=== PATIENT | male | born 1940 | race Caucasian/White ===

== ENCOUNTER 2016-07-29 10:15 | Emergency (ER) | payer MEDICARE, OTHER ==
[~2016-07-29] VITALS: Ht 162.6 cm; Wt 62.0 kg
[~2016-07-29 10:15] MED LIST: FURO20 PO; ISOS60 PO; LISI5 PO; MECL-62 PO; PROT40TA PO; RIVA20 PO; ULTR50TA PO
[2016-07-29 10:23] VITALS: BP 125/68; PULSE 54; RESP 18; TEMP 97.8; O2SAT 97
[2016-07-29] MEDS ORDERED: ONDANSETRON HCL 4 MG/2 ML VIAL IV PUSH ONE (10:30)
[2016-07-29] MEDS ORDERED: LISI2.5T3 PO (10:34)
[2016-07-29] MEDS ORDERED: XARE20TA PO (10:34)
[2016-07-29] MEDS ORDERED: TRAM50TA PO (10:34)
[2016-07-29] MEDS ORDERED: OMEP40CA2 PO (10:34)
[2016-07-29] MEDS ORDERED: CLON1TAB PO (10:34)
[2016-07-29] MEDS ORDERED: FURO20TA PO (10:34)
[2016-07-29 10:58] LABS: BASOPHIL # 0.1 TH/MM3 (0-0.2); BASOPHIL % 1.4 % (0.0-2.0); EOSINOPHIL # 0.2 TH/MM3 (0-0.4); EOSINOPHIL % 2.9 % (0.0-4.0); HEMATOCRIT 34.6 % (39.0-51.0); HEMO FLAGS DIFF FINAL; LYMPH % 13.9 % (9.0-44.0); LYMPHOCYTE # 0.8 TH/MM3 (1.0-4.8); MEAN CELL VOLUME 82.7 FL (80.0-100.0); MEAN CORPUSCULAR HEMOGLOBIN 26.9 PG (27.0-34.0); MEAN CORPUSCULAR HGB CONC 32.5 % (32.0-36.0); MONO % 9.7 % (0.0-8.0); NEUT % 72.1 % (16.0-70.0); PLATELET COUNT 277 TH/MM3 (150-450); RED BLOOD COUNT 4.18 MIL/MM3 (4.50-5.90); WHITE BLOOD COUNT 5.6 TH/MM3 (4.0-11.0)
[2016-07-29 11:09] LABS: APTT (PATIENT) 35.9 SEC (24.3-30.1); INTERNATIONAL NORMALIZED RATIO 1.6 RATIO; PROTHROMBIN TIME - PATIENT 17.8 SEC (9.8-11.6)
--- NOTE | 2016-07-29 11:18 | RADRPT ---
EXAM DATE/TIME: 07/29/2016 11:10 [facility] COMPARISON: CT BRAIN W/O CONTRAST, November 04, 2015, 19:11. INDICATIONS : Cephalgia. RADIATION DOSE: 45.10 CTDIvol (mGy) MEDICAL HISTORY : Cardiovascular disease. Hypertension. Lymphoma.CVA. SURGICAL HISTORY : Pacemaker. ENCOUNTER: Initial ACUITY: 1 day PAIN SCALE: 3/10 LOCATION: cranial TECHNIQUE: Multiple contiguous axial images were obtained of the head. Using automated exposure control and adjustment of the mA and/or kV according to patient size, radiation dose was kept as low as reasonably achievable to obtain optimal diagnostic quality images. FINDINGS: CEREBRUM: The ventricles are normal for age. No evidence of midline shift, mass lesion, hemorrha ge or acute infarction. No extra-axial fluid collections are seen. POSTERIOR FOSSA: The cerebellum and brainstem are intact. The 4th ventricle is midline. The cer ebellopontine angle is unremarkable. EXTRACRANIAL: The visualized portion of the orbits is intact. SKULL: The calvaria is intact. No evidence of skull fracture. CONCLUSION: Negative for an acute process Pranav Aceves MD FACR on July 29, 2016 at 11:16 Board Certified Radiologist. This report was verified electronically.
[2016-07-29 11:25] VITALS: BP 146/63; PULSE 53; RESP 18; O2SAT 95
[2016-07-29 11:25] LABS: ALT (GPT) 14 U/L (12-78); ANION GAP 5 MEQ/L (5-15); AST (GOT) 13 U/L (15-37); BICARBONATE 27.3 MEQ/L (21.0-32.0); BLOOD UREA NITROGEN 12 MG/DL (7-18); CHLORIDE 110 MEQ/L (98-107); GLOMERULAR FILTRATION RATE 68 ML/MIN (>89); MAGNESIUM 2.2 MG/DL (1.5-2.5); POTASSIUM 3.8 MEQ/L (3.5-5.1); SODIUM (NA) 142 MEQ/L (136-145)
[2016-07-29 11:29] LABS: ALKALINE PHOSPHATASE 95 U/L (45-117); TOTAL BILIRUBIN ADULT 0.9 MG/DL (0.2-1.0)
--- NOTE | 2016-07-29 11:42 | RADRPT ---
EXAM DATE/TIME: 07/29/2016 10:59 [facility] COMPARISON: No previous studies available for comparison. INDICATIONS : Short of breath. MEDICAL HISTORY : Cardiovascular disease. SURGICAL HISTORY : Pacemaker. Coronary artery stent. ENCOUNTER: Initial ACUITY: 3 days PAIN SCORE: 0/10 LOCATION: Bilateral chest FINDINGS: Pacemaker is implanted in the left chest without pneumothorax. There is compensated cardiomegaly wit hout overt congestive failure. There is no pneumothorax, or parenchymal infiltrates. Moderate degenerative changes of the thoracic spine CONCLUSION: 1. Mild hyperinflation with pacemaker. 2. There is no congestive failure. 3. Compensated cardiomegaly. Pranav Aceves MD FACR on July 29, 2016 at 11:17 Board Certified Radiologist. This report was verified electronically.
--- NOTE | 2016-07-29 12:53 | PD ---
HPI Chief Complaint: General Weakness Time Seen by Provider: 10:27 Travel History International Travel<30 days: No Contact w/Intl Traveler<30days: No Traveled to known affect area: No History of Present Illness HPI Patient is a 75 year old male BIBEMS due to weakness and a headache. Per patient he had a severe headache earlier today and he took a baby aspirin which has resolved his headache. He says he feels tired, but has not had chest pain. He denies any shortness of breath. He denies any complaints at this time. PFSH Past Medical History Arthritis: Yes (FINGERS) Asthma: No Autoimmune Disease: No Blood Disorders: No Anxiety: No Depression: No Heart Rhythm Problems: Yes Cancer: Yes (LYMPHOMA 2009) Cardiac Catheterization: Yes Cardiomyopathy: Yes (20% EJECTION FRACTURE) Cardiovascular Problems: Yes High Cholesterol: No Chemotherapy: Yes Chest Pain: Yes Congestive Heart Failure: Yes COPD: No Cerebrovascular Accident: Yes Coronary Artery Disease: Yes Diabetes: No Diminished Hearing: Yes Endocrine: No Gastrointestinal Disorders: Yes (GI BLEED WITH POLYPS) GERD: Yes Glaucoma: No Genitourinary: No Headaches: No Hepatitis: No Hiatal Hernia: No Heparin Induced Thrombocytopen: No Hypertension: Yes Immune Disorder: No Inguinal Hernia: Yes Implanted Vascular Access Dvce: Yes Kidney Stones: No Musculoskeletal: Yes (RIGHT KNEE BONE SPUR) Neurologic: Yes Psychiatric: No Reproductive: No Respiratory: Yes Immunizations Current: Yes Migraines: No Myocardial Infarction: Yes (X2) Radiation Therapy: No Renal Failure: No Seizures: No Sickle Cell Disease: No Sleep Apnea: No Thyroid Disease: No Ulcer: No PNEUMOCCOCAL Vaccine (Year): 1 Past Surgical History Abdominal Surgery: Yes AICD: Yes (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(GUIDANT) AICD MODEL 1860 DONE 2009, REPLACED 2011) Appendectomy: No Arteriovenous Shunt: No Body Medical Devices: PACEMAKER, AICD, STENTS x5 Cardiac Surgery: Yes (DEFIBRILLATOR 2002, REPLACEMENT OF DEFIB 2011 ) Cholecystectomy: Yes (1981) Coronary Artery Bypass Graft: No Coronary Stent: Yes (5 STENTS) Ear Surgery: No Endocrine Surgery: Yes (GALLSTONE REMOVAL ) Eye Surgery: No Genitourinary Surgery: No Gynecologic Surgery: No Insulin Pump: No Joint Replacement: No Neurologic Surgery: No Oral Surgery: Yes (TEETH PULLED) Pacemaker: No Thoracic Surgery: No Other Surgery: Yes (AICD) Social History Alcohol Use: No Tobacco Use: No (06/27 PPD) Substance Use: No Allergies-Medications (Allergen,Severity, Reaction): Coded Allergies: Codeine (Verified Allergy, Severe, SWELLING, 03/28/15) Penicillin (Verified Allergy, Severe, HIVES, 03/28/15) MRI PRECAUTION (Verified Adverse Reaction, Severe, pacemaker, 03/28/15) Reported Meds & Prescriptions Reported Meds & Active Scripts Active Reported Lisinopril 2.5 Mg Tab 2.5 Mg PO DAILY Omeprazole 40 Mg Cap 40 Mg PO DAILY Clonazepam 1 Mg Tab 1 Mg PO HS Tramadol (Tramadol HCl) 50 Mg Tab 50 Mg PO Q4H PRN Xarelto (Rivaroxaban) 20 Mg Tab 20 Mg PO DAILY Furosemide 20 Mg Tab 20 Mg PO BID Review of Systems Except as stated in HPI: all other systems reviewed are Neg General / Constitutional: No: Fever, Chills Eyes: No: Blurred Vision HENT: Positive: Headaches Cardiovascular: No: Chest Pain or Discomfort Respiratory: No: Shortness of Breath Gastrointestinal: No: Nausea, Vomiting Musculoskeletal: No: Myalgias, Edema Skin: No Change in Pigmentation Neurologic: No: Dizziness, Syncope Physical Exam Narrative GENERAL: Awake and alert in no acute distress. SKIN: Warm and dry. HEAD: Atraumatic. Normocephalic. EYES: Pupils equal and round. No scleral icterus. ENT: Mucous membranes pink and moist. NECK: Trachea midline. No JVD. CARDIOVASCULAR: Bradycardia No murmur appreciated. RESPIRATORY: No accessory muscle use. Clear to auscultation. Breath sounds equal bilaterally. GASTROINTESTINAL: Abdomen soft, non-tender, nondistended. MUSCULOSKELETAL: No obvious deformities. No clubbing. No cyanosis. No edema. NEUROLOGICAL: Awake and alert. No obvious cranial nerve deficits. Motor grossly within normal limits. Normal speech. PSYCHIATRIC: Appropriate mood and affect; insight and judgment normal. Data Data Last Documented VS Vital Signs Date Time Temp Pulse Resp B/P Pulse Ox O2 Delivery O2 Flow Rate FiO2 07/29/16 11:25 53 18 146/63 95 Nasal Cannula 2 07/29/16 10:23 97.8 Orders Electrocardiogram (07/29/16 ) Complete Blood Count With Diff (07/29/16 10:27) Comprehensive Metabolic Panel (07/29/16 10:27) Troponin I (07/29/16 10:27) Prothrombin Time / Inr (Pt) (07/29/16 10:27) Act Partial Throm Time (Ptt) (07/29/16 10:27) Magnesium (Mg) (07/29/16 10:27) Ct Brain W/O Iv Contrast(Rout) (07/29/16 ) Chest, Pa & Lat (07/29/16 ) Ondansetron Inj (Zofran Inj) (07/29/16 10:30) Labs Laboratory Tests Test 07/29/16 10:39 White Blood Count 5.6 TH/MM3 Red Blood Count 4.18 MIL/MM3 Hemoglobin 11.2 GM/DL Hematocrit 34.6 % Mean Corpuscular Volume 82.7 FL Mean Corpuscular Hemoglobin 26.9 PG Mean Corpuscular Hemoglobin 32.5 % Concent Red Cell Distribution Width 16.0 % Platelet Count 277 TH/MM3 Mean Platelet Volume 8.6 FL Neutrophils (%) (Auto) 72.1 % Lymphocytes (%) (Auto) 13.9 % Monocytes (%) (Auto) 9.7 % Eosinophils (%) (Auto) 2.9 % Basophils (%) (Auto) 1.4 % Neutrophils # (Auto) 4.0 TH/MM3 Lymphocytes # (Auto) 0.8 TH/MM3 Monocytes # (Auto) 0.5 TH/MM3 Eosinophils # (Auto) 0.2 TH/MM3 Basophils # (Auto) 0.1 TH/MM3 CBC Comment DIFF FINAL Differential Comment Prothrombin Time 17.8 SEC Prothromb Time International 1.6 RATIO Ratio Activated Partial 35.9 SEC Thromboplast Time Sodium Level 142 MEQ/L Potassium Level 3.8 MEQ/L Chloride Level 110 MEQ/L Carbon Dioxide Level 27.3 MEQ/L Anion Gap 5 MEQ/L Blood Urea Nitrogen 12 MG/DL Creatinine 1.05 MG/DL Estimat Glomerular Filtration 68 ML/MIN Rate Random Glucose 105 MG/DL Calcium Level 8.4 MG/DL Magnesium Level 2.2 MG/DL Total Bilirubin 0.9 MG/DL Aspartate Amino Transf 13 U/L (AST/SGOT) Alanine Aminotransferase 14 U/L (ALT/SGPT) Alkaline Phosphatase 95 U/L Troponin I LESS THAN 0.02 NG/ML Total Protein 6.8 GM/DL Albumin 3.3 GM/DL [facility] Medical Decision Making Medical Screen Exam Complete: Yes Emergency Medical Condition: Yes Medical Record Reviewed: Yes Interpretation(s) ECG shows sinus bradycardia, no ST elevation or depression. Differential Diagnosis ICH vs electrolyte abnormalities vs dehydration vs anemia vs bradycardia Narrative Course Patient is a 75 year old male BIBEMS for headache and generalized weakness. Currently patient has no complaints. Exam shows bradycardia, no neurologic abnormalities. IV established, labs sent. Patient connected to the tank builder helper. Labs show no acute abnormalities. CT head shows no acute abnormalities. CXR shows no active disease. Patient's wants him admitted as she is concerned he may have a mini stroke. Patient has no neurologic deficit since being here and does not report any at home. He is awake and oriented times 3. He says he feels fine and he wants to go home. He insists on going home and says he will not stay. I tried to discuss his 's concerns with him, but he states he absolutely will not stay. He is fully alert and oriented and able to make his own decisions, therefore, I cannot keep him against his will. Patient will be discharged home. Advised to follow up with his doctors. Advised to return at any time for any worsening symptoms. Diagnosis Primary Impression: Headache Qualified Code: R51 - Acute nonintractable headache, unspecified headache type Additional Impression: Weakness Patient Instructions: Acute Headache (ED), General Instructions, Weakness (ED) Additional Instructions: Make sure you follow up with your doctors. Return to the ED as needed for any worsening symptoms. Disposition: 01 DISCHARGE HOME Condition: Stable Lyn Gomez MD Jul 29, 2016 12:53
--- NOTE | 2016-07-29 14:51 | EKG ---
Date Performed: 07/29/2016 Time Performed: 10:24:10 PTAGE: 75 years EKG: ATRIAL FIBRILLATION WITH SLOW VENTRICULAR RESPONSE INDETERMINATE AXIS SEPTAL MYOCARDIAL INF ARCTION LATERAL MYOCARDIAL INFARCTION Compared to previous tracing the patient has developed atrial f ibrillation with slow v. response. There is no longer evidence of pacemaker activity and PVCs have re solved ABNORMAL ECG PREVIOUS TRACING : 11/04/15 DOCTOR: Jo Muir Interpretating Date/Time 07/29/2016 14:49:31
[2016-10-11] MEDS ORDERED: COUM2TAB PO ×2 (09:58→10:03)
[2016-10-11] MEDS ORDERED: FURO20TA PO (09:58)
[2016-10-11] MEDS ORDERED: PANT40TA3 PO (09:58)
[2016-10-11] MEDS ORDERED: ACET325T PO (09:58)
[2016-10-11] MEDS ORDERED: MUCI600T PO (09:58)
[2016-10-11] MEDS ORDERED: POTA-88 PO (09:58)
[2016-10-11] MEDS ORDERED: CLON.5 PO (11:04)
== END 2016-07-29 13:30 | disposition home or self-care (01) ==
LOC: NEPC 10:15
DX: R51 Headache (principal); R53.1 Weakness; I50.9 Heart failure, unspecified; I48.91 Unspecified atrial fibrillation; I25.10 Atherosclerotic heart disease of native coronary artery without angina pectoris; I10 Essential (primary) hypertension; I25.2 Old myocardial infarction; F17.210 Nicotine dependence, cigarettes, uncomplicated
CPT/HCPCS: 70450; 71020; 80053; 83735; 84484; 85025; 85610; 85730; 93005; 96374; 99285; J2405

== ENCOUNTER 2016-09-22 12:08 | Inpatient (IN) | payer MEDICARE, OTHER ==
[2016-09-22] VITALS (13 sets, daily range): BP systolic 100–175; BP diastolic 50–106; PULSE 59–79; RESP 14–20; TEMP 97.9–98.8; O2SAT 98–100
[~2016-09-22 12:08] MED LIST changes: +CLON1TAB PO; -FURO20 PO; +FURO20TA PO; -ISOS60 PO; +LISI2.5T3 PO; -LISI5 PO; -MECL-62 PO; +OMEP40CA2 PO; -PROT40TA PO; -RIVA20 PO; +TRAM50TA PO; -ULTR50TA PO; +XARE20TA PO
[2016-09-22] MEDS ORDERED: SODIUM CHLOR 0.9% 1000 ML INJ 1,000 ML IV ONE (12:12)
--- NOTE | 2016-09-22 12:12 | PD ---
HPI Chief Complaint: Stroke Alert Time Seen by Provider: 12:12 Travel History International Travel<30 days: No Contact w/Intl Traveler<30days: No Traveled to known affect area: No History of Present Illness HPI 76-year-old male came to the emergency room brought by EMS for being unresponsive and posturing. He was called in as a stroke alert by EMS. Patient was with his at the restaurant when apparently he told his that he was not feeling well and went to the restroom. When he did not come out she went after him and found him unresponsive on the floor and called 911. This was around 11:45 AM. EMS found him with a GCS of 3 and gazing to the left and posturing. Brought him being assisted ventilated by BVM. Patient is on Xarelto possibly for atrial fibrillation since he was in A. fib on the manager monitoring. Patient is unable to give any meaningful history given his condition. I decided to intubate him as soon as he arrived. There was no family member at the time when patient arrived to give any other history. [facility] Past Medical History Narrative Medical List of his past medical, surgical, social and family history was reviewed from the nursing note. Arthritis: Yes (FINGERS) Asthma: No Autoimmune Disease: No Blood Disorders: No Anxiety: No Depression: No Heart Rhythm Problems: Yes Cancer: Yes (LYMPHOMA 2009) Cardiac Catheterization: Yes Cardiomyopathy: Yes (20% EJECTION FRACTURE) Cardiovascular Problems: Yes High Cholesterol: No Chemotherapy: Yes Chest Pain: Yes Congestive Heart Failure: Yes COPD: No Cerebrovascular Accident: Yes Coronary Artery Disease: Yes Diabetes: No Diminished Hearing: Yes Endocrine: No Gastrointestinal Disorders: Yes (GI BLEED WITH POLYPS) GERD: Yes Glaucoma: No Genitourinary: No Headaches: No Hepatitis: No Hiatal Hernia: No Heparin Induced Thrombocytopen: No Hypertension: Yes Immune Disorder: No Inguinal Hernia: Yes Implanted Vascular Access Dvce: Yes Kidney Stones: No Musculoskeletal: Yes (RIGHT KNEE BONE SPUR) Neurologic: Yes Psychiatric: No Reproductive: No Respiratory: Yes Immunizations Current: Yes Migraines: No Myocardial Infarction: Yes (X2) Radiation Therapy: No Renal Failure: No Seizures: No Sickle Cell Disease: No Sleep Apnea: No Thyroid Disease: No Ulcer: No PNEUMOCCOCAL Vaccine (Year): 1 Past Surgical History Abdominal Surgery: Yes AICD: Yes (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) AICD MODEL 1860 DONE 2009, REPLACED 2011) Appendectomy: No Arteriovenous Shunt: No Body Medical Devices: PACEMAKER, AICD, STENTS x5 Cardiac Surgery: Yes (DEFIBRILLATOR 2002, REPLACEMENT OF DEFIB 2011 ) Cholecystectomy: Yes (1981) Coronary Artery Bypass Graft: No Coronary Stent: Yes (5 STENTS) Ear Surgery: No Endocrine Surgery: Yes (GALLSTONE REMOVAL ) Eye Surgery: No Genitourinary Surgery: No Gynecologic Surgery: No Insulin Pump: No Joint Replacement: No Neurologic Surgery: No Oral Surgery: Yes (TEETH PULLED) Pacemaker: No Thoracic Surgery: No Other Surgery: Yes (AICD) Social History Alcohol Use: No Tobacco Use: No (06/27 PPD) Substance Use: No Allergies-Medications (Allergen,Severity, Reaction): Coded Allergies: Codeine (Verified Allergy, Severe, SWELLING, 03/28/15) Penicillin (Verified Allergy, Severe, HIVES, 03/28/15) MRI PRECAUTION (Verified Adverse Reaction, Severe, pacemaker, 03/28/15) Comments List of his allergies reviewed from the nursing note. Reported Meds & Prescriptions Reported Meds & Active Scripts Active Reported Lisinopril 2.5 Mg Tab 2.5 Mg PO DAILY Omeprazole 40 Mg Cap 40 Mg PO DAILY Clonazepam 1 Mg Tab 1 Mg PO HS Tramadol (Tramadol HCl) 50 Mg Tab 50 Mg PO Q4H PRN Xarelto (Rivaroxaban) 20 Mg Tab 20 Mg PO DAILY Furosemide 20 Mg Tab 20 Mg PO BID Narrative Medication List of his home medications reviewed from the nursing note. Review of Systems Except as stated in HPI: all other systems reviewed are Neg Physical Exam Narrative GENERAL: Unresponsive, significant distress SKIN: Warm and dry. HEAD: Atraumatic. Normocephalic. EYES: Pupils equal and round. Patient has a fixed gaze to the left side ENT: No nasal bleeding or discharge. Mucous membranes pink and moist. NECK: Trachea midline. No JVD. CARDIOVASCULAR: Irregularly irregular rate and rhythm RESPIRATORY: Irregular spontaneous respirations with intermittent inguinal breaths. Patient was assisted by BVM GASTROINTESTINAL: Abdomen soft, non-tender, nondistended. Hepatic and splenic margins not palpable. MUSCULOSKELETAL: Extremities without clubbing, cyanosis, or edema. No obvious deformities. NEUROLOGICAL: GCS of 3, decerebrate posturing PSYCHIATRIC: Unable to assess Data Data Last Documented VS Vital Signs Date Time Temp Pulse Resp B/P Pulse Ox O2 Delivery O2 Flow Rate FiO2 09/22/16 12:57 100 100 09/22/16 12:55 79 158/106 Ventilator 09/22/16 12:40 97.9 Orders Diet Npo (09/22/16 Lunch) Activity Bed Rest (09/22/16 ) Electrocardiogram (09/22/16 ) I-Stat Creatinine (09/22/16 12:12) I-Stat Profile (09/22/16 12:12) Prothrombin Time / Inr (Pt) (09/22/16 12:12) Act Partial Throm Time (Ptt) (09/22/16 12:12) Complete Blood Count With Diff (09/22/16 12:12) Fibrinogen (09/22/16 12:12) Creatine Kinase (Cpk) (09/22/16 12:12) Troponin I (09/22/16 12:12) Ua Includes Microscopic (09/22/16 12:12) Drug Screen, Random Urine (09/22/16 12:12) Type And Screen (09/22/16 12:12) Ct Brain W/O Iv Contrast(Rout) (09/22/16 ) Consult Neurology (09/22/16 ) Blood Glucose (09/22/16 12:12) Ecg Monitoring (09/22/16 12:12) Neuro Checks Q2HX12,Q4H (09/22/16 12:12) Nursing Bedside Swallow Assess .ONCE (09/22/16 12:12) Iv Access Insert/Monitor (09/22/16 12:12) NPO (09/22/16 12:12) Oximetry (09/22/16 12:12) Oxygen Administration (09/22/16 12:12) Sodium Chlor 0.9% 1000 Ml Inj (Ns 1000 M (09/22/16 12:12) Resp Oxygen Manoj C Titrat 1-4 L (09/22/16 12:12) Cath For Specimen (09/22/16 12:12) Cta Neck W Iv Contrast W 3d (09/22/16 ) Cta Brain W Iv Contrast W 3d (09/22/16 ) Midazolam Inj (Versed Inj) (09/22/16 12:30) Propofol 1000 Mg/100 Ml Inj (Diprivan 10 (09/22/16 12:30) ^ Infusion (09/22/16 12:27) RASS (09/22/16 12:27) Neurological Rass Scale ROSEMARY.Q2H (09/22/16 12:27) Propofol 1000 Mg/100 Ml Inj (Diprivan 10 (09/22/16 12:30) Iohexol 350 Inj (Omnipaque 350 Inj) (09/22/16 12:50) Labs Laboratory Tests Test 09/22/16 09/22/16 12:15 12:55 White Blood Count 7.7 TH/MM3 Red Blood Count 4.46 MIL/MM3 Hemoglobin 12.2 GM/DL Bedside Hemoglobin 12.9 G/DL Hematocrit 37.2 % Bedside Hematocrit 38.0 % Mean Corpuscular Volume 83.4 FL Mean Corpuscular Hemoglobin 27.4 PG Mean Corpuscular Hemoglobin 32.9 % Concent Red Cell Distribution Width 19.3 % Platelet Count 299 TH/MM3 Mean Platelet Volume 8.0 FL Neutrophils (%) (Auto) 66.6 % Lymphocytes (%) (Auto) 23.4 % Monocytes (%) (Auto) 6.8 % Eosinophils (%) (Auto) 2.3 % Basophils (%) (Auto) 0.9 % Neutrophils # (Auto) 5.1 TH/MM3 Lymphocytes # (Auto) 1.8 TH/MM3 Monocytes # (Auto) 0.5 TH/MM3 Eosinophils # (Auto) 0.2 TH/MM3 Basophils # (Auto) 0.1 TH/MM3 CBC Comment DIFF FINAL Differential Comment Prothrombin Time 11.6 SEC Prothromb Time International 1.0 RATIO Ratio Activated Partial 23.8 SEC Thromboplast Time Fibrinogen 302 mg/dL Bedside Sodium 142 MMOL/L Bedside Potassium 3.9 MMOL/L Bedside Chloride 107 MMOL/L Bedside Blood Urea Nitrogen 19 MG/DL Bedside Creatinine 1.1 MG/DL Bedside Glucose 119 MG/DL Total Creatine Kinase 76 U/L Troponin I LESS THAN 0.02 NG/ML Blood Type O POSITIVE Antibody Screen NEGATIVE Urine Color YELLOW Urine Turbidity CLEAR Urine pH 5.5 Urine Specific [place] 1.011 Urine Protein 30 mg/dL Urine Glucose (UA) NEG mg/dL Urine Ketones NEG mg/dL Urine Occult Blood SMALL Urine Nitrite NEG Urine Bilirubin NEG Urine Urobilinogen LESS THAN 2.0 MG/DL Urine Leukocyte Esterase NEG Urine RBC 6 /hpf Urine WBC 2 /hpf Urine Squamous Epithelial <1 /hpf Cells Urine Hyaline Casts 2 /lpf Urine Opiates Screen NEG Urine Barbiturates Screen NEG Urine Amphetamines Screen NEG Urine Benzodiazepines Screen NEG Urine Cocaine Screen NEG Urine Cannabinoids Screen NEG MDM Medical Decision Making Medical Screen Exam Complete: Yes Emergency Medical Condition: Yes Medical Record Reviewed: Yes Interpretation(s) Twelve-lead EKG was reviewed by me. Atrial fibrillation, PVC, normal axis, poor R-wave progression. Heart rate of 82 bpm. Differential Diagnosis Acute CVA, intracranial bleed Narrative Course 1 PM patient was emergently taken to CT after the intubation. Radiologist called back from the CT to let me know that there was no intracranial bleed. I discussed the case with Dr. Patricia who was on-call for neurology and given the fact that patient is on Xarelto he is not a TPA candidate. However he wanted a CT angiogram of the brain and carotids. 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 Patient was again emergently taken for interventional radiology this time for clot retrieval. I spoke with the diesel inspector and admitted the patient to ICU. He was started on propofol for sedation. Patient remained hemodynamically stable throughout this. I have not seen a family member yet. Plan is to take the patient directly to the ICU after interventional radiology is done. Critical Care Narrative Aggregate critical care time was 60 minutes. Time to perform other separately billable procedures was not included in the critical care time. My time did not include minutes spent treating any other patients simultaneously or on activities that did not directly contribute to the patient's treatment. The services I provided to this patient were to treat and/or prevent clinically significant deterioration that could result in: Stroke alert, unresponsive, respiratory failure I provided critical care services requiring my management, as noted below: Chart data review, documentation time, medication orders and management, vital sign assessments/reviewing monitor data, ordering and reviewing lab tests, ordering and interpreting/reviewing x-rays and diagnostic studies, care of the patient and discussion of the patient with the admitting physicians. Procedures Procedure Narrative After the risks and benefits were discussed the following procedure was performed: INTUBATION: The patient was put in optimal position for the procedure. Rapid sequence intubation was initiated by me using 20 milligrams of etomidate IV and 100 milligrams of succinylcholine IV. The patient was intubated with a 8 cuffed endotracheal tube. Tube placement was confirmed by visualization of the tube and balloon passing through the cords, capnometry and subsequent chest x-ray. Breath sounds were equal and well aerated bilaterally postintubation. No breath sounds over stomach. Patient tolerated procedure well. EKG Prior to Arrival: Yes Physician Communication Physician Communication Dr. Patricia, Dr. Hussein Diagnosis Primary Impression: Acute CVA (cerebrovascular accident) Additional Impressions: Unresponsive Respiratory failure Qualified Code: J96.00 - Acute respiratory failure, unspecified whether with hypoxia or hypercapnia Admitting Information Admitting Physician Requests: Admit Yang Blue MD Sep 22, 2016 12:12
[2016-09-22 12:30] LABS: I-STAT POTASSIUM 3.9 MMOL/L (3.5-4.9); I-STAT SODIUM 142 MMOL/L (138-146)
[2016-09-22] MEDS ORDERED: PROPOFOL 1000 MG/100 ML INJ 100 ML ONE (12:30)
[2016-09-22] MEDS ORDERED: PROPOFOL 1000 MG/100 ML INJ 100 ML IV SCH (12:30)
[2016-09-22] MEDS ORDERED: MIDAZOLAM HCL 2 MG/2 ML VIAL IV PUSH ONE (12:30)
--- NOTE | 2016-09-22 12:30 | RADRPT ---
EXAM DATE/TIME: 09/22/2016 12:12 [facility] COMPARISON: CT BRAIN W/O CONTRAST, July 29, 2016, 11:10. INDICATIONS : Stroke alert, unresponsive. RADIATION DOSE: 56.35 CTDIvol (mGy) This report was called by Dr Wild to Dr Helm at 1226 MEDICAL HISTORY : Non-responsive. SURGICAL HISTORY : Non-responsive. ENCOUNTER: Initial ACUITY: 1 day PAIN SCALE: Non-responsive LOCATION: cranial TECHNIQUE: Multiple contiguous axial images were obtained of the head. Using automated exposure control and adj ustment of the mA and/or kV according to patient size, radiation dose was kept as low as reasonably a chievable to obtain optimal diagnostic quality images. FINDINGS: CEREBRUM: Atrophy. The ventricles are normal for age. No evidence of midline shift, mass lesion, hemorrhage or acute infarction. No extra-axial fluid collections are seen. POSTERIOR FOSSA: The cerebellum and brainstem are intact. The 4th ventricle is midline. The cerebellopontine angle i s unremarkable. EXTRACRANIAL: The visualized portion of the orbits is intact. Mucosal thickening without air-fluid level involve th e right maxillary sinus. SKULL: The calvaria is intact. No evidence of skull fracture. CONCLUSION: 1. No acute intracranial abnormality. 2. Atrophy. Nic Wild Jr., MD on September 22, 2016 at 12:25 Board Certified Radiologist. This report was verified electronically.
[2016-09-22 12:33] LABS: AUTOMATED NEUTROPHIL # 5.1 TH/MM3 (1.8-7.7); BASOPHIL # 0.1 TH/MM3 (0-0.2); BASOPHIL % 0.9 % (0.0-2.0); EOSINOPHIL # 0.2 TH/MM3 (0-0.4); EOSINOPHIL % 2.3 % (0.0-4.0); HEMATOCRIT 37.2 % (39.0-51.0); HEMO FLAGS DIFF FINAL; LYMPH % 23.4 % (9.0-44.0); LYMPHOCYTE # 1.8 TH/MM3 (1.0-4.8); MEAN CELL VOLUME 83.4 FL (80.0-100.0); MEAN CORPUSCULAR HEMOGLOBIN 27.4 PG (27.0-34.0); MEAN CORPUSCULAR HGB CONC 32.9 % (32.0-36.0); MONO % 6.8 % (0.0-8.0); NEUT % 66.6 % (16.0-70.0); PLATELET COUNT 299 TH/MM3 (150-450); RED BLOOD COUNT 4.46 MIL/MM3 (4.50-5.90); RED CELL DISTRIBUTION WIDTH 19.3 % (11.6-17.2); WHITE BLOOD COUNT 7.7 TH/MM3 (4.0-11.0)
[2016-09-22] MEDS ORDERED: IOHEXOL 350 MG/ML 10 ML VIAL (for RAD DIAG) IV ONE (12:50)
[2016-09-22 12:57] LABS: CREATINE KINASE 76 U/L (39-308)
[2016-09-22] MEDS ORDERED: VERAPAMIL HCL 5 MG/2 ML VIAL ONE (13:02)
[2016-09-22 13:04] LABS: APTT (PATIENT) 23.8 SEC (24.3-30.1); PROTHROMBIN TIME - PATIENT 11.6 SEC (9.8-11.6)
[2016-09-22] MEDS ORDERED: VERAPAMIL INJ 10 MG/4 ML VIAL ONE (13:09)
[2016-09-22] MEDS ORDERED: fentaNYL CITRATE 250 MCG/5 ML AMP ONE (13:13)
[2016-09-22] MEDS ORDERED: MIDAZOLAM HCL 5 MG/5 ML VIAL ONE (13:13)
[2016-09-22] MEDS ORDERED: CHLORHEXIDINE GLUCONATE 2 % 1 PACK (2 CLOTHS) TOP PRN (13:15)
[2016-09-22] MEDS ORDERED: ACETAMINOPHEN 325 MG TAB PO PRN (13:15)
[2016-09-22] MEDS ORDERED: MISCELLANEOUS NURSING INFORMATION XX SCH (13:15)
[2016-09-22] MEDS ORDERED: RESP: ALBUTEROL 2.5 MG/IPRATROPIUM 0.5 MG NEB (PRN) INH (13:15)
--- NOTE | 2016-09-22 13:16 | RADRPT ---
EXAM DATE/TIME: 09/22/2016 12:32 [facility] COMPARISON: No previous studies available for comparison. INDICATIONS : Stroke alert. Uresponsive. GCS of 3. IV CONTRAST: 65 cc IV RADIATION DOSE: 45.82 CTDIvol (mGy) MEDICAL HISTORY : Non-responsive. SURGICAL HISTORY : Non-responsive. ENCOUNTER: Initial ACUITY: 1 day PAIN SCALE: Non-responsive LOCATION: cranial TECHNIQUE: Volumetric scanning was performed using a multi-row detector CT scanner. The data was post processed with a variety of visualization algorithms including full volume maximum intensity projection, multi -planar sliding thin slab reformation, curved planar reformation, and surface rendering techniques. Using automated exposure control and adjustment of the mA and/or kV according to patient size, radiat ion dose was kept as low as reasonably achievable to obtain optimal diagnostic quality images. FINDINGS: There is lack of opacification of the majority of the basilar artery. Both vertebral arteries supply the basilar artery. There is good collateralization to the posterior cerebral arteries via descent ca liber posterior communicating arteries bilaterally. The MCAs and ACAs are patent. Both PICAs opacify with contrast. CONCLUSION: Occlusion of the basilar artery. Nic Wild Jr., MD on September 22, 2016 at 13:00 Board Certified Radiologist. This report was verified electronically.
[2016-09-22 13:20] LABS: BLOOD, URINE SMALL (NEG); GLUCOSE,URINE NEG (NEG); HYALINE CAST, URINE 2 /lpf (RARE); KETONE, URINE NEG (NEG); NITRITE,URINE NEG (NEG); PH, URINE 5.5 (5.0-8.5); SQUAMOUS EPITHELIAL CELL URINE <1 /hpf (0-5); URINE COLOR YELLOW (YELLW/STRAW)
--- NOTE | 2016-09-22 13:20 | RADRPT ---
EXAM DATE/TIME: 09/22/2016 12:34 [facility] COMPARISON: No previous studies available for comparison. INDICATIONS : Stroke alert. Found unresponsive. IV CONTRAST: 65 cc Omnipaque 350 (iohexol) IV ; Cumulative dose for multiple exams. RADIATION DOSE: 45.82 CTDIvol (mGy) ; Combined studies MEDICAL HISTORY : Non-responsive. SURGICAL HISTORY : Non-responsive. ENCOUNTER: Initial ACUITY: 1 day PAIN SCALE: Non-responsive LOCATION: neck Elevated flow velocities and ICA/CCA ratios have been found to correlate with increased degrees of vessel stenosis, calculated as percentage of diameter relative to a normal segment of distal ICA/CCA. TECHNIQUE: Volumetric scanning was performed using a multirow detector CT scanner. The data was post processed with a variety of visualization algorithms including full-volume maximum intensity projection, multip lanar sliding thin-slab reformation, curved-planar reformation, and surface-rendering techniques. Us ing automated exposure control and adjustment of the mA and/or kV according to patient size, radiatio n dose was kept as low as reasonably achievable to obtain optimal diagnostic quality images. FINDINGS: AORTIC ARCH: There is a 4 vessel origin to the aortic arch. The origin of the brachiocephalic artery is not contai jaja within the [id number] as it arises fairly low. The left common carotid artery, left vertebral artery, and left subclavian artery origins are patent and well-visualized. The visualized portions of both subclavian arteries are patent. RIGHT CAROTID: The common carotid artery is intact. The carotid bulb has a normal configuration without ulceration o r narrowing. The internal carotid artery lumen is smooth without stenosis. The external carotid charanjit ry is intact.LEFT CAROTID: The common carotid artery is intact. The carotid bulb has a normal configuration without ulceration or narrowing. The internal carotid artery lumen is smooth without stenosis. The external carotid ar roby is intact. VERTEBRALS: The vertebral arteries have a symmetric diameter. No stenotic lesions are seen. There is occlusion o f the basilar artery described in the CTA of the brain report. CONCLUSION: 1. Occlusion of the basilar artery described in the CTA of the brain report. 2. Patent carotid arteries and vertebral arteries. The left vertebral artery arises directly off the aortic arch. Nic Wild Jr., MD on September 22, 2016 at 13:15 Board Certified Radiologist. This report was verified electronically.
[2016-09-22 13:21] LABS: AMPHETAMINE, URINE NEG (NEG); BARBITURATES, URINE NEG (NEG); COCAINE, URINE NEG (NEG)
[2016-09-22] MEDS ORDERED: GLUCAGON 1 MG/ML VIAL OTHER PRN (13:30)
[2016-09-22] MEDS: PROPOFOL 1000 MG/100 ML INJ 100 ML IV SCH (13:42)
[2016-09-22] MEDS ORDERED: VANCOMYCIN HCL 1000 MG VIAL ONE (13:42)
[2016-09-22] MEDS ORDERED: HEPARIN SODIUM - IV 10,000 UNITS/10 ML VIAL ONE (14:04)
--- NOTE | 2016-09-22 14:27 | MB ---
cc: NELSON FISCHER M.D. DATE OF CONSULTATION: 09/22/2016 REASON FOR CONSULTATION Stroke alert. HISTORY OF PRESENT ILLNESS Mr. Rojo is a 76-year-old man who has a history of atrial fibrillation and was in his usual state of health until this morning around 11:45. He suddenly developed some abdominal discomfort at a restaurant and went in to use the restroom, his found him unconscious in the restroom, EVAC was called. He was found to have a What Cheer Coma Scale of 3 on presentation with a left gaze. He presented to the hospital, NIH stroke scale was 7 in the hospital, a stroke alert was called. The patient had to be intubated to protect his airway, there was also noted to be posturing of both upper and lower extremities. Initial CT scan of the brain is unremarkable with no acute change present. Because of the severity of his symptoms and elevated NIH stroke scale, I recommended proceeding to CT angiography which has since been completed. He had a CT angiogram of the brain which shows occlusion of the basilar artery. Both vertebral arteries supply the basilar artery, there is good collateralization to the posterior cerebral arteries, bilateral MCA and KARAN are patent, both PICAs opacify well. He had a CT angiogram of the neck done also which reveals patent carotid artery and vertebral arteries. The left vertebral artery arises directly from the aortic arch. PAST MEDICAL HISTORY Remarkable for - 1. Atrial fibrillation. 2. History of lymphoma. 3. History of arthritis. 4. Cardiomyopathy with an EF of 20%. 5. History of GI bleed in the past with polyps. 6. Osteoarthritis of the knee. 7. He has an AICD in place. 8. Pacemaker. 9. Cardiac stents. 10. Cholecystectomy. 11. Gallstone removal. ALLERGIES CODEINE, PENICILLIN. HE IS UNABLE TO HAVE AN MRI BECAUSE OF THE AICD. SOCIAL HISTORY He does smoke. Denies alcohol use. MEDICATIONS AT HOME 1. Xarelto 20 mg daily. 2. Tramadol 50 mg as needed for pain. 3. Clonazepam 1 mg h.s. 4. Omeprazole 40 mg daily. 5. Lisinopril 2.5 mg daily. 6. Lasix 20 mg b.i.d. NEUROLOGIC EXAMINATION VITAL SIGNS: His blood pressure is 158/106, pulse 67, he is in atrial fibrillation, temperature is 97.9 degrees. Higher cortical function: He is sedated, nonresponsive. The pupils are 1 mm symmetric, minimally reactive. Extraocular movements cannot be obtained with doll's eyes maneuver. Gag is diminished. On motor exam he has posturing which is decerebrate both upper and lower extremities. He has no withdrawal to painful stimuli. Reflexes are symmetric. He does have bilateral Babinski signs. LABORATORY DATA The white count is 7700, hemoglobin 12.2, hematocrit 37%, platelet count is 299,000. His PT 11.6, INR 1, APTT 23.8. Sodium is 142, potassium 3.9, chloride 107, BUN is 19, creatinine 1.1, glucose 119, CPK 76. Tox screen is negative. His EKG is atrial fibrillation. 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 The CT angiogram of the neck is normal showing normal vertebral and carotid arteries. I suspect this may be embolic from the atrial fibrillation versus atherosclerosis in the basilar artery. The patient is discussed with Dr. Stephens of interventional radiology, and the patient is currently on his way into the angiogram suite for potential intervention and clot extraction. He is not a candidate for IV TPA because he is on Xarelto. Thank you for asking me to see this patient in consult. MD ROSY Duong/ANDREA /1:32 PM /2:03 PM
--- NOTE | 2016-09-22 15:06 | PD.RAD ---
Post Procedure Progress Note Pre Procedure Diagnosis: (1) Acute CVA (cerebrovascular accident) Post Procedure Diagnosis: (1) Acute CVA (cerebrovascular accident) Procedure Date: Sep 22, 2016 Supervising Radiologist: Nic Wild JR Proceduralist/Assist: Jovany Ribeiro, RT(R), Kassidy Boyce, RT(R)(CV), Shanta Zazueta RT(R) Anesthesia: Other Plan of Activity Patient to Unit: Critical Care Patient Condition: Fair See PACS Report for procedural detail/treatment Vascular-Arterial Procedure Procedure 1 Procedure Site: Cerebral Procedure(s): Embolectomy Access Access Site(s): Right Femoral Artery Closure Site(s): Right vascular closure device Findings: Cerebral angiography shows complete occlusion of the basilar artery. Mechanical thrombectomy was successful with complete evacuation of the thrombus. TICI score 3. Patient has variant anatomy with right posterior cerebral artery arising from the right ICA. Jr. Junito,Nic Talamantes MD Sep 22, 2016 15:06
[2016-09-22] MEDS ORDERED: IODIXANOL 320 MG/ML 50 ML VIAL (for RAD SPEC) I-ARTERIAL ONE (15:10)
--- NOTE | 2016-09-22 16:22 | HHI.HP ---
HPI Service Critical Care Medicine Primary Care Physician Unknown Admission Diagnosis acute CVA, unresponsive, respiratory failure Diagnosis: Chief Complaint: Unresponsiveness, stroke alert Travel History International Travel<30 Days: No Contact w/Intl Traveler <30 Da: No Traveled to Known Affected Are: No History of Present Illness HPI 76-year-old male came to the emergency room brought by EMS for being unresponsive and posturing. He was called in as a stroke alert by EMS. Patient was with his at the restaurant when apparently he told his that he was not feeling well and went to the restroom. When he did not come out she went after him and found him unresponsive on the floor and called 911. This was around 11:45 AM. EMS found him with a GCS of 3 and gazing to the left and posturing. Brought him being assisted ventilated by BVM. Patient is on Xarelto possibly for atrial fibrillation since he was in A. fib on the desk monitor. Patient is unable to give any meaningful history given his condition. Patient was intubated by ER physician for airway protection and placed on mechanical ventilation. There was no family member at the time when patient arrived to give any other history. A stroke alert was called. Head CT was negative for bleed. CTA revealed occlusion of basilar artery. Patient was not deemed to be a candidate for TPA as he was on Xarelto for anticoagulation for chronic A. fib. Patient was seen by Dr. Patricia from neurology and was subsequently underwent mechanical clot retrieval by interventional radiology - Dr. Wild. Following this he was transferred to [facility] where I evaluated him immediately following his arrival. At the time of my evaluation patient was sedated with propofol, orally intubated on mechanical ventilation. He was sedated though easily arousable opening eyes spontaneously and moving all 4 extremities at the time of arrival to the ICU. History was obtained by reviewing records and discussion with Dr. Blue and subsequently Dr. Wild from [facility] Past Medical History Narrative Medical Arthritis: Yes (FINGERS) Asthma: No Autoimmune Disease: No Blood Disorders: No Anxiety: No Depression: No Heart Rhythm Problems: Yes Cancer: Yes (LYMPHOMA 2009) Cardiac Catheterization: Yes Cardiomyopathy: Yes (20% EJECTION FRACTURE) Cardiovascular Problems: Yes High Cholesterol: No Chemotherapy: Yes Chest Pain: Yes Congestive Heart Failure: Yes COPD: No Cerebrovascular Accident: Yes Coronary Artery Disease: Yes Diabetes: No Diminished Hearing: Yes Endocrine: No Gastrointestinal Disorders: Yes (GI BLEED WITH POLYPS) GERD: Yes Glaucoma: No Genitourinary: No Headaches: No Hepatitis: No Hiatal Hernia: No Heparin Induced Thrombocytopen: No Hypertension: Yes Immune Disorder: No Inguinal Hernia: Yes Implanted Vascular Access Dvce: Yes Kidney Stones: No Musculoskeletal: Yes (RIGHT KNEE BONE SPUR) Neurologic: Yes Psychiatric: No Reproductive: No Respiratory: Yes Immunizations Current: Yes Migraines: No Myocardial Infarction: Yes (X2) Radiation Therapy: No Renal Failure: No Seizures: No Sickle Cell Disease: No Sleep Apnea: No Thyroid Disease: No Ulcer: No PNEUMOCCOCAL Vaccine (Year): 1 Past Surgical History Abdominal Surgery: Yes AICD: Yes (LEFT CHEST REMOTE MEDICAL CODER(GUIDANT) AICD MODEL 1860 DONE 2009, REPLACED 2011) Appendectomy: No Arteriovenous Shunt: No Body Medical Devices: PACEMAKER, AICD, STENTS x5 Cardiac Surgery: Yes (DEFIBRILLATOR 2002, REPLACEMENT OF DEFIB 2011 ) Cholecystectomy: Yes (1981) Coronary Artery Bypass Graft: No Coronary Stent: Yes (5 STENTS) Ear Surgery: No Endocrine Surgery: Yes (GALLSTONE REMOVAL ) Eye Surgery: No Genitourinary Surgery: No Gynecologic Surgery: No Insulin Pump: No Joint Replacement: No Neurologic Surgery: No Oral Surgery: Yes (TEETH PULLED) Pacemaker: No Thoracic Surgery: No Other Surgery: Yes (AICD) Social History Alcohol Use: No Tobacco Use: No (2 PPD) Substance Use: No Allergies-Medications (Allergen,Severity, Reaction): Coded Allergies: Codeine (Verified Allergy, Severe, SWELLING, 03/28/15) Penicillin (Verified Allergy, Severe, HIVES, 03/28/15) MRI PRECAUTION (Verified Adverse Reaction, Severe, pacemaker, 03/28/15) Comments List of his allergies reviewed from the nursing note. Reported Meds & Prescriptions Reported Meds & Active Scripts Active Reported Lisinopril 2.5 Mg Tab 2.5 Mg PO DAILY Omeprazole 40 Mg Cap 40 Mg PO DAILY Clonazepam 1 Mg Tab 1 Mg PO HS Tramadol (Tramadol HCl) 50 Mg Tab 50 Mg PO Q4H PRN Xarelto (Rivaroxaban) 20 Mg Tab 20 Mg PO DAILY Furosemide 20 Mg Tab 20 Mg PO BID Review of systems Could not be obtained as patient is sedated, orally intubated on mechanical ventilation. Physical Exam Vital Signs Vital Signs Date Time Temp Pulse Resp B/P Pulse Ox O2 Delivery O2 Flow Rate FiO2 09/22/16 15:12 98 50 09/22/16 13:36 98 100 09/22/16 12:57 100 100 09/22/16 12:57 100 50 09/22/16 12:55 79 158/106 100 Ventilator 09/22/16 12:40 97.9 67 150/74 100 Ventilator 09/22/16 12:12 70 175/81 Physical Exam HEENT/ Neuro: Sedated, orally intubated, Pallor present, no icterus, tongue/ mucosa moist. Pupils 2 mm bilaterally reactive to light, moving all 4 extremities spontaneously/ localizes with bilateral upper extremities. Plantars upgoing bilaterally. Neck: No JVD Chest/Pulm: on mech vent, good air entry bilaterally, no wheezing or crackles CVS: S1-S2 regular, no murmur GI/abdomen: soft, nontender, bowel sounds sluggish Extremities: warm bilaterally, no edema Laboratory Laboratory Tests Test 09/22/16 09/22/16 12:15 12:55 White Blood Count 7.7 Red Blood Count 4.46 Hemoglobin 12.2 Bedside Hemoglobin 12.9 Hematocrit 37.2 Bedside Hematocrit 38.0 Mean Corpuscular Volume 83.4 Mean Corpuscular Hemoglobin 27.4 Mean Corpuscular Hemoglobin 32.9 Concent Red Cell Distribution Width 19.3 Platelet Count 299 Mean Platelet Volume 8.0 Neutrophils (%) (Auto) 66.6 Lymphocytes (%) (Auto) 23.4 Monocytes (%) (Auto) 6.8 Eosinophils (%) (Auto) 2.3 Basophils (%) (Auto) 0.9 Neutrophils # (Auto) 5.1 Lymphocytes # (Auto) 1.8 Monocytes # (Auto) 0.5 Eosinophils # (Auto) 0.2 Basophils # (Auto) 0.1 CBC Comment DIFF FINAL Differential Comment Prothrombin Time 11.6 Prothromb Time International 1.0 Ratio Activated Partial 23.8 Thromboplast Time Fibrinogen 302 Bedside Sodium 142 Bedside Potassium 3.9 Bedside Chloride 107 Bedside Blood Urea Nitrogen 19 Bedside Creatinine 1.1 Bedside Glucose 119 Total Creatine Kinase 76 Troponin I LESS THAN 0.02 Blood Type O POSITIVE Antibody Screen NEGATIVE Urine Color YELLOW Urine Turbidity CLEAR Urine pH 5.5 Urine Specific [place] 1.011 Urine Protein 30 Urine Glucose (UA) NEG Urine Ketones NEG Urine Occult Blood SMALL Urine Nitrite NEG Urine Bilirubin NEG Urine Urobilinogen LESS THAN 2.0 Urine Leukocyte Esterase NEG Urine RBC 6 Urine WBC 2 Urine Squamous Epithelial <1 Cells Urine Hyaline Casts 2 Urine Opiates Screen NEG Urine Barbiturates Screen NEG Urine Amphetamines Screen NEG Urine Benzodiazepines Screen NEG Urine Cocaine Screen NEG Urine Cannabinoids Screen NEG Result Diagram: 09/22/16 1215 Imaging Last Impressions Neck CTA 09/22/16 0000 Signed Impressions: Service Date/Time: August 12:34 - CONCLUSION: 1. Occlusion of the basilar artery described in the CTA of the brain report. 2. Patent carotid arteries and vertebral arteries. The left vertebral artery arises directly off the aortic arch. Nic Wild Jr., MD Head CTA 09/22/16 0000 Signed Impressions: Service Date/Time: August 12:32 - CONCLUSION: Occlusion of the basilar artery. Nic Wild Jr., MD Head CT 09/22/16 0000 Signed Impressions: Service Date/Time: August 12:12 - CONCLUSION: 1. No acute intracranial abnormality. 2. Atrophy. 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 Sedation with propofol, daily sedation vacation. Status post mechanical clot retrieval by interventional radiology for basilar artery occlusion. Follow-up 2-D echo. Neurology following. Was on anticoagulation with Xarelto which will be held currently. Anticoagulation/ antiplatelet agent to be decided by neurology. Cardiovascular: Hold all antihypertensives at this time. We will use labetalol to keep SBP less than 180 systolic. Patient has an ICD/pacemaker in place. Gentle hydration with normal saline at 50 cc an hour in view of cardiomyopathy. Pulmonary: Continue mechanical ventilation. We'll initiate C Pap trials in a.m. to decide extubation following assessment of neuro status. Vent bundle, bronchodilators as needed. GI/liver: Keep nothing by mouth for now. If not extubated tomorrow we'll initiate tube feeds. OG tube to low intermittent wall suction now. Renal/: IV hydration with normal saline at 50 cc an hour. Strict intake output, monitor and replete electro lites, follow BUN/creatinine. We'll resume diuretics tomorrow in view of history of cardiomyopathy. ID: Watch for fever or leukocytosis. Received vancomycin for antibiotic prophylaxis prior to procedure. Heme: Follow CBC. Was on anticoagulation with Xarelto which is currently on hold. Neurology to decide further antiplatelet therapy and anticoagulation. Endocrine: SSI for glycemic control as needed. Prophylaxis: Pepcid/SCDs. Subcutaneous heparin when okay with neurology (if not initiated on full anticoagulation). Condition critical Time spent on critical care excluding procedures 60 minutes Efra Hussein MD Sep 22, 2016 16:22
--- NOTE | 2016-09-22 16:35 | RADRPT ---
EXAM DATE/TIME: 09/22/2016 13:15 [facility] COMPARISON: No previous studies available for comparison. INDICATIONS : Stroke alert. Patient has occlusive thrombus involving the basilar artery. Stroke score reportedly is 7. Patient's symptoms began approximately 2 hours ago. MEDICAL HISTORY : 1. Lymphoma 2. A fib 3. Arthritis 4.cardiomyopathy 5. CHF 6. GI bleed 7. GERd 8. HTN 9. Hernia 10. KS x2 11. CAD SURGICAL HISTORY : 1. Coronary stents 2. AICD 3.Pacemaker 4. cholecystectomy 5.Oral surgery ENCOUNTER: Initial ACUITY: 1 day PAIN SCORE: 0/10 FLUORO TIME: 12.8 minutes IMAGE SERIES: 8 ACCESS SITE: Right Femoral artery SEDATION TIME: 45 minutes CONTRAST: 75 cc Visipaque (iodixanol) MEDICATION(S): 1.) 3 mg midazolam (Versed) IV DEVICE(S): 1.) Left Basilar artery BENJAMIN 68 mechanical thrombectomy 2.) Left Basilar artery marksman cath 3.) Left vertebral artery neuron MAX 6f 088 sheath TIMELINE: Interventional team called: Interventional team arrived: Already present Interventional team ready: 1301 pm Patient arrival: 1321 pm Groin puncture: 1418 pm Recanalization: 1424 pm PROCEDURE : 1. Ultrasound-guided puncture of the access site. 2. Angiography of the access site prior to closure device. 3. Conscious sedation with continuous EKG and Oximetry monitoring. 4. Percutaneous closure of the access site. 5. Angiography of the left vertebral artery 6. Angiography of the basilar artery 7. mechanical thrombectomy of the basilar artery 8. Follow up angiography of the basilar artery The risks, benefits and alternatives to the procedure were explained to the patient's brother via tel ephone and verbal consent was obtained. The site was prepped in sterile fashion. Full sterile techn ique was used, including cap, mask, sterile gloves and gown and a large sterile sheet. Hand hygiene and 2% chlorhexidine and/or betadine/alcohol prep was utilized per protocol for cutaneous antisepsis. The skin and subcutaneous tissues were infiltrated with local anesthetic solution. With ultrasound and fluoroscopic guidance the right common femoral artery was punctured and a vascula r sheath was placed. Angiography of the common femoral artery was performed for evaluation prior to percutaneous closure device placement. A [employer] catheter was utilized to select the left vertebral artery and a diagnostic angiogram per formed. These were the best obtainable images as the patient was moving a fair amount. These diagnost ic images were reviewed and revealed complete occlusion of the basilar artery within its mid and ceph alad aspects. Reflux of contrast down the contralateral vertebral artery is noted. After reviewing the diagnostic images it was felt that mechanical thrombectomy be performed. A 6 Fren ch neuron guide catheter was positioned in the proximal vertebral artery on the left. Through this a margin and catheter and 068 Penumbra catheter were inserted. The penumbra catheter was wedged into th e clot within the basilar artery. Suction was applied to the catheter. After 3 minutes the penumbra c atheter was withdrawn. Angiography showed complete resolution of the thrombus with reestablishment of flow through the basilar artery and its branches. This patient has persistent circulation on t he right. TICI score 3. Hemostasis was obtained with the prescribed medicated closure device. Conscious sedation was perform ed with the prescribed dosages and duration as above in the presence of an independent trained radiol ogy nurse to assist in the monitoring of the patient. EKG and oximetry remained stable throughout th e procedure. CONCLUSION: 1. Successful thrombectomy of the occlusive thrombus within the basilar artery with reestablishment o f flow and TICI score 3. Nic Wild Jr., MD on September 22, 2016 at 16:16 Board Certified Radiologist. This report was verified electronically.
[2016-09-22] MEDS: SODIUM CHLOR 0.9% 1000 ML INJ 1,000 ML IV SCH (17:00)
[2016-09-22] MEDS ORDERED: LABETALOL HCL 100 MG/20 ML VIAL IVS PRN (17:00)
[2016-09-22] MEDS: HEPARIN 25,000 UNITS/D5W 250ML IV SCH (17:06)
[2016-09-22] MEDS: INSULIN ASPART SUPPLEMENTAL SCALE SQ SCH (18:00)
[2016-09-22] MEDS: DEXTROSE 50% IN WATER 50 ML VIAL(D50) IV PUSH PRN ×2 (18:01→18:23)
[2016-09-22] MEDS: CHLORHEXIDINE 0.12% (ORAL KIT) 15 ML CUP MT SCH (20:15)
[2016-09-22] MEDS: FAMOTIDINE 20 MG TAB TUBE SCH (21:41)
[2016-09-22 22:11] LABS: APTT (PATIENT) 36.8 SEC (24.3-30.1)
[2016-09-23] VITALS (15 sets, daily range): BP systolic 124–138; BP diastolic 59–68; PULSE 60–78; RESP 17–24; TEMP 98.3–99.4; O2SAT 100
[2016-09-23] MEDS: CHLORHEXIDINE GLUCONATE 2 % 1 PACK (2 CLOTHS) TOP SCH (01:53)
[2016-09-23] MEDS: PROPOFOL 1000 MG/100 ML INJ 100 ML IV SCH (02:33)
--- NOTE | 2016-09-23 04:50 | RADRPT ---
EXAM DATE/TIME: 09/23/2016 04:27 [facility] COMPARISON: CTA BRAIN W 3D RECON, September 22, 2016, 12:32. CT BRAIN W/O CONTRAST, September 22, 2016, 12:12. INDICATIONS : Follow up CVA. RADIATION DOSE: 48.11 CTDIvol (mGy) MEDICAL HISTORY : Non-responsive. SURGICAL HISTORY : Non-responsive. ENCOUNTER: Initial ACUITY: 1 day PAIN SCALE: Non-responsive LOCATION: cranial TECHNIQUE: Multiple contiguous axial images were obtained of the head. Using automated exposure control and adj ustment of the mA and/or kV according to patient size, radiation dose was kept as low as reasonably a chievable to obtain optimal diagnostic quality images. FINDINGS: CEREBRUM: There is mild sterile atrophy. Ventricles are normal in size. No evidence of midline shift, mass les ion, hemorrhage or acute infarction. No extra-axial fluid collections are seen. POSTERIOR FOSSA: There is subtle low attenuation in the right cerebellum. The 4th ventricle is midline. The cerebell opontine angle is unremarkable. EXTRACRANIAL: There is severe mucoperiosteal thickening within the right maxillary sinus SKULL: The calvaria is intact. No evidence of skull fracture. CONCLUSION: 1. Subtle low density is present within the right cerebellum suspicious for edema related to ischemia . This was not visualized previously. No acute blood products are visualized. 2. Stable severe mucoperiosteal thickening within the right maxillary sinus. Willem Brito MD on September 23, 2016 at 4:44 Board Certified Radiologist. This report was verified electronically.
[2016-09-23 05:21] LABS: ALT (GPT) 13 U/L (12-78); ANION GAP 9 MEQ/L (5-15); AST (GOT) 18 U/L (15-37); BICARBONATE 24.5 MEQ/L (21.0-32.0); BLOOD UREA NITROGEN 14 MG/DL (7-18); CHLORIDE 111 MEQ/L (98-107); GLOMERULAR FILTRATION RATE 84 ML/MIN (>89); POTASSIUM 3.3 MEQ/L (3.5-5.1); SODIUM (NA) 144 MEQ/L (136-145)
[2016-09-23 05:22] LABS: ALKALINE PHOSPHATASE 90 U/L (45-117); TOTAL BILIRUBIN ADULT 0.8 MG/DL (0.2-1.0)
[2016-09-23 05:26] LABS: APTT (PATIENT) 41.1 SEC (24.3-30.1)
[2016-09-23] MEDS: INSULIN ASPART SUPPLEMENTAL SCALE SQ SCH ×4 (06:00→18:00)
[2016-09-23 06:05] LABS: AUTOMATED NEUTROPHIL # 8.4 TH/MM3 (1.8-7.7); BASOPHIL # 0.1 TH/MM3 (0-0.2); BASOPHIL % 0.5 % (0.0-2.0); EOSINOPHIL # 0.1 TH/MM3 (0-0.4); EOSINOPHIL % 0.8 % (0.0-4.0); HEMO FLAGS DIFF FINAL; LYMPHOCYTE # 1.1 TH/MM3 (1.0-4.8); MEAN CELL VOLUME 83.8 FL (80.0-100.0); MEAN CORPUSCULAR HEMOGLOBIN 27.4 PG (27.0-34.0); MEAN CORPUSCULAR HGB CONC 32.7 % (32.0-36.0); NEUT % 79.7 % (16.0-70.0); PLATELET COUNT 242 TH/MM3 (150-450); WHITE BLOOD COUNT 10.6 TH/MM3 (4.0-11.0)
[2016-09-23] MEDS: CHLORHEXIDINE 0.12% (ORAL KIT) 15 ML CUP MT SCH (08:41)
[2016-09-23] MEDS: FAMOTIDINE 20 MG TAB TUBE SCH ×2 (08:41→22:06)
--- NOTE | 2016-09-23 09:51 | HHI.CCPN ---
Subjective Remarks/Hospital Course 09/22: 76-year-old male came to the emergency room brought by EMS for being unresponsive and posturing. He was called in as a stroke alert by EMS. Patient was with his at the restaurant when apparently he told his that he was not feeling well and went to the restroom. When he did not come out she went after him and found him unresponsive on the floor and called 911. This was around 11:45 AM. EMS found him with a GCS of 3 and gazing to the left and posturing. Brought him being assisted ventilated by BVM. Patient is on Xarelto possibly for atrial fibrillation since he was in A. fib on the lunchroom monitor. Patient is unable to give any meaningful history given his condition. Patient was intubated by ER physician for airway protection and placed on mechanical ventilation. There was no family member at the time when patient arrived to give any other history. A stroke alert was called. Head CT was negative for bleed. CTA revealed occlusion of basilar artery. Patient was not deemed to be a candidate for TPA as he was on Xarelto for anticoagulation for chronic A. fib. Patient was seen by Dr. Patricia from neurology and was subsequently underwent mechanical clot retrieval by interventional radiology - Dr. Wild. Following this he was transferred to [facility] where I evaluated him immediately following his arrival. At the time of my evaluation patient was sedated with propofol, orally intubated on mechanical ventilation. He was sedated though easily arousable opening eyes spontaneously and moving all 4 extremities at the time of arrival to the ICU. History was obtained by reviewing records and discussion with Dr. Blue and subsequently Dr. Wild from . 09/23: Sedated, arousable, orally intubated on mechanical ventilation. On heparin drip currently. Head CT done this morning. Objective Vital Signs Date Time Temp Pulse Resp B/P Pulse Ox O2 Delivery O2 Flow Rate FiO2 09/23/16 08:11 100 40 09/23/16 08:00 98.4 76 24 137/67 09/23/16 07:00 Mechanical Ventilator Intake and Output 09/22/16 09/22/16 09/23/16 08:00 16:00 00:00 Intake Total 452 ml Output Total 950 ml Balance -498 ml Result Diagram: 09/23/16 0416 09/23/16 0416 Other Results Laboratory Tests Test 09/22/16 09/22/16 09/22/16 09/22/16 12:15 12:55 15:27 21:00 White Blood Count 7.7 TH/MM3 Red Blood Count 4.46 MIL/MM3 Hemoglobin 12.2 GM/DL Bedside Hemoglobin 12.9 G/DL Hematocrit 37.2 % Bedside Hematocrit 38.0 % Mean Corpuscular Volume 83.4 FL Mean Corpuscular Hemoglobin 27.4 PG Mean Corpuscular Hemoglobin 32.9 % Concent Red Cell Distribution Width 19.3 % Platelet Count 299 TH/MM3 Mean Platelet Volume 8.0 FL Neutrophils (%) (Auto) 66.6 % Lymphocytes (%) (Auto) 23.4 % Monocytes (%) (Auto) 6.8 % Eosinophils (%) (Auto) 2.3 % Basophils (%) (Auto) 0.9 % Neutrophils # (Auto) 5.1 TH/MM3 Lymphocytes # (Auto) 1.8 TH/MM3 Monocytes # (Auto) 0.5 TH/MM3 Eosinophils # (Auto) 0.2 TH/MM3 Basophils # (Auto) 0.1 TH/MM3 CBC Comment DIFF FINAL Differential Comment Prothrombin Time 11.6 SEC Prothromb Time International 1.0 RATIO Ratio Activated Partial 23.8 SEC 36.8 SEC Thromboplast Time Fibrinogen 302 mg/dL Bedside Sodium 142 MMOL/L Bedside Potassium 3.9 MMOL/L Bedside Chloride 107 MMOL/L Bedside Blood Urea Nitrogen 19 MG/DL Bedside Creatinine 1.1 MG/DL Bedside Glucose 119 MG/DL Total Creatine Kinase 76 U/L Troponin I LESS THAN 0.02 NG/ML Blood Type O POSITIVE Antibody Screen NEGATIVE Urine Color YELLOW Urine Turbidity CLEAR Urine pH 5.5 Urine Specific [place] 1.011 Urine Protein 30 mg/dL Urine Glucose (UA) NEG mg/dL Urine Ketones NEG mg/dL Urine Occult Blood SMALL Urine Nitrite NEG Urine Bilirubin NEG Urine Urobilinogen LESS THAN 2.0 MG/DL Urine Leukocyte Esterase NEG Urine RBC 6 /hpf Urine WBC 2 /hpf Urine Squamous Epithelial <1 /hpf Cells Urine Hyaline Casts 2 /lpf Urine Opiates Screen NEG Urine Barbiturates Screen NEG Urine Amphetamines Screen NEG Urine Benzodiazepines Screen NEG Urine Cocaine Screen NEG Urine Cannabinoids Screen NEG Nasal Screen MRSA (PCR) NEGATIVE Test 09/23/16 04:16 White Blood Count 10.6 TH/MM3 Red Blood Count 4.30 MIL/MM3 Hemoglobin 11.8 GM/DL Hematocrit 36.0 % Mean Corpuscular Volume 83.8 FL Mean Corpuscular Hemoglobin 27.4 PG Mean Corpuscular Hemoglobin 32.7 % Concent Red Cell Distribution Width 19.0 % Platelet Count 242 TH/MM3 Mean Platelet Volume 8.5 FL Neutrophils (%) (Auto) 79.7 % Lymphocytes (%) (Auto) 10.0 % Monocytes (%) (Auto) 9.0 % Eosinophils (%) (Auto) 0.8 % Basophils (%) (Auto) 0.5 % Neutrophils # (Auto) 8.4 TH/MM3 Lymphocytes # (Auto) 1.1 TH/MM3 Monocytes # (Auto) 0.9 TH/MM3 Eosinophils # (Auto) 0.1 TH/MM3 Basophils # (Auto) 0.1 TH/MM3 CBC Comment DIFF FINAL Differential Comment Activated Partial 41.1 SEC Thromboplast Time Sodium Level 144 MEQ/L Potassium Level 3.3 MEQ/L Chloride Level 111 MEQ/L Carbon Dioxide Level 24.5 MEQ/L Anion Gap 9 MEQ/L Blood Urea Nitrogen 14 MG/DL Creatinine 0.88 MG/DL Estimat Glomerular Filtration 84 ML/MIN Rate Random Glucose 95 MG/DL Calcium Level 8.3 MG/DL Total Bilirubin 0.8 MG/DL Aspartate Amino Transf 18 U/L (AST/SGOT) Alanine Aminotransferase 13 U/L (ALT/SGPT) Alkaline Phosphatase 90 U/L Total Protein 6.4 GM/DL Albumin 3.0 GM/DL Imaging Last [address] 09/23/16 0600 Signed Impressions: Service Date/Time: Friday, September 23, 2016 04:27 - CONCLUSION: 1. Subtle low density is present within the right cerebellum suspicious for edema related to ischemia. This was not visualized previously. No acute blood products are visualized. 2. Stable severe mucoperiosteal thickening within the right maxillary sinus. Willem Brito MD Cerebral Arteriogram 09/22/16 1506 Signed Impressions: Service Date/Time: August 13:15 - CONCLUSION: 1. Successful thrombectomy of the occlusive thrombus within the basilar artery with reestablishment of flow and TICI score 3. Nic Wild Jr., MD Last Impressions Neck CTA 09/22/16 0000 Signed Impressions: Service Date/Time: August 12:34 - CONCLUSION: 1. Occlusion of the basilar artery described in the CTA of the brain report. 2. Patent carotid arteries and vertebral arteries. The left vertebral artery arises directly off the aortic arch. Nic Wild Jr., MD Head CTA 09/22/16 0000 Signed Impressions: Service Date/Time: August 12:32 - CONCLUSION: Occlusion of the basilar artery. Nic Wild Jr., MD Head CT 09/22/16 0000 Signed Impressions: Service Date/Time: August 12:12 - CONCLUSION: 1. No acute intracranial abnormality. 2. Atrophy. Nic Wild Jr., MD Objective Remarks HEENT/ Neuro: Sedated, orally intubated, Pallor present, no icterus, tongue/ mucosa moist. Pupils 2 mm bilaterally reactive to light, moving all 4 extremities spontaneously/ localizes with bilateral upper extremities. Plantars upgoing bilaterally. 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 Sedation with propofol, daily sedation vacation. Status post mechanical clot retrieval by interventional radiology for basilar artery occlusion. Follow-up 2-D echo. Neurology following. Was on anticoagulation with Xarelto which will be held currently. Anticoagulation/ antiplatelet agent to be decided by neurology. Cardiovascular: Hold all antihypertensives at this time. We will use labetalol to keep SBP less than 180 systolic. Patient has an ICD/pacemaker in place. KVO IVF in view of cardiomyopathy. Holding Lasix currently. We'll consider resuming if extubated. Pulmonary: Continue mechanical ventilation. Start C Pap trials in a.m. to decide extubation following assessment of neuro status off sedation. Vent bundle, bronchodilators as needed. GI/liver: Keep nothing by mouth for now. If not extubated, will initiate tube feeds. OG tube to low intermittent wall suction now. Renal/: IV hydration with normal saline at 50 cc an hour. Strict intake output, monitor and replete electro lites, follow BUN/creatinine. We'll resume diuretics tomorrow in view of history of cardiomyopathy. ID: Watch for fever or leukocytosis. Received vancomycin for antibiotic prophylaxis prior to procedure. Heme: Follow CBC. Was on anticoagulation with Xarelto which is currently on hold. Neurology to decide further antiplatelet therapy and anticoagulation. Endocrine: SSI for glycemic control as needed. Prophylaxis: Pepcid/SCDs. Subcutaneous heparin when okay with neurology (if not initiated on full anticoagulation). Condition critical Time spent on critical care excluding procedures 30 minutes Efra Hussein MD Sep 23, 2016 09:51
[2016-09-23] MEDS ORDERED: MAGNESIUM SULFATE INJ 2 GM in SODIUM CHLORIDE 0.9% INJ 96 ML IV PRN (10:30)
[2016-09-23] MEDS ORDERED: POTASSIUM PHOSPHATE MONOBASIC 500 MG TAB PO PRN (10:30)
[2016-09-23] MEDS ORDERED: POTASSIUM PHOSPHATE INJ 30 MMOL in SODIUM CHLOR 0.9% 250 ML INJ 250 ML IV PRN (10:30)
[2016-09-23] MEDS ORDERED: POTASSIUM CHLOR 20 MEQ PREMIX 100 ML IV PRN ×2 (10:30)
[2016-09-23] MEDS ORDERED: MAGNESIUM OXIDE 400 MG TAB PO PRN (10:30)
[2016-09-23] MEDS ORDERED: POTASSIUM PHOSPHATE MONOBASIC 500 MG TAB PO/TUBE PRN (10:30)
[2016-09-23] MEDS ORDERED: MAGNESIUM SULFATE INJ 4 GM in SODIUM CHLORIDE 0.9% INJ 92 ML IV PRN (10:30)
[2016-09-23] MEDS ORDERED: POTASSIUM CHLOR 40 MEQ PREMIX 100 ML IV PRN ×2 (10:30)
[2016-09-23] MEDS ORDERED: SODIUM PHOSPHATE INJ 30 MMOL in SODIUM CHLOR 0.9% 250 ML INJ 240 ML IV PRN (10:30)
[2016-09-23 11:27] LABS: APTT (PATIENT) 44.9 SEC (24.3-30.1)
--- NOTE | 2016-09-23 13:27 | MB ---
cc: JUSTICE GALVAN MD DATE OF CONSULTATION: 09/23/2016 REASON FOR CONSULTATION CVA, atrial fibrillation on Xarelto. HISTORY OF PRESENT ILLNESS The patient is a pleasant 76-year-old gentleman well-known to me who does have a history of an ischemic cardiomyopathy with ejection fraction of approximately 20% as well as congestive heart failure and atrial fibrillation maintained on Xarelto. I was alerted by the patient's from a call to my office that the patient had suffered a stroke. When researching his chart I discovered the following information regarding his anticoagulation which will be important and I will summarize below. The patient was seen June 01, 2016 for routine visit at which time I had changed his lisinopril to Entresto for optimal cardiomyopathy and CHF management. I advised a two-week follow-up with me to ensure the patient was properly taking his medications and that he was symptom-free. The patient was scheduled on June 15, 2016 but the patient cancelled and was rescheduled to June 22, 2016. He also cancelled this appointment, apparently due to a in the family and he told us he would call back. Subsequently an appointment was made for him on August 10, 2016, for which he no-showed. Finally the patient was able to see me on September 12 where he was feeling quite well. However, when going over his medications at that time it seems he had stopped Xarelto instead of stopping lisinopril. Under no circumstances have I told him to stop his anticoagulation which was clearly very important given his history of stroke, TIAs, atrial fibrillation and cardiomyopathy. I immediately gave him samples and restarted him on Xarelto and planned for another follow-up appointment. However, he presented on September 23 with a CVA. I discussed the situation with his and the does say that he has been on Xarelto for the last 11 days since I saw the patient. Currently the patient has been extubated and is following commands. His speech is somewhat slurred, but he is able to appropriately make hand gestures and repeat small phrases. He seems to be comfortable and denies symptoms, though his speech is not quite yet adequate to fully obtain a full history from him. The remainder of the history is from the chart. PAST MEDICAL HISTORY 1. Cardiomyopathy. 2. AICD. 3. Atrial fibrillation, maintained on Xarelto. 4. TIA. 5. Congestive heart failure. MEDICATIONS Current medications are: 1. Heparin drip. 2. Electrolyte repletion. ALLERGIES 1. CODEINE. 2. PENICILLIN. PHYSICAL EXAMINATION VITAL SIGNS: Afebrile, pulse 76, respiratory rate 4, BP 137/67, satting 100 on 3 liters. GENERAL: In general extubated and somewhat dysarthric, though able to follow commands with both verbal and physical responses. NECK: No JVD. LUNGS: Clear to auscultation bilaterally. CARDIOVASCULAR: Regular rate and rhythm. No murmurs appreciated. ABDOMEN: Benign. EXTREMITIES: No edema. LABORATORY DATA White count 10.6, hematocrit 36.0, platelets 242. Sodium 144, potassium 3.3, chloride 11, bicarb 24.5, BUN 14, creatinine 0.88, glucose 119. Cardiac enzymes are negative x1. EKG EKG shows atrial fibrillation at a rate of 82 with [address] PVCs. IMAGING CT of the head shows subtle low density in the right cerebellum suspicious for edema (status post thrombectomy). IMPRESSION CVA: The patient had a CVA likely from accidental noncompliance with his Xarelto between May and August, though his does say he was compliant from September 12 until his presentation. Fortunately, he had successful mechanical thrombectomy with TICI score of 3. He has been able to be extubated and he is already speaking and following commands. I would not consider this a Xarelto failure given the three months of his discontinuation of Xarelto between May and August. His cardiac issues are stable and I will be available as needed, and will see him back in the office once he is discharged from the hospital. Thank you again for the opportunity to participate in this patient's care. MD NIKKI Dior/DAVID /12:51 PM /1:12 PM
[2016-09-23] MEDS: SODIUM CHLOR 0.9% 1000 ML INJ 1,000 ML IV SCH (13:49)
[2016-09-23] MEDS: HEPARIN 25,000 UNITS/D5W 250ML IV SCH (13:56)
--- NOTE | 2016-09-23 16:46 | EKG ---
Date Performed: 09/22/2016 Time Performed: 13:04:47 PTAGE: 76 years EKG: ATRIAL FIBRILLATION MARKED RIGHT AXIS DEVIATION PATTERN CONSISTENT WITH PULMONARY DISEASE S EPTAL MYOCARDIAL INFARCTION MODERATE T-WAVE ABNORMALITY, CONSIDER LATERAL ISCHEMIA ABNORMAL ECG Elton red to prior tracing no significant change PREVIOUS TRACING : 07/29/2016 10.24 DOCTOR: Yaz Milian Interpretating Date/Time 09/23/2016 16:44:23
--- NOTE | 2016-09-23 17:28 | PD.TRANSFR ---
Transfer Summary Admission Date Sep 22, 2016 at 13:00 Admitting Diagnosis acute CVA, unresponsive, respiratory failure Diagnoses: Significant Findings Basilar artery occlusion status post mechanical clot retrieval on 09/22 Transfer Summary/Subjective 09/22: 76-year-old male came to the emergency room brought by EMS for being unresponsive and posturing. He was called in as a stroke alert by EMS. Patient was with his at the restaurant when apparently he told his that he was not feeling well and went to the restroom. When he did not come out she went after him and found him unresponsive on the floor and called 911. This was around 11:45 AM. EMS found him with a GCS of 3 and gazing to the left and posturing. Brought him being assisted ventilated by BVM. 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 Patient is unable to give any meaningful history given his condition. Patient was intubated by ER physician for airway protection and placed on mechanical ventilation. There was no family member at the time when patient arrived to give any other history. A stroke alert was called. Head CT was negative for bleed. CTA revealed occlusion of basilar artery. Patient was not deemed to be a candidate for TPA as he was on Xarelto for anticoagulation for chronic A. fib. Patient was seen by Dr. Patricia from neurology and was subsequently underwent mechanical clot retrieval by interventional radiology - Dr. Wild. Following this he was transferred to [facility] where I evaluated him immediately following his arrival. At the time of my evaluation patient was sedated with propofol, orally intubated on mechanical ventilation. He was sedated though easily arousable opening eyes spontaneously and moving all 4 extremities at the time of arrival to the ICU. History was obtained by reviewing records and discussion with Dr. Blue and subsequently Dr. Wild from IR. 09/23: Sedated, arousable, orally intubated on mechanical ventilation. On heparin drip currently. Head CT done this morning. Patient awakens easily off sedation and was extubated following C Pap trial and is currently on nasal cannula. He is following commands and knows he is in the hospital. Speech is slurred probably secondary to cerebellar/brain stem involvement. 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 Garsia in August 2016 which may have resulted in the stroke. He is tolerating extubation well. Per my discussion with Dr. Garsia he should be resumed on Xarelto when okay with neurology. Objective Vital Signs Date Time Temp Pulse Resp B/P Pulse Ox O2 Delivery O2 Flow Rate FiO2 09/23/16 16:00 98.4 70 17 133/60 100 09/23/16 11:00 Nasal Cannula 3 09/23/16 08:11 40 Intake and Output 09/22/16 09/22/16 09/23/16 08:00 16:00 00:00 Intake Total 452 ml Output Total 950 ml Balance -498 ml Result Diagram: 09/23/16 0416 09/23/16 0416 Imaging Last [address] 09/23/16 0600 Signed Impressions: Service Date/Time: Friday, September 23, 2016 04:27 - CONCLUSION: 1. Subtle low density is present within the right cerebellum suspicious for edema related to ischemia. This was not visualized previously. No acute blood products are visualized. 2. Stable severe mucoperiosteal thickening within the right maxillary sinus. Willem Brito MD Cerebral Arteriogram 09/22/16 1506 Signed Impressions: Service Date/Time: August 13:15 - CONCLUSION: 1. Successful thrombectomy of the occlusive thrombus within the basilar artery with reestablishment of flow and TICI score 3. Nic Wild Jr., MD Last Impressions Neck CTA 09/22/16 0000 Signed Impressions: Service Date/Time: August 12:34 - CONCLUSION: 1. Occlusion of the basilar artery described in the CTA of the brain report. 2. Patent carotid arteries and vertebral arteries. The left vertebral artery arises directly off the aortic arch. Nic Wild Jr., MD Head CTA 09/22/16 0000 Signed Impressions: Service Date/Time: August 12:32 - CONCLUSION: Occlusion of the basilar artery. Nic Wild Jr., MD Head CT 09/22/16 0000 Signed Impressions: Service Date/Time: August 12:12 - CONCLUSION: 1. No acute intracranial abnormality. 2. Atrophy. Nic Wild Jr., MD Objective Remarks HEENT/ Neuro: Awake and alert, following commands, speech slurred. Pallor present, no icterus, tongue/ mucosa moist. Pupils 2 mm bilaterally reactive to light, moving all 4 extremities spontaneously/ localizes with bilateral upper extremities. Plantars equivocal bilaterally. 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 Status post mechanical clot retrieval by interventional radiology for basilar artery occlusion. Follow-up 2-D echo. Neurology following. Was on anticoagulation with Xarelto which will be held currently. Currently anticoagulated with heparin drip. Anticoagulation/ antiplatelet agent to be decided by neurology. Cardiovascular: Hold all antihypertensives at this time. We will use labetalol to keep SBP less than 180 systolic. Patient has an ICD/pacemaker in place. KVO IVF in view of cardiomyopathy. Holding Lasix currently. We'll consider resuming once extubated. Pulmonary: Extubated following C Pap trial tolerating well. On nasal cannula. Bronchodilators as needed. GI/liver: Speech and swallow eval to decide by mouth diet Renal/: IV hydration with normal saline at 50 cc an hour. Strict intake output, monitor and replete electro lites, follow BUN/creatinine. Consider resuming diuretics tomorrow in view of history of cardiomyopathy. ID: Watch for fever or leukocytosis. Received vancomycin for antibiotic prophylaxis prior to procedure. Heme: Follow CBC. Was on anticoagulation with Xarelto which is currently on hold. Neurology to decide further antiplatelet therapy and anticoagulation. Endocrine: SSI for glycemic control as needed. Prophylaxis: Pepcid/SCDs. Subcutaneous heparin when okay with neurology (if not initiated on full anticoagulation). Patient being transferred to hospitalist service for further medical management. Critical care signing off. Transfer out of ICU when okay with Dr. Patricia from neurology. Efra Hussein MD Sep 23, 2016 17:28
--- NOTE | 2016-09-23 18:08 | HHI.PR ---
Review/Management Diagnosis Basilar artery embolus, s/p successful embolectomy atrial fibrillation Plan continue iv heparin repeat CT brain in am and if no sign of hemorrhage, I feel he could be changed to oral anticoagulation per cardiology recommendations If stable ok to transfer to floor tomorrow. Diagnosis/Plan: Subjective Subjective Comments No acute events reported pt more alert and moving all four extremities at present Active Medications Current Medications Medications (Trade) Dose Ordered Sig/Yoni Route Start Time Stop Time Status Last Admin (Tylenol) 650 mg Q6H PRN PO 09/22/16 13:15 (Pepcid) 20 mg BID TUBE 09/22/16 21:00 09/22/16 21:41 Miscellaneous Information 1 Q361D XX 09/22/16 13:15 (Chlorhexidine 2% Cloth) 3 pack Taper DAILY@04 TOP 09/23/16 04:00 09/19/17 03:59 09/23/16 01:53 (Chlorhexidine 2% Cloth) 3 pack UNSCH PRN TOP 09/22/16 13:15 (NovoLOG SUPPLEMENTAL SCALE) 1 Q6HR SQ 09/22/16 18:00 (D50w (Vial) Inj) 25 ml UNSCH PRN IV PUSH 09/22/16 13:30 09/22/16 18:23 (Glucagon Inj) 1 mg UNSCH PRN OTHER 09/22/16 13:30 Labetalol HCl 10 mg 10 mg Q2H PRN IVS 09/22/16 17:00 Sodium Chloride 1,000 ml @ 50 mls/hr Q20H IV 09/22/16 17:00 09/23/16 13:49 Heparin Sodium/ Dextrose 250 ml @ 0 mls/hr TITRATE IV 09/22/16 17:00 09/23/16 13:56 Potassium Chloride 100 ml @ 50 mls/hr Q2H PRN IV 09/23/16 10:30 Potassium Chloride 100 ml @ 50 mls/hr Q2H PRN IV 09/23/16 10:30 Potassium Chloride 100 ml @ 25 mls/hr UNSCH PRN IV 09/23/16 10:30 Potassium Chloride 100 ml @ 50 mls/hr Q2H PRN IV 09/23/16 10:30 09/23/16 14:11 (Magnesium Sulfate Inj/NS Inj) 100 ml @ 50 mls/hr UNSCH PRN IV 09/23/16 10:30 Magnesium Oxide 800 mg 800 mg UNSCH PRN PO 09/23/16 10:30 (Magnesium Sulfate Inj/NS Inj) 100 ml @ 50 mls/hr UNSCH PRN IV 09/23/16 10:30 Potassium Phosphate 2000 mg 2,000 mg Q4H PRN PO 09/23/16 10:30 (Sodium Phosphate Inj/NS 250 ml Inj) 250 ml @ 42 mls/hr UNSCH PRN IV 09/23/16 10:30 Potassium Phosphate 2000 mg 2,000 mg UNSCH PRN PO/TUBE 09/23/16 10:30 (Potassium Phosphate Inj/NS 250 ml Inj) 260 ml @ 42 mls/hr UNSCH PRN IV 09/23/16 10:30 Allergies Allergies Coded Allergies Codeine (Verified Allergy, Severe, SWELLING, 03/28/15) Penicillin (Verified Allergy, Severe, HIVES, 03/28/15) MRI PRECAUTION (Verified Adverse Reaction, Severe, pacemaker, 03/28/15) Exam I&O / VS 09/22/16 09/22/16 09/23/16 15:00 23:00 07:00 Intake Total 452 ml 495 ml Output Total 950 ml 400 ml Balance -498 ml 95 ml IV Total 452 ml 495 ml Output Urine Total 750 ml 300 ml Gastric Drainage Total 200 ml 100 ml # Bowel Movements 0 0 Vital Signs Date Time Temp Pulse Resp B/P Pulse Ox O2 Delivery O2 Flow Rate FiO2 09/23/16 16:00 98.4 70 17 133/60 100 09/23/16 12:00 98.4 68 21 129/59 100 09/23/16 11:00 100 Nasal Cannula 3 09/23/16 08:11 100 40 09/23/16 08:11 40 09/23/16 08:00 50 09/23/16 08:00 98.4 76 24 137/67 100 09/23/16 07:00 100 Mechanical Ventilator 50 09/23/16 06:00 60 09/23/16 04:57 100 40 09/23/16 04:32 100 100 09/23/16 04:17 100 100 09/23/16 04:00 99.3 67 17 124/59 100 09/23/16 04:00 40 09/23/16 04:00 67 09/23/16 02:00 62 3/31/17 00:11 100 40 09/23/16 00:00 62 09/23/16 00:00 99.4 62 17 132/68 100 09/23/16 00:00 40 09/22/16 22:00 68 09/22/16 20:54 100 40 09/22/16 20:00 40 09/22/16 20:00 64 09/22/16 20:00 98.8 59 17 125/57 100 09/22/16 19:00 100 Mechanical Ventilator 40 Exam Comments lethargic but arouses easily, follows complex commands CN---pupils are 2mm symmetric and reactive to light. extraoccular motility is intact. No facial asymmetry MOTOR--moves all 4 est with 4./5 strength with no focal deficit Objective Radiology Results CT brain today--small hypodensity in left cerebellar hemisphere. no hemorrhage Micro and Labs Laboratory Tests Test 09/22/16 09/23/16 09/23/16 21:00 04:16 11:04 Activated Partial 36.8 41.1 44.9 Thromboplast Time White Blood Count 10.6 Red Blood Count 4.30 Hemoglobin 11.8 Hematocrit 36.0 Mean Corpuscular Volume 83.8 Mean Corpuscular Hemoglobin 27.4 Mean Corpuscular Hemoglobin 32.7 Concent Red Cell Distribution Width 19.0 Platelet Count 242 Mean Platelet Volume 8.5 Neutrophils (%) (Auto) 79.7 Lymphocytes (%) (Auto) 10.0 Monocytes (%) (Auto) 9.0 Eosinophils (%) (Auto) 0.8 Basophils (%) (Auto) 0.5 Neutrophils # (Auto) 8.4 Lymphocytes # (Auto) 1.1 Monocytes # (Auto) 0.9 Eosinophils # (Auto) 0.1 Basophils # (Auto) 0.1 CBC Comment DIFF FINAL Differential Comment Sodium Level 144 Potassium Level 3.3 Chloride Level 111 Carbon Dioxide Level 24.5 Anion Gap 9 Blood Urea Nitrogen 14 Creatinine 0.88 Estimat Glomerular Filtration 84 Rate Random Glucose 95 Calcium Level 8.3 Total Bilirubin 0.8 Aspartate Amino Transf 18 (AST/SGOT) Alanine Aminotransferase 13 (ALT/SGPT) Alkaline Phosphatase 90 Total Protein 6.4 Albumin 3.0 Nik Patricia PhD Sep 23, 2016 18:08
--- NOTE | 2016-09-23 19:03 | EC ---
Study Study Date:09/23/2016 STUDY CONCLUSIONS SUMMARY - Left ventricle: The cavity size was normal. Systolic function was severely reduced. The estimated ejection fraction was in the range of 20% to 25%. Diffuse hypokinesis. - Aortic valve: Mild regurgitation. - Left atrium: The atrium was moderately dilated. If LV function is below 40, please consider prescribing an ACEI or ARB or document rationale for non-use. PROCEDURE DATA STUDY STATUS: Elective. Procedure: Transthoracic echocardiography. Image quality was fair. Scanning was performed from the parasternal, apical, and subcostal acoustic windows. Study completion: The patient tolerated the procedure well. Transthoracic echocardiography. M-mode, complete 2D, complete spectral Doppler, and color Doppler. Height: Height: 69in. Weight: Weight: 141.7lb. Body mass index: BMI: 21kg/m^2. Body surface area: BSA: 1.79m^2. Patient status: Inpatient. CARDIAC ANATOMY LEFT VENTRICLE: The cavity size was normal. Systolic function was severely reduced. The estimated ejection fraction was in the range of 20% to 25%. Diffuse hypokinesis. AORTIC VALVE: The valve appears to be grossly normal. Doppler: There was no stenosis. Mild regurgitation. Peak gradient: 10mm Hg (S). MITRAL VALVE: The valve appears to be grossly normal. Doppler: There was no evidence for stenosis. Trace regurgitation. Valve area by pressure half-time: 4.89cm^2. Indexed valve area by pressure half-time: 2.73cm^2/m^2. Peak gradient: 3mm Hg (D). LEFT ATRIUM: The atrium was moderately dilated. PULMONIC VALVE: Poorly visualized. TRICUSPID VALVE: The valve appears to be grossly normal. Doppler: There was no evidence for stenosis. Trace regurgitation. PERICARDIUM: There was no pericardial effusion. Patient weight: 141.7lb _Ejection fraction:_ 65-75% _Fractional shortening:_ 32% up to 5Kg 5-11.5Kg 11.6-22.9Kg 23-45Kg 45-57Kg Aortic Root 7-13 <17 13-22 17-27 17-27 LA diam 6-13 <23 24-38 33-47 37-40 RVID 10-17 7-15 7-15 7-18 8-17 LVIDd 12-22 <32 24-38 33-47 37-40 LVPW 2-4 3-6 5-7 6-8 7-8 IVS 2-4 3-6 5-7 6-8 7-8 BASIC MEASUREMENTS ADULT NORMAL Left ventricle LV internal dimension, ED, chordal 44.2 mm 43-52 level, PLAX LV internal dimension, ES, chordal *39.3 mm 23-38 level, PLAX Fractional shortening, chordal level, *11 % >29 PLAX LV posterior wall thickness, ED 9.86 mm IVS/LVPW ratio, ED 1.01 <1.3 Volume, ED, MOD, 1-plane 68 ml Volume, ES, MOD, 1-plane 54 ml Ejection fraction, MOD, 1-plane 21 % Stroke volume, MOD, 1-plane 14 ml Volume index, ED, MOD, 1-plane 38 ml/m^2 Volume index, ES, MOD, 1-plane 30 ml/m^2 Stroke index, MOD, 1-plane 7.8 ml/m^2 Ventricular septum Septal thickness, ED 9.96 mm Aortic valve Leaflet separation 21 mm 15-26 Left atrium Anterior-posterior dimension 45 mm Anterior-posterior dimension index *2.51 cm/m^2 <2.2 Right ventricle RV internal dimension, ED, PLAX 24.9 mm 19-38 BASIC MEASUREMENTS ADULT NORMAL Aortic valve Leaflet separation 21 mm 15-26 Aorta Root diameter, ED 26 mm 20-37 DOPPLER MEASUREMENTS ADULT NORMAL Main pulmonary artery Pressure, S 16 mm Hg =30 Aortic valve Peak velocity, S 160 cm/s Peak gradient, S 10 mm Hg Regurgitant velocity, ED 452 cm/s Regurgitant deceleration 2390 cm/s^2 Regurgitant pressure half-time 558 ms Regurgitant gradient, ED 82 mm Hg Mitral valve Peak E-wave velocity 91.3 cm/s Peak A-wave velocity 29.6 cm/s Pressure half-time 45 ms Peak gradient, D 3 mm Hg Peak E/A ratio 3.1 Valve area, pressure half-time 4.89 cm^2 Valve area index, pressure half-time 2.73 cm^2/m^2 Tricuspid valve Regurgitant peak velocity 162 cm/s Peak RV-RA gradient, S 10 mm Hg Systemic veins Estimated CVP 10 mm Hg Right ventricle RV pressure, S 20 mm Hg <30 Pulmonic valve Peak velocity, S 105 cm/s LEGEND: Mean values are shown as u=mean value. Asterisk (*) majano values outside specified normal range. Prepared and signed by Jadiel Aparicio [id number]
[2016-09-23 19:59] LABS: HDL CHOLESTEROL 54.9 MG/DL (40.0-60.0)
[2016-09-24] VITALS (11 sets, daily range): BP systolic 107–135; BP diastolic 49–87; PULSE 54–65; RESP 16–24; TEMP 97.1–99; O2SAT 93–100
[2016-09-24 04:30] LABS: APTT (PATIENT) 47.9 SEC (24.3-30.1)
[2016-09-24] MEDS: CHLORHEXIDINE GLUCONATE 2 % 1 PACK (2 CLOTHS) TOP SCH (04:36)
[2016-09-24] MEDS: INSULIN ASPART SUPPLEMENTAL SCALE SQ SCH ×4 (06:00→17:01)
--- NOTE | 2016-09-24 07:54 | HHI.PR ---
Subjective Remarks In bed, speech fairly clear, doesn't have dentures. Follows commands. Denies new motor/sensory deficit. Denies having any headache. No n/v/d/c. Plan to repeat CT head per neuro. If stable we can transfer to neuro floor Objective Vitals Vital Signs Date Time Temp Pulse Resp B/P Pulse Ox O2 Delivery O2 Flow Rate FiO2 09/24/16 06:00 62 09/24/16 04:00 60 09/24/16 04:00 99.0 60 18 108/67 100 09/24/16 02:00 62 09/24/16 00:00 98.1 63 18 135/87 100 09/24/16 00:00 63 09/24/16 00:00 100 Room Air 09/23/16 23:00 100 Nasal Cannula 09/23/16 22:00 100 Nasal Cannula 1.00 09/23/16 22:00 71 09/23/16 20:00 78 09/23/16 20:00 98.3 72 18 138/64 100 09/23/16 20:00 100 Nasal Cannula 1.00 09/23/16 19:00 100 Nasal Cannula 3.00 09/23/16 16:00 98.4 70 17 133/60 100 09/23/16 12:00 98.4 68 21 129/59 100 09/23/16 11:00 100 Nasal Cannula 3 09/23/16 08:11 100 40 09/23/16 08:11 40 09/23/16 08:00 50 09/23/16 08:00 98.4 76 24 137/67 100 I/O 09/23/16 09/23/16 09/23/16 09/24/16 09/24/16 09/24/16 07:00 15:00 23:00 07:00 15:00 23:00 Intake Total 495 ml 350 ml 747 ml 217 ml Output Total 400 ml 750 ml 325 ml 250 ml Balance 95 ml -400 ml 422 ml -33 ml Intake Oral 120 ml 0 ml IV Total 495 ml 350 ml 627 ml 217 ml Output Urine Total 300 ml 450 ml 325 ml 250 ml Stool Total 0 ml Gastric Drainage Total 100 ml 300 ml # Bowel Movements 0 0 0 Result Diagram: 09/23/1641509/23/16415 Imaging Last Impressions Head CT 09/23/16599 Signed Impressions: Service Date/Time: Friday, September 23, 2016 04:27 - CONCLUSION: 1. Subtle low density is present within the right cerebellum suspicious for edema related to ischemia. This was not visualized previously. No acute blood products are visualized. 2. Stable severe mucoperiosteal thickening within the right maxillary sinus. Willem Brito MD Cerebral Arteriogram 09/22/16 1506 Signed Impressions: Service Date/Time: August 13:15 - CONCLUSION: 1. Successful thrombectomy of the occlusive thrombus within the basilar artery with reestablishment of flow and TICI score 3. Nic Wild Jr., MD Neck CTA 09/22/16 0000 Signed Impressions: Service Date/Time: August 12:34 - CONCLUSION: 1. Occlusion of the basilar artery described in the CTA of the brain report. 2. Patent carotid arteries and vertebral arteries. The left vertebral artery arises directly off the aortic arch. Nic Wild Jr., MD Head CTA 09/22/16 0000 Signed Impressions: Service Date/Time: August 12:32 - CONCLUSION: Occlusion of the basilar artery. Nic Wild Jr., MD Objective Remarks GENERAL: 76 yo male, awake and alert, in bed, frail, appears in nad. SKIN: Pale. Warm and dry. HEAD: Atraumatic. Normocephalic. EYES: Pupils equal and round. No scleral icterus. No injection or drainage. ENT: No nasal bleeding or discharge. Mucous membranes pink and moist. NECK: Trachea midline. No JVD. CARDIOVASCULAR: Regular rate and rhythm. RESPIRATORY: No accessory muscle use. Clear to auscultation. Breath sounds equal bilaterally. GASTROINTESTINAL: Abdomen soft, non-tender, nondistended. Hepatic and splenic margins not palpable. MUSCULOSKELETAL: Extremities without clubbing, cyanosis, or edema. No obvious deformities. NEUROLOGICAL: Awake and alert. No obvious cranial nerve deficits. Motor grossly within normal limits, some weakness right hand. Slurred speech. PSYCHIATRIC: Appropriate mood and affect; insight and judgment normal. 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 Status post mechanical clot retrieval by interventional radiology for basilar artery occlusion. Follow-up 2-D echo. Neurology following. Was on anticoagulation with Xarelto which will be held currently. Currently anticoagulated with heparin drip. Anticoagulation/ antiplatelet agent to be decided by neurology. Cardiovascular: Hold all antihypertensives at this time. We will use labetalol to keep SBP less than 180 systolic. Patient has an ICD/pacemaker in place. KVO IVF in view of cardiomyopathy. Holding Lasix currently. We'll consider resuming once extubated. Pulmonary: Extubated following C Pap trial tolerating well. On nasal cannula. Bronchodilators as needed. GI/liver: Speech and swallow eval to decide by mouth diet Renal/: IV hydration with normal saline at 50 cc an hour. Strict intake output, monitor and replete electro lites, follow BUN/creatinine. Consider resuming diuretics tomorrow in view of history of cardiomyopathy. ID: Watch for fever or leukocytosis. Received vancomycin for antibiotic prophylaxis prior to procedure. Heme: Follow CBC. Was on anticoagulation with Xarelto which is currently on hold. Neurology to decide further antiplatelet therapy and anticoagulation. Endocrine: SSI for glycemic control as needed. Prophylaxis: Pepcid/SCDs. Subcutaneous heparin when okay with neurology (if not initiated on full anticoagulation). Disposition: Improving, plan to repeat CT brain, if stable can transfer to neuro floor Discussed with the patient, nurse Maricruz Vincent MD Sep 24, 2016 07:54
[2016-09-24] MEDS: SODIUM CHLOR 0.9% 1000 ML INJ 1,000 ML IV SCH (09:00)
[2016-09-24] MEDS: FAMOTIDINE 20 MG TAB TUBE SCH ×2 (09:18→20:36)
--- NOTE | 2016-09-24 11:32 | RADRPT ---
EXAM DATE/TIME: 09/24/2016 10:46 [facility] COMPARISON: CTA CAROTID ARTERIES W 3D RECON, September 22, 2016, 12:34. CT BRAIN W/O CONTRAS T, July 29, 2016, 11:10. CTA BRAIN W 3D RECON, September 22, 2016, 12:32. THROMBECTOMY INTRACRANIAL , LEFT, September 22, 2016, 13:15. CT BRAIN W/O CONTRAST, September 23, 2016, 4:27. INDICATIONS : Post stroke alert; Evaluate for hemorrhage. RADIATION DOSE: 49.67 CTDIvol (mGy) MEDICAL HISTORY : Stroke. Hypertension. SURGICAL HISTORY : None. ENCOUNTER: Initial ACUITY: 1 day PAIN SCALE: 5/10 LOCATION: Bilateral cranial TECHNIQUE: Multiple contiguous axial images were obtained of the head. Using automated exposure control and adjustment of the mA and/or kV according to patient size, radiation dose was kept as low as reasonably achievable to obtain optimal diagnostic quality images. FINDINGS: There is moderate motion artifact present. There is evolving infarct in the brainstem. There is no hemorrhage identified. The 4th ventricle is patent. Supratentorial ventricles are normal. CONCLUSION: Evolving infarct in the cerebellum and brainstem as described above. MRI could be used for further e valuation. There is no hemorrhage. Pranav Aceves MD FACR on September 24, 2016 at 11:12 Board Certified Radiologist. This report was verified electronically.
[2016-09-24] MEDS: HEPARIN 25,000 UNITS/D5W 250ML IV SCH (17:05)
--- NOTE | 2016-09-24 19:52 | HHI.PR ---
Objective Vital Signs Date Time Temp Pulse Resp B/P Pulse Ox O2 Delivery O2 Flow Rate FiO2 09/24/16 16:00 97.6 54 18 107/49 93 09/24/16 12:00 95 Room Air 09/24/16 12:00 97.7 64 17 129/62 95 09/24/16 10:00 62 09/24/16 08:00 100 Room Air 09/24/16 08:00 65 09/24/16 08:00 98.3 59 16 114/56 100 09/24/16 07:00 60 09/24/16 06:00 62 09/24/16 04:00 60 09/24/16 04:00 99.0 60 18 108/67 100 09/24/16 02:00 62 09/24/16 00:00 98.1 63 18 135/87 100 09/24/16 00:00 63 09/24/16 00:00 100 Room Air 09/23/16 23:00 100 Nasal Cannula 09/23/16 22:00 100 Nasal Cannula 1.00 09/23/16 22:00 71 09/23/16 20:00 78 09/23/16 20:00 98.3 72 18 138/64 100 09/23/16 20:00 100 Nasal Cannula 1.00 I/O 09/23/16 09/23/16 09/23/16 09/24/16 09/24/16 09/24/16 07:00 15:00 23:00 07:00 15:00 23:00 Intake Total 495 ml 350 ml 747 ml 217 ml 240 ml Output Total 400 ml 750 ml 325 ml 250 ml 200 ml Balance 95 ml -400 ml 422 ml -33 ml 40 ml Intake Oral 120 ml 0 ml 240 ml IV Total 495 ml 350 ml 627 ml 217 ml Output Urine Total 300 ml 450 ml 325 ml 250 ml 200 ml Stool Total 0 ml Gastric Drainage Total 100 ml 300 ml # Bowel Movements 0 0 0 3 Result Diagram: 09/23/16 0416 09/23/16 0416 Objective Remarks awake alert r ataxia vff face sym smile 5/5 t/o Assessment and Plan Assessment and Plan imp afib basilar clot removed on heparin ct shows mod size r cbllmr cva i would start coumadin for 3 months then change to xarelto due to risk of bleeding in post fossa and ensuing danger of complications from bleeding hthere better to be on coumadin short term Nino Banda MD Sep 24, 2016 19:52
[2016-09-24] MEDS: WARFARIN SOD 5 MG TAB PO SCH (20:36)
[2016-09-24 22:30] LABS: INTERNATIONAL NORMALIZED RATIO 1.1 RATIO; PROTHROMBIN TIME - PATIENT 12.1 SEC (9.8-11.6)
[2016-09-25] VITALS (9 sets, daily range): BP systolic 118–135; BP diastolic 56–76; PULSE 55–80; RESP 18–22; TEMP 97.3–98; O2SAT 93–99
[2016-09-25] MEDS: CHLORHEXIDINE GLUCONATE 2 % 1 PACK (2 CLOTHS) TOP SCH (04:00)
[2016-09-25] MEDS: INSULIN ASPART SUPPLEMENTAL SCALE SQ SCH ×4 (05:38→18:00)
[2016-09-25] MEDS: SODIUM CHLOR 0.9% 1000 ML INJ 1,000 ML IV SCH (05:38)
[2016-09-25] MEDS: FAMOTIDINE 20 MG TAB TUBE SCH ×2 (09:00→21:50)
[2016-09-25 09:42] LABS: INTERNATIONAL NORMALIZED RATIO 1.2 RATIO; PROTHROMBIN TIME - PATIENT 12.8 SEC (9.8-11.6)
[2016-09-25 09:48] LABS: APTT (PATIENT) 42.8 SEC (24.3-30.1)
--- NOTE | 2016-09-25 10:11 | HHI.PR ---
Subjective Remarks no new co Objective Vital Signs Date Time Temp Pulse Resp B/P Pulse Ox O2 Delivery O2 Flow Rate FiO2 09/25/16 08:00 97.4 61 18 118/76 94 09/25/16 04:00 97.8 55 18 135/60 93 09/25/16 00:10 Room Air 09/25/16 00:00 97.7 62 22 130/60 96 09/24/16 23:00 63 09/24/16 20:00 97.1 63 24 124/58 97 09/24/16 16:00 97.6 54 18 107/49 93 09/24/16 12:00 95 Room Air 09/24/16 12:00 97.7 64 17 129/62 95 I/O 09/24/16 09/24/16 09/24/16 09/25/16 09/25/16 09/25/16 07:00 15:00 23:00 07:00 15:00 23:00 Intake Total 217 ml 240 ml Output Total 250 ml 200 ml 300 ml Balance -33 ml 40 ml -300 ml Intake Oral 0 ml 240 ml IV Total 217 ml Output Urine Total 250 ml 200 ml 300 ml # Bowel Movements 0 3 1 Result Diagram: 09/23/16 0416 09/23/16 0416 Objective Remarks awake alert r ataxia vff face sym smile 5/5 t/o no change speech dysarthric Assessment and Plan Assessment and Plan imp afib basilar clot removed on heparin and coumadin ct shows mod size r cbllmr cva i would start coumadin for 3 months then change to xarelto due to risk of bleeding in post fossa and ensuing danger of complications from bleeding hthere better to be on coumadin short term inr today 1.2 stable neuro oob ok will need rehab dr weinstein in am Nino Banda MD Sep 25, 2016 10:11
--- NOTE | 2016-09-25 11:45 | HHI.PR ---
Subjective Remarks 76 years old right handed awake and alert, denies any chest pains or headaches or shortenss of breath eating ice cream by himself dysarthric Objective Vitals Vital Signs Date Time Temp Pulse Resp B/P Pulse Ox O2 Delivery O2 Flow Rate FiO2 09/25/16 08:00 97.4 61 18 118/76 94 09/25/16 04:00 97.8 55 18 135/60 93 09/25/16 00:10 Room Air 09/25/16 00:00 97.7 62 22 130/60 96 09/24/16 23:00 63 09/24/16 20:00 97.1 63 24 124/58 97 09/24/16 16:00 97.6 54 18 107/49 93 09/24/16 12:00 95 Room Air 09/24/16 12:00 97.7 64 17 129/62 95 I/O 09/24/16 09/24/16 09/24/16 09/25/16 09/25/16 09/25/16 07:00 15:00 23:00 07:00 15:00 23:00 Intake Total 217 ml 240 ml Output Total 250 ml 200 ml 300 ml Balance -33 ml 40 ml -300 ml Intake Oral 0 ml 240 ml IV Total 217 ml Output Urine Total 250 ml 200 ml 300 ml # Bowel Movements 0 3 1 Result Diagram: 09/23/16 0416 09/23/16 0416 Imaging Last Impressions Head CT 09/24/16 0800 Signed Impressions: Service Date/Time: Saturday, September 24, 2016 10:46 - CONCLUSION: Evolving infarct in the cerebellum and brainstem as described above. MRI could be used for further evaluation. There is no hemorrhage. Pranav Aceves MD FACR Cerebral Arteriogram 09/22/16 1506 Signed Impressions: Service Date/Time: August 13:15 - CONCLUSION: 1. Successful thrombectomy of the occlusive thrombus within the basilar artery with reestablishment of flow and TICI score 3. Nic Wild Jr., MD Neck CTA 09/22/16 0000 Signed Impressions: Service Date/Time: August 12:34 - CONCLUSION: 1. Occlusion of the basilar artery described in the CTA of the brain report. 2. Patent carotid arteries and vertebral arteries. The left vertebral artery arises directly off the aortic arch. Nic Widl Jr., MD Head CTA 09/22/16 0000 Signed Impressions: Service Date/Time: August 12:32 - CONCLUSION: Occlusion of the basilar artery. 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 Status post mechanical clot retrieval by interventional radiology for basilar artery occlusion. Follow-up 2-D echo. Neurology following. Was on anticoagulation with Xarelto as OP - held Currently anticoagulated with heparin drip. + overlap coumadin- per neurology recommendation PT/OT daily Patient has an ICD/pacemaker in place. KVO IVF in view of cardiomyopathy. check CXR Pulmonary: Extubated following C Pap trial tolerating well. On nasal cannula. Bronchodilators q 6 and prn q 2. check CXR GI/liver: Speech and swallow eval to decide by mouth diet Renal/: Strict intake output, monitor and replete electro lites, follow BUN/ creatinine. Consider resuming diuretics i view of history of cardiomyopathy.- . check CXR , BMP ID: Watch for fever or leukocytosis. Received vancomycin for antibiotic prophylaxis prior to procedure. Heme: Follow CBC. Was on anticoagulation with Xarelto which is currently on hold. Neurology to decide further antiplatelet therapy and anticoagulation. Endocrine: SSI for glycemic control as needed. Prophylaxis: Pepcid/SCDs. Subcutaneous heparin when okay with neurology (if not initiated on full anticoagulation). Disposition: Improving, plan to repeat CT brain, PT/OT//Speech therapy daily Adithya Murry MD Sep 25, 2016 11:45
[2016-09-25] MEDS ORDERED: RESP: ALBUTEROL 2.5 MG/IPRATROPIUM 0.5 MG NEB (PRN) NEB (12:15)
[2016-09-25] MEDS: RESP: ALBUTEROL 2.5 MG/IPRATROPIUM 0.5 MG NEB (SCH) NEB ×3 (13:39→21:07)
--- NOTE | 2016-09-25 15:15 | RADRPT ---
EXAM DATE/TIME: 09/25/2016 14:16 [facility] COMPARISON: CHEST SINGLE AP, March 28, 2015, 18:22. INDICATIONS : Congestion. MEDICAL HISTORY : Stroke. SURGICAL HISTORY : Pacemaker. ENCOUNTER: Initial ACUITY: 1 day PAIN SCORE: Non-responsive. LOCATION: Bilateral chest FINDINGS: A single view of the chest demonstrates pacer lead overlying right ventricle. Mild cardiomegaly. Athe rosclerotic and tortuous aorta. Basilar dependent opacity in the left likely atelectasis. No pneumoth orax. CONCLUSION: 1. Cardiomegaly. Pacer lead overlying right ventricle. Basilar dependent atelectasis in the lungs. Brett Serrato MD on September 25, 2016 at 15:13 Board Certified Radiologist. This report was verified electronically.
[2016-09-25 15:18] LABS: BICARBONATE 23.2 MEQ/L (21.0-32.0); POTASSIUM 3.8 MEQ/L (3.5-5.1)
[2016-09-25] MEDS: WARFARIN SOD 5 MG TAB PO SCH (17:02)
[2016-09-25] MEDS: HEPARIN 25,000 UNITS/D5W 250ML IV SCH (17:06)
[2016-09-25] MEDS: FUROSEMIDE 20 MG/2 ML VIAL IV PUSH SCH (22:20)
[2016-09-26] VITALS (9 sets, daily range): BP systolic 102–149; BP diastolic 49–59; PULSE 65–100; RESP 16–20; TEMP 96.5–98.8; O2SAT 93–99
[2016-09-26] MEDS: RESP: ALBUTEROL 2.5 MG/IPRATROPIUM 0.5 MG NEB (SCH) NEB ×4 (03:59→20:35)
[2016-09-26] MEDS: CHLORHEXIDINE GLUCONATE 2 % 1 PACK (2 CLOTHS) TOP SCH (04:00)
[2016-09-26] MEDS: INSULIN ASPART SUPPLEMENTAL SCALE SQ SCH ×4 (06:00→18:00)
[2016-09-26 08:11] LABS: APTT (PATIENT) 37.8 SEC (24.3-30.1); PROTHROMBIN TIME - PATIENT 22.5 SEC (9.8-11.6)
[2016-09-26 08:31] LABS: BICARBONATE 23.4 MEQ/L (21.0-32.0); POTASSIUM 3.6 MEQ/L (3.5-5.1)
[2016-09-26] MEDS: FAMOTIDINE 20 MG TAB TUBE SCH (09:00)
[2016-09-26] MEDS: FUROSEMIDE 20 MG/2 ML VIAL IV PUSH SCH (09:00)
[2016-09-26] MEDS ORDERED: PILL SPLITTER OTHER PRN (12:15)
--- NOTE | 2016-09-26 12:38 | HHI.PR ---
Subjective Remarks awake and alert, interactive and answers appropriately oriented to person and place, feeds himself Objective Vitals Vital Signs Date Time Temp Pulse Resp B/P Pulse Ox O2 Delivery O2 Flow Rate FiO2 09/26/16 08:00 98.8 93 16 112/59 93 09/26/16 08:00 65 09/26/16 07:00 95 Room Air 09/26/16 04:02 96 21 09/26/16 04:00 98.8 68 20 127/57 95 09/26/16 00:00 96.5 72 19 103/49 97 09/25/16 23:26 62 09/25/16 21:00 58 09/25/16 20:54 97.4 72 20 118/56 99 09/25/16 20:13 Room Air 09/25/16 17:56 97.3 80 18 122/65 95 09/25/16 17:18 Room Air 09/25/16 16:04 98 21 I/O 09/25/16 09/25/16 09/25/16 09/26/16 09/26/16 09/26/16 07:00 15:00 23:00 07:00 15:00 23:00 Intake Total 520 ml Output Total 800 ml 325 ml Balance -800 ml 195 ml Intake Oral 120 ml IV Total 400 ml Output Urine Total 800 ml 325 ml # Voids 0 # Bowel Movements 1 1 Result Diagram: 09/23/16 0416 09/26/16 0730 Other Results Last Impressions Chest X-Ray 09/25/16 1209 Signed Impressions: Service Date/Time: Sunday, September 25, 2016 14:16 - CONCLUSION: 1. Cardiomegaly. Pacer lead overlying right ventricle. Basilar dependent atelectasis in the lungs. Brett Serrato MD Head CT 09/24/16 0800 Signed Impressions: Service Date/Time: Saturday, September 24, 2016 10:46 - CONCLUSION: Evolving infarct in the cerebellum and brainstem as described above. MRI could be used for further evaluation. There is no hemorrhage. Pranav Aecves MD FACR Cerebral Arteriogram 09/22/16 1506 Signed Impressions: Service Date/Time: August 13:15 - CONCLUSION: 1. Successful thrombectomy of the occlusive thrombus within the basilar artery with reestablishment of flow and TICI score 3. Nic Wild Jr., MD Neck CTA 09/22/16 0000 Signed Impressions: Service Date/Time: August 12:34 - CONCLUSION: 1. Occlusion of the basilar artery described in the CTA of the brain report. 2. Patent carotid arteries and vertebral arteries. The left vertebral artery arises directly off the aortic arch. Nic Wild Jr., MD Head CTA 09/22/16 0000 Signed Impressions: Service Date/Time: August 12:32 - CONCLUSION: Occlusion of the basilar artery. Nic Wild Jr., MD Imaging Last Impressions Chest X-Ray 09/25/16 1209 Signed Impressions: Service Date/Time: Sunday, September 25, 2016 14:16 - CONCLUSION: 1. Cardiomegaly. Pacer lead overlying right ventricle. Basilar dependent atelectasis in the lungs. Brett Serrato MD Head CT 09/24/16 0800 Signed Impressions: Service Date/Time: Saturday, September 24, 2016 10:46 - CONCLUSION: Evolving infarct in the cerebellum and brainstem as described above. MRI could be used for further evaluation. There is no hemorrhage. Pranav Aceves MD FACR Cerebral Arteriogram 09/22/16 1506 Signed Impressions: Service Date/Time: August 13:15 - CONCLUSION: 1. Successful thrombectomy of the occlusive thrombus within the basilar artery with reestablishment of flow and TICI score 3. Nic Wild Jr., MD Neck CTA 09/22/16 0000 Signed Impressions: Service Date/Time: August 12:34 - CONCLUSION: 1. Occlusion of the basilar artery described in the CTA of the brain report. 2. Patent carotid arteries and vertebral arteries. The left vertebral artery arises directly off the aortic arch. Nic Wild Jr., MD Head CTA 09/22/16 0000 Signed Impressions: Service Date/Time: August 12:32 - CONCLUSION: Occlusion of the basilar artery. 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 Status post mechanical clot retrieval by interventional radiology for basilar artery occlusion. Neurology following. Was on anticoagulation with Xarelto as OP - held Currently anticoagulated with heparin drip. + overlap coumadin- per neurology recommendation x 3 months then change to Xarelto INR 2.0 . DC heparin drip if INR therapeutic 2 days in a row PT/OT daily A fib rate controlled- AICD. when asleep slows down to 50s Cardiomyopathy EF 20-25%- AICD start Lisinorpil 2.5 mg po daily change to po Lasix 20 mg daily Pulmonary: Extubated following C Pap trial tolerating well. On nasal cannula. Bronchodilators q 6 and prn q 2. check CXR GI/liver: Speech and swallow eval to decide by mouth diet Renal/: Strict intake output, monitor and replete electro lites, follow BUN/ creatinine. restarted low dose diuretics. ff BMP ID: Watch for fever or leukocytosis. Received vancomycin for antibiotic prophylaxis prior to procedure. Heme: Follow CBC. Was on anticoagulation with Xarelto which is currently on hold. Neurology to decide further antiplatelet therapy and anticoagulation. Endocrine: SSI for glycemic control as needed. Prophylaxis: Pepcid/SCDs PT/OT//Speech therapy daily Adithya Murry MD Sep 26, 2016 12:38
[2016-09-26] MEDS ORDERED: POTASSIUM CHLORIDE 10 MEQ CONTROLLED RELEASE TAB PO ONE (13:00)
[2016-09-26] MEDS: WARFARIN SOD 5 MG TAB PO SCH (17:38)
--- NOTE | 2016-09-26 17:49 | HHI.PR ---
Review/Management Diagnosis Basilar artery embolus, s/p successful embolectomy atrial fibrillation Plan continue coumadin stopping iv heparin since INR 2. Diagnosis/Plan: Subjective Subjective Comments No acute events reported now on coumadin and iv heparin Active Medications Current Medications Medications (Trade) Dose Ordered Sig/Yoni Route Start Time Stop Time Status Last Admin (Tylenol) 650 mg Q6H PRN PO 09/22/16 13:15 Miscellaneous Information 1 Q361D XX 09/22/16 13:15 (Chlorhexidine 2% Cloth) 3 pack Taper DAILY@04 TOP 09/23/16 04:00 09/19/17 03:59 09/24/16 04:36 (Chlorhexidine 2% Cloth) 3 pack UNSCH PRN TOP 09/22/16 13:15 (NovoLOG SUPPLEMENTAL SCALE) 1 Q6HR SQ 09/22/16 18:00 (D50w (Vial) Inj) 25 ml UNSCH PRN IV PUSH 09/22/16 13:30 09/22/16 18:23 (Glucagon Inj) 1 mg UNSCH PRN OTHER 09/22/16 13:30 Labetalol HCl 10 mg 10 mg Q2H PRN IVS 09/22/16 17:00 Sodium Chloride 1,000 ml @ 0 mls/hr Q20H IV 09/22/16 17:00 09/25/16 05:38 (Heparin-D5W Inj) 250 ml @ 0 mls/hr TITRATE IV 09/22/16 17:00 09/25/16 17:06 (Coumadin) 5 mg DAILY@1600 PO 09/24/16 20:00 09/26/16 17:38 (Prinivil) 2.5 mg DAILY PO 09/27/16 09:00 (Pill Splitter) 1 ea UNSCH PRN OTHER 09/26/16 12:15 (Lasix) 20 mg DAILY PO 09/27/16 09:00 (Pepcid) 10 mg BID TUBE 09/26/16 21:00 Allergies Allergies Coded Allergies Codeine (Verified Allergy, Severe, SWELLING, 03/28/15) Penicillin (Verified Allergy, Severe, HIVES, 03/28/15) MRI PRECAUTION (Verified Adverse Reaction, Severe, pacemaker, 03/28/15) Exam I&O / VS 09/25/16 09/25/16 09/26/16 15:00 23:00 07:00 Intake Total 520 ml Output Total 800 ml 325 ml Balance -800 ml 195 ml Intake Oral 120 ml IV Total 400 ml Output Urine Total 800 ml 325 ml # Voids 0 # Bowel Movements 1 1 Vital Signs Date Time Temp Pulse Resp B/P Pulse Ox O2 Delivery O2 Flow Rate FiO2 09/26/16 16:00 98.7 83 20 102/56 96 09/26/16 12:00 98.5 100 20 149/50 96 09/26/16 11:05 93 21 09/26/16 08:00 98.8 93 16 112/59 93 09/26/16 08:00 65 09/26/16 07:00 95 Room Air 09/26/16 04:02 96 21 09/26/16 04:00 98.8 68 20 127/57 95 09/26/16 00:00 96.5 72 19 103/49 97 09/25/16 23:26 62 09/25/16 21:00 58 09/25/16 20:54 97.4 72 20 118/56 99 09/25/16 20:13 Room Air 09/25/16 17:56 97.3 80 18 122/65 95 Exam Comments alert and oriented, speech moderately dysarthric but not aphasic. CN---pupils are 2mm symmetric and reactive to light. extraoccular motility is intact. No facial asymmetry MOTOR--moves all 4 ext with 4+./5 strength with no focal deficit Objective Radiology Results CT brain over weekend--evolvong infarct right cerebellum and brainstem with no hemorrhage. Micro and Labs Laboratory Tests Test 09/26/16 07:30 Prothrombin Time 22.5 Prothromb Time International 2.0 Ratio Activated Partial 37.8 Thromboplast Time Sodium Level 147 Potassium Level 3.6 Chloride Level 111 Carbon Dioxide Level 23.4 Anion Gap 13 Blood Urea Nitrogen 23 Creatinine 1.18 Estimat Glomerular Filtration 60 Rate Random Glucose 124 Calcium Level 8.4 Nik Patricia. PhD MD Sep 26, 2016 17:49
[2016-09-27] VITALS (9 sets, daily range): BP systolic 101–155; BP diastolic 55–78; PULSE 50–89; RESP 17–20; TEMP 96.5–98.7; O2SAT 93–100
[2016-09-27] MEDS: FAMOTIDINE 20 MG TAB TUBE SCH ×3 (01:34→21:39)
[2016-09-27] MEDS: CHLORHEXIDINE GLUCONATE 2 % 1 PACK (2 CLOTHS) TOP SCH (04:00)
[2016-09-27] MEDS: RESP: ALBUTEROL 2.5 MG/IPRATROPIUM 0.5 MG NEB (SCH) NEB ×4 (04:12→21:15)
[2016-09-27] MEDS: INSULIN ASPART SUPPLEMENTAL SCALE SQ SCH ×4 (06:00→18:00)
[2016-09-27 07:33] LABS: PROTHROMBIN TIME - PATIENT 46.7 SEC (9.8-11.6)
[2016-09-27 07:39] LABS: BICARBONATE 24.3 MEQ/L (21.0-32.0); POTASSIUM 3.4 MEQ/L (3.5-5.1)
[2016-09-27] MEDS: FUROSEMIDE 20 MG TAB PO SCH (09:29)
[2016-09-27] MEDS: LISINOPRIL 5 MG TAB PO SCH (09:29)
--- NOTE | 2016-09-27 14:51 | HHI.PR ---
Subjective Remarks awake and alert, pleasant oriented x 3 ff all commands appropriately likely some underlying dementia Objective Vitals Vital Signs Date Time Temp Pulse Resp B/P Pulse Ox O2 Delivery O2 Flow Rate FiO2 09/27/16 12:20 98.5 69 20 101/71 100 09/27/16 08:00 98.0 89 20 117/59 94 09/27/16 04:00 98.2 70 20 122/56 93 09/27/16 00:00 98.7 76 20 111/55 94 09/26/16 20:36 99 21 09/26/16 16:00 98.7 83 20 102/56 96 I/O 09/26/16 09/26/16 09/26/16 09/27/16 09/27/16 09/27/16 07:00 15:00 23:00 07:00 15:00 23:00 Intake Total 520 ml 738 ml 300 ml Output Total 325 ml 1000 ml 1400 ml 100 ml Balance 195 ml -262 ml -1100 ml -100 ml Intake Oral 120 ml 240 ml 300 ml IV Total 400 ml 498 ml Output Urine Total 325 ml 1000 ml 1400 ml 100 ml # Voids 0 # Bowel Movements 1 0 1 Result Diagram: 09/23/16 0416 09/27/16 0703 Imaging Last Impressions Chest X-Ray 09/25/16 1209 Signed Impressions: Service Date/Time: Sunday, September 25, 2016 14:16 - CONCLUSION: 1. Cardiomegaly. Pacer lead overlying right ventricle. Basilar dependent atelectasis in the lungs. Brett Serrato MD Head CT 09/24/16 0800 Signed Impressions: Service Date/Time: Saturday, September 24, 2016 10:46 - CONCLUSION: Evolving infarct in the cerebellum and brainstem as described above. MRI could be used for further evaluation. There is no hemorrhage. Pranav Aceves MD FACR Cerebral Arteriogram 09/22/16 1506 Signed Impressions: Service Date/Time: August 13:15 - CONCLUSION: 1. Successful thrombectomy of the occlusive thrombus within the basilar artery with reestablishment of flow and TICI score 3. Nic Wild Jr., MD Neck CTA 09/22/16 0000 Signed Impressions: Service Date/Time: August 12:34 - CONCLUSION: 1. Occlusion of the basilar artery described in the CTA of the brain report. 2. Patent carotid arteries and vertebral arteries. The left vertebral artery arises directly off the aortic arch. Nic Wild Jr., MD Head CTA 09/22/16 0000 Signed Impressions: Service Date/Time: , September 22, 2016 12:32 - CONCLUSION: Occlusion of the basilar artery. 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 Status post mechanical clot retrieval by interventional radiology for basilar artery occlusion. Neurology following. Was on anticoagulation with Xarelto as OP - held coumadin- per neurology recommendation x 3 months then change to Xarelto INR 4.0 PT/OT daily A fib rate controlled- AICD. when asleep slows down to 50s Cardiomyopathy EF 20-25%- AICD Lisinorpil 2.5 mg po daily Lasix 20 mg daily KCL 20 meq po x 1 today BMP in am Hypokalemia- replace woth po x 1 now. recheck in am Pulmonary: Extubated following C Pap trial tolerating well. On nasal cannula. Bronchodilators q 6 and prn q 2. check CXR GI/liver: Speech and swallow eval to decide by mouth diet Renal/: Strict intake output, monitor and replete electro lites, follow BUN/ creatinine. restarted low dose diuretics. ff BMP ID: Watch for fever or leukocytosis. Received vancomycin for antibiotic prophylaxis prior to procedure. Heme: Follow CBC. Was on anticoagulation with Xarelto which is currently on hold. Neurology to decide further antiplatelet therapy and anticoagulation. Endocrine: SSI for glycemic control as needed. Prophylaxis: Pepcid/SCDs PT/OT//Speech therapy daily CM- Adithya Claudio MD Sep 27, 2016 14:51
[2016-09-27] MEDS ORDERED: POTASSIUM CHLORIDE 10 MEQ CAP PO ONE (15:00)
[2016-09-28] MEDS: RESP: ALBUTEROL 2.5 MG/IPRATROPIUM 0.5 MG NEB (SCH) NEB (03:15)
[2016-09-28 03:16] VITALS: O2SAT 93
[2016-09-28] MEDS: CHLORHEXIDINE GLUCONATE 2 % 1 PACK (2 CLOTHS) TOP SCH (04:00)
[2016-09-28] MEDS: INSULIN ASPART SUPPLEMENTAL SCALE SQ SCH ×3 (05:35→12:35)
[2016-09-28 05:51] VITALS: BP 117/54; PULSE 63; RESP 17; TEMP 97.2; O2SAT 95
[2016-09-28 08:00] VITALS: BP 118/57; PULSE 63; RESP 17; TEMP 97.9; O2SAT 95
[2016-09-28 08:06] LABS: INTERNATIONAL NORMALIZED RATIO 3.7 RATIO; PROTHROMBIN TIME - PATIENT 42.7 SEC (9.8-11.6)
[2016-09-28 08:23] LABS: BICARBONATE 26.2 MEQ/L (21.0-32.0); POTASSIUM 3.6 MEQ/L (3.5-5.1)
[2016-09-28] MEDS: FUROSEMIDE 20 MG TAB PO SCH (08:54)
[2016-09-28] MEDS: LISINOPRIL 5 MG TAB PO SCH (08:54)
[2016-09-28] MEDS: FAMOTIDINE 20 MG TAB TUBE SCH (08:54)
[2016-09-28 12:00] VITALS: BP 104/73; PULSE 60; RESP 18; TEMP 97.7; O2SAT 93
[2016-09-28] MEDS ORDERED: POTASSIUM CHLORIDE 20 MEQ CONTROLLED RELEASE TAB PO ONE (12:00)
[2016-09-28] MEDS ORDERED: LISI-519 PO (12:24)
[2016-09-28] MEDS ORDERED: FURO20TA PO (12:24)
--- NOTE | 2016-09-28 12:26 | HHI.PR ---
Subjective Remarks no complains no headaches, nausea or vomiting Objective Vitals Vital Signs Date Time Temp Pulse Resp B/P Pulse Ox O2 Delivery O2 Flow Rate FiO2 09/28/16 09:56 Room Air 09/28/16 08:00 97.9 63 17 118/57 95 09/28/16 05:51 97.2 63 17 117/54 95 09/28/16 03:16 93 09/27/16 23:55 Room Air 09/27/16 20:29 96.5 77 17 105/78 94 09/27/16 20:00 70 09/27/16 16:16 95 21 09/27/16 16:00 97.1 50 20 155/64 97 09/27/16 15:00 72 I/O 09/27/16 09/27/16 09/27/16 09/28/16 09/28/16 09/28/16 07:00 15:00 23:00 07:00 15:00 23:00 Intake Total 840 ml 360 ml Output Total 100 ml 525 ml Balance -100 ml 315 ml 360 ml Intake Oral 840 ml 360 ml Output Urine Total 100 ml 525 ml # Voids 2 # Bowel Movements 1 Result Diagram: 09/28/16 0735 Imaging Last Impressions Chest X-Ray 09/25/16 1209 Signed Impressions: Service Date/Time: Sunday, September 25, 2016 14:16 - CONCLUSION: 1. Cardiomegaly. Pacer lead overlying right ventricle. Basilar dependent atelectasis in the lungs. Brett Serrato MD Head CT 09/24/16 0800 Signed Impressions: Service Date/Time: Saturday, September 24, 2016 10:46 - CONCLUSION: Evolving infarct in the cerebellum and brainstem as described above. MRI could be used for further evaluation. There is no hemorrhage. Pranav Aceves MD FACR Cerebral Arteriogram 09/22/16 1506 Signed Impressions: Service Date/Time: August 13:15 - CONCLUSION: 1. Successful thrombectomy of the occlusive thrombus within the basilar artery with reestablishment of flow and TICI score 3. Nic Wild Jr., MD Neck CTA 09/22/16 0000 Signed Impressions: Service Date/Time: August 12:34 - CONCLUSION: 1. Occlusion of the basilar artery described in the CTA of the brain report. 2. Patent carotid arteries and vertebral arteries. The left vertebral artery arises directly off the aortic arch. Nic Wild Jr., MD Head CTA 09/22/16 0000 Signed Impressions: Service Date/Time: August 12:32 - CONCLUSION: Occlusion of the basilar artery. 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 Neurology following. Was on anticoagulation with Xarelto as OP - held coumadin- per neurology recommendation x 3 months then change to Xarelto INR 3.6- Hold coumadin- restart if INR less than 3. PT/OT daily A fib rate controlled- AICD. Cardiomyopathy EF 20-25%- AICD Lisinorpil 2.5 mg po daily Lasix 20 mg daily ff BMP Hypokalemia- replaced. FF BMP. Kcl 20 meq po daily Pulmonary: Extubated following C Pap trial tolerating well. On nasal cannula. Bronchodilators q 6 and prn q 2. check CXR GI/liver: Speech and swallow eval to decide by mouth diet Renal/: Strict intake output, monitor and replete electro lites, follow BUN/ creatinine. restarted low dose diuretics. ff BMP ID: Watch for fever or leukocytosis. Received vancomycin for antibiotic prophylaxis prior to procedure. Heme: Follow CBC. Was on anticoagulation with Xarelto which is currently on hold. Neurology to decide further antiplatelet therapy and anticoagulation. Endocrine: SSI for glycemic control as needed. Prophylaxis: Pepcid/SCDs PT/OT//Speech therapy daily NANCY- Adithya Bowers MD Sep 28, 2016 12:26
[2016-09-28] MEDS ORDERED: POTA-88 PO (12:28)
--- NOTE | 2016-09-28 12:31 | HHI.DS ---
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 He was called in as a stroke alert by EMS. Patient was with his at the restaurant when apparently he told his that he was not feeling well and went to the restroom. When he did not come out she went after him and found him unresponsive on the floor and called 911. This was around 11:45 AM. EMS found him with a GCS of 3 and gazing to the left and posturing. Brought him being assisted ventilated by BVM. 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 Patient is unable to give any meaningful history given his condition. Patient was intubated by ER physician for airway protection and placed on mechanical ventilation. There was no family member at the time when patient arrived to give any other history. A stroke alert was called. Head CT was negative for bleed. CTA revealed occlusion of basilar artery. Patient was not deemed to be a candidate for TPA as he was on Xarelto for anticoagulation for chronic A. fib. Patient was seen by Dr. Patricia from neurology and was subsequently underwent mechanical clot retrieval by interventional radiology - Dr. Wild. Following this he was transferred to [facility] where I evaluated him immediately following his arrival. At the time of my evaluation patient was sedated with propofol, orally intubated on mechanical ventilation. He was sedated though easily arousable opening eyes spontaneously and moving all 4 extremities at the time of arrival to the ICU. History was obtained by reviewing records and discussion with Dr. Blue and subsequently Dr. Wild from [facility] Past Medical History Narrative Medical Arthritis: Yes (FINGERS) Asthma: No Autoimmune Disease: No Blood Disorders: No Anxiety: No Depression: No Heart Rhythm Problems: Yes Cancer: Yes (LYMPHOMA 2009) Cardiac Catheterization: Yes Cardiomyopathy: Yes (20% EJECTION FRACTURE) Cardiovascular Problems: Yes High Cholesterol: No Chemotherapy: Yes Chest Pain: Yes Congestive Heart Failure: Yes COPD: No Cerebrovascular Accident: Yes Coronary Artery Disease: Yes Diabetes: No Diminished Hearing: Yes Endocrine: No Gastrointestinal Disorders: Yes (GI BLEED WITH POLYPS) GERD: Yes Glaucoma: No Genitourinary: No Headaches: No Hepatitis: No Hiatal Hernia: No Heparin Induced Thrombocytopen: No Hypertension: Yes Immune Disorder: No Inguinal Hernia: Yes Implanted Vascular Access Dvce: Yes Kidney Stones: No Musculoskeletal: Yes (RIGHT KNEE BONE SPUR) Neurologic: Yes Psychiatric: No Reproductive: No Respiratory: Yes Immunizations Current: Yes Migraines: No Myocardial Infarction: Yes (X2) Radiation Therapy: No Renal Failure: No Seizures: No Sickle Cell Disease: No Sleep Apnea: No Thyroid Disease: No Ulcer: No PNEUMOCCOCAL Vaccine (Year): 1 Past Surgical History Abdominal Surgery: Yes 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) AICD MODEL 1860 DONE 2009, REPLACED 2011) Appendectomy: No Arteriovenous Shunt: No Body Medical Devices: PACEMAKER, AICD, STENTS x5 Cardiac Surgery: Yes (DEFIBRILLATOR 2002, REPLACEMENT OF DEFIB 2011 ) Cholecystectomy: Yes (1981) Coronary Artery Bypass Graft: No Coronary Stent: Yes (5 STENTS) Ear Surgery: No Endocrine Surgery: Yes (GALLSTONE REMOVAL ) Eye Surgery: No Genitourinary Surgery: No Gynecologic Surgery: No Insulin Pump: No Joint Replacement: No Neurologic Surgery: No Oral Surgery: Yes (TEETH PULLED) Pacemaker: No Thoracic Surgery: No Other Surgery: Yes (AICD) Social History Alcohol Use: No Tobacco Use: No (/2 PPD) Substance Use: No Allergies-Medications (Allergen,Severity, Reaction): Coded Allergies: Codeine (Verified Allergy, Severe, SWELLING, 03/28/15) Penicillin (Verified Allergy, Severe, HIVES, 03/28/15) MRI PRECAUTION (Verified Adverse Reaction, Severe, pacemaker, 03/28/15) Comments List of his allergies reviewed from the nursing note. Reported Meds & Prescriptions Reported Meds & Active Scripts Active Reported Lisinopril 2.5 Mg Tab 2.5 Mg PO DAILY Omeprazole 40 Mg Cap 40 Mg PO DAILY Clonazepam 1 Mg Tab 1 Mg PO HS Tramadol (Tramadol HCl) 50 Mg Tab 50 Mg PO Q4H PRN Xarelto (Rivaroxaban) 20 Mg Tab 20 Mg PO DAILY Furosemide 20 Mg Tab 20 Mg PO BID Review of systems Could not be obtained as patient is sedated, orally intubated on mechanical ventilation. CBC/BMP: 09/28/16 0735 Significant Findings Laboratory Tests Test 09/25/16 09/26/16 09/27/16 09/28/16 14:25 07:30 07:03 07:35 Sodium Level 147 MEQ/L 147 MEQ/L (136-145) (136-145) Chloride Level 116 MEQ/L 111 MEQ/L 109 MEQ/L 109 MEQ/L (98-107) (98-107) (98-107) (98-107) Blood Urea Nitrogen 26 MG/DL (7-18) 23 MG/DL (7-18) 19 MG/DL (7-18) 19 MG/DL (7- 18) Estimat Glomerular Filtration 73 ML/MIN (>89) 60 ML/MIN (>89) 77 ML/MIN (>89) 77 ML/MIN (>89) Rate Random Glucose 119 MG/DL 124 MG/DL (74-106) (74-106) B-Type Natriuretic Peptide 794 PG/ML (0-100) Prothrombin Time 22.5 SEC 46.7 SEC 42.7 SEC (9.8-11.6) (9.8-11.6) (9.8-11.6) Activated Partial 37.8 SEC Thromboplast Time (24.3-30.1) Calcium Level 8.4 MG/DL 8.1 MG/DL 8.4 MG/DL (8.5-10.1) (8.5-10.1) (8.5-10.1) Potassium Level 3.4 MEQ/L (3.5-5.1) Imaging Last Impressions Chest X-Ray 09/25/16 1209 Signed Impressions: Service Date/Time: Sunday, September 25, 2016 14:16 - CONCLUSION: 1. Cardiomegaly. Pacer lead overlying right ventricle. Basilar dependent atelectasis in the lungs. Brett Serrato MD Head CT 09/24/16 0800 Signed Impressions: Service Date/Time: Saturday, September 24, 2016 10:46 - CONCLUSION: Evolving infarct in the cerebellum and brainstem as described above. MRI could be used for further evaluation. There is no hemorrhage. Pranav Aceves MD FACR Cerebral Arteriogram 09/22/16 1506 Signed Impressions: Service Date/Time: August 13:15 - CONCLUSION: 1. Successful thrombectomy of the occlusive thrombus within the basilar artery with reestablishment of flow and TICI score 3. Nic Wild Jr., MD Neck CTA 09/22/16 0000 Signed Impressions: Service Date/Time: August 12:34 - CONCLUSION: 1. Occlusion of the basilar artery described in the CTA of the brain report. 2. Patent carotid arteries and vertebral arteries. The left vertebral artery arises directly off the aortic arch. Nic Wild Jr., MD Head CTA 09/22/16 0000 Signed Impressions: Service Date/Time: August 12:32 - CONCLUSION: Occlusion of the basilar artery. Nic Wild Jr., MD PE at Discharge awake and alert, speech dysarthric anicteric lungs - no wheezes irregular rhythm abdomen soft extremities no edema neuro- speech dysarthric cranial nerves grossly intact individual muscles testing 5/5 strength but poor coordination Transfer Summary 09/22: 76-year-old male came to the emergency room brought by EMS for being unresponsive and posturing. He was called in as a stroke alert by EMS. Patient was with his at the restaurant when apparently he told his that he was not feeling well and went to the restroom. When he did not come out she went after him and found him unresponsive on the floor and called 911. This was around 11:45 AM. EMS found him with a GCS of 3 and gazing to the left and posturing. Brought him being assisted ventilated by BVM. 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 Patient is unable to give any meaningful history given his condition. Patient was intubated by ER physician for airway protection and placed on mechanical ventilation. There was no family member at the time when patient arrived to give any other history. A stroke alert was called. Head CT was negative for bleed. CTA revealed occlusion of basilar artery. Patient was not deemed to be a candidate for TPA as he was on Xarelto for anticoagulation for chronic A. fib. Patient was seen by Dr. Patricia from neurology and was subsequently underwent mechanical clot retrieval by interventional radiology - Dr. Wild. Following this he was transferred to [facility] where I evaluated him immediately following his arrival. At the time of my evaluation patient was sedated with propofol, orally intubated on mechanical ventilation. He was sedated though easily arousable opening eyes spontaneously and moving all 4 extremities at the time of arrival to the ICU. History was obtained by reviewing records and discussion with Dr. Blue and subsequently Dr. Wild from IR. 09/23: Sedated, arousable, orally intubated on mechanical ventilation. On heparin drip currently. Head CT done this morning. Patient awakens easily off sedation and was extubated following C Pap trial and is currently on nasal cannula. He is following commands and knows he is in the hospital. Speech is slurred probably secondary to cerebellar/brain stem involvement. Discussed with Dr. Garsia his anime designer, patient reportedly stopped taking Xarelto on his own in May 2016 and did not resume it until his appointment with Dr. Garsia in August 2016 which may have resulted in the stroke. He is tolerating extubation well. Per my discussion with Dr. Garsia he should be resumed on Xarelto when okay with neurology. 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 Neurology following. Was on anticoagulation with Xarelto as OP - held coumadin- per neurology recommendation x 3 months then change to Xarelto INR 3.6- Hold coumadin- restart if INR less than 3. PT/OT daily A fib rate controlled- AICD. Cardiomyopathy EF 20-25%- AICD Lisinorpil 2.5 mg po daily Lasix 20 mg daily ff BMP Hypokalemia- replaced. FF BMP. Kcl 20 meq po daily Pulmonary: Extubated following C Pap trial tolerating well. On nasal cannula. Bronchodilators q 6 and prn q 2. GI/liver: Speech and swallow eval to decide by mouth diet Renal/: Strict intake output, monitor and replete electro lites, follow BUN/ creatinine. restarted low dose diuretics. ff BMP ID: Watch for fever or leukocytosis. Received vancomycin for antibiotic prophylaxis prior to procedure. Heme: Follow CBC. Was on anticoagulation with Xarelto which is currently on hold. coumadin now for acute CVA for 3 months then change back to Xarelto Prophylaxis: Pepcid/SCDs PT/OT//Speech therapy daily CM- Pham today Pt Condition on Discharge: Stable Discharge Disposition: Rehab Inpatient Discharge Time: <= 30 minutes Discharge Instructions DIET: Follow Instructions for: Heart Healthy Diet, Pureed Diet Speech Therapy-Diet Recommends: Pureed, Pudding Thickened Liquids Activities you can perform: Weight Bearing as Leti Other Activity Instructions: active physical therapy New Orders: PT/INR - 09/29/16 New Medications: Potassium Chloride Microencaps (Klor-Con M10) 10 Meq Tab 10 MEQ PO DAILY Electrolyte Replacement #30 Ref 0 TAB Furosemide (Furosemide) 20 Mg Tab 20 MG PO DAILY HTN #30 TAB Lisinopril (Lisinopril) 5 Mg Tab 2.5 MG PO DAILY HTN #30 TAB Continued Medications: Lisinopril (Lisinopril) 2.5 Mg Tab 2.5 MG PO DAILY #30 Ref 0 TAB Omeprazole (Omeprazole) 40 Mg Cap 40 MG PO DAILY #30 Ref 0 CAP Discontinued Medications: Clonazepam (Clonazepam) 1 Mg Tab 1 MG PO HS #60 Ref 0 TAB Furosemide (Furosemide) 20 Mg Tab 20 MG PO BID #60 Ref 0 TAB Rivaroxaban (Xarelto) 20 Mg Tab 20 MG PO DAILY Blood Clot Prevention Ref 0 TAB Tramadol (Tramadol) 50 Mg Tab 50 MG PO Q4H PRN PAIN Ref 0 TAB Adithya Murry MD Sep 28, 2016 12:31
[2016-10-11] MEDS ORDERED: COUM2TAB PO ×2 (09:58→10:03)
[2016-10-11] MEDS ORDERED: POTA-88 PO (09:58)
[2016-10-11] MEDS ORDERED: PANT40TA3 PO (09:58)
[2016-10-11] MEDS ORDERED: MUCI600T PO (09:58)
[2016-10-11] MEDS ORDERED: FURO20TA PO (09:58)
[2016-10-11] MEDS ORDERED: ACET325T PO (09:58)
[2016-10-11] MEDS ORDERED: CLON.5 PO (11:04)
== END 2016-09-28 14:00 | DRG 23 ==
LOC: NEPA 12:08 → NEDA 13:00 → N03A 15:18 → N05A 09-24 11:14 → N05B 09-25 14:55
PROVIDERS: ADMIT Internal Medicine; ATTEND Internal Medicine
PROC: 03CG3ZZ Extirpation of Matter from Intracranial Artery, Percutaneous Approach (ICD-10-PCS; principal; 2016-09-22)
PROC: 5A1935Z Respiratory Ventilation, Less than 24 Consecutive Hours (ICD-10-PCS; 2016-09-22)
PROC: 0BH17EZ Insertion of Endotracheal Airway into Trachea, Via Natural or Artificial Opening (ICD-10-PCS; 2016-09-22)
PROC: B31F1ZZ Fluoroscopy of Left Vertebral Artery using Low Osmolar Contrast (ICD-10-PCS; 2016-09-22)
PROC: B31R1ZZ Fluoroscopy of Intracranial Arteries using Low Osmolar Contrast (ICD-10-PCS; 2016-09-22)
DX: I63.12 Cerebral infarction due to embolism of basilar artery (principal); G93.40 Encephalopathy, unspecified; J96.00 Acute respiratory failure, unspecified whether with hypoxia or hypercapnia; I48.2 Chronic atrial fibrillation; I25.10 Atherosclerotic heart disease of native coronary artery without angina pectoris; M19.90 Unspecified osteoarthritis, unspecified site; H91.90 Unspecified hearing loss, unspecified ear; K21.9 Gastro-esophageal reflux disease without esophagitis; R29.707 NIHSS score 7; M17.9 Osteoarthritis of knee, unspecified; F17.200 Nicotine dependence, unspecified, uncomplicated; I50.9 Heart failure, unspecified; I11.0 Hypertensive heart disease with heart failure; I25.5 Ischemic cardiomyopathy; R47.1 Dysarthria and anarthria; E87.6 Hypokalemia; I25.2 Old myocardial infarction; Z79.01 Long term (current) use of anticoagulants; Z91.19 Patient's noncompliance with other medical treatment and regimen; Z86.73 Personal history of transient ischemic attack (TIA), and cerebral infarction without residual deficits; Z95.810 Presence of automatic (implantable) cardiac defibrillator; Z95.5 Presence of coronary angioplasty implant and graft; Z85.72 Personal history of non-Hodgkin lymphomas
CPT/HCPCS: 31500; 36226; 61645; 70450; 70496; 70498; 71010; 76937; 80048; 80053; 80061; 80307; 81001; 82435; 82550; 82565; 82947; 82948; 83735; 83880; 84132; 84295; 84484; 84520; 85025; 85384; 85610; 85730; 86850; 86900; 86901; 87641; 93005; 93306; 94002; 94003; 94640; 94664; 99152; 99153; C1760; C1769; C1887; C1894; G0269; J1644; J1940; J2250; J3010; J3370; J3480; J7030; P9612; Q9967

== ENCOUNTER 2017-01-17 18:41 | Inpatient (IN) | payer MEDICARE, OTHER ==
[2017-01-17] VITALS (11 sets, daily range): BP systolic 90–155; BP diastolic 56–83; PULSE 70–104; RESP 16–33; TEMP 98.9–99.4; O2SAT 89–100
[~2017-01-17] VITALS: Ht 177.8 cm; Wt 69.4 kg
[~2017-01-17 18:41] MED LIST changes: +ACET325T PO; +CLON.5 PO; -CLON1TAB PO; +COUM2TAB PO; -LISI2.5T3 PO; +MUCI600T PO; -OMEP40CA2 PO; +PANT40TA3 PO; +POTA-88 PO; -TRAM50TA PO; -XARE20TA PO
[2017-01-17] MEDS ORDERED: metroNIDAZOLE 500 MG INJ 100 ML IV STA (19:04)
[2017-01-17] MEDS ORDERED: AZTREONAM INJ 2,000 MG in SODIUM CHLORIDE 0.9% INJ 100 ML IV STA (19:04)
[2017-01-17] MEDS ORDERED: PROPOFOL 1000 MG/100 ML INJ 100 ML ONE (19:08)
[2017-01-17] MEDS ORDERED: SUCCINYLCHOLINE CHLORIDE 200 MG/10 ML VIAL IVP ONE (19:15)
[2017-01-17] MEDS ORDERED: PROPOFOL 1000 MG/100 ML INJ 100 ML IV SCH (19:15)
[2017-01-17] MEDS ORDERED: SODIUM CHLORIDE 0.9% FLUSH 10 ML FLUSH IVF PRN (19:15)
[2017-01-17] MEDS ORDERED: ETOMIDATE 20 MG/10 ML VIAL IVP ONE (19:15)
[2017-01-17] MEDS ORDERED: SODIUM CHLOR 0.9% 1000 ML INJ 1,000 ML IV ONE (19:15)
--- NOTE | 2017-01-17 19:26 | PD ---
HPI Chief Complaint: Respiratory Distress Time Seen by Provider: 19:04 Travel History International Travel<30 days: No Contact w/Intl Traveler<30days: No Traveled to known affect area: No History of Present Illness HPI evac brought patient in for resp distress, apparently pt is supposed to be on thin liquids but he was noncompliant and ate food, then started to vomit undigested food around 3p....brought in by evac around 7p...evac found patient in ventilatory distress, purplish around lips and attempted to intubate on scene but unsuccessful brought into ed being bvm.... per review of rehab chart patient has h/o ISCHEMIC CARDIOMYOPATHY EF 20%, AFIB, AICD PLACEMENT, CAD WITH STENTS X5, CVA ON 09/22 OCCLUDED BASILAR ARTERY S/P THROMBECTOMY IN IR BY DR JARA (NOT A TPA CANDIDATE DUE TO PT ON XARELTO FOR AFIB). APPARENTLY WAS A/OX3 , DYSARTHRIA AND DYSPHAGIA PRESENT PFSH Past Medical History Arthritis: Yes (FINGERS) Asthma: No Autoimmune Disease: No Blood Disorders: No Anxiety: No Depression: No Heart Rhythm Problems: Yes Cancer: Yes (LYMPHOMA 2009) Cardiac Catheterization: Yes Cardiomyopathy: Yes (20% EJECTION FRACTURE) Cardiovascular Problems: Yes High Cholesterol: No Chemotherapy: Yes Chest Pain: Yes Congestive Heart Failure: Yes COPD: No Cerebrovascular Accident: Yes Coronary Artery Disease: Yes Diabetes: No Diminished Hearing: Yes Endocrine: No Gastrointestinal Disorders: Yes (GI BLEED WITH POLYPS) GERD: Yes Glaucoma: No Genitourinary: No Headaches: No Hepatitis: No Hiatal Hernia: No Heparin Induced Thrombocytopen: No Hypertension: Yes Immune Disorder: No Inguinal Hernia: Yes Implanted Vascular Access Dvce: Yes Kidney Stones: No Musculoskeletal: Yes (RIGHT KNEE BONE SPUR) Neurologic: Yes Psychiatric: No Reproductive: No Respiratory: Yes Immunizations Current: Yes Migraines: No Myocardial Infarction: Yes (X2) Radiation Therapy: No Renal Failure: No Seizures: No Sickle Cell Disease: No Sleep Apnea: No Thyroid Disease: No Ulcer: No PNEUMOCCOCAL Vaccine (Year): 1 Past Surgical History Abdominal Surgery: Yes 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) AICD MODEL 1860 DONE 2009, REPLACED 2011) Appendectomy: No Arteriovenous Shunt: No Body Medical Devices: PACEMAKER, AICD, STENTS x5 Cardiac Surgery: Yes (DEFIBRILLATOR 2002, REPLACEMENT OF DEFIB 2011 ) Cholecystectomy: Yes (1981) Coronary Artery Bypass Graft: No Coronary Stent: Yes (5 STENTS) Ear Surgery: No Endocrine Surgery: Yes (GALLSTONE REMOVAL ) Eye Surgery: No Genitourinary Surgery: No Gynecologic Surgery: No Insulin Pump: No Joint Replacement: No Neurologic Surgery: No Oral Surgery: Yes (TEETH PULLED) Pacemaker: No Thoracic Surgery: No Other Surgery: Yes (AICD) Social History Alcohol Use: No Tobacco Use: No (/2 PPD) Substance Use: No Allergies-Medications (Allergen,Severity, Reaction): Coded Allergies: Codeine (Verified Allergy, Severe, SWELLING, 03/28/15) Penicillin (Verified Allergy, Severe, HIVES, 03/28/15) MRI PRECAUTION (Verified Adverse Reaction, Severe, pacemaker, 03/28/15) Reported Meds & Prescriptions Reported Meds & Active Scripts Active Klonopin (Clonazepam) 0.5 Mg Tab 0.5 Mg PO HS PRN Reported Acetaminophen 325 Mg Capsule 650 Mg PO Q4HR PRN Sertraline (Sertraline HCl) 50 Mg Tab 50 Mg PO DAILY Duoneb (Ipratropium-Albuterol Neb) 0.5-2.5 Mg/3 Ml Neb 1 Nebule INH Q8HR NEB Aldactone (Spironolactone) 25 Mg Tab 25 Mg PO BIDPC Omeprazole 20 Mg Tab 20 Mg PO DAILY Mucinex (Guaifenesin) 1,200 Mg Tab.er.12h 600 Mg PO BID Warfarin 1 Mg Tab 1.5 Mg PO DAILY Levofloxacin 500 Mg Tablet 500 Mg PO DAILY Review of Systems ROS Limitations: Clinical Condition, Altered Mental Status, Unresponsive Physical Exam Narrative GENERAL: SKIN: cool and dry. HEAD: Atraumatic. Normocephalic. EYES: Pupils equal and round. No scleral icterus. No injection or drainage. ENT: No nasal bleeding or discharge. Mucous membranes pink and moist. NECK: Trachea midline. No JVD. CARDIOVASCULAR: Regular rate and rhythm. RESPIRATORY: accessory muscle use, bradypneic around 6-8, being assisted with bvm and oxygen, patient intubated at bedside see proc note GASTROINTESTINAL: Abdomen soft, non-tender, nondistended. patient soiled himself with stool coming out of his diaper MUSCULOSKELETAL: Extremities without clubbing, cyanosis, or edema. No obvious deformities. NEUROLOGICAL: Awake and alert. No obvious cranial nerve deficits. Motor grossly within normal limits. Five out of 5 muscle strength in the arms and legs. Normal speech. PSYCHIATRIC: Appropriate mood and affect; insight and judgment normal. Data Data Last Documented VS Vital Signs Date Time Temp Pulse Resp B/P Pulse Ox O2 Delivery O2 Flow Rate FiO2 01/17/17:17 98 Ventilator 100 01/17/17 18:56 15 01/17/17 18:46 98.9 104 30 155/83 Orders Propofol 1000 Mg/100 Ml Inj (Diprivan 10 (01/17/17 19:08) Chest, Single Ap (01/17/17 19:04) Ecg Monitoring (01/17/17 19:04) Iv Access Insert/Monitor (01/17/17 19:04) Ng Gastric Tube Insert/Monitor (01/17/17 19:04) Urinary Catheter Insert/Apply (01/17/17 19:04) Oximetry (01/17/17 19:04) Etomidate Inj (Amidate Inj) (01/17/17 19:15) Succinylcholine Inj (Quelicin Inj) (01/17/17 19:15) Sodium Chloride 0.9% Flush (Ns Flush) (01/17/17 19:15) Electrocardiogram (01/17/17 19:04) Complete Blood Count With Diff (01/17/17 19:04) Comprehensive Metabolic Panel (01/17/17 19:04) Lactic Acid Sepsis Protocol (01/17/17 19:04) Ckmb (Isoenzyme) Profile (01/17/17 19:04) Troponin I (01/17/17 19:04) Urinalysis - C+S If Indicated (01/17/17 19:04) Blood Culture (01/17/17 19:04) Ct Abd/Pel W/O Iv Contrast (01/17/17 19:04) Aztreonam Inj (Azactam Inj) (01/17/17 19:04) Metronidazole 500 Mg Inj (Flagyl 500 Mg (01/17/17 19:04) Sodium Chlor 0.9% 1000 Ml Inj (Ns 1000 M (01/17/17 19:15) Propofol 1000 Mg/100 Ml Inj (Diprivan 10 (01/17/17 19:15) ^ Infusion (01/17/17 19:04) RASS (01/17/17 19:04) Neurological Rass Scale ROSEMARY.Q2H (01/17/17 19:04) Midazolam Inj (Versed Inj) (01/17/17 19:30) Midazolam Inj (Versed Inj) (01/17/17 19:28) Admit Order (Ed Use Only) (01/17/17 19:39) Labs Laboratory Tests Test 01/17/17 01/17/17 01/17/17 18:50 19:10 19:40 White Blood Count 17.0 TH/MM3 Red Blood Count 5.23 MIL/MM3 Hemoglobin 13.0 GM/DL Hematocrit 42.2 % Mean Corpuscular Volume 80.7 FL Mean Corpuscular Hemoglobin 24.8 PG Mean Corpuscular Hemoglobin 30.7 % Concent Red Cell Distribution Width 20.6 % Platelet Count 399 TH/MM3 Mean Platelet Volume 8.0 FL Neutrophils (%) (Auto) 84.2 % Lymphocytes (%) (Auto) 11.4 % Monocytes (%) (Auto) 2.1 % Eosinophils (%) (Auto) 1.7 % Basophils (%) (Auto) 0.6 % Neutrophils # (Auto) 14.3 TH/MM3 Lymphocytes # (Auto) 1.9 TH/MM3 Monocytes # (Auto) 0.4 TH/MM3 Eosinophils # (Auto) 0.3 TH/MM3 Basophils # (Auto) 0.1 TH/MM3 CBC Comment DIFF FINAL Differential Comment Sodium Level 141 MEQ/L Potassium Level 4.0 MEQ/L Chloride Level 108 MEQ/L Carbon Dioxide Level 23.9 MEQ/L Anion Gap 9 MEQ/L Blood Urea Nitrogen 17 MG/DL Creatinine 1.15 MG/DL Estimat Glomerular Filtration 62 ML/MIN Rate Random Glucose 167 MG/DL Calcium Level 8.6 MG/DL Total Bilirubin 0.4 MG/DL Aspartate Amino Transf 19 U/L (AST/SGOT) Alanine Aminotransferase 17 U/L (ALT/SGPT) Alkaline Phosphatase 100 U/L Total Creatine Kinase 68 U/L Troponin I 0.02 NG/ML Total Protein 7.4 GM/DL Albumin 3.1 GM/DL Urine Color YELLOW Urine Turbidity HAZY Urine pH 6.0 Urine Specific [place] 1.018 Urine Protein TRACE mg/dL Urine Glucose (UA) NEG mg/dL Urine Ketones NEG mg/dL Urine Occult Blood TRACE Urine Nitrite NEG Urine Bilirubin NEG Urine Urobilinogen LESS THAN 2.0 MG/DL Urine Leukocyte Esterase MOD Urine RBC 3 /hpf Urine WBC 17 /hpf Urine Bacteria MOD /hpf Microscopic Urinalysis Comment CATH-CULTURE IND Lactic Acid Level 2.7 mmol/L MDM Medical Decision Making Medical Screen Exam Complete: Yes Emergency Medical Condition: Yes Medical Record Reviewed: Yes Interpretation(s) afib with mild rvr, no stemi pattern, lvh Differential Diagnosis aspiration pna v sepsis v resp arrest v sbo Narrative Course patient was turned over to mobile sales consultant dr mabry pending labs/cxr/and admit.....after patient was immediately intubated, hydrated, given iv abx, morales /ng placed performed as soon as patient presented by evac. Critical Care Narrative CRITICAL CARE NOTE: With evaluation of the patient, labs, EKG, receipt of radiologic studies, administration of medications, reevaluation the patient and discussion of the patient with the admitting physicians, the total critical care time was [45] minutes. Time to perform other separately billable procedures was not included in the critical care time. Procedures Procedure Narrative The patient was put in optimal position for the procedure. Rapid sequence intubation was initiated by me using [20] milligrams of etomidate IV and [100] milligrams of [succynilcholine] IV. The patient was intubated with a [8-0] cuffed endotracheal tube. Tube placement was confirmed by visualization of the tube and balloon passing through the cords, capnometry and subsequent chest x- ray. Breath sounds were equal and well aerated bilaterally postintubation. No breath sounds over stomach. Patient tolerated procedure well. Diagnosis Primary Impression: ventilatory arrest s/p intubation Additional Impressions: suspected aspiration pneumonia UTI AFIB Admitting Information Admitting Physician Requests: Admit Condition: Serious Rosas Mullen MD Jan 17, 2017 19:26
[2017-01-17] MEDS ORDERED: MIDAZOLAM HCL 5 MG/ML VIAL (1 ML) ONE (19:28)
[2017-01-17] MEDS ORDERED: MIDAZOLAM HCL 2 MG/2 ML VIAL IV PUSH ONE (19:30)
--- NOTE | 2017-01-17 19:35 | RADRPT ---
EXAM DATE/TIME: 01/17/2017 19:34 [facility] COMPARISON: CHEST SINGLE AP, October 04, 2016, 16:33. INDICATIONS : Post endotracheal tube placement. MEDICAL HISTORY : Stroke. SURGICAL HISTORY : None. ENCOUNTER: Initial ACUITY: 1 day PAIN SCORE: Non-responsive. LOCATION: Bilateral chest FINDINGS: A single view of the chest demonstrates cardiomegaly and bilateral perihilar edema. Endotracheal tube with tip 5 cm above the isra. Left-sided defibrillator with single intact lead. Nasogastric tube w ith tip in stomach. Osseous structures are intact. CONCLUSION: Cardiomegaly with bilateral perihilar edema. Terry Cowart MD on January 17, 2017 at 19:33 Board Certified Radiologist. This report was verified electronically.
[2017-01-17 19:44] LABS: AUTOMATED NEUTROPHIL # 14.3 TH/MM3 (1.8-7.7); BASOPHIL # 0.1 TH/MM3 (0-0.2); BASOPHIL % 0.6 % (0.0-2.0); EOSINOPHIL # 0.3 TH/MM3 (0-0.4); EOSINOPHIL % 1.7 % (0.0-4.0); HEMATOCRIT 42.2 % (39.0-51.0); HEMO FLAGS DIFF FINAL; LYMPH % 11.4 % (9.0-44.0); LYMPHOCYTE # 1.9 TH/MM3 (1.0-4.8); MEAN CELL VOLUME 80.7 FL (80.0-100.0); MEAN CORPUSCULAR HEMOGLOBIN 24.8 PG (27.0-34.0); MEAN CORPUSCULAR HGB CONC 30.7 % (32.0-36.0); MONO % 2.1 % (0.0-8.0); NEUT % 84.2 % (16.0-70.0); PLATELET COUNT 399 TH/MM3 (150-450); RED BLOOD COUNT 5.23 MIL/MM3 (4.50-5.90); RED CELL DISTRIBUTION WIDTH 20.6 % (11.6-17.2)
[2017-01-17 19:55] LABS: BACTERIA, URINE MOD /hpf; BLOOD, URINE TRACE (NEG); COMMENT (UR) CATH-CULTURE IND; CULTURE IF INDICATED CATH CULTURE IND; GLUCOSE,URINE NEG (NEG); KETONE, URINE NEG (NEG); NITRITE,URINE NEG (NEG); URINE COLOR YELLOW (YELLW/STRAW)
[2017-01-17 20:00] LABS: ALT (GPT) 17 U/L (12-78); ANION GAP 9 MEQ/L (5-15); AST (GOT) 19 U/L (15-37); BICARBONATE 23.9 MEQ/L (21.0-32.0); BLOOD UREA NITROGEN 17 MG/DL (7-18); CHLORIDE 108 MEQ/L (98-107); GLOMERULAR FILTRATION RATE 62 ML/MIN (>89); SODIUM (NA) 141 MEQ/L (136-145)
[2017-01-17] MEDS ORDERED: SENNOSIDES 8.6 MG TAB PO PRN (20:00)
[2017-01-17] MEDS ORDERED: ACETAMINOPHEN 325 MG TAB PO PRN (20:00)
[2017-01-17] MEDS ORDERED: MIDAZOLAM HCL 2 MG/2 ML VIAL IV PRN (20:00)
[2017-01-17] MEDS ORDERED: MAGNESIUM HYDROXIDE SUSP 30 ML CUP PO PRN (20:00)
[2017-01-17] MEDS ORDERED: LACTULOSE SYRUP 20 GM/30 ML CUP PO PRN (20:00)
[2017-01-17] MEDS ORDERED: MISCELLANEOUS NURSING INFORMATION XX SCH (20:00)
[2017-01-17] MEDS ORDERED: BISACODYL 10 MG SUPP RECTAL PRN (20:00)
[2017-01-17] MEDS ORDERED: SODIUM CHLORIDE 0.9% FLUSH 10 ML FLUSH IV FLUSH PRN (20:00)
[2017-01-17] MEDS ORDERED: ONDANSETRON HCL 4 MG/2 ML VIAL IV PRN (20:00)
[2017-01-17] MEDS ORDERED: MORPHINE SULFATE 4 MG/ML INJ IV PRN (20:00)
[2017-01-17] MEDS ORDERED: CHLORHEXIDINE GLUCONATE 2 % 1 PACK (2 CLOTHS) TOP PRN (20:00)
[2017-01-17 20:03] LABS: ALKALINE PHOSPHATASE 100 U/L (45-117); TOTAL BILIRUBIN ADULT 0.4 MG/DL (0.2-1.0)
[2017-01-17 20:04] LABS: CREATINE KINASE 68 U/L (39-308)
--- NOTE | 2017-01-17 20:23 | RADRPT ---
EXAM DATE/TIME: 01/17/2017 20:09 [facility] COMPARISON: No previous studies available for comparison. INDICATIONS : Abdominal pain and vomiting. ORAL CONTRAST: No oral contrast ingested. RADIATION DOSE: 15.37 CTDIvol (mGy) MEDICAL HISTORY : Hernia, inguinal. Hypertension. Gastroesophageal reflux disease.Lymphoma. Myocardial infarction. CHF. CVA. SURGICAL HISTORY : Cholecystectomy. Defibrillator. ENCOUNTER: Initial ACUITY: 1 day PAIN SCALE: Non-responsive LOCATION: All quadrants. TECHNIQUE: Volumetric scanning of the abdomen and pelvis was performed. Using automated exposure control and ad justment of the mA and/or kV according to patient size, radiation dose was kept as low as reasonably achievable to obtain optimal diagnostic quality images. DICOM format image data is available electro nically for review and comparison. FINDINGS: LOWER LUNGS: Bibasilar consolidation greater left lower lobe. LIVER: Homogeneous density without lesion. There is no dilation of the biliary tree. There is air in the bi liary tree likely postsurgical. Previous cholecystectomy. SPLEEN: Normal size without lesion. PANCREAS: Within normal limits. KIDNEYS: Atrophic left kidney. Punctate left-sided renal calculi measure 1-2 mm. Large slightly complex renal cyst upper pole with calcifications. There are some calcifications along the capsule of the kidney gr eatest anteriorly may be related to old hemorrhage.. There is no mass, stone, or hydronephrosis. ADRENAL GLANDS: Left adrenal mass contains macroscopic fat measuring 4.4 cm. Right adrenal gland normal.. VASCULAR: There is no aortic aneurysm. BOWEL/MESENTERY: Diverticulosis without diverticulitis. There is no free intraperitoneal air or fluid. ABDOMINAL WALL: Within normal limits. RETROPERITONEUM: There is no lymphadenopathy. BLADDER: No wall thickening or mass. Decompressed by Edge catheter. REPRODUCTIVE: Within normal limits. INGUINAL: There is no lymphadenopathy or hernia. MUSCULOSKELETAL: Degenerative changes throughout the thoracolumbar spine. CONCLUSION: 1. Air in the biliary tree likely postsurgical. 2. Complex cyst right kidney containing calcifications. 3. Right sided perinephric coarse calcifications likely related to previous treatment or previous hem atoma. 4. Benign myelolipoma left adrenal gland. 5. Bibasilar consolidation greater in the left lower lobe. 6. Diverticulosis without diverticulitis. 7. No bowel obstruction. 8. Atrophic left kidney containing nonobstructing renal calculi. Terry Cowart MD on January 17, 2017 at 20:16 Board Certified Radiologist. This report was verified electronically.
[2017-01-17] MEDS ORDERED: clonazePAM 0.5 MG TAB PO PRN (21:00)
[2017-01-17] MEDS: DOCUSATE SODIUM 50 MG/SENNA 8.6 MG TAB PO SCH (21:00)
[2017-01-17 21:18] LABS: BLOOD GAS BASE EXCESS -3.8 mmol/L (-2-2); BLOOD GAS HCO3 21 mmol/L (22-26); BLOOD GAS METHEMOGLOBIN 0.9 % (0-2); BLOOD GAS O2 HGB SATURATION 97 % (90-100); BLOOD GAS OXYGEN CONTENT 16.5 Vol % (12.0-20.0); BLOOD GAS PCO2 36 mmHg (38-42); BLOOD GAS PO2 146 mmHG (61-120); BLOOD GAS TOTAL HGB 11.9 G/DL (12.0-16.0); CRITICAL VALUE NO; DRAW SITE RT RADIAL; FIO2 100 %; NUMBER OF ARTERIAL PUNCTURES 2; OXYGEN DEVICE VENTILATOR; STAT YES; TEMP CORR TO 98.6; ULNAR PULSE PRESENT; VENT SETTINGS AC/14/500/PEEP5
[2017-01-17] MEDS: RESP: ALBUTEROL 2.5 MG/IPRATROPIUM 0.5 MG NEB (SCH) INH (21:21)
[2017-01-17] MEDS ORDERED: GUAI1TAB18 PO (21:31)
[2017-01-17] MEDS ORDERED: ACET325C PO (21:31)
[2017-01-17] MEDS ORDERED: SERT-132 PO (21:31)
[2017-01-17] MEDS ORDERED: OMEP20TA PO (21:31)
[2017-01-17] MEDS ORDERED: SPIR25 PO (21:31)
[2017-01-17] MEDS ORDERED: IPRASOL INH (21:31)
[2017-01-17] MEDS ORDERED: WARF4TAB52 PO (21:31)
[2017-01-17] MEDS ORDERED: LEVO500T8 PO (21:31)
[2017-01-17] MEDS ORDERED: PILL SPLITTER OTHER PRN (22:00)
[2017-01-17 22:09] LABS: LACTIC ACID GHOST NOT REPORTABLE
[2017-01-17] MEDS: SODIUM CHLORIDE 0.9% FLUSH 10 ML FLUSH IV FLUSH SCH (22:13)
--- NOTE | 2017-01-17 23:18 | HHI.HP ---
HPI Service Critical Care Medicine Primary Care Physician Unknown Admission Diagnosis S/P RESPIRATORY ARREST, ASPIRATION PNA, AFIB Diagnosis: Travel History International Travel<30 Days: No Contact w/Intl Traveler <30 Da: No Traveled to Known Affected Are: No History of Present Illness 76-year-old gentleman with a history of ischemic cardiomyopathy EF 20%, A. 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 Patient was apparently supposed to be on a clear liquid diet however was noncompliant and was eating solid food. Today at the shelter he was found to be vomiting undigested food around 3 PM. The the patient was transferred to hospitalist around 7 PM. He is now intubated and sedated. Review of Systems ROS Unobtainable, patient is sedated and intubated Past Family Social History Allergies: Coded Allergies: Codeine (Verified Allergy, Severe, SWELLING, 03/28/15) Penicillin (Verified Allergy, Severe, HIVES, 03/28/15) MRI PRECAUTION (Verified Adverse Reaction, Severe, pacemaker, 03/28/15) Past Medical History 1. Coronary disease with stenting in the past. 2. Congestive heart failure with history of ischemic cardiomyopathy. He had an EF of 20% via chemical stress testing in July of 2013. 3. He has a defibrillator. 4. Hyperlipidemia. 5. Tobacco abuse. 6. Hypertension. 7. He denies diabetes. 8. History of large B-cell lymphoma and is in remission. Had chemotherapy. 9. History of adrenal myelolipoma. 10. GERD. 11. Stress test 2014 that was negative Past Surgical History 1. Several heart catheterizations with interventions. 2. Heart catheterization without intervention. 3. He has a defibrillator. 4. Dental extractions. 5. Gallstones removed. 6. Port placement Reported Medications Reported Meds & Active Scripts Active Klonopin (Clonazepam) 0.5 Mg Tab 0.5 Mg PO HS PRN Reported Acetaminophen 325 Mg Capsule 650 Mg PO Q4HR PRN Sertraline (Sertraline HCl) 50 Mg Tab 50 Mg PO DAILY Duoneb (Ipratropium-Albuterol Neb) 0.5-2.5 Mg/3 Ml Neb 1 Nebule INH Q8HR NEB Aldactone (Spironolactone) 25 Mg Tab 25 Mg PO BIDPC Omeprazole 20 Mg Tab 20 Mg PO DAILY Mucinex (Guaifenesin) 1,200 Mg Tab.er.12h 600 Mg PO BID Warfarin 1 Mg Tab 1.5 Mg PO DAILY Levofloxacin 500 Mg Tablet 500 Mg PO DAILY Active Ordered Medications Current Medications Medications (Trade) Dose Ordered Sig/Yoni Route PRN Reason Start Time Stop Time Status Last Admin Dose Admin Clonazepam (KlonoPIN) 0.5 mg HS PRN PO INSOMNIA 01/17/17 21:00 Furosemide (Lasix) 20 mg DAILY PO 01/18/17 09:00 Pantoprazole Sodium (Protonix) 40 mg DAILY PO 01/18/17 09:00 Warfarin Sodium (Coumadin) 1.5 mg DAILY@16 PO 01/18/17 16:00 Sodium Chloride (NS Flush) 2 ml UNSCH PRN IV FLUSH FLUSH AFTER USING IV ACCESS 01/17/17 20:00 Sodium Chloride (NS Flush) 2 ml BID IV FLUSH 01/17/17 21:00 01/17/17 22:13 Acetaminophen (Tylenol) 650 mg Q6H PRN PO PAIN 1-10 AND/OR FEVER >101F 01/17/17 20:00 Morphine Sulfate (Morphine Inj) 2 mg Q2H PRN IV PAIN SCALE 6 TO 10 01/17/17 20:00 UNV Midazolam HCl (Versed Inj) 2 mg Q1H PRN IV SEDATION 01/17/17 20:00 Artificial Tears (Tears Naturale Opth Soln) 1 drop TID EACH EYE 01/18/17 09:00 Ondansetron HCl (Zofran Inj) 4 mg Q6H PRN IV NAUSEA OR VOMITING 01/17/17 20:00 Miscellaneous Information 1 Q361D XX 01/17/17 20:00 Chlorhexidine Gluconate (Chlorhexidine 2% Cloth) 3 pack Taper DAILY@04 TOP 01/18/17 04:00 01/14/18 03:59 Chlorhexidine Gluconate (Chlorhexidine 2% Cloth) 3 pack UNSCH PRN TOP HYGIENIC CARE 01/17/17 20:00 Senna/Docusate Sodium (Shyann-Colace) 1 tab BID PO 01/17/17 21:00 Magnesium Hydroxide (Milk Of Magnesia Liq) 30 ml Q12H PRN PO MILD - MODERATE CONSTIPATION 01/17/17 20:00 Sennosides (Senokot) 17.2 mg Q12H PRN PO MODERATE - SEVERE CONSTIPATION 01/17/17 20:00 Bisacodyl (Dulcolax Supp) 10 mg DAILY PRN RECTAL SEVERE CONSITIPATION 01/17/17 20:00 Lactulose 30 ml 30 ml DAILY PRN PO SEVERE CONSITIPATION 01/17/17 20:00 Propofol 100 ml @ 0 mls/hr TITRATE IV 01/17/17 20:00 Pharmacy Profile Note (Coumadin Consult Pharmacy) 0 ml @ 0 mls/hr UNSCH OTHER 01/17/17 20:00 Patient Medication Teaching (Coumadin Booklet) 1 ONCE ONCE OTHER 01/18/17 16:00 01/18/17 16:01 Miscellaneous (Pill Splitter) 1 ea UNSCH PRN OTHER SEE LABEL COMMENTS 01/17/17 22:00 Family History No family history of premature coronary artery disease or cancer Social History Alcohol Use: No Tobacco Use: No (1/2 PPD) Substance Use: No Physical Exam Vital Signs Vital Signs Date Time Temp Pulse Resp B/P Pulse Ox O2 Delivery O2 Flow Rate FiO2 01/17/17 22:34 99.4 73 33 101/61 99 Ventilator 80 01/17/17 22:14 99 80 01/17/17 22:06 70 90/56 99 Ventilator 01/17/17 21:21 100 90 01/17/17 21:13 72 16 105/57 96 Ventilator 100 01/17/17 21:01 100 100 01/17/17 20:01 100 100 01/17/17 19:17 98 Ventilator 100 01/17/17 19:00 100 100 01/17/17 18:56 86 Bag Valve 15 01/17/17 18:55 100 01/17/17 18:46 98.9 104 30 155/83 89 Physical Exam GENERAL: Elderly gentleman sedated and intubated SKIN: Warm and dry. HEAD: Normocephalic. EYES: No scleral icterus. No injection or drainage. NECK: Supple, trachea midline. No JVD or lymphadenopathy. CARDIOVASCULAR: Regular rate and rhythm without murmurs, gallops, or rubs. RESPIRATORY: Breath sounds equal bilaterally. No accessory muscle use. GASTROINTESTINAL: Abdomen soft, non-tender, nondistended. MUSCULOSKELETAL: No cyanosis, or edema. BACK: Nontender without obvious deformity. No CVA tenderness. EXTREMITIES: No clubbing cyanosis or edema Laboratory Laboratory Tests Test 01/17/17 01/17/17 01/17/17 01/17/17 18:50 19:10 19:40 21:01 White Blood Count 17.0 Red Blood Count 5.23 Hemoglobin 13.0 Hematocrit 42.2 Mean Corpuscular Volume 80.7 Mean Corpuscular Hemoglobin 24.8 Mean Corpuscular Hemoglobin 30.7 Concent Red Cell Distribution Width 20.6 Platelet Count 399 Mean Platelet Volume 8.0 Neutrophils (%) (Auto) 84.2 Lymphocytes (%) (Auto) 11.4 Monocytes (%) (Auto) 2.1 Eosinophils (%) (Auto) 1.7 Basophils (%) (Auto) 0.6 Neutrophils # (Auto) 14.3 Lymphocytes # (Auto) 1.9 Monocytes # (Auto) 0.4 Eosinophils # (Auto) 0.3 Basophils # (Auto) 0.1 CBC Comment DIFF FINAL Differential Comment Sodium Level 141 Potassium Level 4.0 Chloride Level 108 Carbon Dioxide Level 23.9 Anion Gap 9 Blood Urea Nitrogen 17 Creatinine 1.15 Estimat Glomerular Filtration 62 Rate Random Glucose 167 Calcium Level 8.6 Total Bilirubin 0.4 Aspartate Amino Transf 19 (AST/SGOT) Alanine Aminotransferase 17 (ALT/SGPT) Alkaline Phosphatase 100 Total Creatine Kinase 68 Troponin I 0.02 Total Protein 7.4 Albumin 3.1 Urine Color YELLOW Urine Turbidity HAZY Urine pH 6.0 Urine Specific [place] 1.018 Urine Protein TRACE Urine Glucose (UA) NEG Urine Ketones NEG Urine Occult Blood TRACE Urine Nitrite NEG Urine Bilirubin NEG Urine Urobilinogen LESS THAN 2.0 Urine Leukocyte Esterase MOD Urine RBC 3 Urine WBC 17 Urine Bacteria MOD Microscopic Urinalysis Comment CATH-CULTURE IND Lactic Acid Level 2.7 Blood Gas Puncture Site RT RADIAL Blood Gas Patient Temperature 98.6 Blood Gas HCO3 21 Blood Gas Base Excess -3.8 Blood Gas Oxygen Saturation 97 Arterial Blood pH 7.37 Arterial Blood Partial 36 Pressure CO2 Arterial Blood Partial 146 Pressure O2 Arterial Blood Oxygen Content 16.5 Arterial Blood 1.0 Carboxyhemoglobin Arterial Blood Methemoglobin 0.9 Blood Gas Hemoglobin 11.9 Oxygen Delivery Device VENTILATOR Blood Gas Ventilator Setting AC/14/500/PEEP5 Blood Gas Inspired Oxygen 100 Date/Time Procedure Status Source Growth 01/17/17 19:40 Aerobic Blood Culture Received Blood Peripheral Pending 01/17/17 19:40 Anaerobic Blood Culture Received Blood Peripheral Pending 01/17/17 19:10 Urine Culture Received Urine Catheterized Urine Pending Result Diagram: 01/17/17184901/17/171849 Imaging Last 24 hours Impressions Chest X-Ray 01/17/171903 Signed Impressions: Service Date/Time: Tuesday, January 17, 2017 19:34 - CONCLUSION: Cardiomegaly with bilateral perihilar edema. Terry Cowart MD Abdomen/Pelvis CT 01/17/171903 Signed Impressions: Service Date/Time: Tuesday, January 17, 2017 20:09 - CONCLUSION: 1. Air in the biliary tree likely postsurgical. 2. Complex cyst right kidney containing calcifications. 3. Right sided perinephric coarse calcifications likely related to previous treatment or previous hematoma. 4. Benign myelolipoma left adrenal gland. 5. Bibasilar consolidation greater in the left lower lobe. 6. Diverticulosis without diverticulitis. 7. No bowel obstruction. 8. Atrophic left kidney containing nonobstructing renal calculi. Terry Cowart MD Assessment and Plan Assessment and Plan Respiratory failure Aspiration pneumonia - Mechanical ventilation - Azactam and Flagyl - Sputum culture and blood culture - De-escalate antibiotics per sensitivity - DuoNeb scheduled and when necessary Hypertension - Clonazepam - Hold Lasix due to GABY CHF - Repeat 2-D echo - Supportive care History of CVA - Anticoagulation - Coumadin dosing per pharmacy DVT GI prophylaxis - Pantoprazole - Warfarin - Teds and SCDs Critical Care: The total critical care time was 35 minutes. Time to perform other separately billable procedures was not included in the critical care time. Chidi Norris MD Jan 17, 2017 23:18 Impressions: Service Date/Time: Tuesday, January 17, 2017 20:09 - CONCLUSION: 1. Air in the biliary tree likely postsurgical. 2. Complex cyst right kidney containing calcifications. 3. Right sided perinephric coarse calcifications likely related to previous treatment or previous hematoma. 4. Benign myelolipoma left adrenal gland. 5. Bibasilar consolidation greater in the left lower lobe. 6. Diverticulosis without diverticulitis. 7. No bowel obstruction. 8. Atrophic left kidney containing nonobstructing renal calculi. MD Myrna Vinson Jan MD Jan 17, 2017 23:18
[2017-01-18] VITALS (27 sets, daily range): BP systolic 93–127; BP diastolic 50–80; PULSE 75–97; RESP 21–30; TEMP 98.9–100; O2SAT 94–100
[2017-01-18 02:07] LABS: ALKALINE PHOSPHATASE 75 U/L (45-117); TOTAL BILIRUBIN ADULT 0.6 MG/DL (0.2-1.0)
[2017-01-18 02:09] LABS: ALT (GPT) 15 U/L (12-78); ANION GAP 10 MEQ/L (5-15); AST (GOT) 20 U/L (15-37); BICARBONATE 22.5 MEQ/L (21.0-32.0); BLOOD UREA NITROGEN 19 MG/DL (7-18); CHLORIDE 112 MEQ/L (98-107); GLOMERULAR FILTRATION RATE 62 ML/MIN (>89); MAGNESIUM 1.6 MG/DL (1.5-2.5); POTASSIUM 4.2 MEQ/L (3.5-5.1); SODIUM (NA) 144 MEQ/L (136-145)
[2017-01-18] MEDS: RESP: ALBUTEROL 2.5 MG/IPRATROPIUM 0.5 MG NEB (SCH) INH ×4 (02:34→20:20)
[2017-01-18] MEDS: CHLORHEXIDINE GLUCONATE 2 % 1 PACK (2 CLOTHS) TOP SCH (04:00)
[2017-01-18] MEDS: SODIUM CHLOR 0.9% 1000 ML INJ 1,000 ML IV SCH ×3 (04:00→22:35)
[2017-01-18] MEDS: AZTREONAM INJ 2,000 MG in SODIUM CHLORIDE 0.9% INJ 100 ML IV SCH ×3 (05:21→20:00)
[2017-01-18] MEDS: metroNIDAZOLE 500 MG INJ 100 ML IV SCH ×3 (05:21→20:00)
[2017-01-18] MEDS: PROPOFOL 1000 MG/100 ML INJ 100 ML IV SCH (05:21)
[2017-01-18 06:10] LABS: BLOOD GAS BASE EXCESS -4.6 mmol/L (-2-2); BLOOD GAS CARBOXYHEMOGLOBIN 1.3 % (0-4); BLOOD GAS HCO3 19 mmol/L (22-26); BLOOD GAS METHEMOGLOBIN 1.4 % (0-2); BLOOD GAS O2 HGB SATURATION 96 % (90-100); BLOOD GAS OXYGEN CONTENT 14.4 Vol % (12.0-20.0); BLOOD GAS PCO2 30 mmHg (38-42); BLOOD GAS PO2 115 mmHg (61-120); BLOOD GAS TOTAL HGB 10.6 G/DL (12.0-16.0); CRITICAL VALUE NO; TEMP CORR TO 98.6
[2017-01-18 06:11] LABS: DRAW SITE LT RADIAL; FIO2 60 %; NUMBER OF ARTERIAL PUNCTURES 1; OXYGEN DEVICE VENTILATOR; STAT NO; VENT SETTINGS AC500/14/+5
[2017-01-18] MEDS: PANTOPRAZOLE SOD 40 MG DELAYED RELEASE TAB PO SCH (08:30)
[2017-01-18] MEDS: SODIUM CHLORIDE 0.9% FLUSH 10 ML FLUSH IV FLUSH SCH ×2 (09:00→20:01)
[2017-01-18] MEDS: DOCUSATE SODIUM 50 MG/SENNA 8.6 MG TAB PO SCH ×2 (09:00→20:00)
[2017-01-18] MEDS ORDERED: FUROSEMIDE 20 MG TAB PO SCH (09:00)
[2017-01-18] MEDS: ARTIFICIAL TEARS OPTH SOLN 15 ML BTL EACH EYE SCH ×3 (09:00→18:00)
[2017-01-18 12:27] LABS: AUTOMATED NEUTROPHIL # 14.2 TH/MM3 (1.8-7.7); BASOPHIL % 0.3 % (0.0-2.0); EOSINOPHIL % 0.2 % (0.0-4.0); HEMATOCRIT 30.6 % (39.0-51.0); HEMO FLAGS DIFF FINAL; LYMPH % 5.7 % (9.0-44.0); LYMPHOCYTE # 0.9 TH/MM3 (1.0-4.8); MEAN CELL VOLUME 77.7 FL (80.0-100.0); MEAN CORPUSCULAR HEMOGLOBIN 26.1 PG (27.0-34.0); MEAN CORPUSCULAR HGB CONC 33.6 % (32.0-36.0); MONO % 5.4 % (0.0-8.0); NEUT % 88.4 % (16.0-70.0); PLATELET COUNT 242 TH/MM3 (150-450); RED BLOOD COUNT 3.93 MIL/MM3 (4.50-5.90); RED CELL DISTRIBUTION WIDTH 20.4 % (11.6-17.2); WHITE BLOOD COUNT 16.1 TH/MM3 (4.0-11.0)
[2017-01-18 12:29] LABS: INTERNATIONAL NORMALIZED RATIO 3.2 RATIO; PROTHROMBIN TIME - PATIENT 36.8 SEC (9.8-11.6)
[2017-01-18] MEDS ORDERED: WARFARIN SOD 1 MG TAB PO SCH (16:00)
[2017-01-18] MEDS: ACETAMINOPHEN 1000 MG/100 ML VIAL IV SCH ×2 (16:32→22:35)
[2017-01-18] MEDS ORDERED: GLUCAGON 1 MG/ML VIAL OTHER PRN (16:45)
--- NOTE | 2017-01-18 16:49 | HHI.CCPN ---
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 Patient was apparently supposed to be on a clear liquid diet however was noncompliant and was eating solid food. Today at the shelter he was found to be vomiting undigested food around 3 PM. The the patient was transferred to hospitalist around 7 PM. He is now intubated and sedated. Subjective: 01/18:TMax 100.0. Noted to short runs of Juan Miguel green RVR self corrected, this afternoon. Interrogation of AICD pending. Patient's secretions noted to be thick vela colored and copious .Sputum cultures pending. Objective Vital Signs Date Time Temp Pulse Resp B/P Pulse Ox O2 Delivery O2 Flow Rate FiO2 01/18/17 15:49 98 40 01/18/17 14:00 81 01/18/17 12:00 100.0 28 104/51 01/18/17 02:52 Ventilator 01/17/17 18:56 15 Intake and Output 01/17/17 01/17/17 01/18/17 08:00 16:00 00:00 Output Total 250 ml Balance -250 ml Result Diagram: 01/18/17 1204 01/18/17 0125 Other Results Laboratory Tests Test 01/17/17 01/18/17 21:01 06:00 Blood Gas Puncture Site RT RADIAL LT RADIAL Blood Gas Patient Temperature 98.6 98.6 Blood Gas HCO3 21 mmol/L 19 mmol/L (22-26) (22-26) Blood Gas Base Excess -3.8 mmol/L -4.6 mmol/L (-2-2) (-2-2) Blood Gas Oxygen Saturation 97 % (90-100) 96 % (90-100) Arterial Blood pH 7.37 7.42 (7.380-7.420) (7.380-7.420) Arterial Blood Partial 36 mmHg (38-42) 30 mmHg (38-42) Pressure CO2 Arterial Blood Partial 146 mmHG 115 mmHg Pressure O2 (61-120) (61-120) Arterial Blood Oxygen Content 16.5 Vol % 14.4 Vol % (12.0-20.0) (12.0-20.0) Arterial Blood 1.0 % (0-4) 1.3 % (0-4) Carboxyhemoglobin Arterial Blood Methemoglobin 0.9 % (0-2) 1.4 % (0-2) Blood Gas Hemoglobin 11.9 G/DL 10.6 G/DL (12.0-16.0) (12.0-16.0) Oxygen Delivery Device VENTILATOR VENTILATOR Blood Gas Ventilator Setting AC/14/500/PEEP5 AC500/14/+5 Blood Gas Inspired Oxygen 100 % 60 % Imaging Last 24 hours Impressions Chest X-Ray 01/17/171903 Signed Impressions: Service Date/Time: Tuesday, January 17, 2017 19:34 - CONCLUSION: Cardiomegaly with bilateral perihilar edema. Terry Cowart MD Abdomen/Pelvis CT 01/17/171903 Signed Impressions: Service Date/Time: Tuesday, January 17, 2017 20:09 - CONCLUSION: 1. Air in the biliary tree likely postsurgical. 2. Complex cyst right kidney containing calcifications. 3. Right sided perinephric coarse calcifications likely related to previous treatment or previous hematoma. 4. Benign myelolipoma left adrenal gland. 5. Bibasilar consolidation greater in the left lower lobe. 6. Diverticulosis without diverticulitis. 7. No bowel obstruction. 8. Atrophic left kidney containing nonobstructing renal calculi. Terry Cowart MD Objective Remarks BP 118/58 Pulse 86 O2 saturation 98% GENERAL: Elderly gentleman sedated and intubated SKIN: Warm and dry. HEAD: Normocephalic. EYES: No scleral icterus. No injection or drainage. NECK: Supple, trachea midline. No JVD or lymphadenopathy. CARDIOVASCULAR: Regular rate and rhythm without murmurs, gallops, or rubs. RESPIRATORY: Breath sounds equal bilaterally. No accessory muscle use. GASTROINTESTINAL: Abdomen soft, non-tender, nondistended. MUSCULOSKELETAL: No cyanosis, or edema. BACK: Nontender without obvious deformity. No CVA tenderness. EXTREMITIES: No clubbing cyanosis or edema Urinary Catheter: Yes Date of Insertion: Jan 17, 2017 A/P Assessment and Plan Respiratory failure Aspiration pneumonia - Mechanical ventilation - Azactam and Flagyl - Sputum culture and blood culture pending - De-escalate antibiotics per sensitivity - DuoNeb scheduled and when necessary Hypertension - Clonazepam PRN - Hold Lasix due to GABY -Monitor BMP CHF - 01/18 Repeat 2-D echo-pending - Supportive care -Follow-up BNP History of CVA - Anticoagulation - Coumadin dosing per pharmacy DVT GI prophylaxis - Pantoprazole - Warfarin - Teds and SCDs Critical Care: This patient remains critically ill with one or more organ systems which are or may become a threat to life. I have spent in excess of 30 minutes discontinuously in the care and management of this patient. This time is exclusive of procedures, and includes, but is not limited to, evaluation of the patient, review of the medical record, discussions with family, consultants, nursing staff, or respiratory therapy, and documentation in the medical record. Discussed with patient's significant other, POA, stated the patient would not like to be on mechanical ventilation. Palliative care medicine consulted for goals of care. Interrogation of AICD pending. Physician Shalini Panda MD Jan 18, 2017 16:49
[2017-01-18] MEDS ORDERED: ICU - POTASSIUM CHLORIDE/AQUEOUS SOLN 20 MEQ/100 ML IVPB IV PRN (17:00)
[2017-01-18] MEDS ORDERED: ICU - D/C ICU ELECTROLYTE ORDERS PRN (17:00)
[2017-01-18] MEDS ORDERED: ICU - MAGNESIUM OXIDE 400 MG TAB PO PRN (17:00)
[2017-01-18] MEDS ORDERED: ICU - MAGNESIUM SULFATE 2 GM/NS 100 ML IV PRN ×2 (17:00)
[2017-01-18] MEDS ORDERED: ICU - CALL ORDERING PHYSICIAN PRN (17:00)
[2017-01-18] MEDS ORDERED: ICU - POTASSIUM CHLORIDE/AQUEOUS SOLN 40 MEQ/100 ML IVPB IV PRN (17:00)
[2017-01-18] MEDS ORDERED: ICU - MAGNESIUM SULFATE 4 GM/NS 100 ML IV PRN ×2 (17:00)
[2017-01-18] MEDS ORDERED: ICU - SODIUM PHOSPHATE 30 MMOL/NS 250 ML IV PRN ×2 (17:00)
[2017-01-18] MEDS ORDERED: POTASSIUM CHLORIDE 25 MEQ EFFERVESCENT TAB PO PRN (17:00)
[2017-01-18] MEDS ORDERED: ICU - POTASSIUM PHOSPHATE MONOBASIC 500 MG TAB PO PRN (17:00)
[2017-01-18] MEDS ORDERED: ICU - POTASSIUM PHOSPHATE 30 MMOL/NS 250 ML IV PRN ×2 (17:00)
[2017-01-18] MEDS: INSULIN ASPART SUPPLEMENTAL SCALE SQ SCH (20:00)
[2017-01-18] MEDS: CHLORHEXIDINE 0.12% (ORAL KIT) 15 ML CUP MT SCH (20:01)
--- NOTE | 2017-01-18 21:07 | EKG ---
Date Performed: 01/17/2017 Time Performed: 19:11:12 PTAGE: 76 years EKG: ATRIAL FIBRILLATION WITH RAPID VENTRICULAR RESPONSE INDETERMINATE AXIS LATERAL MYOCARDIAL I NFARCTION ANTEROSEPTAL Q WAVES Compared to the PREVIOUS TRACING rate faster DOCTOR: Ana Agee Interpretating Date/Time 01/18/2017 21:05:47
[2017-01-19] VITALS (52 sets, daily range): BP systolic 96–139; BP diastolic 53–67; PULSE 74–96; RESP 16–28; TEMP 98.1–99.3; O2SAT 98–100
[2017-01-19] MEDS: RESP: ALBUTEROL 2.5 MG/IPRATROPIUM 0.5 MG NEB (SCH) INH ×4 (03:44→21:52)
[2017-01-19] MEDS: ACETAMINOPHEN 1000 MG/100 ML VIAL IV SCH ×2 (03:55→09:23)
[2017-01-19] MEDS: CHLORHEXIDINE GLUCONATE 2 % 1 PACK (2 CLOTHS) TOP SCH (03:55)
[2017-01-19] MEDS: metroNIDAZOLE 500 MG INJ 100 ML IV SCH ×3 (03:55→21:08)
[2017-01-19 05:20] LABS: BASOPHIL % 0.2 % (0.0-2.0); EOSINOPHIL # 0.2 TH/MM3 (0-0.4); EOSINOPHIL % 1.6 % (0.0-4.0); HEMATOCRIT 30.1 % (39.0-51.0); HEMO FLAGS DIFF FINAL; INTERNATIONAL NORMALIZED RATIO 2.6 RATIO; LYMPHOCYTE # 1.2 TH/MM3 (1.0-4.8); MEAN CELL VOLUME 78.8 FL (80.0-100.0); MEAN CORPUSCULAR HEMOGLOBIN 24.9 PG (27.0-34.0); MEAN CORPUSCULAR HGB CONC 31.6 % (32.0-36.0); MONO % 6.2 % (0.0-8.0); PLATELET COUNT 223 TH/MM3 (150-450); PROTHROMBIN TIME - PATIENT 30.5 SEC (9.8-11.6); RED BLOOD COUNT 3.82 MIL/MM3 (4.50-5.90); RED CELL DISTRIBUTION WIDTH 20.9 % (11.6-17.2); WHITE BLOOD COUNT 12.2 TH/MM3 (4.0-11.0)
[2017-01-19] MEDS: INSULIN ASPART SUPPLEMENTAL SCALE SQ SCH ×4 (05:43→21:00)
[2017-01-19] MEDS: AZTREONAM INJ 2,000 MG in SODIUM CHLORIDE 0.9% INJ 100 ML IV SCH ×3 (05:43→21:08)
[2017-01-19 05:44] LABS: BLOOD GAS BASE EXCESS -3.4 mmol/L (-2-2); BLOOD GAS CARBOXYHEMOGLOBIN 1.4 % (0-4); BLOOD GAS HCO3 20 mmol/L (22-26); BLOOD GAS METHEMOGLOBIN 1.2 % (0-2); BLOOD GAS O2 HGB SATURATION 96 % (90-100); BLOOD GAS OXYGEN CONTENT 15.7 Vol % (12.0-20.0); BLOOD GAS PCO2 32 mmHg (38-42); BLOOD GAS PO2 114 mmHg (61-120); BLOOD GAS TOTAL HGB 11.6 G/DL (12.0-16.0); TEMP CORR TO 98.6
[2017-01-19 05:45] LABS: CRITICAL VALUE NO; DRAW SITE RT RADIAL; FIO2 40 %; OXYGEN DEVICE VENT; VENT SETTINGS SEE COMMENTS
[2017-01-19 05:46] LABS: BICARBONATE 23.7 MEQ/L (21.0-32.0); MAGNESIUM 1.8 MG/DL (1.5-2.5); POTASSIUM 3.7 MEQ/L (3.5-5.1)
[2017-01-19 05:46] LABS: NUMBER OF ARTERIAL PUNCTURES 1; STAT NO; ULNAR PULSE PRESENT
--- NOTE | 2017-01-19 06:17 | RADRPT ---
EXAM DATE/TIME: 01/19/2017 03:47 [facility] COMPARISON: CHEST SINGLE AP, January 17, 2017, 19:34. INDICATIONS : Respiratory failure. MEDICAL HISTORY : Stroke. SURGICAL HISTORY : Pacemaker. ENCOUNTER: Subsequent ACUITY: 1 day PAIN SCORE: Non-responsive. LOCATION: Bilateral chest FINDINGS: Portable AP view of the chest demonstrates a normal-sized cardiac silhouette. ETT and NG tube remain present. There is left midlung zone airspace consolidation. There is mild patchy consolidation in the right lower lungs on, improved from the prior study. No pneumothorax is visualized. CONCLUSION: Improved right lung airspace consolidation that has almost resolved. Stable left lung airspace consol idation. Willem Brito MD on January 19, 2017 at 6:14 Board Certified Radiologist. This report was verified electronically.
[2017-01-19] MEDS: ARTIFICIAL TEARS OPTH SOLN 15 ML BTL EACH EYE SCH ×3 (09:00→18:00)
[2017-01-19] MEDS: DOCUSATE SODIUM 50 MG/SENNA 8.6 MG TAB PO SCH ×2 (09:00→21:09)
[2017-01-19] MEDS: SODIUM CHLORIDE 0.9% FLUSH 10 ML FLUSH IV FLUSH SCH ×2 (09:00→21:09)
[2017-01-19] MEDS: PANTOPRAZOLE SOD 40 MG DELAYED RELEASE TAB PO SCH (09:00)
[2017-01-19] MEDS: CHLORHEXIDINE 0.12% (ORAL KIT) 15 ML CUP MT SCH ×2 (09:24→21:08)
[2017-01-19] MEDS: PROPOFOL 1000 MG/100 ML INJ 100 ML IV SCH ×2 (09:24→21:10)
[2017-01-19] MEDS: SODIUM CHLOR 0.9% 1000 ML INJ 1,000 ML IV SCH ×2 (10:57→21:07)
--- NOTE | 2017-01-19 11:03 | ECHRPT ---
Indication: Heart failure, unspecified CONCLUSIONS Mildly dilated left ventricle. Wall thickness is normal. The left ventricular systolic function is severely reduced with an estimated ejection fraction in th e range of 20-25%. AICD lead noted. [id number] mitral valve regurgitation. Mild aortic valve regurgitation. P 1/2 510ms There is mild tricuspid valve regurgitation. There is estimated moderate pulmonary hypertension present (range 50-60 mmHg). The pulmonary valve is not well visualized. BP: 94 / 55 HR: 76 Rhythm: MEASUREMENTS (Male / Female) Normal Values Technical Quality:Good 2D ECHO LV Diastolic Diameter PLAX 6.4 cm 4.2 - 5.9 / 3.9 - 5.3 cm LV Systolic Diameter PLAX 6.0 cm IVS Diastolic Thickness 1.0 cm 0.6 - 1.0 / 0.6 - 0.9 cm LVPW Diastolic Thickness 1.2 cm 0.6 - 1.0 / 0.6 - 0.9 cm LV Relative Wall Thickness 0.3 RV Internal Dim ED PLAX 2.7 cm M-MODE Aortic Root Diameter MM 3.0 cm LA Systolic Diameter MM 6.1 cm LA Ao Ratio MM 2.0 AV Cusp Separation MM 1.9 cm DOPPLER AV Peak Velocity 199.0 cm/s AV Peak Gradient 15.8 mmHg AV Mean Gradient 7.0 mmHg AV Velocity Time Integral 32.6 cm AI Peak Velocity 385.0 cm/s AI Peak Gradient 59.3 mmHg AI Pressure Half Time 510.0 ms LVOT Peak Velocity 82.7 cm/s LVOT Peak Gradient 2.7 mmHg LVOT Velocity Time Integral 14.8 cm TR Peak Velocity 354.0 cm/s TR Peak Gradient 50.1 mmHg FINDINGS LEFT VENTRICLE Mildly dilated left ventricle. Wall thickness is normal. The left ventricular systolic function is severely reduced with an estimated ejection fraction in th e range of 20-25%. RIGHT VENTRICLE Normal right ventricular size and systolic function. AICD lead noted. LEFT ATRIUM The left atrial size is normal. RIGHT ATRIUM The right atrial size is normal. ATRIAL SEPTUM Normal atrial septal thickness without atrial level shunting by limited color doppler interrogation. AORTA The aortic root and proximal ascending aorta are normal in size on limited imaging. MITRAL VALVE Structurally normal mitral valve. [id number] mitral valve regurgitation. AORTIC VALVE Trileaflet aortic valve. Mild aortic valve regurgitation. P 1/2 510ms TRICUSPID VALVE Structurally normal tricuspid valve. There is mild tricuspid valve regurgitation. There is estimated moderate pulmonary hypertension present (range 50-60 mmHg). PULMONARY VALVE The pulmonary valve is not well visualized. VESSELS The inferior vena cava is normal in size. PERICARDIUM No pericardial effusion. Fco Gupta MD (Electronically Signed) Final Date:19 January 2017 11:01
--- NOTE | 2017-01-19 12:58 | EKG ---
Date Performed: 01/18/2017 Time Performed: 15:37:57 PTAGE: 76 years EKG: ATRIAL FIBRILLATION INDETERMINATE AXIS SEPTAL MYOCARDIAL INFARCTION , OF INDETERMINATE AGE LATERAL MYOCARDIAL INFARCTION , OF INDETERMINATE AGE ABNORMAL ECG PREVIOUS TRACING : 01/17/2017 19.11 DOCTOR: Terrance Lugo Interpretating Date/Time 01/19/2017 12:52:29
[2017-01-19] MEDS ORDERED: WARFARIN SOD 1 MG TAB PO SCH (16:00)
--- NOTE | 2017-01-19 17:22 | PD.CONS ---
Consult Service Palliative Care Consult Requested By Dr. Castillo. Primary Care Physician Unknown Reason for Consultation a. To assist with evaluation and management of symptoms including: Shortness of breath and debility. b. To assist medical decision maker(s) with: better understanding of current medical conditions; weighing benefits/burdens of medical treatment options; making medical treatment decisions. . HPI History of Present Illness Mr. Rojo is a 76-year-old male with a medical history significant for atrial fibrillation on anticoagulation, ischemic cardiomyopathy, EF of 20%, CAD x 5 stones, multiple prior CVA and B-cell lymphoma, on remission. Patient presented on 01/17/17 to ED via EMS from senior living facility secondary to respiratory distress. According to medical records, patient was supposed to be on a liquid diet but he was noncompliant. Episode of vomiting undigested food after he ate was reported. Patient was unable to be intubated at the scene, he presented to the ED being ventilated via bag valve mask. Patient was subsequently intubated and placed on mechanical ventilation. Chest x-ray revealing cardiomegaly with bilateral perihilar edema. Abdomen/pelvis CT revealing bibasilar consolidation greater than left lower lobe, no bowel obstruction. ED laboratory workup revealing leukocytosis with WBC 17.0, stable hemoglobin 13.0. Patient was admitted to the medical ICU for further management. Reviewed past medical history. Patient with history of atrial fibrillation on anticoagulation. Appears noncompliant with anticoagulation with prior acute strokes. 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 Patient was intubated and placed on mechanical ventilation for 2 days, he was successfully medically extubated. Discharge to acute rehabilitation on 09/28/16. He was subsequently discharged to [facility] on 10/11/16 where he was rehabilitating with plans to be long-term resident. Patient seen in the medical ICU, he remains orally intubated on mechanical ventilation. Sedated, briefly opening eyes to tactile stimuli but not following commands. AICD interrogated earlier this morning, no recent firing noted. Patient remains afebrile, stable hemodynamically. Currently on 40% FiO2 , oxygen saturation in the high 90s. Laboratory workup revealing WBC 12.2, Hgb 9.5, platelet count 223. Sodium 143, potassium 3.7, BUN/creatinine 22/0.85. BNP 387. Blood and urine cultures obtained 01/17/17, no growth thus far. Chest x-ray today revealed an improved right lung airspace consolidation, almost resolved. Stable left lung airspace consolidation. Met with patient's significant other Deanna Florentino who asked me to call her "Siliva". She tells me that patient and her as not legally , they have been living together for 24 years. Obtain patient's past medical history and psychosocial history. Silvia tells me that patient has 5 or 6 children but has not seen them since they were later asked her mother remarried and change their last name. Unknown whereabouts of children are living their current legal names. Patient has 3 siblings, Freddy, Jose Luis and Cristina who are currently in [place]. Obtain contact information. Reviewed with Silvia events leading to this hospitalization, clinical course and current medical management. Shared concerns regarding patient's respiratory failure and significant cardiac history. Silvia tells me that patient has verbalized in the past not wanted to live "attached to tubes or machines". She tells me that she does not wish to participate in medical decision-making even if they were legally . Silvia receptive to follow-up by palliative care. Case discussed with bedside RN Pema. . Function/Cognitive Trajectory Patient with progressive functional decline for the past 2 years. Worsening within the past year requiring walker. Mostly independent with ADLs, requiring occasional assistance with ambulation. Physical decline worsened since last CVA on 09/22/16 requiring long-term facility placement. No cognitive decline reported. . Review of Systems ROS Limitations: Clinical Condition, Intubated Constitutional: DENIES: Fever Ears, nose, mouth, throat: DENIES: Oral lesions, Running Nose Respiratory: COMPLAINS OF: Shortness of breath Cardiovascular: COMPLAINS OF: Lower Extremity Edema Gastrointestinal: DENIES: Vomiting Hematologic/Lymphatics: COMPLAINS OF: Bruising Psychiatric: DENIES: Agitation Other ROS: Limited ROS secondary to patient's clinical condition, intubated on mechanical ventilation. Arrived unresponsive to ED. ROS obtained from medical records, patient's family and clinical observation. Past Family Social History Coded Allergies: Codeine (Verified Allergy, Severe, SWELLING, 03/28/15) Penicillin (Verified Allergy, Severe, HIVES, 03/28/15) MRI PRECAUTION (Verified Adverse Reaction, Severe, pacemaker, 03/28/15) Past Medical History Coronary disease x 5 stents History of TIAs CVA Congestive heart failure with history of ischemic cardiomyopathy. EF of 20% via chemical stress testing in July of 2013. Atrial fibrillation on anticoagulation Hyperlipidemia. Tobacco abuse. Hypertension. History of large B-cell lymphoma and is in remission. Status post chemotherapy. History of adrenal myelolipoma. GERD. . Past Surgical History Several heart catheterizations with interventions. Heart catheterization without intervention. Implanted AICD -replaced in 2011 Dental extractions Port placement . Reported Medications Klonopin (Clonazepam) 0.5 Mg Tab 0.5 Mg PO HS PRN Acetaminophen 325 Mg Capsule 650 Mg PO Q4HR PRN Sertraline (Sertraline HCl) 50 Mg Tab 50 Mg PO DAILY Duoneb (Ipratropium-Albuterol Neb) 0.5-2.5 Mg/3 Ml Neb 1 Nebule INH Q8HR NEB Aldactone (Spironolactone) 25 Mg Tab 25 Mg PO BIDPC Omeprazole 20 Mg Tab 20 Mg PO DAILY Mucinex (Guaifenesin) 1,200 Mg Tab.er.12h 600 Mg PO BID Warfarin 1 Mg Tab 1.5 Mg PO DAILY Levofloxacin 500 Mg Tablet 500 Mg PO DAILY . Current Medications Medications (Trade) Dose Ordered Sig/Yoni Route Start Time Stop Time Status Last Admin (KlonoPIN) 0.5 mg HS PRN PO 01/17/17 21:00 (Protonix) 40 mg DAILY PO 01/18/17 09:00 (NS Flush) 2 ml UNSCH PRN IV FLUSH 01/17/17 20:00 (NS Flush) 2 ml BID IV FLUSH 01/17/17 21:00 01/18/17 20:01 (Tylenol) 650 mg Q6H PRN PO 01/17/17 20:00 (Tears Naturale Opth Soln) 1 drop TID EACH EYE 01/18/17 09:00 01/19/17 13:00 (Zofran Inj) 4 mg Q6H PRN IV 01/17/17 20:00 Miscellaneous Information 1 Q361D XX 01/17/17 20:00 (Chlorhexidine 2% Cloth) 3 pack Taper DAILY@04 TOP 01/18/17 04:00 01/14/18 03:59 01/19/17 03:55 (Chlorhexidine 2% Cloth) 3 pack UNSCH PRN TOP 01/17/17 20:00 (Shyann-Colace) 1 tab BID PO 01/17/17 21:00 01/18/17 20:00 (Milk Of Magnesia Liq) 30 ml Q12H PRN PO 01/17/17 20:00 (Senokot) 17.2 mg Q12H PRN PO 01/17/17 20:00 (Dulcolax Supp) 10 mg DAILY PRN RECTAL 01/17/17 20:00 Lactulose 30 ml 30 ml DAILY PRN PO 01/17/17 20:00 Propofol 100 ml @ 0 mls/hr TITRATE IV 01/17/17 20:00 01/19/17 09:24 (Coumadin Consult Pharmacy) 0 ml @ 0 mls/hr UNSCH OTHER 01/17/17 20:00 Miscellaneous 1 ea 1 ea UNSCH PRN OTHER 01/17/17 22:00 Aztreonam 2000 mg/ Sodium Chloride 100 ml @ 200 mls/hr Q8H IV 01/18/17 06:00 01/19/17 13:46 Metronidazole 100 ml @ 100 mls/hr Q8H IV 01/18/17 05:00 01/19/17 13:46 (NS 1000 ml Inj) 1,000 ml @ 84 mls/hr [id number] IV 01/18/17 04:00 01/19/17 10:57 (Peridex 0.12% Liq) 15 ml BID@08,20 MT 01/18/17 20:00 01/19/17 09:24 (D50w (Vial) Inj) 50 ml UNSCH PRN IV 01/18/17 16:45 (Glucagon Inj) 1 mg UNSCH PRN OTHER 01/18/17 16:45 Miscellaneous Information D/C ICU ELECTROLYTE ORDERS... UNSCH PRN .XX 01/18/17 17:00 Miscellaneous Information ICU - CALL ORDERING PHYSIC... UNSCH PRN .XX 01/18/17 17:00 (KCl 40 Meq Premix Inj) 100 ml @ 25 mls/hr UNSCH PRN IV 01/18/17 17:00 Potassium Bicarb/ Potassium Chloride 50 meq 50 meq UNSCH PRN PO 01/18/17 17:00 Potassium Chloride 100 ml @ 50 mls/hr UNSCH PRN IV 01/18/17 17:00 Magnesium Sulfate 4 gm/Sodium Chloride 108 ml @ 54 mls/hr UNSCH PRN IV 01/18/17 17:00 (Magnesium Sulfate Inj/NS Inj) 104 ml @ 52 mls/hr UNSCH PRN IV 01/18/17 17:00 Magnesium Oxide 800 mg 800 mg UNSCH PRN PO 01/18/17 17:00 (Sodium Phosphate Inj/NS 250 ml Inj) 260 ml @ 43.333 mls/ hr UNSCH PRN IV 01/18/17 17:00 Potassium Phosphate 2000 mg 2,000 mg UNSCH PRN PO 01/18/17 17:00 01/18/17 17:25 (Potassium Phosphate Inj/NS 250 ml Inj) 260 ml @ 43.333 mls/ hr UNSCH PRN IV 01/18/17 17:00 (Coumadin) 1 mg DAILY@16 PO 01/19/17 16:00 01/19/17 16:22 Family History Negative for cardiac disease. . Substance Use Tobacco: Former smoker. History of half a pack per day. Alcohol: None. Prescription med abuse: None. Illicits: None. . Psychosocial History Patient originally from [place]. Moved to [place] 25 years ago. , currently not . Residing with partner for the past 24 years. Has 5 or 6 children but unknown whereabouts. Patient worked in [email or web address] for 18 years at [employer]. Served in the [employer] for 7 years. . Spiritual/Cultural Factors Zoroastrian katherine. . Living Will: Never completed Health Care Surrogate: Never completed Durable Power of Hydropress Operator: Never completed Health Care Surrogate(s): No advance directives completed. Patient not legally to Deanna Turnerina Chadd. Patient has 5 or 6 children but has not seen them since they were little as their mother remarried and changed their last names. Unknown whereabouts of children or their legal names. Patient has 3 siblings, will attempt to get patient's children information from siblings. Proxy decision maker to be determined at this time. If unable to locate children, proxy decision maker would fall to the majority patient's siblings, for which he has 3. . Family/friends goals: Full code. Continue with current medical management. Pending identification of healthcare proxy decision-maker. . Ethical and Legal Issues No advance directives. Patient unable to participate in medical decision- making. Pending identification of healthcare proxy decision-maker. . Physical Exam Vital Signs Date Time Temp Pulse Resp B/P Pulse Ox O2 Delivery O2 Flow Rate FiO2 01/19/17 14:01 99 40 01/19/17 14:00 75 19 114/59 100 01/19/17 14:00 75 01/19/17 13:30 79 20 113/58 99 01/19/17 13:15 83 22 130/66 100 01/19/17 13:00 79 18 116/58 99 01/19/17 12:45 80 19 124/59 99 01/19/17 12:30 80 20 128/58 99 01/19/17 12:15 80 20 120/61 100 01/19/17 12:00 77 01/19/17 12:00 40 01/19/17 12:00 99.3 77 19 121/58 99 01/19/17 11:45 78 20 130/65 100 01/19/17 11:30 80 18 108/61 99 01/19/17 11:15 80 18 115/59 99 01/19/17 11:00 83 20 107/59 100 01/19/17 10:45 79 21 113/57 100 01/19/17 10:30 80 18 114/55 99 01/19/17 10:15 77 17 113/57 99 01/19/17 10:00 80 01/19/17 10:00 40 01/19/17 10:00 80 17 108/55 99 01/19/17 09:45 79 17 112/56 100 01/19/17 09:30 85 17 122/60 100 01/19/17 09:15 83 17 113/59 100 01/19/17 09:04 100 40 01/19/17 09:00 79 17 111/57 100 01/19/17 09:00 79 17 111/57 100 01/19/17 08:00 40 01/19/17 08:00 77 01/19/17 08:00 99.1 77 17 104/57 100 01/19/17 07:00 82 20 129/62 100 01/19/17 06:00 77 16 110/53 99 01/19/17 06:00 79 01/19/17 05:00 87 20 109/65 100 01/19/17 04:21 100 40 01/19/17 04:00 96 01/19/17 04:00 40 01/19/17 04:00 98.4 82 23 124/59 100 01/19/17 03:00 83 18 107/59 100 01/19/17 02:15 100 40 01/19/17 02:00 84 21 118/59 100 01/19/17 02:00 88 01/19/17 01:00 82 21 120/63 100 01/19/17 00:00 76 01/19/17 00:00 40 01/19/17 00:00 98.1 81 18 96/53 98 01/18/17 23:35 99 40 01/18/17 23:00 88 22 123/59 100 01/18/17 22:00 92 01/18/17 22:00 94 26 100/56 100 01/18/17 21:00 92 23 119/63 99 01/18/17 20:20 100 40 01/18/17 20:00 98.9 97 22 126/62 99 01/18/17 20:00 60 01/18/17 20:00 97 01/18/17 18:00 83 01/18/17 01/19/17 19:00 07:00 Intake Total 1014 ml 2505 ml Output Total 375 ml 1000 ml Balance 639 ml 1505 ml IV Total 935 ml 1675 ml Tube Feeding 79 ml 430 ml Other 400 ml Output Urine Total 375 ml 1000 ml # Bowel Movements 1 Exam CONSTITUTIONAL/GENERAL: This is an adequately nourished patient, in no apparent distress. Orally intubated on mechanical ventilation. TUBES/LINES/DRAINS: ETT, OG, PIV's, Edge catheter, bilateral soft wrist restraints, uni-boots. SKIN: No jaundice, rashes, or lesions. Ecchymoses on upper extremities. No wounds seen anteriorly. Skin temperature appropriate. Not diaphoretic. HEAD: Atraumatic. Normocephalic. EYES: Pupils equal and round and reactive. Extraocular motions intact. No scleral icterus. No injection or drainage. ENT: Unable to evaluate hearing secondary to clinical condition. Nose without bleeding or purulent drainage. Moist oral mucosa. NECK: Trachea midline. Supple. CARDIOVASCULAR: Irregular rate and rhythm. Peripheral pulses symmetric. RESPIRATORY/CHEST: Symmetric, unlabored respirations. Coarse breath sounds bilaterally. Orally intubated on mechanical ventilation. GASTROINTESTINAL: Abdomen soft, nondistended. Bowel sounds present. Ongoing OG tube feeding. GENITOURINARY: Without palpable bladder distension. Edge catheter in place. MUSCULOSKELETAL: Extremities without clubbing, cyanosis. Edema to bilateral hands. NEUROLOGICAL: Sedated on propofol. Briefly opening eyes to tactile stimuli, not following commands. PSYCHIATRIC: Unable to evaluate secondary to clinical condition. Appears calm. . Diagnostic Tests Laboratory Laboratory Tests Test 01/17/17 01/17/17 01/17/17 01/17/17 18:50 19:10 19:40 21:01 White Blood Count 17.0 TH/MM3 (4.0-11.0) Red Blood Count 5.23 MIL/MM3 (4.50-5.90) Hemoglobin 13.0 GM/DL (13.0-17.0) Hematocrit 42.2 % (39.0-51.0) Mean Corpuscular Volume 80.7 FL (80.0-100.0) Mean Corpuscular Hemoglobin 24.8 PG (27.0-34.0) Mean Corpuscular Hemoglobin 30.7 % Concent (32.0-36.0) Red Cell Distribution Width 20.6 % (11.6-17.2) Platelet Count 399 TH/MM3 (150-450) Mean Platelet Volume 8.0 FL (7.0-11.0) Neutrophils (%) (Auto) 84.2 % (16.0-70.0) Lymphocytes (%) (Auto) 11.4 % (9.0-44.0) Monocytes (%) (Auto) 2.1 % (0.0-8.0) Eosinophils (%) (Auto) 1.7 % (0.0-4.0) Basophils (%) (Auto) 0.6 % (0.0-2.0) Neutrophils # (Auto) 14.3 TH/MM3 (1.8-7.7) Lymphocytes # (Auto) 1.9 TH/MM3 (1.0-4.8) Monocytes # (Auto) 0.4 TH/MM3 (0-0.9) Eosinophils # (Auto) 0.3 TH/MM3 (0-0.4) Basophils # (Auto) 0.1 TH/MM3 (0-0.2) CBC Comment DIFF FINAL Differential Comment Sodium Level 141 MEQ/L (136-145) Potassium Level 4.0 MEQ/L (3.5-5.1) Chloride Level 108 MEQ/L (98-107) Carbon Dioxide Level 23.9 MEQ/L (21.0-32.0) Anion Gap 9 MEQ/L (5-15) Blood Urea Nitrogen 17 MG/DL (7-18) Creatinine 1.15 MG/DL (0.60-1.30) Estimat Glomerular Filtration 62 ML/MIN (>89) Rate Random Glucose 167 MG/DL (74-106) Calcium Level 8.6 MG/DL (8.5-10.1) Total Bilirubin 0.4 MG/DL (0.2-1.0) Aspartate Amino Transf 19 U/L (15-37) (AST/SGOT) Alanine Aminotransferase 17 U/L (12-78) (ALT/SGPT) Alkaline Phosphatase 100 U/L (45-117) Total Creatine Kinase 68 U/L (39-308) Troponin I 0.02 NG/ML (0.02-0.05) Total Protein 7.4 GM/DL (6.4-8.2) Albumin 3.1 GM/DL (3.4-5.0) Urine Color YELLOW (YELLW/STRAW) Urine Turbidity HAZY (CLEAR) Urine pH 6.0 (5.0-8.5) Urine Specific [place] 1.018 (1.002-1.035) Urine Protein TRACE mg/dL (NEG-TRACE) Urine Glucose (UA) NEG mg/dL (NEG) Urine Ketones NEG mg/dL (NEG) Urine Occult Blood TRACE (NEG) Urine Nitrite NEG (NEG) Urine Bilirubin NEG (NEG) Urine Urobilinogen LESS THAN 2.0 MG/DL (LESS THAN 2.0) Urine Leukocyte Esterase MOD (NEG) Urine RBC 3 /hpf (0-3) Urine WBC 17 /hpf (0-5) Urine Bacteria MOD /hpf (NONE) Microscopic Urinalysis Comment CATH-CULTURE IND Lactic Acid Level 2.7 mmol/L (0.4-2.0) Blood Gas Puncture Site RT RADIAL Blood Gas Patient Temperature 98.6 Blood Gas HCO3 21 mmol/L (22-26) Blood Gas Base Excess -3.8 mmol/L (-2-2) Blood Gas Oxygen Saturation 97 % (90-100) Arterial Blood pH 7.37 (7.380-7.420) Arterial Blood Partial 36 mmHg (38-42) Pressure CO2 Arterial Blood Partial 146 mmHG Pressure O2 (61-120) Arterial Blood Oxygen Content 16.5 Vol % (12.0-20.0) Arterial Blood 1.0 % (0-4) Carboxyhemoglobin Arterial Blood Methemoglobin 0.9 % (0-2) Blood Gas Hemoglobin 11.9 G/DL (12.0-16.0) Oxygen Delivery Device VENTILATOR Blood Gas Ventilator Setting AC/14/500/PEEP5 Blood Gas Inspired Oxygen 100 % Test 01/17/17 01/18/17 01/18/17 01/18/17 22:36 01:25 03:30 06:00 Lactic Acid Level 2.9 mmol/L (0.4-2.0) Sodium Level 144 MEQ/L (136-145) Potassium Level 4.2 MEQ/L (3.5-5.1) Chloride Level 112 MEQ/L (98-107) Carbon Dioxide Level 22.5 MEQ/L (21.0-32.0) Anion Gap 10 MEQ/L (5-15) Blood Urea Nitrogen 19 MG/DL (7-18) Creatinine 1.15 MG/DL (0.60-1.30) Estimat Glomerular Filtration 62 ML/MIN (>89) Rate Random Glucose 151 MG/DL (74-106) Calcium Level 8.2 MG/DL (8.5-10.1) Phosphorus Level 1.7 MG/DL (2.5-4.9) Magnesium Level 1.6 MG/DL (1.5-2.5) Total Bilirubin 0.6 MG/DL (0.2-1.0) Aspartate Amino Transf 20 U/L (15-37) (AST/SGOT) Alanine Aminotransferase 15 U/L (12-78) (ALT/SGPT) Alkaline Phosphatase 75 U/L (45-117) Troponin I 0.05 NG/ML (0.02-0.05) Total Protein 6.3 GM/DL (6.4-8.2) Albumin 2.7 GM/DL (3.4-5.0) Nasal Screen MRSA (PCR) MRSA NOT DETECTED (NOT DETECT) Blood Gas Puncture Site LT RADIAL Blood Gas Patient Temperature 98.6 Blood Gas HCO3 19 mmol/L (22-26) Blood Gas Base Excess -4.6 mmol/L (-2-2) Blood Gas Oxygen Saturation 96 % (90-100) Arterial Blood pH 7.42 (7.380-7.420) Arterial Blood Partial 30 mmHg (38-42) Pressure CO2 Arterial Blood Partial 115 mmHg Pressure O2 (61-120) Arterial Blood Oxygen Content 14.4 Vol % (12.0-20.0) Arterial Blood 1.3 % (0-4) Carboxyhemoglobin Arterial Blood Methemoglobin 1.4 % (0-2) Blood Gas Hemoglobin 10.6 G/DL (12.0-16.0) Oxygen Delivery Device VENTILATOR Blood Gas Ventilator Setting AC500/14/+5 Blood Gas Inspired Oxygen 60 % Test 01/18/17 01/18/17 01/19/17 01/19/17 12:04 21:12 04:39 05:30 White Blood Count 16.1 TH/MM3 12.2 TH/MM3 (4.0-11.0) (4.0-11.0) Red Blood Count 3.93 MIL/MM3 3.82 MIL/MM3 (4.50-5.90) (4.50-5.90) Hemoglobin 10.3 GM/DL 9.5 GM/DL (13.0-17.0) (13.0-17.0) Hematocrit 30.6 % 30.1 % (39.0-51.0) (39.0-51.0) Mean Corpuscular Volume 77.7 FL 78.8 FL (80.0-100.0) (80.0-100.0) Mean Corpuscular Hemoglobin 26.1 PG 24.9 PG (27.0-34.0) (27.0-34.0) Mean Corpuscular Hemoglobin 33.6 % 31.6 % Concent (32.0-36.0) (32.0-36.0) Red Cell Distribution Width 20.4 % 20.9 % (11.6-17.2) (11.6-17.2) Platelet Count 242 TH/MM3 223 TH/MM3 (150-450) (150-450) Mean Platelet Volume 8.0 FL 7.7 FL (7.0-11.0) (7.0-11.0) Neutrophils (%) (Auto) 88.4 % 82.0 % (16.0-70.0) (16.0-70.0) Lymphocytes (%) (Auto) 5.7 % 10.0 % (9.0-44.0) (9.0-44.0) Monocytes (%) (Auto) 5.4 % (0.0-8.0) 6.2 % (0.0-8.0) Eosinophils (%) (Auto) 0.2 % (0.0-4.0) 1.6 % (0.0-4.0) Basophils (%) (Auto) 0.3 % (0.0-2.0) 0.2 % (0.0-2.0) Neutrophils # (Auto) 14.2 TH/MM3 10.0 TH/MM3 (1.8-7.7) (1.8-7.7) Lymphocytes # (Auto) 0.9 TH/MM3 1.2 TH/MM3 (1.0-4.8) (1.0-4.8) Monocytes # (Auto) 0.9 TH/MM3 0.8 TH/MM3 (0-0.9) (0-0.9) Eosinophils # (Auto) 0.0 TH/MM3 0.2 TH/MM3 (0-0.4) (0-0.4) Basophils # (Auto) 0.0 TH/MM3 0.0 TH/MM3 (0-0.2) (0-0.2) CBC Comment DIFF FINAL DIFF FINAL Differential Comment Prothrombin Time 36.8 SEC 30.5 SEC (9.8-11.6) (9.8-11.6) Prothromb Time International 3.2 RATIO 2.6 RATIO Ratio Troponin I 0.07 NG/ML 0.05 NG/ML (0.02-0.05) (0.02-0.05) Phosphorus Level 2.0 MG/DL 1.8 MG/DL (2.5-4.9) (2.5-4.9) Sodium Level 143 MEQ/L (136-145) Potassium Level 3.7 MEQ/L (3.5-5.1) Chloride Level 115 MEQ/L (98-107) Carbon Dioxide Level 23.7 MEQ/L (21.0-32.0) Anion Gap 4 MEQ/L (5-15) Blood Urea Nitrogen 22 MG/DL (7-18) Creatinine 0.85 MG/DL (0.60-1.30) Estimat Glomerular Filtration 87 ML/MIN (>89) Rate Random Glucose 139 MG/DL (74-106) Calcium Level 8.5 MG/DL (8.5-10.1) Magnesium Level 1.8 MG/DL (1.5-2.5) B-Type Natriuretic Peptide 387 PG/ML (0-100) Blood Gas Puncture Site RT RADIAL Blood Gas Patient Temperature 98.6 Blood Gas HCO3 20 mmol/L (22-26) Blood Gas Base Excess -3.4 mmol/L (-2-2) Blood Gas Oxygen Saturation 96 % (90-100) Arterial Blood pH 7.42 (7.380-7.420) Arterial Blood Partial 32 mmHg (38-42) Pressure CO2 Arterial Blood Partial 114 mmHg Pressure O2 (61-120) Arterial Blood Oxygen Content 15.7 Vol % (12.0-20.0) Arterial Blood 1.4 % (0-4) Carboxyhemoglobin Arterial Blood Methemoglobin 1.2 % (0-2) Blood Gas Hemoglobin 11.6 G/DL (12.0-16.0) Oxygen Delivery Device VENT Blood Gas Ventilator Setting SEE COMMENTS Blood Gas Inspired Oxygen 40 % Result Diagram: 01/19/17 0439 01/19/17 0439 Microbiology Microbiology Date/Time Procedure Status Source Growth 01/17/17 19:10 Urine Culture - Final Complete Urine Catheterized Urine NO GROWTH IN 48 HOURS. 01/17/17 19:40 Aerobic Blood Culture - Preliminary Resulted Blood Peripheral NO GROWTH IN 2 DAYS 01/17/17 19:40 Anaerobic Blood Culture - Preliminary Resulted Blood Peripheral NO GROWTH IN 2 DAYS 01/17/17 19:40 Aerobic Blood Culture - Preliminary Resulted Blood Peripheral NO GROWTH IN 2 DAYS 01/17/17 19:40 Anaerobic Blood Culture - Preliminary Resulted Blood Peripheral NO GROWTH IN 2 DAYS Imaging Last Impressions Chest X-Ray 01/19/17 0600 Signed Impressions: Service Date/Time: December 03:47 - CONCLUSION: Improved right lung airspace consolidation that has almost resolved. Stable left lung airspace consolidation. Willem Brito MD Abdomen/Pelvis CT 01/17/17 190 Signed Impressions: Service Date/Time: Tuesday, January 17, 2017 20:09 - CONCLUSION: 1. Air in the biliary tree likely postsurgical. 2. Complex cyst right kidney containing calcifications. 3. Right sided perinephric coarse calcifications likely related to previous treatment or previous hematoma. 4. Benign myelolipoma left adrenal gland. 5. Bibasilar consolidation greater in the left lower lobe. 6. Diverticulosis without diverticulitis. 7. No bowel obstruction. 8. Atrophic left kidney containing nonobstructing renal calculi. Terry Cowart MD Procedures * 01/17/17 -endotracheal intubation . Patient/Family Conference Present at Family Conference: Significant other Deanna Dilia Florentino. . Family Conference Time (mins): 35 Family Conference Location: Bedside Issues Discussed: * Palliative care role, purpose, approach * Additional medical, psychosocial, and spiritual history * Patients general health, functional status, and cognitive changes in the months leading up to the current hospitalization * Family understanding of the current medical problems -respiratory failure, aspiration pneumonia, physical deconditioning. * Family understanding of prognosis -high risk for further complications, clinical decline and . * Patients goals of care as best understood from advance directives and/or conversations and/or values * Current medical treatment options and benefits/burdens of those options * Questions answered to the best of my ability * Palliative care contact information provided * Risks, benefits and limitations of CPR given patient's clinical condition and prior significant cardiac history. . Assessment and Plan Disease Oriented Problem List: (1) Respiratory failure (2) Aspiration pneumonia (3) Coronary artery disease (4) Atrial fibrillation (5) History of CVA (cerebrovascular accident) (6) Ischemic cardiomyopathy (7) Hypertension (8) Systolic CHF Symptom Scale: (1) Shortness of breath 0-10 Scale: Unable to quantify Comment: Secondary to aspiration pneumonia, respiratory failure. Remains intubated on mechanical ventilation. (2) Debility 0-10 Scale: Unable to quantify Comment: Progressive, status post CVA 09/22/16. Pertinent Non-Medical Issues Psychosocial: Originally from [place]. . Not to significant other. Has 5 or 6 children, unknown whereabouts. Served in the [employer] for 7 years. Spiritual: Zoroastrian katherine. Legal: Advance directives completed. Ethical issues impacting care: No advance directives. Patient unable to participate in medical decision-making. Pending identification of healthcare proxy decision-maker. . Important Contacts Significant other Deanna Dobbs Chadd [phone] & . Brother Freddy Rojo . . Prognosis Mr. Rojo is a 76-year-old male with a medical history significant for atrial fibrillation on anticoagulation, ischemic cardiomyopathy, EF of 20%, CAD x 5 stones, multiple prior CVA and B-cell lymphoma, on remission. Patient presented on 01/17/17 to ED via EMS from senior living facility secondary to respiratory distress. Patient emergently intubated and placed on mechanical ventilation. Clinical course complicated by aspiration pneumonia and respiratory failure. Patient at a very high risk for further complications, continue decline and given multiple comorbidities, acute events, recent prolonged hospitalization s/p CVA requiring rehabilitation, physical deconditioning and advanced age. . Code Status: Full Code Plan * CODE STATUS: Full code at this time. * HEALTHCARE DECISION-MAKING: Patient unable to participate in medical decision- making secondary to clinical condition, intubated on mechanical ventilation and sedated. Likely to regain capacity. No advance directives completed. Patient not legally to Deanna Florentino. As per Mrs. Florentino, patient has 5 or 6 children but has not seen them since they were little as their mother remarried and changed their last names. Unknown whereabouts of children or their legal names. Patient has 3 siblings, will attempt to get patient's children information from siblings. Proxy decision maker to be determined at this time. If unable to locate children, proxy decision maker would fall to the majority patient's siblings, for which he has 3. * GOALS OF CARE: Continue with current medical management. Pending identification of healthcare proxy decision-maker -see above. Palliative care made many attempts at contacting patient's brother Freddy Rojo who resides in [place]. Will continue to follow-up. * SYMPTOMS: = Shortness of breath, secondary to aspiration pneumonia, respiratory failure. Patient remains orally intubated on mechanical ventilation. = Debility, secondary to recent CVA and prolonged hospitalization. At senior living facility prior to this acute event. * Case has been discussed with bedside SPENCER Mcadams. * Palliative contact information has been provided to patient's significant other, voice message to patient's brother. * Palliative care will continue to follow-up for further clarifications of goals of care as patient's clinical course continues to evolve. . Time Spent Total Floor Time (mins): 63 (Total time to include review and summarization of available medical records to include prior hospitalizations, physical exam, goals of care conversation with significant other, attempts to contact patient' s brother Freddy and case discussion with bedside RN Pema.) >50% Counseling/Coord of Care: Yes Thank you for the opportunity to participate in the care of Mr. Rojo. Attestation To help prompt me to consider important information that might be impacting today's encounter and assessment, information from prior notes written by myself or my colleagues may have been "brought forward" into today's note. My signature on this note, however, is an attestation that I personally performed the exam, history, and/or decision-making noted today, and, unless otherwise indicated, the interactions with patient, family, and staff as well as the review of records all occurred today. I also attest that the listed assessment and stated plan reflect my best clinical judgment today based on the combination of historical information, prior notes, and today's exam/ interactions. When time spent is documented, it refers only to time spent today by the signer, or if indicated, combined time spent today by collaborating physician/nurse practitioner. Carline Thomas Jan 19, 2017 17:22
--- NOTE | 2017-01-19 19:21 | HHI.CCPN ---
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 Patient was apparently supposed to be on a clear liquid diet however was noncompliant and was eating solid food. Today at the correction he was found to be vomiting undigested food around 3 PM. The the patient was transferred to hospitalist around 7 PM. He is now intubated and sedated. Subjective: 01/18:TMax 100.0. Noted to short runs of Juan Miguel fib RVR self corrected, this afternoon. Interrogation of AICD pending. Patient's secretions noted to be thick vela colored and copious .Sputum cultures pending. 01/19: Leukocytosis resolving, chest x-ray improving. The patient chin's AICD was interrogated yesterday, the patient did have episodes of V. tach at 192 bpm but no therapy /was initiated. Ventricular Tach settings 240 bpm, with a VVI pacer lower rate limit at 40. Plans had attempt for CPAP trials this evening or in a.m.. Objective Vital Signs Date Time Temp Pulse Resp B/P Pulse Ox O2 Delivery O2 Flow Rate FiO2 01/19/17 18:00 81 21 119/58 100 01/19/17 16:00 98.6 01/19/17 16:00 40 01/18/17 02:52 Ventilator 01/17/17 18:56 15 Intake and Output 01/18/17 01/18/17 01/19/17 08:00 16:00 00:00 Intake Total 365 ml 1014 ml 1217 ml Output Total 200 ml 375 ml 500 ml Balance 165 ml 639 ml 717 ml Result Diagram: 01/19/17 0439 01/19/17 0439 Other Results Microbiology Date/Time Procedure Status Source Growth 01/17/17 19:10 Urine Culture - Final Complete Urine Catheterized Urine NO GROWTH IN 48 HOURS. Laboratory Tests Test 01/19/17 05:30 Blood Gas Puncture Site RT RADIAL Blood Gas Patient Temperature 98.6 Blood Gas HCO3 20 mmol/L (22-26) Blood Gas Base Excess -3.4 mmol/L (-2-2) Blood Gas Oxygen Saturation 96 % (90-100) Arterial Blood pH 7.42 (7.380-7.420) Arterial Blood Partial 32 mmHg (38-42) Pressure CO2 Arterial Blood Partial 114 mmHg Pressure O2 (61-120) Arterial Blood Oxygen Content 15.7 Vol % (12.0-20.0) Arterial Blood 1.4 % (0-4) Carboxyhemoglobin Arterial Blood Methemoglobin 1.2 % (0-2) Blood Gas Hemoglobin 11.6 G/DL (12.0-16.0) Oxygen Delivery Device VENT Blood Gas Ventilator Setting SEE COMMENTS Blood Gas Inspired Oxygen 40 % Imaging Last 24 hours Impressions Chest X-Ray 01/17/171903 Signed Impressions: Service Date/Time: Tuesday, January 17, 2017 19:34 - CONCLUSION: Cardiomegaly with bilateral perihilar edema. Terry Cowart MD Abdomen/Pelvis CT 01/17/171903 Signed Impressions: Service Date/Time: Tuesday, January 17, 2017 20:09 - CONCLUSION: 1. Air in the biliary tree likely postsurgical. 2. Complex cyst right kidney containing calcifications. 3. Right sided perinephric coarse calcifications likely related to previous treatment or previous hematoma. 4. Benign myelolipoma left adrenal gland. 5. Bibasilar consolidation greater in the left lower lobe. 6. Diverticulosis without diverticulitis. 7. No bowel obstruction. 8. Atrophic left kidney containing nonobstructing renal calculi. Terry Cowart MD Objective Remarks BP 118/58 Pulse 86 O2 saturation 98% GENERAL: Elderly gentleman sedated and intubated SKIN: Warm and dry. HEAD: Normocephalic. EYES: No scleral icterus. No injection or drainage. NECK: Supple, trachea midline. No JVD or lymphadenopathy. CARDIOVASCULAR: Regular rate and rhythm without murmurs, gallops, or rubs. RESPIRATORY: Breath sounds equal bilaterally. No accessory muscle use. GASTROINTESTINAL: Abdomen soft, non-tender, nondistended. MUSCULOSKELETAL: No cyanosis, or edema. BACK: Nontender without obvious deformity. No CVA tenderness. EXTREMITIES: No clubbing cyanosis or edema Date of Insertion: Jan 17, 2017 A/P Assessment and Plan Respiratory failure Aspiration pneumonia - Mechanical ventilation - Azactam and Flagyl - Sputum culture and blood culture pending - De-escalate antibiotics per sensitivity - DuoNeb scheduled and when necessary Hypertension - Clonazepam PRN - Hold Lasix due to GABY -Monitor BMP CHF - 01/18 Repeat 2-D echo-pending - Supportive care -Follow-up BNP History of CVA - Anticoagulation - Coumadin dosing per pharmacy GABY -Creatinine improving DVT GI prophylaxis - Pantoprazole - Warfarin - Teds and SCDs Critical Care: level Discussed with patient's significant other, POA, stated the patient would not like to be on mechanical ventilation. Palliative care medicine consulted for goals of care. Interrogation of AICD pending. This patient remains critically ill with one or more organ systems which are or may become a threat to life. I have spent in excess of 20 minutes discontinuously in the care and management of this patient. This time is exclusive of procedures, and includes, but is not limited to, evaluation of the patient, review of the medical record, discussions with family, consultants, nursing staff, or respiratory therapy, and documentation in the medical record. Physician Shalini Panda MD Jan 19, 2017 19:21
[2017-01-20] VITALS (35 sets, daily range): BP systolic 102–133; BP diastolic 52–70; PULSE 73–81; RESP 17–24; TEMP 98.8–100.3; O2SAT 98–100
[2017-01-20] MEDS: RESP: ALBUTEROL 2.5 MG/IPRATROPIUM 0.5 MG NEB (SCH) INH ×4 (02:59→20:10)
[2017-01-20] MEDS: CHLORHEXIDINE GLUCONATE 2 % 1 PACK (2 CLOTHS) TOP SCH ×2 (04:00→19:34)
[2017-01-20] MEDS: metroNIDAZOLE 500 MG INJ 100 ML IV SCH ×3 (04:09→19:32)
[2017-01-20] MEDS: INSULIN ASPART SUPPLEMENTAL SCALE SQ SCH ×4 (06:03→19:33)
[2017-01-20] MEDS: AZTREONAM INJ 2,000 MG in SODIUM CHLORIDE 0.9% INJ 100 ML IV SCH ×3 (06:03→21:18)
[2017-01-20 06:13] LABS: HEMATOCRIT 27.6 % (39.0-51.0); MEAN CELL VOLUME 78.6 FL (80.0-100.0); MEAN CORPUSCULAR HEMOGLOBIN 25.3 PG (27.0-34.0); MEAN CORPUSCULAR HGB CONC 32.2 % (32.0-36.0); PLATELET COUNT 205 TH/MM3 (150-450); RED BLOOD COUNT 3.51 MIL/MM3 (4.50-5.90); REVIEW FLAG FINAL
[2017-01-20 06:15] LABS: INTERNATIONAL NORMALIZED RATIO 1.9 RATIO; PROTHROMBIN TIME - PATIENT 21.4 SEC (9.8-11.6)
[2017-01-20 06:37] LABS: BICARBONATE 22.2 MEQ/L (21.0-32.0); POTASSIUM 3.8 MEQ/L (3.5-5.1)
[2017-01-20] MEDS: ARTIFICIAL TEARS OPTH SOLN 15 ML BTL EACH EYE SCH ×3 (09:00→17:21)
[2017-01-20] MEDS: PANTOPRAZOLE SOD 40 MG DELAYED RELEASE TAB PO SCH (09:00)
[2017-01-20] MEDS: CHLORHEXIDINE 0.12% (ORAL KIT) 15 ML CUP MT SCH ×2 (09:03→19:33)
[2017-01-20] MEDS: DOCUSATE SODIUM 50 MG/SENNA 8.6 MG TAB PO SCH ×2 (09:03→19:32)
[2017-01-20] MEDS: SODIUM CHLORIDE 0.9% FLUSH 10 ML FLUSH IV FLUSH SCH ×2 (09:04→19:33)
--- NOTE | 2017-01-20 11:36 | HHI.HCPN ---
Reason for visit a. To assist with evaluation and management of symptoms including: Shortness of breath and debility. b. To assist medical decision maker(s) with: better understanding of current medical conditions; weighing benefits/burdens of medical treatment options; making medical treatment decisions. . Subjective/Interval History Mr. 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 Patient presented to ED on 01/17/17 secondary to respiratory distress. Patient was intubated and placed on mechanical ventilation, course complicated by aspiration pneumonia. Palliative care has been consulted for clarifications of goals of care. Patient seen in the medical ICU, he remains orally intubated on mechanical ventilation. Ongoing CPAP trials at this time, seems to be tolerating well. Patient opening eyes to verbal stimuli. Answering simple questions by nodding head "yes/no". Shaking head "no" when asked about pain or discomfort. Following some simple commands such as "squeeze my hand". Maximum temperature 100.3 this morning, stable hemodynamically. FiO2 35%, oxygen saturation in the high 90s. Laboratory workup showing WBC 11.0, Hgb stable trending down, 8.9 today from 9.5 yesterday. No new imaging for review. Case discussed with bedside RN Pema. . Family/friend interactions Telephone conversation with patient's brother Freddy Rojo. He reports that patient completed advance directives in 1996 designated him as [facility], brother Jose Luis as alternate HCS. Medical update provided. Reviewed events leading to this hospitalization, clinical course and current medical management. Shared concerns regarding patient's respiratory failure and significant cardiac history. Goal of therapy is to continue attempts at medical extubation, allow the weekend to evaluate patient's progress. Brother receptive to goals of care conversation follow-up on Monday. Telephone call to patient's significant other Deanna Florentino, left message in voicemail. . Advance Directives Living Will: Completed, but not made available Health Care Surrogate: Completed, but not made available Durable Power of Marketing Regional Consultant: Never completed Advance Directive Specifics Health Care Surrogate(s): Patient's brother Freddy Rojo reports that patient completed advance directives in 1996 designated him as HCS, brother Jose Luis as alternate HCS. Pending copy of documents. Brother to fax to palliative care. . Significant change in goals: Full code. Continue current medical management, goal at medical extubation. . Objective Vital Signs Date Time Temp Pulse Resp B/P Pulse Ox O2 Delivery O2 Flow Rate FiO2 01/20/17 11:00 76 18 112/55 99 01/20/17 10:00 76 18 125/60 99 01/20/17 10:00 76 01/20/17 09:15 81 19 113/55 98 01/20/17 09:00 79 21 118/56 99 01/20/17 08:45 79 19 108/59 99 01/20/17 08:32 100 35 01/20/17 08:30 76 18 107/58 100 01/20/17 08:30 35 01/20/17 08:15 78 18 104/55 100 01/20/17 08:00 40 01/20/17 08:00 100.3 76 18 108/55 100 01/20/17 08:00 76 01/20/17 07:45 77 19 124/58 100 01/20/17 07:30 77 20 118/57 100 01/20/17 07:15 76 18 102/59 99 01/20/17 07:00 74 18 104/52 99 01/20/17 06:00 78 01/20/17 06:00 78 19 123/59 100 01/20/17 05:00 76 21 112/55 99 01/20/17 04:01 100 40 01/20/17 04:00 98.9 81 21 114/57 99 01/20/17 04:00 81 01/20/17 04:00 98.9 81 21 114/57 99 01/20/17 04:00 40 01/20/17 03:00 77 19 127/63 100 01/20/17 02:00 80 23 99 01/20/17 02:00 80 01/20/17 01:00 80 21 122/70 99 01/20/17 00:57 100 40 01/20/17 00:00 40 01/20/17 00:00 78 01/20/17 00:00 98.8 78 20 129/60 100 01/19/17 23:00 81 21 125/67 99 01/19/17 22:40 98 40 01/19/17 22:00 88 28 139/63 99 01/19/17 22:00 88 01/19/17 21:00 78 22 131/63 100 01/19/17 20:00 40 01/19/17 20:00 79 21 128/60 100 01/19/17 20:00 79 01/19/17 19:00 81 20 115/56 100 01/19/17 18:00 81 21 119/58 100 01/19/17 18:00 81 01/19/17 17:45 82 21 126/61 100 01/19/17 17:30 80 22 130/62 100 01/19/17 17:15 79 20 121/59 99 01/19/17 17:00 80 20 127/60 100 01/19/17 16:45 81 20 126/58 100 01/19/17 16:30 82 22 120/64 99 01/19/17 16:15 81 21 117/58 99 01/19/17 16:00 98.6 79 19 111/56 99 01/19/17 16:00 79 01/19/17 16:00 40 01/19/17 15:45 74 19 118/58 99 01/19/17 15:31 79 20 128/64 99 01/19/17 15:15 78 20 119/59 98 01/19/17 15:00 80 21 118/63 100 01/19/17 14:01 99 40 01/19/17 14:00 75 19 114/59 100 01/19/17 14:00 75 01/19/17 13:30 79 20 113/58 99 01/19/17 13:15 83 22 130/66 100 01/19/17 13:00 79 18 116/58 99 01/19/17 12:45 80 19 124/59 99 01/19/17 12:30 80 20 128/58 99 01/19/17 12:15 80 20 120/61 100 01/19/17 12:00 77 01/19/17 12:00 40 01/19/17 12:00 99.3 77 19 121/58 99 01/19/17 11:45 78 20 130/65 100 01/19/17 11:30 80 18 108/61 99 Intake & Output 01/20/17 01/20/17 07:00 19:00 Intake Total 2503 ml Output Total 1100 ml Balance 1403 ml IV Total 1601 ml Tube Feeding 852 ml Other 50 ml Output Urine Total 1100 ml # Bowel Movements 1 Physical Exam CONSTITUTIONAL/GENERAL: This is an adequately nourished patient, in no apparent distress. Orally intubated on mechanical ventilation. TUBES/LINES/DRAINS: ETT, OG, PIV's, Edge catheter, bilateral soft wrist restraints, uni-boots. SKIN: No jaundice, rashes, or lesions. Ecchymoses on upper extremities. No wounds seen anteriorly. Skin temperature appropriate. Not diaphoretic. HEAD: Atraumatic. Normocephalic. EYES: Pupils equal and round and reactive. Extraocular motions intact. No scleral icterus. No injection or drainage. ENT: Hearing appears normal. Nose without bleeding or purulent drainage. Moist oral mucosa. NECK: Trachea midline. Supple. CARDIOVASCULAR: Regular rate and rhythm. Peripheral pulses symmetric. RESPIRATORY/CHEST: Symmetric, unlabored respirations. Coarse sounds bilaterally. Orally intubated on mechanical ventilation. GASTROINTESTINAL: Abdomen soft, nondistended. Bowel sounds present. Ongoing OG tube feeding. GENITOURINARY: Without palpable bladder distension. Edge catheter in place. MUSCULOSKELETAL: Extremities without clubbing, cyanosis. Edema to bilateral hands. NEUROLOGICAL: Briefly opening eyes to verbal stimuli. Answering simple questions by nodding head "yes/no". Following some simple commands. PSYCHIATRIC: Calm. . Diagnostic Tests Laboratory Laboratory Tests Test 01/17/17 01/17/17 01/17/17 01/17/17 18:50 19:10 19:40 21:01 White Blood Count 17.0 TH/MM3 (4.0-11.0) Red Blood Count 5.23 MIL/MM3 (4.50-5.90) Hemoglobin 13.0 GM/DL (13.0-17.0) Hematocrit 42.2 % (39.0-51.0) Mean Corpuscular Volume 80.7 FL (80.0-100.0) Mean Corpuscular Hemoglobin 24.8 PG (27.0-34.0) Mean Corpuscular Hemoglobin 30.7 % Concent (32.0-36.0) Red Cell Distribution Width 20.6 % (11.6-17.2) Platelet Count 399 TH/MM3 (150-450) Mean Platelet Volume 8.0 FL (7.0-11.0) Neutrophils (%) (Auto) 84.2 % (16.0-70.0) Lymphocytes (%) (Auto) 11.4 % (9.0-44.0) Monocytes (%) (Auto) 2.1 % (0.0-8.0) Eosinophils (%) (Auto) 1.7 % (0.0-4.0) Basophils (%) (Auto) 0.6 % (0.0-2.0) Neutrophils # (Auto) 14.3 TH/MM3 (1.8-7.7) Lymphocytes # (Auto) 1.9 TH/MM3 (1.0-4.8) Monocytes # (Auto) 0.4 TH/MM3 (0-0.9) Eosinophils # (Auto) 0.3 TH/MM3 (0-0.4) Basophils # (Auto) 0.1 TH/MM3 (0-0.2) CBC Comment DIFF FINAL Differential Comment Sodium Level 141 MEQ/L (136-145) Potassium Level 4.0 MEQ/L (3.5-5.1) Chloride Level 108 MEQ/L (98-107) Carbon Dioxide Level 23.9 MEQ/L (21.0-32.0) Anion Gap 9 MEQ/L (5-15) Blood Urea Nitrogen 17 MG/DL (7-18) Creatinine 1.15 MG/DL (0.60-1.30) Estimat Glomerular Filtration 62 ML/MIN (>89) Rate Random Glucose 167 MG/DL (74-106) Calcium Level 8.6 MG/DL (8.5-10.1) Total Bilirubin 0.4 MG/DL (0.2-1.0) Aspartate Amino Transf 19 U/L (15-37) (AST/SGOT) Alanine Aminotransferase 17 U/L (12-78) (ALT/SGPT) Alkaline Phosphatase 100 U/L (45-117) Total Creatine Kinase 68 U/L (39-308) Troponin I 0.02 NG/ML (0.02-0.05) Total Protein 7.4 GM/DL (6.4-8.2) Albumin 3.1 GM/DL (3.4-5.0) Urine Color YELLOW (YELLW/STRAW) Urine Turbidity HAZY (CLEAR) Urine pH 6.0 (5.0-8.5) Urine Specific [place] 1.018 (1.002-1.035) Urine Protein TRACE mg/dL (NEG-TRACE) Urine Glucose (UA) NEG mg/dL (NEG) Urine Ketones NEG mg/dL (NEG) Urine Occult Blood TRACE (NEG) Urine Nitrite NEG (NEG) Urine Bilirubin NEG (NEG) Urine Urobilinogen LESS THAN 2.0 MG/DL (LESS THAN 2.0) Urine Leukocyte Esterase MOD (NEG) Urine RBC 3 /hpf (0-3) Urine WBC 17 /hpf (0-5) Urine Bacteria MOD /hpf (NONE) Microscopic Urinalysis Comment CATH-CULTURE IND Lactic Acid Level 2.7 mmol/L (0.4-2.0) Blood Gas Puncture Site RT RADIAL Blood Gas Patient Temperature 98.6 Blood Gas HCO3 21 mmol/L (22-26) Blood Gas Base Excess -3.8 mmol/L (-2-2) Blood Gas Oxygen Saturation 97 % (90-100) Arterial Blood pH 7.37 (7.380-7.420) Arterial Blood Partial 36 mmHg (38-42) Pressure CO2 Arterial Blood Partial 146 mmHG Pressure O2 (61-120) Arterial Blood Oxygen Content 16.5 Vol % (12.0-20.0) Arterial Blood 1.0 % (0-4) Carboxyhemoglobin Arterial Blood Methemoglobin 0.9 % (0-2) Blood Gas Hemoglobin 11.9 G/DL (12.0-16.0) Oxygen Delivery Device VENTILATOR Blood Gas Ventilator Setting AC/14/500/PEEP5 Blood Gas Inspired Oxygen 100 % Test 01/17/17 01/18/17 01/18/17 01/18/17 22:36 01:25 03:30 06:00 Lactic Acid Level 2.9 mmol/L (0.4-2.0) Sodium Level 144 MEQ/L (136-145) Potassium Level 4.2 MEQ/L (3.5-5.1) Chloride Level 112 MEQ/L (98-107) Carbon Dioxide Level 22.5 MEQ/L (21.0-32.0) Anion Gap 10 MEQ/L (5-15) Blood Urea Nitrogen 19 MG/DL (7-18) Creatinine 1.15 MG/DL (0.60-1.30) Estimat Glomerular Filtration 62 ML/MIN (>89) Rate Random Glucose 151 MG/DL (74-106) Calcium Level 8.2 MG/DL (8.5-10.1) Phosphorus Level 1.7 MG/DL (2.5-4.9) Magnesium Level 1.6 MG/DL (1.5-2.5) Total Bilirubin 0.6 MG/DL (0.2-1.0) Aspartate Amino Transf 20 U/L (15-37) (AST/SGOT) Alanine Aminotransferase 15 U/L (12-78) (ALT/SGPT) Alkaline Phosphatase 75 U/L (45-117) Troponin I 0.05 NG/ML (0.02-0.05) Total Protein 6.3 GM/DL (6.4-8.2) Albumin 2.7 GM/DL (3.4-5.0) Nasal Screen MRSA (PCR) MRSA NOT DETECTED (NOT DETECT) Blood Gas Puncture Site LT RADIAL Blood Gas Patient Temperature 98.6 Blood Gas HCO3 19 mmol/L (22-26) Blood Gas Base Excess -4.6 mmol/L (-2-2) Blood Gas Oxygen Saturation 96 % (90-100) Arterial Blood pH 7.42 (7.380-7.420) Arterial Blood Partial 30 mmHg (38-42) Pressure CO2 Arterial Blood Partial 115 mmHg Pressure O2 (61-120) Arterial Blood Oxygen Content 14.4 Vol % (12.0-20.0) Arterial Blood 1.3 % (0-4) Carboxyhemoglobin Arterial Blood Methemoglobin 1.4 % (0-2) Blood Gas Hemoglobin 10.6 G/DL (12.0-16.0) Oxygen Delivery Device VENTILATOR Blood Gas Ventilator Setting AC500/14/+5 Blood Gas Inspired Oxygen 60 % Test 01/18/17 01/18/17 01/19/17 01/19/17 12:04 21:12 04:39 05:30 White Blood Count 16.1 TH/MM3 12.2 TH/MM3 (4.0-11.0) (4.0-11.0) Red Blood Count 3.93 MIL/MM3 3.82 MIL/MM3 (4.50-5.90) (4.50-5.90) Hemoglobin 10.3 GM/DL 9.5 GM/DL (13.0-17.0) (13.0-17.0) Hematocrit 30.6 % 30.1 % (39.0-51.0) (39.0-51.0) Mean Corpuscular Volume 77.7 FL 78.8 FL (80.0-100.0) (80.0-100.0) Mean Corpuscular Hemoglobin 26.1 PG 24.9 PG (27.0-34.0) (27.0-34.0) Mean Corpuscular Hemoglobin 33.6 % 31.6 % Concent (32.0-36.0) (32.0-36.0) Red Cell Distribution Width 20.4 % 20.9 % (11.6-17.2) (11.6-17.2) Platelet Count 242 TH/MM3 223 TH/MM3 (150-450) (150-450) Mean Platelet Volume 8.0 FL 7.7 FL (7.0-11.0) (7.0-11.0) Neutrophils (%) (Auto) 88.4 % 82.0 % (16.0-70.0) (16.0-70.0) Lymphocytes (%) (Auto) 5.7 % 10.0 % (9.0-44.0) (9.0-44.0) Monocytes (%) (Auto) 5.4 % (0.0-8.0) 6.2 % (0.0-8.0) Eosinophils (%) (Auto) 0.2 % (0.0-4.0) 1.6 % (0.0-4.0) Basophils (%) (Auto) 0.3 % (0.0-2.0) 0.2 % (0.0-2.0) Neutrophils # (Auto) 14.2 TH/MM3 10.0 TH/MM3 (1.8-7.7) (1.8-7.7) Lymphocytes # (Auto) 0.9 TH/MM3 1.2 TH/MM3 (1.0-4.8) (1.0-4.8) Monocytes # (Auto) 0.9 TH/MM3 0.8 TH/MM3 (0-0.9) (0-0.9) Eosinophils # (Auto) 0.0 TH/MM3 0.2 TH/MM3 (0-0.4) (0-0.4) Basophils # (Auto) 0.0 TH/MM3 0.0 TH/MM3 (0-0.2) (0-0.2) CBC Comment DIFF FINAL DIFF FINAL Differential Comment Prothrombin Time 36.8 SEC 30.5 SEC (9.8-11.6) (9.8-11.6) Prothromb Time International 3.2 RATIO 2.6 RATIO Ratio Troponin I 0.07 NG/ML 0.05 NG/ML (0.02-0.05) (0.02-0.05) Phosphorus Level 2.0 MG/DL 1.8 MG/DL (2.5-4.9) (2.5-4.9) Sodium Level 143 MEQ/L (136-145) Potassium Level 3.7 MEQ/L (3.5-5.1) Chloride Level 115 MEQ/L (98-107) Carbon Dioxide Level 23.7 MEQ/L (21.0-32.0) Anion Gap 4 MEQ/L (5-15) Blood Urea Nitrogen 22 MG/DL (7-18) Creatinine 0.85 MG/DL (0.60-1.30) Estimat Glomerular Filtration 87 ML/MIN (>89) Rate Random Glucose 139 MG/DL (74-106) Calcium Level 8.5 MG/DL (8.5-10.1) Magnesium Level 1.8 MG/DL (1.5-2.5) B-Type Natriuretic Peptide 387 PG/ML (0-100) Blood Gas Puncture Site RT RADIAL Blood Gas Patient Temperature 98.6 Blood Gas HCO3 20 mmol/L (22-26) Blood Gas Base Excess -3.4 mmol/L (-2-2) Blood Gas Oxygen Saturation 96 % (90-100) Arterial Blood pH 7.42 (7.380-7.420) Arterial Blood Partial 32 mmHg (38-42) Pressure CO2 Arterial Blood Partial 114 mmHg Pressure O2 (61-120) Arterial Blood Oxygen Content 15.7 Vol % (12.0-20.0) Arterial Blood 1.4 % (0-4) Carboxyhemoglobin Arterial Blood Methemoglobin 1.2 % (0-2) Blood Gas Hemoglobin 11.6 G/DL (12.0-16.0) Oxygen Delivery Device VENT Blood Gas Ventilator Setting SEE COMMENTS Blood Gas Inspired Oxygen 40 % Test 01/20/17 05:14 White Blood Count 11.0 TH/MM3 (4.0-11.0) Red Blood Count 3.51 MIL/MM3 (4.50-5.90) Hemoglobin 8.9 GM/DL (13.0-17.0) Hematocrit 27.6 % (39.0-51.0) Mean Corpuscular Volume 78.6 FL (80.0-100.0) Mean Corpuscular Hemoglobin 25.3 PG (27.0-34.0) Mean Corpuscular Hemoglobin 32.2 % Concent (32.0-36.0) Red Cell Distribution Width 21.0 % (11.6-17.2) Platelet Count 205 TH/MM3 (150-450) Mean Platelet Volume 8.4 FL (7.0-11.0) Prothrombin Time 21.4 SEC (9.8-11.6) Prothromb Time International 1.9 RATIO Ratio Sodium Level 146 MEQ/L (136-145) Potassium Level 3.8 MEQ/L (3.5-5.1) Chloride Level 116 MEQ/L (98-107) Carbon Dioxide Level 22.2 MEQ/L (21.0-32.0) Anion Gap 8 MEQ/L (5-15) Blood Urea Nitrogen 21 MG/DL (7-18) Creatinine 0.66 MG/DL (0.60-1.30) Estimat Glomerular Filtration 117 ML/MIN Rate (>89) Random Glucose 147 MG/DL (74-106) Calcium Level 8.4 MG/DL (8.5-10.1) Phosphorus Level 1.3 MG/DL (2.5-4.9) Magnesium Level 2.0 MG/DL (1.5-2.5) Result Diagram: 01/20/17 0514 01/20/17 0514 Microbiology Microbiology Date/Time Procedure Status Source Growth 01/17/17 19:10 Urine Culture - Final Complete Urine Catheterized Urine NO GROWTH IN 48 HOURS. 01/17/17 19:40 Aerobic Blood Culture - Preliminary Resulted Blood Peripheral NO GROWTH IN 3 DAYS 01/17/17 19:40 Anaerobic Blood Culture - Preliminary Resulted Blood Peripheral NO GROWTH IN 3 DAYS 01/17/17 19:40 Aerobic Blood Culture - Preliminary Resulted Blood Peripheral NO GROWTH IN 3 DAYS 01/17/17 19:40 Anaerobic Blood Culture - Preliminary Resulted Blood Peripheral NO GROWTH IN 3 DAYS Procedures * 01/17/17 -endotracheal intubation . Assessment and Plan Disease Oriented Problem List: (1) Respiratory failure (2) Aspiration pneumonia (3) Coronary artery disease (4) Atrial fibrillation (5) History of CVA (cerebrovascular accident) (6) Ischemic cardiomyopathy (7) Hypertension (8) Systolic CHF Symptom Scale: (1) Shortness of breath 0-10 Scale: Unable to quantify Comment: Secondary to aspiration pneumonia, respiratory failure. Remains intubated on mechanical ventilation. (2) Debility 0-10 Scale: Unable to quantify Comment: Progressive, status post CVA 09/22/16. Pertinent Non-Medical Issues Psychosocial: Originally from [place]. . Not to significant other. Has 5 or 6 children, unknown whereabouts. Served in the [employer] for 7 years. Spiritual: Yazidi katherine. Legal: Pending copy of advance directives. Ethical issues impacting care: Pending copy of advance directives. . Important Contacts Significant other Deanna Florentino [phone] & . Brother Freddy Rojo . . Prognosis Mr. Rojo is a 76-year-old male with a medical history significant for atrial fibrillation on anticoagulation, ischemic cardiomyopathy, EF of 20%, CAD x 5 stones, multiple prior CVA and B-cell lymphoma, on remission. Patient presented on 01/17/17 to ED via EMS from assisted facility secondary to respiratory distress. Patient emergently intubated and placed on mechanical ventilation. Clinical course complicated by aspiration pneumonia and respiratory failure. Patient at a very high risk for further complications, continue decline and given multiple comorbidities, acute events, recent prolonged hospitalization s/p CVA requiring rehabilitation, physical deconditioning and advanced age. . Code Status: Full Code Plan * CODE STATUS: Full code at this time. Risks, benefits and limitations of CPR has been discussed with patient's brother Freddy Rojo. * HEALTHCARE DECISION-MAKING: Patient's brother Freddy Rojo reports that patient completed advance directives in 1996 designated him as HCS, brother Jose Luis as alternate HCS. Pending copy of documents. Brother to fax to palliative care. * GOALS OF CARE: Continue with current medical management to include full code. Goal of therapy is to continue attempts at medical extubation, allow the weekend to evaluate patient's progress. Brother receptive to goals of care conversation follow-up on Monday. * 01/20/17 -Telephone conversation with patient's brother Freddy Rojo ( designated HCS). Reviewed events leading to this hospitalization, clinical course and current medical management. Reviewed that patient remains a high risk for further complications, continue decline and . * SYMPTOMS: = Shortness of breath, secondary to aspiration pneumonia, respiratory failure. Patient remains orally intubated on mechanical ventilation. Ongoing CPAP trials at this time. = Debility, secondary to recent CVA and prolonged hospitalization. At assisted facility prior to this acute event. * Case has been discussed with bedside RN Pema. * Palliative contact information has been provided to patient's family and significant other. * Palliative care will continue to follow-up for further clarifications of goals of care as patient's clinical course continues to evolve. . Time Spent Total Floor Time (mins): 34 (Total time to include review and summarization of medical records, physical exam, telephone conversation with patient's brother brother for goals of care discussion and case discussion with bedside RN Pema.) >50% Counseling/Coord of Care: Yes Attestation To help prompt me to consider important information that might be impacting today's encounter and assessment, information from prior notes written by myself or my colleagues may have been "brought forward" into today's note. My signature on this note, however, is an attestation that I personally performed the exam, history, and/or decision-making noted today, and, unless otherwise indicated, the interactions with patient, family, and staff as well as the review of records all occurred today. I also attest that the listed assessment and stated plan reflect my best clinical judgment today based on the combination of historical information, prior notes, and today's exam/ interactions. When time spent is documented, it refers only to time spent today by the signer, or if indicated, combined time spent today by collaborating physician/nurse practitioner. Carline Thomas Jan 20, 2017 11:36
[2017-01-20] MEDS: PROPOFOL 1000 MG/100 ML INJ 100 ML IV SCH (15:25)
[2017-01-20] MEDS: WARFARIN SOD 1 MG TAB PO SCH (17:20)
--- NOTE | 2017-01-20 18:17 | HHI.CCPN ---
Subjective Remarks/Hospital Course 76-year-old gentleman with a history of ischemic cardiomyopathy EF 20%, A. 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 Patient was apparently supposed to be on a clear liquid diet however was noncompliant and was eating solid food. [facility] was found to be vomiting undigested food around 3 PM. The the patient was transferred to hospitalist around 7 PM. He is now intubated and sedated. Subjective: 01/18:TMax 100.0. Noted to short runs of A. fib RVR self corrected, this afternoon. Interrogation of AICD pending. Patient's secretions noted to be thick vela colored and copious .Sputum cultures pending. 01/19: Leukocytosis resolving, chest x-ray improving. The patient chin's AICD was interrogated yesterday, the patient did have episodes of V. tach at 192 bpm but no therapy /was initiated. Ventricular Tach settings 240 bpm, with a VVI pacer lower rate limit at 40. Plans had attempt for CPAP trials this evening or in a.m.. 01/20: Leukocytosis resolved. Patient has remained on CPAP all day. Will continue CPAP throughout the night, if clinically stable. Patient is GCS 11 T. Objective Vital Signs Date Time Temp Pulse Resp B/P Pulse Ox O2 Delivery O2 Flow Rate FiO2 01/20/17 17:00 79 17 115/55 99 01/20/17 16:00 35 01/20/17 16:00 99.6 01/18/17 02:52 Ventilator 01/17/17 18:56 15 Intake and Output 01/19/17 01/19/17 01/20/17 08:00 16:00 00:00 Intake Total 1288 ml 1295 ml 1447 ml Output Total 500 ml 600 ml 650 ml Balance 788 ml 695 ml 797 ml Result Diagram: 01/20/17 0514 01/20/17 0514 Other Results Microbiology Date/Time Procedure Status Source Growth 01/17/17 19:10 Urine Culture - Final Complete Urine Catheterized Urine NO GROWTH IN 48 HOURS. Imaging Last 24 hours Impressions Chest X-Ray 01/17/17 1904 Signed Impressions: Service Date/Time: Tuesday, January 17, 2017 19:34 - CONCLUSION: Cardiomegaly with bilateral perihilar edema. Terry Cowart MD Abdomen/Pelvis CT 01/17/171903 Signed Impressions: Service Date/Time: Tuesday, January 17, 2017 20:09 - CONCLUSION: 1. Air in the biliary tree likely postsurgical. 2. Complex cyst right kidney containing calcifications. 3. Right sided perinephric coarse calcifications likely related to previous treatment or previous hematoma. 4. Benign myelolipoma left adrenal gland. 5. Bibasilar consolidation greater in the left lower lobe. 6. Diverticulosis without diverticulitis. 7. No bowel obstruction. 8. Atrophic left kidney containing nonobstructing renal calculi. Terry Cowart MD Objective Remarks GENERAL: Elderly gentleman , following commands, on CPAP SKIN: Warm and dry. HEAD: Normocephalic. EYES: No scleral icterus. No injection or drainage. NECK: Supple, trachea midline. No JVD or lymphadenopathy. CARDIOVASCULAR: Regular rate and rhythm without murmurs, gallops, or rubs. RESPIRATORY: Breath sounds equal bilaterally. No accessory muscle use. GASTROINTESTINAL: Abdomen soft, non-tender, nondistended. MUSCULOSKELETAL: No cyanosis, or edema. EXTREMITIES: No clubbing cyanosis or edema Date of Insertion: Jan 17, 2017 A/P Assessment and Plan Respiratory failure Aspiration pneumonia - Mechanical ventilation - Azactam and Flagyl - Sputum culture and blood culture pending - De-escalate antibiotics per sensitivity - DuoNeb scheduled and when necessary Hypertension - Clonazepam PRN - Hold Lasix due to GABY -Monitor BMP CHF - 01/18 Repeat 2-D echo-Mild Pulm HTN, Mild regurgitation tricuspid valve - Supportive care History of CVA - Anticoagulation - Coumadin dosing per pharmacy GABY -Creatinine improving DVT GI prophylaxis - Pantoprazole - Warfarin - Teds and SCDs Critical Care: Level 3 Discussed with patient's significant other, POA, stated the patient would not like to be on mechanical ventilation. Will continue CPAP trials. Physician Shalini Panda MD Jan 20, 2017 18:17
[2017-01-21] VITALS (19 sets, daily range): BP systolic 97–145; BP diastolic 52–68; PULSE 66–83; RESP 12–23; TEMP 98.2–98.8; O2SAT 96–100
[2017-01-21] MEDS: metroNIDAZOLE 500 MG INJ 100 ML IV SCH ×3 (01:59→20:15)
[2017-01-21] MEDS: AZTREONAM INJ 2,000 MG in SODIUM CHLORIDE 0.9% INJ 100 ML IV SCH ×3 (03:51→22:20)
[2017-01-21] MEDS: RESP: ALBUTEROL 2.5 MG/IPRATROPIUM 0.5 MG NEB (SCH) INH ×4 (03:55→20:42)
[2017-01-21] MEDS: INSULIN ASPART SUPPLEMENTAL SCALE SQ SCH ×4 (04:58→20:15)
[2017-01-21 05:03] LABS: BLOOD GAS BASE EXCESS -0.3 mmol/L (-2-2); BLOOD GAS CARBOXYHEMOGLOBIN 1.6 % (0-4); BLOOD GAS HCO3 23 mmol/L (22-26); BLOOD GAS METHEMOGLOBIN 1.2 % (0-2); BLOOD GAS O2 HGB SATURATION 95 % (90-100); BLOOD GAS OXYGEN CONTENT 12.2 Vol % (12.0-20.0); BLOOD GAS PCO2 35 mmHg (38-42); BLOOD GAS PO2 100 mmHg (61-120); CRITICAL VALUE NO; OXYGEN DEVICE VENTILATOR; TEMP CORR TO 98.6
[2017-01-21 05:04] LABS: DRAW SITE LT RADIAL; FIO2 35 %; NUMBER OF ARTERIAL PUNCTURES 1; STAT NO; ULNAR PULSE PRESENT
--- NOTE | 2017-01-21 05:21 | RADRPT ---
EXAM DATE/TIME: 01/21/2017 02:32 [facility] COMPARISON: CHEST SINGLE AP, January 19, 2017, 3:47. INDICATIONS : Respiratory failure post cardiac arrest. MEDICAL HISTORY : Stroke. SURGICAL HISTORY : Pacemaker. ENCOUNTER: Subsequent ACUITY: 2 days PAIN SCORE: Non-responsive. LOCATION: Bilateral chest FINDINGS: A single view of the chest demonstrates the endotracheal tube, nasogastric tube and left subclavian p acer are all in good position. Minimal persistent consolidation left lung base. Right lung is relativ kim clear. The cardiomediastinal contours are unremarkable. Osseous structures are intact. CONCLUSION: Tubes and wire good position. Minimal consolidation persists the left lung base Yasir Jessica MD on January 21, 2017 at 5:19 Board Certified Radiologist. This report was verified electronically.
[2017-01-21 06:36] LABS: BICARBONATE 25.2 MEQ/L (21.0-32.0)
[2017-01-21 06:39] LABS: HEMATOCRIT 27.3 % (39.0-51.0); MEAN CELL VOLUME 78.5 FL (80.0-100.0); MEAN CORPUSCULAR HGB CONC 33.1 % (32.0-36.0); PLATELET COUNT 209 TH/MM3 (150-450); RED BLOOD COUNT 3.48 MIL/MM3 (4.50-5.90); RED CELL DISTRIBUTION WIDTH 20.8 % (11.6-17.2); REVIEW FLAG FINAL; WHITE BLOOD COUNT 10.7 TH/MM3 (4.0-11.0)
[2017-01-21 07:29] LABS: INTERNATIONAL NORMALIZED RATIO 1.6 RATIO; PROTHROMBIN TIME - PATIENT 17.5 SEC (9.8-11.6)
[2017-01-21] MEDS: SODIUM CHLORIDE 0.9% FLUSH 10 ML FLUSH IV FLUSH SCH ×2 (08:01→20:15)
[2017-01-21] MEDS: CHLORHEXIDINE 0.12% (ORAL KIT) 15 ML CUP MT SCH ×2 (08:01→20:15)
[2017-01-21] MEDS: PANTOPRAZOLE SOD 40 MG DELAYED RELEASE TAB PO SCH (08:01)
[2017-01-21] MEDS: DOCUSATE SODIUM 50 MG/SENNA 8.6 MG TAB PO SCH ×2 (08:01→20:15)
[2017-01-21] MEDS: ARTIFICIAL TEARS OPTH SOLN 15 ML BTL EACH EYE SCH ×3 (08:03→17:11)
[2017-01-21] MEDS: PROPOFOL 1000 MG/100 ML INJ 100 ML IV SCH (09:17)
[2017-01-21] MEDS ORDERED: WARFARIN SOD 2 MG TAB PO ONE (16:00)
[2017-01-22] VITALS (19 sets, daily range): BP systolic 105–141; BP diastolic 59–68; PULSE 70–94; RESP 16–32; TEMP 98.5–99.5; O2SAT 94–99
[2017-01-22] MEDS ORDERED: ICU - MAGNESIUM SULFATE 2 GM/NS 100 ML IV ONE ×2 (01:00)
[2017-01-22] MEDS: CHLORHEXIDINE GLUCONATE 2 % 1 PACK (2 CLOTHS) TOP SCH (04:00)
[2017-01-22] MEDS: metroNIDAZOLE 500 MG INJ 100 ML IV SCH ×3 (04:46→20:02)
[2017-01-22 06:16] LABS: INTERNATIONAL NORMALIZED RATIO 1.8 RATIO
[2017-01-22] MEDS: AZTREONAM INJ 2,000 MG in SODIUM CHLORIDE 0.9% INJ 100 ML IV SCH ×3 (06:32→22:13)
[2017-01-22] MEDS: INSULIN ASPART SUPPLEMENTAL SCALE SQ SCH ×4 (06:34→20:02)
[2017-01-22] MEDS: CHLORHEXIDINE 0.12% (ORAL KIT) 15 ML CUP MT SCH ×2 (08:02→20:00)
[2017-01-22] MEDS: ARTIFICIAL TEARS OPTH SOLN 15 ML BTL EACH EYE SCH ×3 (08:02→18:08)
[2017-01-22] MEDS: SODIUM CHLORIDE 0.9% FLUSH 10 ML FLUSH IV FLUSH SCH ×2 (08:03→20:02)
[2017-01-22] MEDS: PANTOPRAZOLE SOD 40 MG DELAYED RELEASE TAB PO SCH (08:03)
[2017-01-22] MEDS: DOCUSATE SODIUM 50 MG/SENNA 8.6 MG TAB PO SCH ×2 (08:03→20:02)
[2017-01-22] MEDS ORDERED: WARFARIN SOD 2 MG TAB PO ONE (16:00)
--- NOTE | 2017-01-22 18:52 | HHI.CCPN ---
Subjective Remarks/Hospital Course 76-year-old gentleman with a history of ischemic cardiomyopathy EF 20%, A. 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 Patient was apparently supposed to be on a clear liquid diet however was noncompliant and was eating solid food. Today at the long term he was found to be vomiting undigested food around 3 PM. The the patient was transferred to hospitalist around 7 PM. He is now intubated and sedated. Subjective: 01/18:TMax 100.0. Noted to short runs of A. fib RVR self corrected, this afternoon. Interrogation of AICD pending. Patient's secretions noted to be thick vela colored and copious .Sputum cultures pending. 01/19: Leukocytosis resolving, chest x-ray improving. The patient chin's AICD was interrogated yesterday, the patient did have episodes of V. tach at 192 bpm but no therapy /was initiated. Ventricular Tach settings 240 bpm, with a VVI pacer lower rate limit at 40. Plans had attempt for CPAP trials this evening or in a.m.. 01/20: Leukocytosis resolved. Patient has remained on CPAP all day. Will continue CPAP throughout the night, if clinically stable. Patient is GCS 11 T. 01/22: Awake and alert. Not following commands. Tolerated C Pap today. Ordered extubation Objective Vital Signs Date Time Temp Pulse Resp B/P Pulse Ox O2 Delivery O2 Flow Rate FiO2 01/22/17 18:00 94 01/22/17 18:00 94 Nasal Cannula 4.00 01/22/17 16:00 35 01/22/17 16:00 98.5 17 131/64 Intake and Output 01/21/17 01/21/17 01/22/17 08:00 16:00 00:00 Intake Total 725 ml 687 ml 543 ml Output Total 375 ml 625 ml 500 ml Balance 350 ml 62 ml 43 ml Result Diagram: 01/21/17 0535 01/21/17 0535 Imaging Last 24 hours Impressions Chest X-Ray 01/17/17 1904 Signed Impressions: Service Date/Time: Tuesday, January 17, 2017 19:34 - CONCLUSION: Cardiomegaly with bilateral perihilar edema. Terry Cowart MD Abdomen/Pelvis CT 01/17/17 1904 Signed Impressions: Service Date/Time: Tuesday, January 17, 2017 20:09 - CONCLUSION: 1. Air in the biliary tree likely postsurgical. 2. Complex cyst right kidney containing calcifications. 3. Right sided perinephric coarse calcifications likely related to previous treatment or previous hematoma. 4. Benign myelolipoma left adrenal gland. 5. Bibasilar consolidation greater in the left lower lobe. 6. Diverticulosis without diverticulitis. 7. No bowel obstruction. 8. Atrophic left kidney containing nonobstructing renal calculi. Terry Cowart MD Objective Remarks GENERAL: Elderly gentleman , following commands, on CPAP SKIN: Warm and dry. HEAD: Normocephalic. EYES: No scleral icterus. No injection or drainage. NECK: Supple, trachea midline. No JVD or lymphadenopathy. CARDIOVASCULAR: Regular rate and rhythm without murmurs, gallops, or rubs. RESPIRATORY: Breath sounds equal bilaterally. No accessory muscle use. GASTROINTESTINAL: Abdomen soft, non-tender, nondistended. MUSCULOSKELETAL: No cyanosis, or edema. EXTREMITIES: No clubbing cyanosis or edema Date of Insertion: Jan 17, 2017 A/P Assessment and Plan Respiratory failure Aspiration pneumonia - Mechanical ventilation - Azactam and Flagyl - Sputum culture and blood culture pending - De-escalate antibiotics per sensitivity - DuoNeb scheduled and when necessary - Tolerated C Pap trials already, ordered extubation on 01/22 evening and patient was extubated to nasal cannula. Hypertension - Clonazepam PRN - Hold Lasix due to GABY -Monitor BMP CHF - 01/18 Repeat 2-D echo-Mild Pulm HTN, Mild regurgitation tricuspid valve - Supportive care History of CVA - Anticoagulation - Coumadin dosing per pharmacy GABY -Creatinine improving DVT GI prophylaxis - Pantoprazole - Warfarin - Teds and SCDs Level 3 On 01/20 Dr Castillo discussed with patient's significant other, POA, stated the patient would not like to be on mechanical ventilation. Efra Hussein MD Jan 22, 2017 18:52
[2017-01-23] VITALS (14 sets, daily range): BP systolic 117–144; BP diastolic 62–74; PULSE 69–80; RESP 15–29; TEMP 98–98.9; O2SAT 92–99
[2017-01-23] MEDS: RESP: ALBUTEROL 2.5 MG/IPRATROPIUM 0.5 MG NEB (PRN) INH ×2 (00:05→19:53)
[2017-01-23] MEDS: CHLORHEXIDINE GLUCONATE 2 % 1 PACK (2 CLOTHS) TOP SCH ×2 (04:00→21:09)
[2017-01-23] MEDS: metroNIDAZOLE 500 MG INJ 100 ML IV SCH ×3 (05:05→21:07)
[2017-01-23 05:43] LABS: BASOPHIL # 0.1 TH/MM3 (0-0.2); BASOPHIL % 0.8 % (0.0-2.0); EOSINOPHIL # 0.3 TH/MM3 (0-0.4); EOSINOPHIL % 3.2 % (0.0-4.0); HEMATOCRIT 31.8 % (39.0-51.0); HEMO FLAGS DIFF FINAL; LYMPHOCYTE # 1.2 TH/MM3 (1.0-4.8); MEAN CELL VOLUME 79.6 FL (80.0-100.0); MEAN CORPUSCULAR HEMOGLOBIN 25.3 PG (27.0-34.0); MEAN CORPUSCULAR HGB CONC 31.8 % (32.0-36.0); MONO % 7.5 % (0.0-8.0); NEUT % 75.5 % (16.0-70.0); PLATELET COUNT 297 TH/MM3 (150-450); RED CELL DISTRIBUTION WIDTH 20.8 % (11.6-17.2); WHITE BLOOD COUNT 9.2 TH/MM3 (4.0-11.0)
[2017-01-23 06:06] LABS: INTERNATIONAL NORMALIZED RATIO 2.2 RATIO; PROTHROMBIN TIME - PATIENT 24.8 SEC (9.8-11.6)
[2017-01-23 06:13] LABS: ALT (GPT) 29 U/L (12-78); ANION GAP 6 MEQ/L (5-15); AST (GOT) 29 U/L (15-37); BLOOD UREA NITROGEN 26 MG/DL (7-18); CHLORIDE 115 MEQ/L (98-107); GLOMERULAR FILTRATION RATE 119 ML/MIN (>89); SODIUM (NA) 147 MEQ/L (136-145)
[2017-01-23 06:15] LABS: ALKALINE PHOSPHATASE 71 U/L (45-117); TOTAL BILIRUBIN ADULT 0.5 MG/DL (0.2-1.0)
[2017-01-23] MEDS: INSULIN ASPART SUPPLEMENTAL SCALE SQ SCH ×4 (06:29→21:00)
[2017-01-23] MEDS: AZTREONAM INJ 2,000 MG in SODIUM CHLORIDE 0.9% INJ 100 ML IV SCH ×3 (06:29→21:09)
[2017-01-23] MEDS: CHLORHEXIDINE 0.12% (ORAL KIT) 15 ML CUP MT SCH ×2 (08:00→19:14)
[2017-01-23] MEDS: ARTIFICIAL TEARS OPTH SOLN 15 ML BTL EACH EYE SCH ×3 (08:29→17:59)
[2017-01-23] MEDS: DEXT 5%-NACL 0.45% 1000 ML INJ 1,000 ML IV SCH ×2 (08:30→21:07)
[2017-01-23] MEDS: DOCUSATE SODIUM 50 MG/SENNA 8.6 MG TAB PO SCH ×2 (08:30→21:07)
[2017-01-23] MEDS: PANTOPRAZOLE SOD 40 MG DELAYED RELEASE TAB PO SCH (08:30)
[2017-01-23] MEDS: SODIUM CHLORIDE 0.9% FLUSH 10 ML FLUSH IV FLUSH SCH ×2 (08:30→21:00)
--- NOTE | 2017-01-23 16:05 | HHI.CCPN ---
Subjective Remarks/Hospital Course 76-year-old gentleman with a history of ischemic cardiomyopathy EF 20%, A. 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 Patient was apparently supposed to be on a clear liquid diet however was noncompliant and was eating solid food. Today at the [facility] he was found to be vomiting undigested food around 3 PM. The the patient was transferred to hospitalist around 7 PM. He is now intubated and sedated. Subjective: 01/18:TMax 100.0. Noted to short runs of A. fib RVR self corrected, this afternoon. Interrogation of AICD pending. Patient's secretions noted to be thick vela colored and copious .Sputum cultures pending. 01/19: Leukocytosis resolving, chest x-ray improving. The patient chin's AICD was interrogated yesterday, the patient did have episodes of V. tach at 192 bpm but no therapy /was initiated. Ventricular Tach settings 240 bpm, with a VVI pacer lower rate limit at 40. Plans had attempt for CPAP trials this evening or in a.m.. 01/20: Leukocytosis resolved. Patient has remained on CPAP all day. Will continue CPAP throughout the night, if clinically stable. Patient is GCS 11 T. 01/22: Awake and alert. Not following commands. Tolerated C Pap today. Ordered extubation 01/23: Extubated on 01/22. On nasal cannula currently. Awake and alert, following commands. Objective Vital Signs Date Time Temp Pulse Resp B/P Pulse Ox O2 Delivery O2 Flow Rate FiO2 01/23/17 14:00 75 01/23/17 12:00 98.5 24 139/63 93 01/23/17 08:12 Nasal Cannula 3.00 01/22/17 16:00 35 Intake and Output 01/22/17 01/22/17 01/22/17 07:59 15:59 23:59 Intake Total 546 ml 667 ml 323 ml Output Total 500 ml 575 ml 550 ml Balance 46 ml 92 ml -227 ml Result Diagram: 01/23/17 0435 01/23/17 0435 Imaging Last 24 hours Impressions Chest X-Ray 01/17/17 2732 Signed Impressions: Service Date/Time: Tuesday, January 17, 2017 19:34 - CONCLUSION: Cardiomegaly with bilateral perihilar edema. Terry Cowart MD Abdomen/Pelvis CT 01/17/17 190 Signed Impressions: Service Date/Time: Tuesday, January 17, 2017 20:09 - CONCLUSION: 1. Air in the biliary tree likely postsurgical. 2. Complex cyst right kidney containing calcifications. 3. Right sided perinephric coarse calcifications likely related to previous treatment or previous hematoma. 4. Benign myelolipoma left adrenal gland. 5. Bibasilar consolidation greater in the left lower lobe. 6. Diverticulosis without diverticulitis. 7. No bowel obstruction. 8. Atrophic left kidney containing nonobstructing renal calculi. Terry Cowart MD Objective Remarks GENERAL: Elderly gentleman , following commands, on nasal cannula SKIN: Warm and dry. HEAD: Normocephalic. EYES: No scleral icterus. No injection or drainage. NECK: Supple, trachea midline. No JVD or lymphadenopathy. CARDIOVASCULAR: Regular rate and rhythm without murmurs, gallops, or rubs. RESPIRATORY: Breath sounds equal bilaterally. No accessory muscle use. Scattered rhonchi bilaterally GASTROINTESTINAL: Abdomen soft, non-tender, nondistended. MUSCULOSKELETAL: No cyanosis, or edema. EXTREMITIES: No clubbing cyanosis or edema Date of Insertion: Jan 17, 2017 A/P Assessment and Plan Respiratory failure Aspiration pneumonia -Extubated on 01/22 following C Pap trial currently on nasal cannula - Azactam and Flagyl - Sputum culture and blood culture pending - De-escalate antibiotics per sensitivity - DuoNeb scheduled and when necessary Hypertension - Clonazepam PRN - Lasix held previously due to GABY, resumed 20 mg IV daily on 01/23. -Started D5 half and S at 60 cc per hour on 01/23 in view of hypernatremia and poor by mouth intake. Monitor BMP CHF - 01/18 Repeat 2-D echo-Mild Pulm HTN, EF 20%, Mild regurgitation tricuspid valve. Starting Lasix 20 mg IV daily on 01/23. - Supportive care History of CVA - Anticoagulation - Coumadin dosing per pharmacy GABY -Creatinine improving DVT GI prophylaxis - Pantoprazole - Warfarin - Teds and SCDs Level 3 On 01/20 Dr Castillo discussed with patient's significant other, POA, stated the patient would not like to be on mechanical ventilation. Palliative care following. Consult and transfer to hospitalist service for further medical management. Critical care will be signing off. Please reconsult if needed. Efra Hussein MD Jan 23, 2017 16:05
--- NOTE | 2017-01-23 16:07 | HHI.HCPN ---
Reason for visit a. To assist with evaluation and management of symptoms including: Shortness of breath and debility. b. To assist medical decision maker(s) with: better understanding of current medical conditions; weighing benefits/burdens of medical treatment options; making medical treatment decisions. . Subjective/Interval History Mr. 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 Patient presented to ED on 01/17/17 secondary to respiratory distress. Patient was intubated and placed on mechanical ventilation, course complicated by aspiration pneumonia. Palliative care has been consulted for clarifications of goals of care. Patient was medically extubated on 01/22/17. Leukocytosis resolved. Short runs of self-resolving V. tach episodes today, no firing of AICD noted. Patient was seen in medical ICU, he is alert and oriented x self, place and situation. Verbal, he was able to tell me how the choking episode occurred. Patient reports that he was eating Oreo cookies when he choke, eliciting vomiting. Patient does not recall much after that. Patient denies pain, shortness of breath, nausea/vomiting or abdominal discomfort. Endorsing productive cough, able to expectorate. Patient afebrile, stable hemodynamically. Currently on 3 L O2 via nasal cannula, oxygen saturation in the mid 90s. Discussed goals of care with patient. Patient having a good understanding of his chronic illnesses, current medical issues. His goal is to return to [facility]. Discussed risks, benefits and limitations of CPR, intubation and mechanical ventilation. Patient elected to remain full code. He tells me that life support saved his life once and that it might do it again. Patient wishing to continue aggressive management at this time. Telephone conversation with patient's brother Freddy who is HCS. Medical update provided. Encouraged brother to continue goals of care conversation with patient given pt's high risk for further complications, continue decline and . Case discussed with bedside RN Niru. . Family/friend interactions See interval note. . Advance Directives Living Will: Completed, but not made available Health Care Surrogate: Completed, but not made available Durable Power of Parts Expediter: Never completed Advance Directive Specifics Date completed: 05/12/1997. . Health Care Surrogate(s): Patient's brother Freddy Rojo listed as HCS. Alternate surrogate is other siblings Ed Rojo. . Documented care wishes: Living will with standard verbiage as it pertains to terminal condition or persistent vegetative state. . Significant change in goals: Full code. Continue aggressive management. . Objective Vital Signs Date Time Temp Pulse Resp B/P Pulse Ox O2 Delivery O2 Flow Rate FiO2 01/23/17 14:00 75 01/23/17 12:00 69 01/23/17 12:00 98.5 72 24 139/63 93 01/23/17 12:00 72 01/23/17 10:00 69 01/23/17 08:12 97 Nasal Cannula 3.00 01/23/17 08:00 98.2 73 15 131/69 96 01/23/17 08:00 73 01/23/17 06:00 75 01/23/17 04:00 71 01/23/17 04:00 98.4 71 21 131/74 96 01/23/17 02:00 76 01/23/17 00:00 79 01/23/17 00:00 98.6 79 16 117/62 92 01/22/17 22:13 96 Nasal Cannula 3.00 01/22/17 22:00 77 01/22/17 20:00 76 01/22/17 20:00 98.5 79 18 131/60 95 01/22/17 18:00 94 01/22/17 18:00 94 Nasal Cannula 4.00 01/22/17 18:00 94 Nasal Cannula 4 01/22/17 16:00 35 01/22/17 16:00 98.5 72 17 131/64 97 01/22/17 16:00 72 Intake & Output 01/23/17 01/23/17 07:00 19:00 Intake Total 482 ml 741 ml Output Total 950 ml 600 ml Balance -468 ml 141 ml Intake Oral 120 ml IV Total 482 ml 621 ml Tube Feeding 0 ml Output Urine Total 950 ml 600 ml # Bowel Movements 0 0 Physical Exam CONSTITUTIONAL/GENERAL: This is an adequately nourished patient, in no apparent distress. TUBES/LINES/DRAINS: PIV's, Edge catheter, uni-boots. SKIN: No jaundice, rashes, or lesions. Ecchymoses on upper extremities. No wounds seen anteriorly. Skin temperature appropriate. Not diaphoretic. HEAD: Atraumatic. Normocephalic. EYES: Pupils equal and round and reactive. Extraocular motions intact. No scleral icterus. No injection or drainage. ENT: Hearing appears normal. Nose without bleeding or purulent drainage. Moist oral mucosa. NECK: Trachea midline. Supple. CARDIOVASCULAR: Regular rate and rhythm. Peripheral pulses symmetric. RESPIRATORY/CHEST: Symmetric, unlabored respirations. Coarse sounds bilaterally. GASTROINTESTINAL: Abdomen soft, nondistended. Bowel sounds present. GENITOURINARY: Without palpable bladder distension. Edge catheter in place. MUSCULOSKELETAL: Extremities without clubbing, cyanosis. Edema to bilateral hands. NEUROLOGICAL: Alert and oriented times self, place and situation. Commands. Verbal, able to communicate needs. PSYCHIATRIC: Calm. . Diagnostic Tests Laboratory Laboratory Tests Test 01/21/17 01/21/17 01/22/17 01/23/17 05:35 19:55 05:08 04:35 White Blood Count 10.7 TH/MM3 9.2 TH/MM3 (4.0-11.0) (4.0-11.0) Red Blood Count 3.48 MIL/MM3 4.00 MIL/MM3 (4.50-5.90) (4.50-5.90) Hemoglobin 9.0 GM/DL 10.1 GM/DL (13.0-17.0) (13.0-17.0) Hematocrit 27.3 % 31.8 % (39.0-51.0) (39.0-51.0) Mean Corpuscular Volume 78.5 FL 79.6 FL (80.0-100.0) (80.0-100.0) Mean Corpuscular Hemoglobin 26.0 PG 25.3 PG (27.0-34.0) (27.0-34.0) Mean Corpuscular Hemoglobin 33.1 % 31.8 % Concent (32.0-36.0) (32.0-36.0) Red Cell Distribution Width 20.8 % 20.8 % (11.6-17.2) (11.6-17.2) Platelet Count 209 TH/MM3 297 TH/MM3 (150-450) (150-450) Mean Platelet Volume 8.4 FL 8.0 FL (7.0-11.0) (7.0-11.0) Prothrombin Time 17.5 SEC 20.0 SEC 24.8 SEC (9.8-11.6) (9.8-11.6) (9.8-11.6) Prothromb Time International 1.6 RATIO 1.8 RATIO 2.2 RATIO Ratio Sodium Level 148 MEQ/L 147 MEQ/L (136-145) (136-145) Potassium Level 4.0 MEQ/L 4.0 MEQ/L (3.5-5.1) (3.5-5.1) Chloride Level 118 MEQ/L 115 MEQ/L (98-107) (98-107) Carbon Dioxide Level 25.2 MEQ/L 26.0 MEQ/L (21.0-32.0) (21.0-32.0) Anion Gap 5 MEQ/L (5-15) 6 MEQ/L (5-15) Blood Urea Nitrogen 22 MG/DL (7-18) 26 MG/DL (7-18) Creatinine 0.68 MG/DL 0.65 MG/DL (0.60-1.30) (0.60-1.30) Estimat Glomerular Filtration 113 ML/MIN 119 ML/MIN Rate (>89) (>89) Random Glucose 147 MG/DL 89 MG/DL (74-106) (74-106) Calcium Level 8.1 MG/DL 8.4 MG/DL (8.5-10.1) (8.5-10.1) Phosphorus Level 1.9 MG/DL 3.5 MG/DL (2.5-4.9) (2.5-4.9) Magnesium Level 2.0 MG/DL (1.5-2.5) Neutrophils (%) (Auto) 75.5 % (16.0-70.0) Lymphocytes (%) (Auto) 13.0 % (9.0-44.0) Monocytes (%) (Auto) 7.5 % (0.0-8.0) Eosinophils (%) (Auto) 3.2 % (0.0-4.0) Basophils (%) (Auto) 0.8 % (0.0-2.0) Neutrophils # (Auto) 7.0 TH/MM3 (1.8-7.7) Lymphocytes # (Auto) 1.2 TH/MM3 (1.0-4.8) Monocytes # (Auto) 0.7 TH/MM3 (0-0.9) Eosinophils # (Auto) 0.3 TH/MM3 (0-0.4) Basophils # (Auto) 0.1 TH/MM3 (0-0.2) CBC Comment DIFF FINAL Differential Comment Total Bilirubin 0.5 MG/DL (0.2-1.0) Aspartate Amino Transf 29 U/L (15-37) (AST/SGOT) Alanine Aminotransferase 29 U/L (12-78) (ALT/SGPT) Alkaline Phosphatase 71 U/L (45-117) Total Protein 6.3 GM/DL (6.4-8.2) Albumin 2.2 GM/DL (3.4-5.0) Result Diagram: 01/23/17 0435 01/23/17 0435 Microbiology Microbiology Date/Time Procedure Status Source Growth 01/22/17 16:15 Gram Stain - Final Resulted Sputum Endotracheal 01/22/17 16:15 Sputum Culture - Preliminary Resulted Sputum Endotracheal HEAVY GROWTH NORMAL RESPIRATORY MITCH... Procedures * 01/22/17 -extubation * 01/17/17 -endotracheal intubation . Assessment and Plan Disease Oriented Problem List: (1) Respiratory failure (2) Aspiration pneumonia (3) Coronary artery disease (4) Atrial fibrillation (5) History of CVA (cerebrovascular accident) (6) Ischemic cardiomyopathy (7) Hypertension (8) Systolic CHF Symptom Scale: (1) Shortness of breath 0-10 Scale: Unable to quantify Comment: Extubated on 01/22/17. Currently on nasal cannula. (2) Debility 0-10 Scale: Unable to quantify Comment: Progressive, status post CVA 09/22/16. Pertinent Non-Medical Issues Psychosocial: Originally from [place]. . Not to significant other. Has 5 or 6 children, unknown whereabouts. Served in the [employer] for 7 years. Spiritual: Roman Catholic katherine. Legal: Pending copy of advance directives. Ethical issues impacting care: Pending copy of advance directives. . Important Contacts Significant other Deanna Florentino [phone] & . Brother Freddy Rojo . . Prognosis Mr. Rojo is a 76-year-old male with a medical history significant for atrial fibrillation on anticoagulation, ischemic cardiomyopathy, EF of 20%, CAD x 5 stones, multiple prior CVA and B-cell lymphoma, on remission. Patient presented on 01/17/17 [facility] secondary to respiratory distress. Patient emergently intubated and placed on mechanical ventilation. Clinical course complicated by aspiration pneumonia and respiratory failure. Patient at a very high risk for further complications, continue decline and given multiple comorbidities, acute events, recent prolonged hospitalization s/p CVA requiring rehabilitation, physical deconditioning and advanced age. . Code Status: Full Code Plan * CODE STATUS: Full code. Discussed risks, benefits and limitations of CPR, intubation and mechanical ventilation. Patient electing to continue full code. * HEALTHCARE DECISION-MAKING: Patient participating in medical decision-making. Has a fair understanding of his chronic medical issues and current clinical status. Patient retains the ability to weight benefits and burdens of treatment options. * GOALS OF CARE: Patient electing to continue aggressive care to include full code, reintubation and mechanical ventilation. His goal is to return to [facility]. Discussed risks, benefits and limitations of CPR, intubation and mechanical ventilation. Patient electing to remain full code. He tells me that life support saved his life once and that it might do it again. Patient wishing to continue aggressive management at this time. Discussed that he continues at high risk for further complications, continue decline and . She verbalized understanding. Patient's brother Freddy/[facility] supportive of patient's wishes. * SYMPTOMS: = Shortness of breath, secondary to aspiration pneumonia, respiratory failure. Medically extubated over the weekend. Currently tolerating O2 via nasal cannula. = Debility, secondary to recent CVA and prolonged hospitalization. [facility] event. Patient wishing to return to [facility]. * Case has been discussed with bedside RN Niru. * Palliative contact information has been provided to patient and family. * Palliative care will continue to follow-up as needed for further clarifications of goals of care as patient's clinical course continues to evolve. Goals of therapy are clear at this time. . Time Spent Total Floor Time (mins): 42 (Total time to include review medical records, physical exam, goals of care conversation with patient, telephone conversation with patient's brother and case discussion with bedside RN Niru. ) >50% Counseling/Coord of Care: Yes Attestation To help prompt me to consider important information that might be impacting today's encounter and assessment, information from prior notes written by myself or my colleagues may have been "brought forward" into today's note. My signature on this note, however, is an attestation that I personally performed the exam, history, and/or decision-making noted today, and, unless otherwise indicated, the interactions with patient, family, and staff as well as the review of records all occurred today. I also attest that the listed assessment and stated plan reflect my best clinical judgment today based on the combination of historical information, prior notes, and today's exam/ interactions. When time spent is documented, it refers only to time spent today by the signer, or if indicated, combined time spent today by collaborating physician/nurse practitioner. Carline Thomas Jan 23, 2017 16:07
[2017-01-23] MEDS: WARFARIN SOD 1 MG TAB PO SCH (16:21)
[2017-01-23] MEDS: FUROSEMIDE 20 MG/2 ML VIAL IV PUSH SCH (16:25)
[2017-01-24] VITALS (12 sets, daily range): BP systolic 121–142; BP diastolic 63–83; PULSE 63–81; RESP 17–24; TEMP 97.6–98.6; O2SAT 92–98
[2017-01-24 02:56] LABS: VENT SETTINGS CPAP +5/10ps
[2017-01-24] MEDS: metroNIDAZOLE 500 MG INJ 100 ML IV SCH ×3 (04:39→22:07)
[2017-01-24] MEDS: AZTREONAM INJ 2,000 MG in SODIUM CHLORIDE 0.9% INJ 100 ML IV SCH ×3 (04:41→22:07)
[2017-01-24] MEDS: INSULIN ASPART SUPPLEMENTAL SCALE SQ SCH ×4 (05:06→21:00)
--- NOTE | 2017-01-24 05:57 | RADRPT ---
EXAM DATE/TIME: 01/24/2017 03:12 [facility] COMPARISON: CHEST SINGLE AP, January 21, 2017, 2:32. INDICATIONS : Short of breath. MEDICAL HISTORY : None. SURGICAL HISTORY : Pacemaker. ENCOUNTER: Subsequent ACUITY: 1 week PAIN SCORE: 0/10 LOCATION: Bilateral chest FINDINGS: A single AP semierect view of the chest was obtained and demonstrates interval extubation and removal of the nasogastric tube. The left subclavian central venous line are present as. 11 right. The left costophrenic angle appears mildly blunted. The heart size is at the upper limits of normal. There are mild atherosclerotic changes in the aorta. CONCLUSION: 1. Interval extubation and removal of nasogastric tube. 2. Hazy opacity remains at the lung bases left greater than right. Elgin Tejada MD on January 24, 2017 at 5:54 Board Certified Radiologist. This report was verified electronically.
[2017-01-24 07:06] LABS: AUTOMATED NEUTROPHIL # 8.7 TH/MM3 (1.8-7.7); BASOPHIL # 0.1 TH/MM3 (0-0.2); BASOPHIL % 0.7 % (0.0-2.0); EOSINOPHIL # 0.4 TH/MM3 (0-0.4); EOSINOPHIL % 3.5 % (0.0-4.0); HEMATOCRIT 31.8 % (39.0-51.0); LYMPH % 10.7 % (9.0-44.0); LYMPHOCYTE # 1.2 TH/MM3 (1.0-4.8); MEAN CELL VOLUME 78.8 FL (80.0-100.0); MEAN CORPUSCULAR HEMOGLOBIN 24.5 PG (27.0-34.0); MEAN CORPUSCULAR HGB CONC 31.1 % (32.0-36.0); MONO % 7.9 % (0.0-8.0); NEUT % 77.2 % (16.0-70.0); PLATELET COUNT 375 TH/MM3 (150-450); RED BLOOD COUNT 4.04 MIL/MM3 (4.50-5.90); RED CELL DISTRIBUTION WIDTH 20.3 % (11.6-17.2); WHITE BLOOD COUNT 11.3 TH/MM3 (4.0-11.0)
[2017-01-24 07:07] LABS: INTERNATIONAL NORMALIZED RATIO 3.2 RATIO
[2017-01-24 07:10] LABS: HEMO FLAGS AUTO DIFF
[2017-01-24 07:13] LABS: ANION GAP 9 MEQ/L (5-15); AST (GOT) 20 U/L (15-37); BICARBONATE 25.6 MEQ/L (21.0-32.0); BLOOD UREA NITROGEN 23 MG/DL (7-18); CHLORIDE 111 MEQ/L (98-107); GLOMERULAR FILTRATION RATE 115 ML/MIN (>89); MAGNESIUM 2.2 MG/DL (1.5-2.5); POTASSIUM 3.6 MEQ/L (3.5-5.1); SODIUM (NA) 146 MEQ/L (136-145)
[2017-01-24 07:17] LABS: ALKALINE PHOSPHATASE 68 U/L (45-117); ALT (GPT) 22 U/L (12-78); TOTAL BILIRUBIN ADULT 0.6 MG/DL (0.2-1.0)
[2017-01-24 07:58] LABS: OVALOCYTES 1+ (NORMAL); PLATELET ESTIMATE SMEAR HIGH (NORMAL); PLATELET MORPHOLOGY NORMAL (NORMAL); SCAN/DIFF AUTO DIFF CONFIRMED
[2017-01-24] MEDS: CHLORHEXIDINE 0.12% (ORAL KIT) 15 ML CUP MT SCH ×2 (08:00→20:00)
--- NOTE | 2017-01-24 08:18 | HHI.PR ---
Subjective Remarks in no acute distress. denies pain. d/w the RN and no acute issues over night. Objective Vitals Vital Signs Date Time Temp Pulse Resp B/P Pulse Ox O2 Delivery O2 Flow Rate FiO2 01/24/17 06:00 65 01/24/17 04:00 71 01/24/17 04:00 98.2 71 17 133/66 93 01/24/17 02:00 69 01/24/17 00:00 98.3 71 22 136/69 98 01/24/17 00:00 71 01/23/17 22:00 74 01/23/17 20:00 73 01/23/17 20:00 98.0 73 25 144/67 99 01/23/17 19:55 94 21 01/23/17 18:00 80 01/23/17 16:00 75 01/23/17 16:00 71 01/23/17 16:00 98.9 71 29 129/63 95 01/23/17 14:00 75 01/23/17 12:00 69 01/23/17 12:00 98.5 72 24 139/63 93 01/23/17 12:00 72 01/23/17 10:00 69 I/O 01/23/17 01/23/17 01/23/17 01/24/17 01/24/17 01/24/17 07:00 15:00 23:00 07:00 15:00 23:00 Intake Total 159 ml 741 ml 410 ml 201 ml Output Total 400 ml 600 ml 550 ml 550 ml Balance -241 ml 141 ml -140 ml -349 ml Intake Oral 120 ml IV Total 159 ml 621 ml 410 ml 201 ml Tube Feeding 0 ml Output Urine Total 400 ml 600 ml 550 ml 550 ml # Bowel Movements 0 0 0 0 Result Diagram: 01/24/17 0630 01/24/17 0632 Imaging Last Impressions Chest X-Ray 01/24/17 0600 Signed Impressions: Service Date/Time: Tuesday, January 24, 2017 03:12 - CONCLUSION: 1. Interval extubation and removal of nasogastric tube. 2. Hazy opacity remains at the lung bases left greater than right. Elgin Tejada MD Abdomen/Pelvis CT 01/17/17 [id number] Signed Impressions: Service Date/Time: Tuesday, January 17, 2017 20:09 - CONCLUSION: 1. Air in the biliary tree likely postsurgical. 2. Complex cyst right kidney containing calcifications. 3. Right sided perinephric coarse calcifications likely related to previous treatment or previous hematoma. 4. Benign myelolipoma left adrenal gland. 5. Bibasilar consolidation greater in the left lower lobe. 6. Diverticulosis without diverticulitis. 7. No bowel obstruction. 8. Atrophic left kidney containing nonobstructing renal calculi. Terry Cowart MD Objective Remarks GENERAL: This is a well-nourished, well-developed patient, in no apparent distress. CARDIOVASCULAR: Regular rate and regular rhythm without murmurs, gallops, or rubs. RESPIRATORY: Clear to auscultation. Breath sounds equal bilaterally. No wheezes , rales, or rhonchi. GASTROINTESTINAL: Abdomen soft, non-tender, nondistended. Normal, active bowel sounds MUSCULOSKELETAL: Extremities without clubbing, cyanosis, or edema. NEURO: awake and alert Procedures intubation/extubation Medications and IVs Current Medications Propofol (Diprivan 1000 Mg/100ml Inj) 100 ml @ As Directed STK-MED ONCE .ROUTE Last administered on 01/17/17 19:08; Start 01/17/17 at 19:08; Stop 01/17/17 at 19:09; Status DC Etomidate (Amidate Inj) 20 mg ONCE ONCE IVP Last administered on 01/17/17 18: 53; Start 01/17/17 at 19:15; Stop 01/17/17 at 19:16; Status DC Succinylcholine Chloride (Quelicin Inj) 100 mg ONCE ONCE IVP Last administered on 01/17/17 18:53; Start 01/17/17 at 19:15; Stop 01/17/17 at 19:16 ; Status DC Sodium Chloride 2 ml 2 ml UNSCH PRN IVF FLUSH AFTER USING IV ACCESS; Start at 19:15; Stop 01/17/17 at 21:16; Status DC Aztreonam 2000 mg/ Sodium Chloride 100 ml @ 200 mls/hr ONCE STAT IV Last administered on 01/17/17 22:13; Start 01/17/17 at 19:04; Stop 01/17/17 at 19:33 ; Status DC Metronidazole 100 ml @ 100 mls/hr ONCE STAT IV Last administered on 21:11; Start 01/17/17 at 19:04; Stop 01/17/17 at 20:03; Status DC Sodium Chloride 1,000 ml @ 999 mls/hr BOLUS ONCE IV Last administered on 01/17 19:51; Start 01/17/17 at 19:15; Stop 01/17/17 at 20:15; Status DC Propofol (Diprivan 1000 Mg/100ml Inj) 100 ml @ 0 mls/hr TITRATE IV Last administered on 01/17/17 19:20; Start 01/17/17 at 19:15; Stop 01/17/17 at 21:13 ; Status DC Midazolam HCl (Versed Inj) 2 mg ONCE ONCE IV PUSH Last administered on 19:50; Start 01/17/17 at 19:30; Stop 01/17/17 at 19:31; Status DC Midazolam HCl (Versed Inj) 5 mg STK-MED ONCE .ROUTE ; Start 01/17/17 at 19:28; Stop 01/17/17 at 19:29; Status DC Clonazepam (KlonoPIN) 0.5 mg HS PRN PO INSOMNIA; Start 01/17/17 at 21:00 Furosemide (Lasix) 20 mg DAILY PO ; Start 01/18/17 at 09:00; Stop 01/18/17 at 09 :00; Status DC Pantoprazole Sodium (Protonix) 40 mg DAILY PO ; Start 01/18/17 at 09:00 Warfarin Sodium (Coumadin) 1.5 mg DAILY@16 PO ; Start 01/18/17 at 16:00; Stop at 11:21; Status DC Sodium Chloride (NS Flush) 2 ml UNSCH PRN IV FLUSH FLUSH AFTER USING IV ACCESS ; Start 01/17/17 at 20:00 Sodium Chloride (NS Flush) 2 ml BID IV FLUSH Last administered on 01/23/17 21: 00; Start 01/17/17 at 21:00 Acetaminophen (Tylenol) 650 mg Q6H PRN PO PAIN 1-10 AND/OR FEVER >101F; Start 01/17/17 at 20:00 Morphine Sulfate (Morphine Inj) 2 mg Q2H PRN IV PAIN SCALE 6 TO 10; Start 01/17 at 20:00; Stop 01/18/17 at 15:24; Status DC Midazolam HCl (Versed Inj) 2 mg Q1H PRN IV SEDATION; Start 01/17/17 at 20:00; Stop 01/18/17 at 16:51; Status DC Artificial Tears (Tears Naturale Opth Soln) 1 drop TID EACH EYE Last administered on 01/23/17 17:59; Start 01/18/17 at 09:00 Ondansetron HCl (Zofran Inj) 4 mg Q6H PRN IV NAUSEA OR VOMITING; Start at 20:00 Albuterol/ Ipratropium (Duoneb Neb) 1 ampule Q6HR NEB INH Last administered on 01/21/17 20:42; Start 01/17/17 at 22:00; Stop 01/21/17 at 22:00; Status DC Albuterol/ Ipratropium (Duoneb Neb) 1 ampule Q2HR NEB PRN INH WHEEZING Last administered on 01/23/17 19:53; Start 01/17/17 at 20:00 Miscellaneous Information 1 Q361D XX ; Start 01/17/17 at 20:00 Chlorhexidine Gluconate (Chlorhexidine 2% Cloth) Taper DAILY@04 TOP Last administered on 01/22/17 04:00; Start 01/18/17 at 04:00; Stop 01/14/18 at 03:59 Chlorhexidine Gluconate (Chlorhexidine 2% Cloth) 3 pack UNSCH PRN TOP HYGIENIC CARE; Start 01/17/17 at 20:00 Senna/Docusate Sodium (Shyann-Colace) 1 tab BID PO Last administered on 21:07; Start 01/17/17 at 21:00 Magnesium Hydroxide (Milk Of Magnesia Liq) 30 ml Q12H PRN PO MILD - MODERATE CONSTIPATION; Start 01/17/17 at 20:00 Sennosides (Senokot) 17.2 mg Q12H PRN PO MODERATE - SEVERE CONSTIPATION; Start 01/17/17 at 20:00 Bisacodyl (Dulcolax Supp) 10 mg DAILY PRN RECTAL SEVERE CONSITIPATION; Start at 20:00 Lactulose 30 ml 30 ml DAILY PRN PO SEVERE CONSITIPATION; Start 01/17/17 at 20: 00 Propofol 100 ml @ 0 mls/hr TITRATE IV Last administered on 01/21/17 09:17; Start 01/17/17 at 20:00 Pharmacy Profile Note (Coumadin Consult Pharmacy) 0 ml @ 0 mls/hr UNSCH OTHER ; Start 01/17/17 at 20:00 Patient Medication Teaching (Coumadin Booklet) 1 ONCE ONCE OTHER Last administered on 01/18/17 16:39; Start 01/18/17 at 16:00; Stop 01/18/17 at 16:33 ; Status DC Miscellaneous 1 ea 1 ea UNSCH PRN OTHER SEE LABEL COMMENTS; Start 01/17/17 at 22:00 Aztreonam 2000 mg/ Sodium Chloride 100 ml @ 200 mls/hr Q8H IV Last administered on 01/24/17 04:41; Start 01/18/17 at 06:00 Metronidazole 100 ml @ 100 mls/hr Q8H IV Last administered on 01/24/17 04:39; Start 01/18/17 at 05:00 Sodium Chloride (NS 1000 ml Inj) 1,000 ml @ 0 mls/hr [id number] IV Last administered on 01/19/17 21:07; Start 01/18/17 at 04:00; Stop 01/23/17 at 08:28 ; Status DC Acetaminophen (Ofirmev Inj) 1,000 mg Q6H IV Last administered on 01/19/17 03: 55; Start 01/18/17 at 16:00; Stop 01/19/17 at 10:01; Status DC Chlorhexidine Gluconate (Peridex 0.12% Liq) 15 ml BID@08,20 MT Last administered on 01/22/17 08:02; Start 01/18/17 at 20:00 Dextrose (D50w (Vial) Inj) 50 ml UNSCH PRN IV HYPOGLYCEMIA-SEE COMMENTS; Start 01/18/17 at 16:45 Glucagon (Glucagon Inj) 1 mg UNSCH PRN OTHER HYPOGLYCEMIA-SEE COMMENTS; Start 01/18/17 at 16:45 Insulin Aspart (NovoLOG SUPPLEMENTAL SCALE) 1 ACHS SLIDING SCALE SQ Last administered on 01/21/17 04:58; Start 01/18/17 at 21:00 Miscellaneous Information D/C ICU ELECTROLYTE ORDERS... UNSCH PRN .XX SEE DOSE INSTRUCTIONS; Start 01/18/17 at 17:00 Miscellaneous Information ICU - CALL ORDERING PHYSIC... UNSCH PRN .XX SEE DOSE INSTRUCTIONS; Start 01/18/17 at 17:00 Potassium Chloride (KCl 40 Meq Premix Inj) 100 ml @ 25 mls/hr UNSCH PRN IV ELECTROLYTE REPLACEMENT; Start 01/18/17 at 17:00 Potassium Bicarb/ Potassium Chloride 50 meq 50 meq UNSCH PRN PO ELECTROLYTE REPLACEMENT; Start 01/18/17 at 17:00 Potassium Chloride 100 ml @ 50 mls/hr UNSCH PRN IV ELECTROLYTE REPLACEMENT; Start 01/18/17 at 17:00 Magnesium Sulfate 4 gm/Sodium Chloride 108 ml @ 54 mls/hr UNSCH PRN IV ELECTROLYTE REPLACEMENT; Start 01/18/17 at 17:00 Magnesium Sulfate/ Sodium Chloride (Magnesium Sulfate Inj/NS Inj) 104 ml @ 52 mls/hr UNSCH PRN IV ELECTROLYTE REPLACEMENT Last administered on 01/22/17 01: 39; Start 01/18/17 at 17:00 Magnesium Oxide 800 mg 800 mg UNSCH PRN PO ELECTROLYTE REPLACEMENT; Start 01/18 at 17:00 Sodium Phosphate/ Sodium Chloride (Sodium Phosphate Inj/NS 250 ml Inj) 260 ml @ 43.333 mls/ hr UNSCH PRN IV ELECTROLYTE REPLACEMENT Last administered on 01/21 09:17; Start 01/18/17 at 17:00 Potassium Phosphate 2000 mg 2,000 mg UNSCH PRN PO ELECTROLYTE REPLACEMENT Last administered on 01/18/17 17:25; Start 01/18/17 at 17:00 Potassium Phosphate/Sodium Chloride (Potassium Phosphate Inj/NS 250 ml Inj) 260 ml @ 43.333 mls/ hr UNSCH PRN IV ELECTROLYTE REPLACEMENT; Start 01/18/17 at 17 :00 Warfarin Sodium (Coumadin) 1 mg DAILY@16 PO Last administered on 01/19/17 16: 22; Start 01/19/17 at 16:00; Stop 01/20/17 at 09:05; Status DC Warfarin Sodium (Coumadin) 1.5 mg DAILY@16 PO Last administered on 01/23/17 16 :21; Start 01/20/17 at 16:00 Warfarin Sodium 2 mg 2 mg ONCE ONCE PO Last administered on 01/21/17 15:27; Start 01/21/17 at 16:00; Stop 01/21/17 at 16:01; Status DC Magnesium Sulfate/ Sodium Chloride (Magnesium Sulfate Inj/NS Inj) 104 ml @ 52 mls/hr NOW ONCE IV ; Start 01/22/17 at 01:00; Stop 01/22/17 at 02:59; Status DC Warfarin Sodium 2 mg 2 mg ONCE ONCE PO Last administered on 01/22/17 15:38; Start 01/22/17 at 16:00; Stop 01/22/17 at 16:01; Status DC Dextrose/Sodium Chloride (D5W-1/2 NS 1000 ml Inj) 1,000 ml @ 60 mls/hr [id number] IV Last administered on 01/23/17 21:07; Start 01/23/17 at 09:00 Furosemide (Lasix Inj) 20 mg DAILY IV PUSH Last administered on 01/23/17 16:25 ; Start 01/23/17 at 16:00 Date of Insertion: Jan 17, 2017 A/P Assessment and Plan A/P Respiratory failure-resolved Aspiration pneumonia -Extubated on 01/22 - Sputum culture and blood culture negative - continue antibiotics- will deescalate the antibiotics soon if remains stable. - DuoNeb scheduled and when necessary Hypertension - Clonazepam PRN - Lasix held previously due to GABY, resumed 20 mg IV daily on 01/23. CHF- chronic systolic. - 01/18 Repeat 2-D echo-Mild Pulm HTN, EF 20%, Mild regurgitation tricuspid valve. Starting Lasix 20 mg IV daily on 01/23. - Supportive care History of CVA - Anticoagulation - Coumadin dosing per pharmacy GABY -Creatinine improving DVT GI prophylaxis - Pantoprazole - Warfarin - Teds and SCDs dc morales cath. PT/ST following. transfer to telemetry. Kye Garber MD Jan 24, 2017 08:18
[2017-01-24] MEDS: PANTOPRAZOLE SOD 40 MG DELAYED RELEASE TAB PO SCH (09:26)
[2017-01-24] MEDS: FUROSEMIDE 20 MG/2 ML VIAL IV PUSH SCH (09:26)
[2017-01-24] MEDS: SODIUM CHLORIDE 0.9% FLUSH 10 ML FLUSH IV FLUSH SCH ×2 (09:26→22:07)
[2017-01-24] MEDS: DOCUSATE SODIUM 50 MG/SENNA 8.6 MG TAB PO SCH ×2 (09:26→22:09)
[2017-01-24] MEDS: ARTIFICIAL TEARS OPTH SOLN 15 ML BTL EACH EYE SCH ×3 (09:27→17:47)
[2017-01-24] MEDS ORDERED: FUROSEMIDE 20 MG/2 ML VIAL IV PUSH ONE (13:30)
[2017-01-24] MEDS: RESP: ALBUTEROL 2.5 MG/IPRATROPIUM 0.5 MG NEB (PRN) INH ×2 (16:51→23:54)
[2017-01-25] VITALS (9 sets, daily range): BP systolic 99–129; BP diastolic 57–72; PULSE 62–97; RESP 18–20; TEMP 97.2–98.8; O2SAT 92–98
[2017-01-25] MEDS ORDERED: POTASSIUM CHLORIDE 25 MEQ EFFERVESCENT TAB PO ONE (04:00)
[2017-01-25] MEDS ORDERED: FUROSEMIDE 40 MG/4 ML VIAL IV PUSH ONE (04:00)
[2017-01-25] MEDS: CHLORHEXIDINE GLUCONATE 2 % 1 PACK (2 CLOTHS) TOP SCH (04:00)
[2017-01-25] MEDS: metroNIDAZOLE 500 MG INJ 100 ML IV SCH (04:16)
[2017-01-25] MEDS: AZTREONAM INJ 2,000 MG in SODIUM CHLORIDE 0.9% INJ 100 ML IV SCH (05:12)
[2017-01-25 05:59] LABS: INTERNATIONAL NORMALIZED RATIO 2.8 RATIO; PROTHROMBIN TIME - PATIENT 32.8 SEC (9.8-11.6)
[2017-01-25] MEDS: INSULIN ASPART SUPPLEMENTAL SCALE SQ SCH ×4 (06:01→19:59)
[2017-01-25 06:18] LABS: BICARBONATE 24.3 MEQ/L (21.0-32.0); MAGNESIUM 2.1 MG/DL (1.5-2.5); POTASSIUM 4.5 MEQ/L (3.5-5.1)
[2017-01-25] MEDS: CHLORHEXIDINE 0.12% (ORAL KIT) 15 ML CUP MT SCH ×2 (08:00→19:59)
[2017-01-25] MEDS: DOCUSATE SODIUM 50 MG/SENNA 8.6 MG TAB PO SCH ×2 (09:30→19:58)
[2017-01-25] MEDS: PANTOPRAZOLE SOD 40 MG DELAYED RELEASE TAB PO SCH (09:30)
[2017-01-25] MEDS: ARTIFICIAL TEARS OPTH SOLN 15 ML BTL EACH EYE SCH ×3 (09:31→17:59)
[2017-01-25] MEDS: SODIUM CHLORIDE 0.9% FLUSH 10 ML FLUSH IV FLUSH SCH ×2 (09:31→19:59)
[2017-01-25] MEDS: FUROSEMIDE 20 MG/2 ML VIAL IV PUSH SCH (09:31)
--- NOTE | 2017-01-25 11:22 | HHI.PR ---
Subjective Remarks in no acute distress. denies any chest pain. afebrile. Objective Vitals Vital Signs Date Time Temp Pulse Resp B/P Pulse Ox O2 Delivery O2 Flow Rate FiO2 01/25/17 08:00 98.0 62 20 116/72 96 01/25/17 04:00 97.4 73 18 99/57 93 01/25/17 03:19 97 01/25/17 00:50 82 01/25/17 00:01 92 Nasal Cannula 2.00 01/25/17 00:00 97.2 77 20 125/70 92 01/25/17 00:00 Nasal Cannula 2.00 01/24/17 22:00 77 01/24/17 20:00 Room Air 01/24/17 20:00 98.1 63 18 133/63 92 01/24/17 16:00 98.2 70 18 121/65 95 01/24/17 12:40 97.6 78 20 131/65 94 01/24/17 12:00 70 01/24/17 12:00 98.6 70 17 127/83 96 I/O 01/24/17 01/24/17 01/24/17 01/25/17 01/25/17 01/25/17 07:00 15:00 23:00 07:00 15:00 23:00 Intake Total 201 ml 934 ml 240 ml 420 ml Output Total 550 ml 1250 ml 150 ml Balance -349 ml -316 ml 90 ml 420 ml Intake Oral 480 ml 240 ml 120 ml IV Total 201 ml 454 ml 300 ml Output Urine Total 550 ml 1250 ml 150 ml # Bowel Movements 0 0 0 Result Diagram: 01/24/17 0630 01/25/17 0521 Imaging Last Impressions Chest X-Ray 01/24/17 0600 Signed Impressions: Service Date/Time: Tuesday, January 24, 2017 03:12 - CONCLUSION: 1. Interval extubation and removal of nasogastric tube. 2. Hazy opacity remains at the lung bases left greater than right. Elgin Tejada MD Abdomen/Pelvis CT 01/17/17 [id number] Signed Impressions: Service Date/Time: Tuesday, January 17, 2017 20:09 - CONCLUSION: 1. Air in the biliary tree likely postsurgical. 2. Complex cyst right kidney containing calcifications. 3. Right sided perinephric coarse calcifications likely related to previous treatment or previous hematoma. 4. Benign myelolipoma left adrenal gland. 5. Bibasilar consolidation greater in the left lower lobe. 6. Diverticulosis without diverticulitis. 7. No bowel obstruction. 8. Atrophic left kidney containing nonobstructing renal calculi. Terry Cowart MD Objective Remarks GENERAL: This is a well-nourished, well-developed patient, in no apparent distress. CARDIOVASCULAR: Regular rate and regular rhythm without murmurs, gallops, or rubs. RESPIRATORY: Clear to auscultation. Breath sounds equal bilaterally. No wheezes , rales, or rhonchi. GASTROINTESTINAL: Abdomen soft, non-tender, nondistended. Normal, active bowel sounds MUSCULOSKELETAL: Extremities without clubbing, cyanosis, or edema. NEURO: awake and alert Procedures intubation/extubation Medications and IVs Current Medications Propofol (Diprivan 1000 Mg/100ml Inj) 100 ml @ As Directed STK-MED ONCE .ROUTE Last administered on 01/17/17 19:08; Start 01/17/17 at 19:08; Stop 01/17/17 at 19:09; Status DC Etomidate (Amidate Inj) 20 mg ONCE ONCE IVP Last administered on 01/17/17 18: 53; Start 01/17/17 at 19:15; Stop 01/17/17 at 19:16; Status DC Succinylcholine Chloride (Quelicin Inj) 100 mg ONCE ONCE IVP Last administered on 01/17/17 18:53; Start 01/17/17 at 19:15; Stop 01/17/17 at 19:16 ; Status DC Sodium Chloride 2 ml 2 ml UNSCH PRN IVF FLUSH AFTER USING IV ACCESS; Start at 19:15; Stop 01/17/17 at 21:16; Status DC Aztreonam 2000 mg/ Sodium Chloride 100 ml @ 200 mls/hr ONCE STAT IV Last administered on 01/17/17 22:13; Start 01/17/17 at 19:04; Stop 01/17/17 at 19:33 ; Status DC Metronidazole 100 ml @ 100 mls/hr ONCE STAT IV Last administered on 21:11; Start 01/17/17 at 19:04; Stop 01/17/17 at 20:03; Status DC Sodium Chloride 1,000 ml @ 999 mls/hr BOLUS ONCE IV Last administered on 01/17 19:51; Start 01/17/17 at 19:15; Stop 01/17/17 at 20:15; Status DC Propofol (Diprivan 1000 Mg/100ml Inj) 100 ml @ 0 mls/hr TITRATE IV Last administered on 01/17/17 19:20; Start 01/17/17 at 19:15; Stop 01/17/17 at 21:13 ; Status DC Midazolam HCl (Versed Inj) 2 mg ONCE ONCE IV PUSH Last administered on 19:50; Start 01/17/17 at 19:30; Stop 01/17/17 at 19:31; Status DC Midazolam HCl (Versed Inj) 5 mg STK-MED ONCE .ROUTE ; Start 01/17/17 at 19:28; Stop 01/17/17 at 19:29; Status DC Clonazepam (KlonoPIN) 0.5 mg HS PRN PO INSOMNIA; Start 01/17/17 at 21:00 Furosemide (Lasix) 20 mg DAILY PO ; Start 01/18/17 at 09:00; Stop 01/18/17 at 09 :00; Status DC Pantoprazole Sodium (Protonix) 40 mg DAILY PO Last administered on 01/25/17 09: 30; Start 01/18/17 at 09:00 Warfarin Sodium (Coumadin) 1.5 mg DAILY@16 PO ; Start 01/18/17 at 16:00; Stop at 11:21; Status DC Sodium Chloride (NS Flush) 2 ml UNSCH PRN IV FLUSH FLUSH AFTER USING IV ACCESS ; Start 01/17/17 at 20:00 Sodium Chloride (NS Flush) 2 ml BID IV FLUSH Last administered on 01/25/17 09: 31; Start 01/17/17 at 21:00 Acetaminophen (Tylenol) 650 mg Q6H PRN PO PAIN 1-10 AND/OR FEVER >101F; Start 01/17/17 at 20:00 Morphine Sulfate (Morphine Inj) 2 mg Q2H PRN IV PAIN SCALE 6 TO 10; Start 01/17 at 20:00; Stop 01/18/17 at 15:24; Status DC Midazolam HCl (Versed Inj) 2 mg Q1H PRN IV SEDATION; Start 01/17/17 at 20:00; Stop 01/18/17 at 16:51; Status DC Artificial Tears (Tears Naturale Opth Soln) 1 drop TID EACH EYE Last administered on 01/25/17 09:31; Start 01/18/17 at 09:00 Ondansetron HCl (Zofran Inj) 4 mg Q6H PRN IV NAUSEA OR VOMITING; Start at 20:00 Albuterol/ Ipratropium (Duoneb Neb) 1 ampule Q6HR NEB INH Last administered on 01/21/17 20:42; Start 01/17/17 at 22:00; Stop 01/21/17 at 22:00; Status DC Albuterol/ Ipratropium (Duoneb Neb) 1 ampule Q2HR NEB PRN INH WHEEZING Last administered on 01/24/17 23:54; Start 01/17/17 at 20:00 Miscellaneous Information 1 Q361D XX ; Start 01/17/17 at 20:00 Chlorhexidine Gluconate (Chlorhexidine 2% Cloth) Taper DAILY@04 TOP Last administered on 01/22/17 04:00; Start 01/18/17 at 04:00; Stop 01/14/18 at 03:59 Chlorhexidine Gluconate (Chlorhexidine 2% Cloth) 3 pack UNSCH PRN TOP HYGIENIC CARE; Start 01/17/17 at 20:00 Senna/Docusate Sodium (Shyann-Colace) 1 tab BID PO Last administered on 01/25/17 09:30; Start 01/17/17 at 21:00 Magnesium Hydroxide (Milk Of Magnesia Liq) 30 ml Q12H PRN PO MILD - MODERATE CONSTIPATION; Start 01/17/17 at 20:00 Sennosides (Senokot) 17.2 mg Q12H PRN PO MODERATE - SEVERE CONSTIPATION; Start 01/17/17 at 20:00 Bisacodyl (Dulcolax Supp) 10 mg DAILY PRN RECTAL SEVERE CONSITIPATION; Start at 20:00 Lactulose 30 ml 30 ml DAILY PRN PO SEVERE CONSITIPATION; Start 01/17/17 at 20: 00 Propofol 100 ml @ 0 mls/hr TITRATE IV Last administered on 01/21/17 09:17; Start 01/17/17 at 20:00; Stop 01/24/17 at 08:20; Status DC Pharmacy Profile Note (Coumadin Consult Pharmacy) 0 ml @ 0 mls/hr UNSCH OTHER ; Start 01/17/17 at 20:00 Patient Medication Teaching (Coumadin Booklet) 1 ONCE ONCE OTHER Last administered on 01/18/17 16:39; Start 01/18/17 at 16:00; Stop 01/18/17 at 16:33 ; Status DC Miscellaneous 1 ea 1 ea UNSCH PRN OTHER SEE LABEL COMMENTS; Start 01/17/17 at 22:00 Aztreonam 2000 mg/ Sodium Chloride 100 ml @ 200 mls/hr Q8H IV Last administered on 01/25/17 05:12; Start 01/18/17 at 06:00 Metronidazole 100 ml @ 100 mls/hr Q8H IV Last administered on 01/25/17 04:16; Start 01/18/17 at 05:00 Sodium Chloride (NS 1000 ml Inj) 1,000 ml @ 0 mls/hr [id number] IV Last administered on 01/19/17 21:07; Start 01/18/17 at 04:00; Stop 01/23/17 at 08:28 ; Status DC Acetaminophen (Ofirmev Inj) 1,000 mg Q6H IV Last administered on 01/19/17 03: 55; Start 01/18/17 at 16:00; Stop 01/19/17 at 10:01; Status DC Chlorhexidine Gluconate (Peridex 0.12% Liq) 15 ml BID@08,20 MT Last administered on 01/24/17 08:00; Start 01/18/17 at 20:00 Dextrose (D50w (Vial) Inj) 50 ml UNSCH PRN IV HYPOGLYCEMIA-SEE COMMENTS; Start 01/18/17 at 16:45 Glucagon (Glucagon Inj) 1 mg UNSCH PRN OTHER HYPOGLYCEMIA-SEE COMMENTS; Start 01/18/17 at 16:45 Insulin Aspart (NovoLOG SUPPLEMENTAL SCALE) 1 ACHS SLIDING SCALE SQ Last administered on 01/24/17 16:00; Start 01/18/17 at 21:00 Miscellaneous Information D/C ICU ELECTROLYTE ORDERS... UNSCH PRN .XX SEE DOSE INSTRUCTIONS; Start 01/18/17 at 17:00 Miscellaneous Information ICU - CALL ORDERING PHYSIC... UNSCH PRN .XX SEE DOSE INSTRUCTIONS; Start 01/18/17 at 17:00 Potassium Chloride (KCl 40 Meq Premix Inj) 100 ml @ 25 mls/hr UNSCH PRN IV ELECTROLYTE REPLACEMENT; Start 01/18/17 at 17:00; Stop 01/24/17 at 08:20; Status DC Potassium Bicarb/ Potassium Chloride 50 meq 50 meq UNSCH PRN PO ELECTROLYTE REPLACEMENT; Start 01/18/17 at 17:00; Stop 01/24/17 at 08:20; Status DC Potassium Chloride 100 ml @ 50 mls/hr UNSCH PRN IV ELECTROLYTE REPLACEMENT; Start 01/18/17 at 17:00; Stop 01/24/17 at 08:20; Status DC Magnesium Sulfate 4 gm/Sodium Chloride 108 ml @ 54 mls/hr UNSCH PRN IV ELECTROLYTE REPLACEMENT; Start 01/18/17 at 17:00; Stop 01/24/17 at 08:21; Status DC Magnesium Sulfate/ Sodium Chloride (Magnesium Sulfate Inj/NS Inj) 104 ml @ 52 mls/hr UNSCH PRN IV ELECTROLYTE REPLACEMENT Last administered on 01/22/17 01: 39; Start 01/18/17 at 17:00; Stop 01/24/17 at 08:21; Status DC Magnesium Oxide 800 mg 800 mg UNSCH PRN PO ELECTROLYTE REPLACEMENT; Start 01/18 at 17:00; Stop 01/24/17 at 08:21; Status DC Sodium Phosphate/ Sodium Chloride (Sodium Phosphate Inj/NS 250 ml Inj) 260 ml @ 43.333 mls/ hr UNSCH PRN IV ELECTROLYTE REPLACEMENT Last administered on 01/21 09:17; Start 01/18/17 at 17:00 Potassium Phosphate 2000 mg 2,000 mg UNSCH PRN PO ELECTROLYTE REPLACEMENT Last administered on 01/18/17 17:25; Start 01/18/17 at 17:00; Stop 01/24/17 at 08:21 ; Status DC Potassium Phosphate/Sodium Chloride (Potassium Phosphate Inj/NS 250 ml Inj) 260 ml @ 43.333 mls/ hr UNSCH PRN IV ELECTROLYTE REPLACEMENT; Start 01/18/17 at 17 :00; Stop 01/24/17 at 08:21; Status DC Warfarin Sodium (Coumadin) 1 mg DAILY@16 PO Last administered on 01/19/17 16: 22; Start 01/19/17 at 16:00; Stop 01/20/17 at 09:05; Status DC Warfarin Sodium (Coumadin) 1.5 mg DAILY@16 PO Last administered on 01/23/17 16 :21; Start 01/20/17 at 16:00; Stop 01/25/17 at 09:08; Status DC Warfarin Sodium 2 mg 2 mg ONCE ONCE PO Last administered on 01/21/17 15:27; Start 01/21/17 at 16:00; Stop 01/21/17 at 16:01; Status DC Magnesium Sulfate/ Sodium Chloride (Magnesium Sulfate Inj/NS Inj) 104 ml @ 52 mls/hr NOW ONCE IV ; Start 01/22/17 at 01:00; Stop 01/22/17 at 02:59; Status DC Warfarin Sodium 2 mg 2 mg ONCE ONCE PO Last administered on 01/22/17 15:38; Start 01/22/17 at 16:00; Stop 01/22/17 at 16:01; Status DC Dextrose/Sodium Chloride (D5W-1/2 NS 1000 ml Inj) 1,000 ml @ 60 mls/hr [id number] IV Last administered on 01/23/17 21:07; Start 01/23/17 at 09:00; Stop 01/24/17 at 13:23; Status DC Furosemide (Lasix Inj) 20 mg DAILY IV PUSH Last administered on 01/25/17 09:31 ; Start 01/23/17 at 16:00 Furosemide (Lasix Inj) 20 mg ONCE ONCE IV PUSH Last administered on 01/24/17 13:30; Start 01/24/17 at 13:30; Stop 01/24/17 at 13:31; Status DC Potassium Bicarb/ Potassium Chloride (K-Lyte Cl Eff) 50 meq ONCE ONCE PO Last administered on 01/25/17 04:14; Start 01/25/17 at 04:00; Stop 01/25/17 at 04: 01; Status DC Furosemide (Lasix Inj) 40 mg ONCE ONCE IV PUSH Last administered on 01/25/17 04:15; Start 01/25/17 at 04:00; Stop 01/25/17 at 04:01; Status DC Warfarin Sodium (Coumadin) 1 mg DAILY@16 PO ; Start 01/25/17 at 16:00 Date of Insertion: Jan 17, 2017 A/P Assessment and Plan A/P Respiratory failure-resolved Aspiration pneumonia -Extubated on 01/22 - Sputum culture and blood culture negative - continue antibiotics- will deescalate the antibiotics soon if remains stable. - DuoNeb scheduled and when necessary Hypertension - Clonazepam PRN - Lasix held previously due to GABY, resumed 20 mg IV daily on 01/23. CHF- chronic systolic. - 01/18 Repeat 2-D echo-Mild Pulm HTN, EF 20%, Mild regurgitation tricuspid valve. Starting Lasix 20 mg IV daily on 01/23. - Supportive care History of CVA - Anticoagulation - Coumadin dosing per pharmacy GABY -Creatinine improving V-tach on tele- AICD in place- will start metoprolol and continue to monitor. DVT GI prophylaxis - Pantoprazole - Warfarin - Teds and SCDs PT/ST following. Discharge Planning dc to SNF within the next one-two days. Kye Garber MD Jan 25, 2017 11:22
--- NOTE | 2017-01-25 12:05 | HHI.HCPN ---
Reason for visit a. To assist with evaluation and management of symptoms including: Shortness of breath and debility. b. To assist medical decision maker(s) with: better understanding of current medical conditions; weighing benefits/burdens of medical treatment options; making medical treatment decisions. . Subjective/Interval History Mr. 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 Patient presented to ED on 01/17/17 secondary to respiratory distress. Patient was intubated and placed on mechanical ventilation, course complicated by aspiration pneumonia. Palliative care has been consulted for clarifications of goals of care. Patient was medically extubated on 01/22/17. Patient was seen on the medical floor, he is alert and oriented x self, place and situation. Verbal, slow response at times but able to communicate needs. Patient denies pain, shortness of breath, nausea/vomiting or abdominal discomfort. Reports that his appetite has improved, currently on pured diet and honey thickened liquids. Participating in physical therapy. Patient reporting productive cough has improved, currently O2 via nasal cannula 2 L. Oxygen saturation in the mid to low 90s. Patient afebrile, stable hemodynamically. Most recent laboratory a 117 showing WBC 11.3, Hgb 9.9, platelet count 375. BUN/creatinine 22/0.72. Pending modified barium swallow evaluation. Patient tells me that his goal is to return to [facility] for long-term care. Goals remain aggressive, patient wishing to remain full code. Telephone conversation with patient's brother Freddy/[facility] for medical update on goals of care conversation. Brother supportive patient's wishes to return to [facility] for long-term care. Encouraged brother to continue goals of care conversation with patient given pt's high risk for further complications, continue decline and . Case discussed with Dr. Garber and rifle case repairer. Patient has been accepted back to [facility] for long-term care. . Family/friend interactions See interval note. . Advance Directives Living Will: Completed, but not made available Health Care Surrogate: Completed, but not made available Durable Power of Bow Maker: Never completed Advance Directive Specifics Date completed: 05/12/1997. . Health Care Surrogate(s): Patient's brother Freddy Rojo listed as HCS. Alternate surrogate is other siblings Ed Rojo. . Documented care wishes: Living will with standard verbiage as it pertains to terminal condition or persistent vegetative state. . Significant change in goals: Goals of care remain unchanged. . Objective Vital Signs Date Time Temp Pulse Resp B/P Pulse Ox O2 Delivery O2 Flow Rate FiO2 01/25/17 08:00 98.0 62 20 116/72 96 01/25/17 04:00 97.4 73 18 99/57 93 01/25/17 03:19 97 01/25/17 00:50 82 01/25/17 00:01 92 Nasal Cannula 2.00 01/25/17 00:00 97.2 77 20 125/70 92 01/25/17 00:00 Nasal Cannula 2.00 01/24/17 22:00 77 01/24/17 20:00 Room Air 01/24/17 20:00 98.1 63 18 133/63 92 01/24/17 16:00 98.2 70 18 121/65 95 01/24/17 12:40 97.6 78 20 131/65 94 01/24/17 12:00 70 01/24/17 12:00 98.6 70 17 127/83 96 Intake & Output 01/25/17 01/25/17 07:00 19:00 Intake Total 660 ml Output Total 150 ml Balance 510 ml Intake Oral 360 ml IV Total 300 ml Output Urine Total 150 ml # Bowel Movements 0 Physical Exam CONSTITUTIONAL/GENERAL: This is an adequately nourished patient, in no apparent distress. TUBES/LINES/DRAINS: PIV's, nasal cannula, uni-boots. SKIN: No jaundice, rashes, or lesions. Ecchymoses on upper extremities. No wounds seen anteriorly. Skin temperature appropriate. Not diaphoretic. HEAD: Atraumatic. Normocephalic. EYES: Pupils equal and round and reactive. Extraocular motions intact. No scleral icterus. No injection or drainage. ENT: Hearing appears normal. Nose without bleeding or purulent drainage. Moist oral mucosa. NECK: Trachea midline. Supple. CARDIOVASCULAR: Regular rate and rhythm. Peripheral pulses symmetric. RESPIRATORY/CHEST: Symmetric, unlabored respirations. Inspiratory crackles bilaterally. O2 to via NC at 2 L. GASTROINTESTINAL: Abdomen soft, nondistended. Bowel sounds present. 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 Extremities without clubbing, cyanosis. Edema to bilateral hands resolving. NEUROLOGICAL: Alert and oriented times self, place and situation. Following commands. Verbal, able to communicate needs. PSYCHIATRIC: Calm, pleasant. . Diagnostic Tests Laboratory Laboratory Tests Test 01/23/17 01/24/17 01/24/17 01/25/17 04:35 06:30 06:32 05:21 White Blood Count 9.2 TH/MM3 11.3 TH/MM3 (4.0-11.0) (4.0-11.0) Red Blood Count 4.00 MIL/MM3 4.04 MIL/MM3 (4.50-5.90) (4.50-5.90) Hemoglobin 10.1 GM/DL 9.9 GM/DL (13.0-17.0) (13.0-17.0) Hematocrit 31.8 % 31.8 % (39.0-51.0) (39.0-51.0) Mean Corpuscular Volume 79.6 FL 78.8 FL (80.0-100.0) (80.0-100.0) Mean Corpuscular Hemoglobin 25.3 PG 24.5 PG (27.0-34.0) (27.0-34.0) Mean Corpuscular Hemoglobin 31.8 % 31.1 % Concent (32.0-36.0) (32.0-36.0) Red Cell Distribution Width 20.8 % 20.3 % (11.6-17.2) (11.6-17.2) Platelet Count 297 TH/MM3 375 TH/MM3 (150-450) (150-450) Mean Platelet Volume 8.0 FL 8.0 FL (7.0-11.0) (7.0-11.0) Neutrophils (%) (Auto) 75.5 % 77.2 % (16.0-70.0) (16.0-70.0) Lymphocytes (%) (Auto) 13.0 % 10.7 % (9.0-44.0) (9.0-44.0) Monocytes (%) (Auto) 7.5 % (0.0-8.0) 7.9 % (0.0-8.0) Eosinophils (%) (Auto) 3.2 % (0.0-4.0) 3.5 % (0.0-4.0) Basophils (%) (Auto) 0.8 % (0.0-2.0) 0.7 % (0.0-2.0) Neutrophils # (Auto) 7.0 TH/MM3 8.7 TH/MM3 (1.8-7.7) (1.8-7.7) Lymphocytes # (Auto) 1.2 TH/MM3 1.2 TH/MM3 (1.0-4.8) (1.0-4.8) Monocytes # (Auto) 0.7 TH/MM3 0.9 TH/MM3 (0-0.9) (0-0.9) Eosinophils # (Auto) 0.3 TH/MM3 0.4 TH/MM3 (0-0.4) (0-0.4) Basophils # (Auto) 0.1 TH/MM3 0.1 TH/MM3 (0-0.2) (0-0.2) CBC Comment DIFF FINAL AUTO DIFF Differential Comment AUTO DIFF CONFIRMED Prothrombin Time 24.8 SEC 37.0 SEC 32.8 SEC (9.8-11.6) (9.8-11.6) (9.8-11.6) Prothromb Time International 2.2 RATIO 3.2 RATIO 2.8 RATIO Ratio Sodium Level 147 MEQ/L 146 MEQ/L 143 MEQ/L (136-145) (136-145) (136-145) Potassium Level 4.0 MEQ/L 3.6 MEQ/L 4.5 MEQ/L (3.5-5.1) (3.5-5.1) (3.5-5.1) Chloride Level 115 MEQ/L 111 MEQ/L 110 MEQ/L (98-107) (98-107) (98-107) Carbon Dioxide Level 26.0 MEQ/L 25.6 MEQ/L 24.3 MEQ/L (21.0-32.0) (21.0-32.0) (21.0-32.0) Anion Gap 6 MEQ/L (5-15) 9 MEQ/L (5-15) 9 MEQ/L (5-15) Blood Urea Nitrogen 26 MG/DL (7-18) 23 MG/DL (7-18) 22 MG/DL (7-18) Creatinine 0.65 MG/DL 0.67 MG/DL 0.72 MG/DL (0.60-1.30) (0.60-1.30) (0.60-1.30) Estimat Glomerular Filtration 119 ML/MIN 115 ML/MIN 106 ML/MIN Rate (>89) (>89) (>89) Random Glucose 89 MG/DL 105 MG/DL 132 MG/DL (74-106) (74-106) (74-106) Calcium Level 8.4 MG/DL 8.1 MG/DL 8.4 MG/DL (8.5-10.1) (8.5-10.1) (8.5-10.1) Total Bilirubin 0.5 MG/DL 0.6 MG/DL (0.2-1.0) (0.2-1.0) Aspartate Amino Transf 29 U/L (15-37) 20 U/L (15-37) (AST/SGOT) Alanine Aminotransferase 29 U/L (12-78) 22 U/L (12-78) (ALT/SGPT) Alkaline Phosphatase 71 U/L (45-117) 68 U/L (45-117) Total Protein 6.3 GM/DL 6.3 GM/DL (6.4-8.2) (6.4-8.2) Albumin 2.2 GM/DL 2.2 GM/DL (3.4-5.0) (3.4-5.0) Platelet Estimate HIGH (NORMAL) Platelet Morphology Comment NORMAL (NORMAL) Ovalocytes 1+ (NORMAL) Magnesium Level 2.2 MG/DL 2.1 MG/DL (1.5-2.5) (1.5-2.5) Result Diagram: 01/24/17 0630 01/25/17 0521 Microbiology Microbiology Date/Time Procedure Status Source Growth 01/22/17 16:15 Gram Stain - Final Complete Sputum Endotracheal 01/22/17 16:15 Sputum Culture - Final Complete Sputum Endotracheal HEAVY GROWTH NORMAL RESPIRATORY MITCH Imaging Last 48 hours Impressions Chest X-Ray 01/24/17 0600 Signed Impressions: Service Date/Time: Tuesday, January 24, 2017 03:12 - CONCLUSION: 1. Interval extubation and removal of nasogastric tube. 2. Hazy opacity remains at the lung bases left greater than right. Elgin Tejada MD Procedures * 01/22/17 -extubation * 01/17/17 -endotracheal intubation . Assessment and Plan Disease Oriented Problem List: (1) Respiratory failure (2) Aspiration pneumonia (3) Coronary artery disease (4) Atrial fibrillation (5) History of CVA (cerebrovascular accident) (6) Ischemic cardiomyopathy (7) Hypertension (8) Systolic CHF Symptom Scale: (1) Shortness of breath 0-10 Scale: Unable to quantify Comment: Extubated on 01/22/17. Currently on nasal cannula. (2) Debility 0-10 Scale: Unable to quantify Comment: Progressive, status post CVA 09/22/16. Pertinent Non-Medical Issues Psychosocial: Originally from [place]. . Not to significant other. Has 5 or 6 children, unknown whereabouts. Served in the [employer] for 7 years. Spiritual: Religion katherine. Legal: Pending copy of advance directives. Ethical issues impacting care: Pending copy of advance directives. . Important Contacts Significant other Deanna Dobbs Chadd [phone] & . Brother Freddy Rojo . . Prognosis Mr. Rojo is a 76-year-old male with a medical history significant for atrial fibrillation on anticoagulation, ischemic cardiomyopathy, EF of 20%, CAD x 5 stones, multiple prior CVA and B-cell lymphoma, on remission. Patient presented on 01/17/17 to ED via EMS from senior care facility secondary to respiratory distress. Patient emergently intubated and placed on mechanical ventilation. Clinical course complicated by aspiration pneumonia and respiratory failure. Patient at a very high risk for further complications, continue decline and given multiple comorbidities, acute events, recent prolonged hospitalization s/p CVA requiring rehabilitation, physical deconditioning and advanced age. . Code Status: Full Code Plan * CODE STATUS: Full code. Risks, benefits and limitations of CPR, intubation and mechanical ventilation have been previously discussed with patient, patient electing to continue full code. * HEALTHCARE DECISION-MAKING: Patient participating in medical decision-making. Has a fair understanding of his chronic medical issues and current clinical status. Patient retains the ability to weight benefits and burdens of treatment options. * GOALS OF CARE: Patient electing to continue aggressive care to include full code, reintubation and mechanical ventilation. His goal is to return to [facility]. Patient wishing to continue aggressive management at this time. Discussed that he continues at high risk for further complications, continue decline and . Patient verbalized understanding. Patient's brother Freddy/[facility] supportive of patient's wishes. * SYMPTOMS: = Shortness of breath, secondary to aspiration pneumonia, respiratory failure. Medically extubated over the weekend. Currently tolerating O2 via nasal cannula. = Debility, secondary to recent CVA and prolonged hospitalization. At senior care facility prior to this acute event. Currently participating in PT. Patient wishing to return to [facility]. * Case has been discussed with Dr. Graber and rifle case repairer. Patient has been accepted back to [facility] for long-term care. * Palliative contact information has been provided to patient and family. * Palliative care will continue to follow-up as needed for further clarifications of goals of care as patient's clinical course continues to evolve. Goals of therapy are clear at this time. . Time Spent Total Floor Time (mins): 36 (Total time to include review of medical records, physical exam, conversation with patient, telephone conversation with patient's brother Freddy, case discussion with Dr. Garber and rifle case repairer.) >50% Counseling/Coord of Care: Yes Attestation To help prompt me to consider important information that might be impacting today's encounter and assessment, information from prior notes written by myself or my colleagues may have been "brought forward" into today's note. My signature on this note, however, is an attestation that I personally performed the exam, history, and/or decision-making noted today, and, unless otherwise indicated, the interactions with patient, family, and staff as well as the review of records all occurred today. I also attest that the listed assessment and stated plan reflect my best clinical judgment today based on the combination of historical information, prior notes, and today's exam/ interactions. When time spent is documented, it refers only to time spent today by the signer, or if indicated, combined time spent today by collaborating physician/nurse practitioner. Carline Thomas Jan 25, 2017 12:05
--- NOTE | 2017-01-25 12:37 | RADRPT ---
EXAM DATE/TIME: 01/25/2017 10:24 [facility] COMPARISON: BA SWALLOW W/SPEECH PATHOLOGY, October 05, 2016, 0:00. INDICATIONS : Aspiration. FLUORO TIME: 1.9 minutes IMAGE COUNT: 2 CONTRAST: Dose as prescribed by speech pathologist. MEDICAL HISTORY : Stroke. Congestive heart failure. Hernia, inguinal. Hypertension. Gastroesophageal reflux diseas e.Lymphoma. Myocardial infarction. SURGICAL HISTORY : Cholecystectomy. Defibrillator. ENCOUNTER: Initial LOCATION: Esophagus. FINDINGS: There is aspiration of thin liquids poor oral translation. Majority aspiration silent. Please see t he consultation with speech pathology. CONCLUSION: Aspiration as described above. Pranav Aceves MD FACR on January 25, 2017 at 12:34 Board Certified Radiologist. This report was verified electronically.
[2017-01-25] MEDS: CLINDAMYCIN 150 MG CAP PO SCH ×3 (12:50→23:13)
[2017-01-25] MEDS: METOPROLOL TARTRATE 25 MG TAB PO SCH ×2 (12:50→19:59)
[2017-01-25] MEDS: WARFARIN SOD 1 MG TAB PO SCH (16:36)
[2017-01-26] VITALS (17 sets, daily range): BP systolic 100–171; BP diastolic 50–119; PULSE 63–80; RESP 16–26; TEMP 96.5–98.2; O2SAT 84–100
[2017-01-26] MEDS: CHLORHEXIDINE GLUCONATE 2 % 1 PACK (2 CLOTHS) TOP SCH (04:00)
[2017-01-26] MEDS: CLINDAMYCIN 150 MG CAP PO SCH ×4 (05:42→23:35)
[2017-01-26] MEDS: INSULIN ASPART SUPPLEMENTAL SCALE SQ SCH ×4 (05:45→21:00)
[2017-01-26 08:48] LABS: INTERNATIONAL NORMALIZED RATIO 3.3 RATIO; PROTHROMBIN TIME - PATIENT 38.9 SEC (9.8-11.6)
[2017-01-26] MEDS: PANTOPRAZOLE SOD 40 MG DELAYED RELEASE TAB PO SCH (08:53)
[2017-01-26] MEDS: SODIUM CHLORIDE 0.9% FLUSH 10 ML FLUSH IV FLUSH SCH ×2 (08:54→21:00)
[2017-01-26] MEDS: FUROSEMIDE 20 MG/2 ML VIAL IV PUSH SCH (08:54)
[2017-01-26] MEDS: DOCUSATE SODIUM 50 MG/SENNA 8.6 MG TAB PO SCH ×2 (08:54→23:35)
[2017-01-26] MEDS: METOPROLOL TARTRATE 25 MG TAB PO SCH ×2 (08:54→21:00)
[2017-01-26] MEDS: ARTIFICIAL TEARS OPTH SOLN 15 ML BTL EACH EYE SCH ×3 (08:55→17:51)
[2017-01-26] MEDS ORDERED: FUROSEMIDE 40 MG/4 ML VIAL ONE (12:40)
[2017-01-26] MEDS ORDERED: ROCURONIUM INJ 50 MG/5 ML VIAL ONE (13:00)
[2017-01-26] MEDS ORDERED: MIDAZOLAM HCL 5 MG/ML VIAL (1 ML) ONE (13:00)
[2017-01-26] MEDS: PROPOFOL 1000 MG/100 ML INJ 100 ML IV SCH ×2 (13:30→23:37)
[2017-01-26] MEDS ORDERED: PROPOFOL 1000 MG/100 ML INJ 100 ML ONE (13:31)
--- NOTE | 2017-01-26 13:31 | RADRPT ---
EXAM DATE/TIME: 01/26/2017 13:15 [facility] COMPARISON: CHEST SINGLE AP, January 24, 2017, 3:12. INDICATIONS : ET tube placement. MEDICAL HISTORY : Hiatal hernia. Hypertension Gastroesophageal reflux disease. Lymphoma. Myocardial infection. Tian estive heart failure. Cerebrovascular accident. SURGICAL HISTORY : Cholecystectomy. Defeibrillator. ENCOUNTER: Initial ACUITY: 1 day PAIN SCORE: Non-responsive. LOCATION: Bilateral chest FINDINGS: Portable AP view of the chest demonstrates a normal-sized cardiac silhouette with calcification of th e aorta. Left chest wall cardiac pacing device/AICD remains present. Endotracheal tube has been place d and the distal tip measures approximately 3.3 cm from the isra. Nasogastric tube distal tip is wi thin the proximal stomach. There is a stable left basilar pleural-parenchymal opacity and there is st able atelectasis versus mild consolidation at the right base. No pneumothorax is visualized. CONCLUSION: 1. Endotracheal tube has been placed and distal tip measures approximately 3.3 cm from the isra. 2. Otherwise, stable bilateral lung findings with left pleural effusion with associated volume loss a nd/or airspace consolidation. Willem Brito MD on January 26, 2017 at 13:28 Board Certified Radiologist. This report was verified electronically.
--- NOTE | 2017-01-26 13:37 | HHI.PR ---
Subjective Remarks Cheryl was called. was notified by the RN that the patient became hypoxic when he was having his lunch. patient was transferred to the ICU. d/w at the bedside. Objective Vitals Vital Signs Date Time Temp Pulse Resp B/P Pulse Ox O2 Delivery O2 Flow Rate FiO2 01/26/17 13:18 98 100 01/26/17 12:24 95 Nasal Cannula 2.00 01/26/17 12:00 96.6 68 22 128/71 95 01/26/17 08:00 Nasal Cannula 2.00 01/26/17 08:00 96.5 66 20 149/65 95 01/26/17 04:00 98.2 65 20 123/63 96 01/26/17 04:00 Nasal Cannula 2.00 21 01/26/17 00:00 97.8 75 18 132/62 95 01/26/17 00:00 Nasal Cannula 2.00 21 01/25/17 20:00 98.8 73 20 129/60 96 01/25/17 20:00 Nasal Cannula 2.00 21 01/25/17 20:00 66 01/25/17 16:00 97.2 63 20 126/61 97 I/O 01/25/17 01/25/17 01/25/17 01/26/17 01/26/17 01/26/17 07:00 15:00 23:00 07:00 15:00 23:00 Intake Total 420 ml 300 ml 120 ml 240 ml Output Total 1750 ml 300 ml 700 ml Balance 420 ml -1450 ml -180 ml -460 ml Intake Oral 120 ml 300 ml 120 ml 240 ml IV Total 300 ml Output Urine Total 1750 ml 300 ml 700 ml # Voids 1 # Bowel Movements 1 0 0 Result Diagram: 01/24/17 0630 01/25/17 0521 Imaging Last Impressions Modified Barium Swallow 01/25/17 0000 Signed Impressions: Service Date/Time: Wednesday, January 25, 2017 10:24 - CONCLUSION: Aspiration as described above. Pranav Aceves MD FACR Chest X-Ray 01/24/17 0600 Signed Impressions: Service Date/Time: Tuesday, January 24, 2017 03:12 - CONCLUSION: 1. Interval extubation and removal of nasogastric tube. 2. Hazy opacity remains at the lung bases left greater than right. Elgin Tejada MD Abdomen/Pelvis CT 01/17/171903 Signed Impressions: Service Date/Time: Tuesday, January 17, 2017 20:09 - CONCLUSION: 1. Air in the biliary tree likely postsurgical. 2. Complex cyst right kidney containing calcifications. 3. Right sided perinephric coarse calcifications likely related to previous treatment or previous hematoma. 4. Benign myelolipoma left adrenal gland. 5. Bibasilar consolidation greater in the left lower lobe. 6. Diverticulosis without diverticulitis. 7. No bowel obstruction. 8. Atrophic left kidney containing nonobstructing renal calculi. Terry Cowart MD Objective Remarks GENERAL:lethargic CARDIOVASCULAR: Regular rate and regular rhythm without murmurs, gallops, or rubs. RESPIRATORY: congested GASTROINTESTINAL: Abdomen soft, non-tender, nondistended. Normal, active bowel sounds MUSCULOSKELETAL: Extremities without clubbing, cyanosis, or edema. NEURO: lethargic - on oxygen mask Procedures intubation/extubation Medications and IVs Current Medications Propofol (Diprivan 1000 Mg/100ml Inj) 100 ml @ As Directed STK-MED ONCE .ROUTE Last administered on 01/17/17 19:08; Start 01/17/17 at 19:08; Stop 01/17/17 at 19:09; Status DC Etomidate (Amidate Inj) 20 mg ONCE ONCE IVP Last administered on 01/17/17 18: 53; Start 01/17/17 at 19:15; Stop 01/17/17 at 19:16; Status DC Succinylcholine Chloride (Quelicin Inj) 100 mg ONCE ONCE IVP Last administered on 01/17/17 18:53; Start 01/17/17 at 19:15; Stop 01/17/17 at 19:16 ; Status DC Sodium Chloride 2 ml 2 ml UNSCH PRN IVF FLUSH AFTER USING IV ACCESS; Start at 19:15; Stop 01/17/17 at 21:16; Status DC Aztreonam 2000 mg/ Sodium Chloride 100 ml @ 200 mls/hr ONCE STAT IV Last administered on 01/17/17 22:13; Start 01/17/17 at 19:04; Stop 01/17/17 at 19:33 ; Status DC Metronidazole 100 ml @ 100 mls/hr ONCE STAT IV Last administered on 21:11; Start 01/17/17 at 19:04; Stop 01/17/17 at 20:03; Status DC Sodium Chloride 1,000 ml @ 999 mls/hr BOLUS ONCE IV Last administered on 01/17 19:51; Start 01/17/17 at 19:15; Stop 01/17/17 at 20:15; Status DC Propofol (Diprivan 1000 Mg/100ml Inj) 100 ml @ 0 mls/hr TITRATE IV Last administered on 01/17/17 19:20; Start 01/17/17 at 19:15; Stop 01/17/17 at 21:13 ; Status DC Midazolam HCl (Versed Inj) 2 mg ONCE ONCE IV PUSH Last administered on 19:50; Start 01/17/17 at 19:30; Stop 01/17/17 at 19:31; Status DC Midazolam HCl (Versed Inj) 5 mg STK-MED ONCE .ROUTE ; Start 01/17/17 at 19:28; Stop 01/17/17 at 19:29; Status DC Clonazepam (KlonoPIN) 0.5 mg HS PRN PO INSOMNIA; Start 01/17/17 at 21:00 Furosemide (Lasix) 20 mg DAILY PO ; Start 01/18/17 at 09:00; Stop 01/18/17 at 09 :00; Status DC Pantoprazole Sodium (Protonix) 40 mg DAILY PO Last administered on 01/26/17 08: 53; Start 01/18/17 at 09:00 Warfarin Sodium (Coumadin) 1.5 mg DAILY@16 PO ; Start 01/18/17 at 16:00; Stop at 11:21; Status DC Sodium Chloride (NS Flush) 2 ml UNSCH PRN IV FLUSH FLUSH AFTER USING IV ACCESS ; Start 01/17/17 at 20:00 Sodium Chloride (NS Flush) 2 ml BID IV FLUSH Last administered on 01/26/17 08: 54; Start 01/17/17 at 21:00 Acetaminophen (Tylenol) 650 mg Q6H PRN PO PAIN 1-10 AND/OR FEVER >101F; Start 01/17/17 at 20:00 Morphine Sulfate (Morphine Inj) 2 mg Q2H PRN IV PAIN SCALE 6 TO 10; Start 01/17 at 20:00; Stop 01/18/17 at 15:24; Status DC Midazolam HCl (Versed Inj) 2 mg Q1H PRN IV SEDATION; Start 01/17/17 at 20:00; Stop 01/18/17 at 16:51; Status DC Artificial Tears (Tears Naturale Opth Soln) 1 drop TID EACH EYE Last administered on 01/26/17 12:15; Start 01/18/17 at 09:00 Ondansetron HCl (Zofran Inj) 4 mg Q6H PRN IV NAUSEA OR VOMITING; Start at 20:00 Albuterol/ Ipratropium (Duoneb Neb) 1 ampule Q6HR NEB INH Last administered on 01/21/17 20:42; Start 01/17/17 at 22:00; Stop 01/21/17 at 22:00; Status DC Albuterol/ Ipratropium (Duoneb Neb) 1 ampule Q2HR NEB PRN INH WHEEZING Last administered on 01/24/17 23:54; Start 01/17/17 at 20:00 Miscellaneous Information 1 Q361D XX ; Start 01/17/17 at 20:00 Chlorhexidine Gluconate (Chlorhexidine 2% Cloth) Taper DAILY@04 TOP Last administered on 01/22/17 04:00; Start 01/18/17 at 04:00; Stop 01/14/18 at 03:59 Chlorhexidine Gluconate (Chlorhexidine 2% Cloth) 3 pack UNSCH PRN TOP HYGIENIC CARE; Start 01/17/17 at 20:00 Senna/Docusate Sodium (Shyann-Colace) 1 tab BID PO Last administered on 01/26/17 08:54; Start 01/17/17 at 21:00 Magnesium Hydroxide (Milk Of Magnesia Liq) 30 ml Q12H PRN PO MILD - MODERATE CONSTIPATION; Start 01/17/17 at 20:00 Sennosides (Senokot) 17.2 mg Q12H PRN PO MODERATE - SEVERE CONSTIPATION; Start 01/17/17 at 20:00 Bisacodyl (Dulcolax Supp) 10 mg DAILY PRN RECTAL SEVERE CONSITIPATION; Start at 20:00 Lactulose 30 ml 30 ml DAILY PRN PO SEVERE CONSITIPATION; Start 01/17/17 at 20: 00 Propofol 100 ml @ 0 mls/hr TITRATE IV Last administered on 01/21/17 09:17; Start 01/17/17 at 20:00; Stop 01/24/17 at 08:20; Status DC Pharmacy Profile Note (Coumadin Consult Pharmacy) 0 ml @ 0 mls/hr UNSCH OTHER ; Start 01/17/17 at 20:00 Patient Medication Teaching (Coumadin Booklet) 1 ONCE ONCE OTHER Last administered on 01/18/17 16:39; Start 01/18/17 at 16:00; Stop 01/18/17 at 16:33 ; Status DC Miscellaneous 1 ea 1 ea UNSCH PRN OTHER SEE LABEL COMMENTS; Start 01/17/17 at 22:00 Aztreonam 2000 mg/ Sodium Chloride 100 ml @ 200 mls/hr Q8H IV Last administered on 01/25/17 05:12; Start 01/18/17 at 06:00; Stop 01/25/17 at 11:34; Status DC Metronidazole 100 ml @ 100 mls/hr Q8H IV Last administered on 01/25/17 04:16; Start 01/18/17 at 05:00; Stop 01/25/17 at 11:33; Status DC Sodium Chloride (NS 1000 ml Inj) 1,000 ml @ 0 mls/hr [id number] IV Last administered on 01/19/17 21:07; Start 01/18/17 at 04:00; Stop 01/23/17 at 08:28 ; Status DC Acetaminophen (Ofirmev Inj) 1,000 mg Q6H IV Last administered on 01/19/17 03: 55; Start 01/18/17 at 16:00; Stop 01/19/17 at 10:01; Status DC Chlorhexidine Gluconate (Peridex 0.12% Liq) 15 ml BID@08,20 MT Last administered on 01/25/17 08:00; Start 01/18/17 at 20:00 Dextrose (D50w (Vial) Inj) 50 ml UNSCH PRN IV HYPOGLYCEMIA-SEE COMMENTS; Start 01/18/17 at 16:45 Glucagon (Glucagon Inj) 1 mg UNSCH PRN OTHER HYPOGLYCEMIA-SEE COMMENTS; Start 01/18/17 at 16:45 Insulin Aspart (NovoLOG SUPPLEMENTAL SCALE) 1 ACHS SLIDING SCALE SQ Last administered on 01/24/17 16:00; Start 01/18/17 at 21:00 Miscellaneous Information D/C ICU ELECTROLYTE ORDERS... UNSCH PRN .XX SEE DOSE INSTRUCTIONS; Start 01/18/17 at 17:00 Miscellaneous Information ICU - CALL ORDERING PHYSIC... UNSCH PRN .XX SEE DOSE INSTRUCTIONS; Start 01/18/17 at 17:00 Potassium Chloride (KCl 40 Meq Premix Inj) 100 ml @ 25 mls/hr UNSCH PRN IV ELECTROLYTE REPLACEMENT; Start 01/18/17 at 17:00; Stop 01/24/17 at 08:20; Status DC Potassium Bicarb/ Potassium Chloride 50 meq 50 meq UNSCH PRN PO ELECTROLYTE REPLACEMENT; Start 01/18/17 at 17:00; Stop 01/24/17 at 08:20; Status DC Potassium Chloride 100 ml @ 50 mls/hr UNSCH PRN IV ELECTROLYTE REPLACEMENT; Start 01/18/17 at 17:00; Stop 01/24/17 at 08:20; Status DC Magnesium Sulfate 4 gm/Sodium Chloride 108 ml @ 54 mls/hr UNSCH PRN IV ELECTROLYTE REPLACEMENT; Start 01/18/17 at 17:00; Stop 01/24/17 at 08:21; Status DC Magnesium Sulfate/ Sodium Chloride (Magnesium Sulfate Inj/NS Inj) 104 ml @ 52 mls/hr UNSCH PRN IV ELECTROLYTE REPLACEMENT Last administered on 01/22/17 01: 39; Start 01/18/17 at 17:00; Stop 01/24/17 at 08:21; Status DC Magnesium Oxide 800 mg 800 mg UNSCH PRN PO ELECTROLYTE REPLACEMENT; Start 01/18 at 17:00; Stop 01/24/17 at 08:21; Status DC Sodium Phosphate/ Sodium Chloride (Sodium Phosphate Inj/NS 250 ml Inj) 260 ml @ 43.333 mls/ hr UNSCH PRN IV ELECTROLYTE REPLACEMENT Last administered on 01/21 09:17; Start 01/18/17 at 17:00 Potassium Phosphate 2000 mg 2,000 mg UNSCH PRN PO ELECTROLYTE REPLACEMENT Last administered on 01/18/17 17:25; Start 01/18/17 at 17:00; Stop 01/24/17 at 08:21 ; Status DC Potassium Phosphate/Sodium Chloride (Potassium Phosphate Inj/NS 250 ml Inj) 260 ml @ 43.333 mls/ hr UNSCH PRN IV ELECTROLYTE REPLACEMENT; Start 01/18/17 at 17 :00; Stop 01/24/17 at 08:21; Status DC Warfarin Sodium (Coumadin) 1 mg DAILY@16 PO Last administered on 01/19/17 16: 22; Start 01/19/17 at 16:00; Stop 01/20/17 at 09:05; Status DC Warfarin Sodium (Coumadin) 1.5 mg DAILY@16 PO Last administered on 01/23/17 16 :21; Start 01/20/17 at 16:00; Stop 01/25/17 at 09:08; Status DC Warfarin Sodium 2 mg 2 mg ONCE ONCE PO Last administered on 01/21/17 15:27; Start 01/21/17 at 16:00; Stop 01/21/17 at 16:01; Status DC Magnesium Sulfate/ Sodium Chloride (Magnesium Sulfate Inj/NS Inj) 104 ml @ 52 mls/hr NOW ONCE IV ; Start 01/22/17 at 01:00; Stop 01/22/17 at 02:59; Status DC Warfarin Sodium 2 mg 2 mg ONCE ONCE PO Last administered on 01/22/17 15:38; Start 01/22/17 at 16:00; Stop 01/22/17 at 16:01; Status DC Dextrose/Sodium Chloride (D5W-1/2 NS 1000 ml Inj) 1,000 ml @ 60 mls/hr [id number] IV Last administered on 01/23/17 21:07; Start 01/23/17 at 09:00; Stop 01/24/17 at 13:23; Status DC Furosemide (Lasix Inj) 20 mg DAILY IV PUSH Last administered on 01/26/17 08:54 ; Start 01/23/17 at 16:00 Furosemide (Lasix Inj) 20 mg ONCE ONCE IV PUSH Last administered on 01/24/17 13:30; Start 01/24/17 at 13:30; Stop 01/24/17 at 13:31; Status DC Potassium Bicarb/ Potassium Chloride (K-Lyte Cl Eff) 50 meq ONCE ONCE PO Last administered on 01/25/17 04:14; Start 01/25/17 at 04:00; Stop 01/25/17 at 04: 01; Status DC Furosemide (Lasix Inj) 40 mg ONCE ONCE IV PUSH Last administered on 01/25/17 04:15; Start 01/25/17 at 04:00; Stop 01/25/17 at 04:01; Status DC Warfarin Sodium (Coumadin) 1 mg DAILY@16 PO Last administered on 01/25/17 16:36 ; Start 01/25/17 at 16:00; Status Hold Metoprolol Tartrate (Lopressor) 12.5 mg Q12HR PO Last administered on 01/26/17 08:54; Start 01/25/17 at 11:30 Clindamycin HCl (Cleocin) 300 mg Q6HR PO Last administered on 01/26/17 12:15; Start 01/25/17 at 12:00 Furosemide (Lasix Inj) 40 mg STK-MED ONCE .ROUTE ; Start 01/26/17 at 12:40; Stop 01/26/17 at 12:41; Status DC Midazolam HCl (Versed Inj) 10 mg STK-MED ONCE .ROUTE ; Start 01/26/17 at 13:00; Stop 01/26/17 at 13:01; Status DC Rocuronium [place] (Zemuron Inj) 50 mg STK-MED ONCE .ROUTE ; Start 01/26/17 at 13 :00; Stop 01/26/17 at 13:01; Status DC Date of Insertion: Jan 17, 2017 A/P Assessment and Plan A/P recurrent Respiratory failure Aspiration pneumonia -Extubated on 01/22 - Sputum culture and blood culture negative - continue antibiotics- - DuoNeb scheduled and when necessary -patient has been transferred to the ICU- will consult steel pourer helper- ( d/w ) -check CXR and ABG. Hypertension - Clonazepam PRN - continue lasix- CHF- chronic systolic. - 01/18 Repeat 2-D echo-Mild Pulm HTN, EF 20%, Mild regurgitation tricuspid valve. Starting Lasix 20 mg IV daily on 01/23. - Supportive care History of CVA - Anticoagulation - Coumadin dosing per pharmacy GABY -Creatinine improving V-tach on tele- AICD in place- continue metoprolol and continue to monitor. DVT GI prophylaxis - Pantoprazole - Warfarin - Teds and SCDs PT/ST following. Discharge Planning not ready for discharge. Kye Garber MD Jan 26, 2017 13:37
[2017-01-26] MEDS: CHLORHEXIDINE 0.12% (ORAL KIT) 15 ML CUP MT SCH ×2 (14:00→20:00)
--- NOTE | 2017-01-26 14:01 | HHI.CCPN ---
Subjective Remarks/Hospital Course 76-year-old gentleman with a history of ischemic cardiomyopathy EF 20%, A. 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 Patient was apparently supposed to be on a clear liquid diet however was noncompliant and was eating solid food. Today at the [facility] he was found to be vomiting undigested food around 3 PM. The the patient was transferred to hospitalist around 7 PM. He is now intubated and sedated. Subjective: 01/18:TMax 100.0. Noted to short runs of A. fib RVR self corrected, this afternoon. Interrogation of AICD pending. Patient's secretions noted to be thick vela colored and copious .Sputum cultures pending. 01/19: Leukocytosis resolving, chest x-ray improving. The patient chin's AICD was interrogated yesterday, the patient did have episodes of V. tach at 192 bpm but no therapy /was initiated. Ventricular Tach settings 240 bpm, with a VVI pacer lower rate limit at 40. Plans had attempt for CPAP trials this evening or in a.m.. 01/20: Leukocytosis resolved. Patient has remained on CPAP all day. Will continue CPAP throughout the night, if clinically stable. Patient is GCS 11 T. 01/22: Awake and alert. Not following commands. Tolerated C Pap today. Ordered extubation 01/23: Extubated on 01/22. On nasal cannula currently. Awake and alert, following commands. 01/26: Called for hypoxemic respiratory failure; requires immediate intubation and mechanical ventilation. Patient gurgling with lots of oral secretions but very little secretions in trachea. Objective Vital Signs Date Time Temp Pulse Resp B/P Pulse Ox O2 Delivery O2 Flow Rate FiO2 01/26/17 13:18 98 100 01/26/17 12:24 Nasal Cannula 2.00 01/26/17 12:00 96.6 68 22 128/71 Intake and Output 01/25/17 01/25/17 01/26/17 08:00 16:00 00:00 Intake Total 420 ml 300 ml 120 ml Output Total 1750 ml 300 ml Balance 420 ml -1450 ml -180 ml Result Diagram: 01/24/1730 01/25/17 0521 Imaging Last 24 hours Impressions Chest X-Ray 01/17/171903 Signed Impressions: Service Date/Time: Tuesday, January 17, 2017 19:34 - CONCLUSION: Cardiomegaly with bilateral perihilar edema. Terry Cowart MD Abdomen/Pelvis CT 01/17/171903 Signed Impressions: Service Date/Time: Tuesday, January 17, 2017 20:09 - CONCLUSION: 1. Air in the biliary tree likely postsurgical. 2. Complex cyst right kidney containing calcifications. 3. Right sided perinephric coarse calcifications likely related to previous treatment or previous hematoma. 4. Benign myelolipoma left adrenal gland. 5. Bibasilar consolidation greater in the left lower lobe. 6. Diverticulosis without diverticulitis. 7. No bowel obstruction. 8. Atrophic left kidney containing nonobstructing renal calculi. Terry Cowart MD Objective Remarks GENERAL: Elderly gentleman in severe distress, agonal. SKIN: Warm and clammy. HEAD: Normocephalic. EYES: No scleral icterus. No injection or drainage. NECK: Supple, trachea midline. Copious secretions in throat. CARDIOVASCULAR: Regular rate and rhythm without murmurs, gallops, or rubs. Occ PMB. RESPIRATORY: Breath sounds equal bilaterally. No accessory muscle use. Scattered rhonchi bilaterally GASTROINTESTINAL: Abdomen soft, non-tender, nondistended. Mildly distended. MUSCULOSKELETAL: No cyanosis, or edema. EXTREMITIES: No clubbing cyanosis or edema. NEURO: Largely unresponsive with labored breathing. Pupils 2 mm, react. Procedures intubation/extubation Date of Insertion: Jan 17, 2017 A/P Assessment and Plan Respiratory failure Aspiration pneumonia -Recurrent hypoxemic failure. Hypertension - Clonazepam PRN - Lasix resumed 20 mg IV daily on 01/23. CHF - 01/18 Repeat 2-D echo-Mild Pulm HTN, EF 20%, Mild regurgitation tricuspid valve. - Supportive care History of CVA - Anticoagulation - Coumadin dosing per pharmacy GABY -Creatinine improving DVT GI prophylaxis - Pantoprazole - Warfarin - Teds and SCDs Overall impression: Critically ill and hypoxemic. Listed as full code status. Family not available. Required intubation. Will discuss care goals with Palliative Care service. Critical Care 44 mins aside from procedures. Hosea Rubio MD Jan 26, 2017 14:01
[2017-01-26 14:05] LABS: BLOOD GAS BASE EXCESS -0.5 mmol/L (-2-2); BLOOD GAS CARBOXYHEMOGLOBIN 0.9 % (0-4); BLOOD GAS HCO3 25 mmol/L (22-26); BLOOD GAS METHEMOGLOBIN 0.9 % (0-2); BLOOD GAS O2 HGB SATURATION 95 % (90-100); BLOOD GAS OXYGEN CONTENT 16.9 Vol % (12.0-20.0); BLOOD GAS PCO2 52 mmHg (38-42); BLOOD GAS PO2 116 mmHg (61-120); BLOOD GAS TOTAL HGB 12.5 G/DL (12.0-16.0); TEMP CORR TO 98.6
[2017-01-26 14:06] LABS: CRITICAL VALUE YES; DRAW SITE ART LINE; FIO2 100 %; OXYGEN DEVICE VENTILATOR; STAT YES; VENT SETTINGS SEE COMMENTS
--- NOTE | 2017-01-26 14:06 | PD.PROCEDR ---
Procedure Note Procedure DX: Hypoxemic Respiratory Failure (J96.01) OP: 1. Orotracheal Intubation (83407) 2. Insertion arterial line (71413) Procedure: Suctioning and bag ventilation to correct hypoxemia. Versed 10 mg and rocuronium 100 mg iv. Intubated orally with 8.5 tube. Position confirmed with CO2 detection, breath sounds, sats 100%. Yury test intact right hand. Right wrist supinated, prepped and draped. Right radial artery cannulated and wire advanced. Twenty gauge cannula passed over wire to 3 cm. Good waveform observed. Dressing applied. Hosea Rubio MD Jan 26, 2017 14:06
[2017-01-26 15:43] LABS: AUTOMATED NEUTROPHIL # 16.2 TH/MM3 (1.8-7.7); BASOPHIL # 0.1 TH/MM3 (0-0.2); BASOPHIL % 0.4 % (0.0-2.0); EOSINOPHIL # 0.4 TH/MM3 (0-0.4); EOSINOPHIL % 2.1 % (0.0-4.0); HEMATOCRIT 39.2 % (39.0-51.0); HEMO FLAGS DIFF FINAL; LYMPH % 4.4 % (9.0-44.0); LYMPHOCYTE # 0.8 TH/MM3 (1.0-4.8); MEAN CELL VOLUME 79.5 FL (80.0-100.0); MEAN CORPUSCULAR HEMOGLOBIN 24.9 PG (27.0-34.0); MEAN CORPUSCULAR HGB CONC 31.3 % (32.0-36.0); MONO % 3.9 % (0.0-8.0); NEUT % 89.2 % (16.0-70.0); PLATELET COUNT 685 TH/MM3 (150-450); RED BLOOD COUNT 4.93 MIL/MM3 (4.50-5.90); RED CELL DISTRIBUTION WIDTH 21.1 % (11.6-17.2); WHITE BLOOD COUNT 18.2 TH/MM3 (4.0-11.0)
[2017-01-26 15:58] LABS: ALT (GPT) 23 U/L (12-78); ANION GAP 10 MEQ/L (5-15); AST (GOT) 20 U/L (15-37); BICARBONATE 25.4 MEQ/L (21.0-32.0); BLOOD UREA NITROGEN 26 MG/DL (7-18); CHLORIDE 107 MEQ/L (98-107); GLOMERULAR FILTRATION RATE 80 ML/MIN (>89); POTASSIUM 3.8 MEQ/L (3.5-5.1); SODIUM (NA) 142 MEQ/L (136-145)
[2017-01-26 16:00] LABS: ALKALINE PHOSPHATASE 82 U/L (45-117); TOTAL BILIRUBIN ADULT 0.3 MG/DL (0.2-1.0)
[2017-01-26] MEDS ORDERED: CHLORHEXIDINE 0.12% (ORAL KIT) 15 ML CUP MT SCH (20:00)
[2017-01-26] MEDS ORDERED: NOREPINEPHRINE 4 MG/D5W 250 ML IV SCH (21:45)
[2017-01-27] VITALS (13 sets, daily range): BP systolic 108–132; BP diastolic 53–65; PULSE 58–87; RESP 16–18; TEMP 97.5–98.4; O2SAT 97–100
[2017-01-27 03:28] LABS: BLOOD GAS BASE EXCESS -0.4 mmol/L (-2-2); BLOOD GAS HCO3 23 mmol/L (22-26); BLOOD GAS O2 HGB SATURATION 95 % (90-100); BLOOD GAS OXYGEN CONTENT 17.8 Vol % (12.0-20.0); BLOOD GAS PCO2 34 mmHg (38-42); BLOOD GAS PO2 103 mmHg (61-120); BLOOD GAS TOTAL HGB 13.2 G/DL (12.0-16.0); CRITICAL VALUE NO; OXYGEN DEVICE VENT; TEMP CORR TO 98.6
[2017-01-27 03:29] LABS: DRAW SITE ART LINE; FIO2 50 %; STAT NO; ULNAR PULSE PRESENT; VENT SETTINGS SEE COMMENTS
[2017-01-27] MEDS: CHLORHEXIDINE GLUCONATE 2 % 1 PACK (2 CLOTHS) TOP SCH (04:00)
[2017-01-27] MEDS: CLINDAMYCIN 150 MG CAP PO SCH ×4 (06:00→23:43)
[2017-01-27] MEDS: INSULIN ASPART SUPPLEMENTAL SCALE SQ SCH ×4 (06:37→21:00)
[2017-01-27 07:26] LABS: INTERNATIONAL NORMALIZED RATIO 3.8 RATIO; PROTHROMBIN TIME - PATIENT 44.6 SEC (9.8-11.6)
[2017-01-27 07:42] LABS: BICARBONATE 25.7 MEQ/L (21.0-32.0); POTASSIUM 3.4 MEQ/L (3.5-5.1)
[2017-01-27] MEDS: FUROSEMIDE 20 MG/2 ML VIAL IV PUSH SCH (08:58)
[2017-01-27] MEDS: DOCUSATE SODIUM 50 MG/SENNA 8.6 MG TAB PO SCH ×2 (08:58→21:00)
[2017-01-27] MEDS: CHLORHEXIDINE 0.12% (ORAL KIT) 15 ML CUP MT SCH ×2 (08:58→20:00)
[2017-01-27] MEDS: SODIUM CHLORIDE 0.9% FLUSH 10 ML FLUSH IV FLUSH SCH ×2 (08:58→21:00)
[2017-01-27] MEDS: METOPROLOL TARTRATE 25 MG TAB PO SCH ×2 (08:58→21:00)
[2017-01-27] MEDS: PANTOPRAZOLE SOD 40 MG DELAYED RELEASE TAB PO SCH (08:59)
[2017-01-27] MEDS: ARTIFICIAL TEARS OPTH SOLN 15 ML BTL EACH EYE SCH ×3 (08:59→17:30)
--- NOTE | 2017-01-27 09:31 | HHI.CCPN ---
Subjective Remarks/Hospital Course 76-year-old gentleman with a history of ischemic cardiomyopathy EF 20%, A. 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 Patient was apparently supposed to be on a clear liquid diet however was noncompliant and was eating solid food. Today at the [facility] he was found to be vomiting undigested food around 3 PM. The the patient was transferred to hospitalist around 7 PM. He is now intubated and sedated. Subjective: 01/18:TMax 100.0. Noted to short runs of A. fib RVR self corrected, this afternoon. Interrogation of AICD pending. Patient's secretions noted to be thick vela colored and copious .Sputum cultures pending. 01/19: Leukocytosis resolving, chest x-ray improving. The patient chin's AICD was interrogated yesterday, the patient did have episodes of V. tach at 192 bpm but no therapy /was initiated. Ventricular Tach settings 240 bpm, with a VVI pacer lower rate limit at 40. Plans had attempt for CPAP trials this evening or in a.m.. 01/20: Leukocytosis resolved. Patient has remained on CPAP all day. Will continue CPAP throughout the night, if clinically stable. Patient is GCS 11 T. 01/22: Awake and alert. Not following commands. Tolerated C Pap today. Ordered extubation 01/23: Extubated on 01/22. On nasal cannula currently. Awake and alert, following commands. 01/26: Called for hypoxemic respiratory failure; requires immediate intubation and mechanical ventilation. Patient gurgling with lots of oral secretions but very little secretions in trachea. 01/27: Very weak. Minimal secretions. Ahead on fluid. Objective Vital Signs Date Time Temp Pulse Resp B/P Pulse Ox O2 Delivery O2 Flow Rate FiO2 01/27/17 07:35 97 50 01/27/17 05:00 98.3 70 18 119/56 01/26/17 19:00 Mechanical Ventilator 01/26/17 14:10 15.00 Intake and Output 01/26/17 01/26/17 01/27/17 08:00 16:00 00:00 Intake Total 240 ml 359 ml Output Total 700 ml 1250 ml 350 ml Balance -460 ml -1250 ml 9 ml Result Diagram: 01/26/17 1508 01/27/17 0621 Other Results Laboratory Tests Test 01/26/17 01/27/17 13:58 03:12 Blood Gas Puncture Site ART LINE ART LINE Blood Gas Patient Temperature 98.6 98.6 Blood Gas HCO3 25 mmol/L 23 mmol/L (22-26) (22-26) Blood Gas Base Excess -0.5 mmol/L -0.4 mmol/L (-2-2) (-2-2) Blood Gas Oxygen Saturation 95 % (90-100) 95 % (90-100) Arterial Blood pH 7.31 7.45 (7.380-7.420) (7.380-7.420) Arterial Blood Partial 52 mmHg (38-42) 34 mmHg (38-42) Pressure CO2 Arterial Blood Partial 116 mmHg 103 mmHg Pressure O2 (61-120) (61-120) Arterial Blood Oxygen Content 16.9 Vol % 17.8 Vol % (12.0-20.0) (12.0-20.0) Arterial Blood 0.9 % (0-4) 1.0 % (0-4) Carboxyhemoglobin Arterial Blood Methemoglobin 0.9 % (0-2) 1.0 % (0-2) Blood Gas Hemoglobin 12.5 G/DL 13.2 G/DL (12.0-16.0) (12.0-16.0) Oxygen Delivery Device VENTILATOR VENT Blood Gas Ventilator Setting SEE COMMENTS SEE COMMENTS Blood Gas Inspired Oxygen 100 % 50 % Imaging Last 24 hours Impressions Chest X-Ray 01/17/171903 Signed Impressions: Service Date/Time: Tuesday, January 17, 2017 19:34 - CONCLUSION: Cardiomegaly with bilateral perihilar edema. Terry Cowart MD Abdomen/Pelvis CT 01/17/171903 Signed Impressions: Service Date/Time: Tuesday, January 17, 2017 20:09 - CONCLUSION: 1. Air in the biliary tree likely postsurgical. 2. Complex cyst right kidney containing calcifications. 3. Right sided perinephric coarse calcifications likely related to previous treatment or previous hematoma. 4. Benign myelolipoma left adrenal gland. 5. Bibasilar consolidation greater in the left lower lobe. 6. Diverticulosis without diverticulitis. 7. No bowel obstruction. 8. Atrophic left kidney containing nonobstructing renal calculi. Terry Cowart MD Objective Remarks GENERAL: Elderly gentleman, weak. SKIN: Warm and dry. HEAD: Normocephalic. EYES: No scleral icterus. No injection or drainage. NECK: Supple, trachea midline. Copious secretions in throat. CARDIOVASCULAR: Regular rate and rhythm without murmurs, gallops, or rubs. RESPIRATORY: Breath sounds equal bilaterally. No accessory muscle use. Scattered rhonchi bilaterally GASTROINTESTINAL: Abdomen soft, non-tender, nondistended. Mildly distended. MUSCULOSKELETAL: No cyanosis, or edema. EXTREMITIES: No clubbing cyanosis or edema. NEURO: Largely unresponsive. Pupils 2 mm, react. Withdraws 4 limbs to pain. Procedures intubation/extubation Date of Insertion: Jan 17, 2017 A/P Assessment and Plan Respiratory failure Aspiration pneumonia -Recurrent hypoxemic failure. Hypertension - Clonazepam PRN - Lasix resumed 20 mg IV daily on 01/23. CHF - 01/18 Repeat 2-D echo-Mild Pulm HTN, EF 20%, Mild regurgitation tricuspid valve. - Supportive care History of CVA - Anticoagulation - Coumadin dosing per pharmacy GABY -Creatinine improving DVT GI prophylaxis - Pantoprazole - Warfarin - Teds and SCDs Overall impression: Critically ill and hypoxemic. Listed as full code status. Family not available. Required intubation. Will discuss care goals with Palliative Care service. This is end-stage systolic heart failure and chronic aspiration - probably best served in hospice. Critical Care 38 mins aside from procedures. Hosea Rubio MD Jan 27, 2017 09:31
[2017-01-27] MEDS: PROPOFOL 1000 MG/100 ML INJ 100 ML IV SCH (11:02)
[2017-01-27] MEDS ORDERED: ICU - SODIUM PHOSPHATE 30 MMOL/NS 250 ML IV PRN ×2 (17:00)
[2017-01-27] MEDS ORDERED: ICU - POTASSIUM PHOSPHATE MONOBASIC 500 MG TAB PO PRN (17:00)
[2017-01-27] MEDS ORDERED: ICU - MAGNESIUM SULFATE 4 GM/NS 100 ML IV PRN ×2 (17:00)
[2017-01-27] MEDS ORDERED: ICU - D/C ICU ELECTROLYTE ORDERS PRN (17:00)
[2017-01-27] MEDS ORDERED: ICU - MAGNESIUM OXIDE 400 MG TAB PO PRN (17:00)
[2017-01-27] MEDS ORDERED: ICU - POTASSIUM PHOSPHATE 30 MMOL/NS 250 ML IV PRN ×2 (17:00)
[2017-01-27] MEDS ORDERED: ICU - POTASSIUM CHLORIDE/AQUEOUS SOLN 20 MEQ/100 ML IVPB IV PRN (17:00)
[2017-01-27] MEDS ORDERED: ICU - CALL ORDERING PHYSICIAN PRN (17:00)
[2017-01-27] MEDS ORDERED: ICU - POTASSIUM CHLORIDE/AQUEOUS SOLN 40 MEQ/100 ML IVPB IV PRN (17:00)
[2017-01-27] MEDS ORDERED: ICU - MAGNESIUM SULFATE 2 GM/NS 100 ML IV PRN ×2 (17:00)
[2017-01-27] MEDS: POTASSIUM CHLORIDE 25 MEQ EFFERVESCENT TAB PO PRN (17:31)
[2017-01-27] MEDS: PANTOPRAZOLE SODIUM 40 MG VIAL IV PUSH SCH (17:32)
[2017-01-28] VITALS (11 sets, daily range): BP systolic 100–120; BP diastolic 43–58; PULSE 61–87; RESP 16; TEMP 97.8–98.4; O2SAT 96–100
[2017-01-28] MEDS: CHLORHEXIDINE GLUCONATE 2 % 1 PACK (2 CLOTHS) TOP SCH (04:00)
[2017-01-28 05:17] LABS: INTERNATIONAL NORMALIZED RATIO 2.9 RATIO; PROTHROMBIN TIME - PATIENT 33.2 SEC (9.8-11.6)
[2017-01-28] MEDS: CLINDAMYCIN 150 MG CAP PO SCH ×2 (06:38→12:22)
[2017-01-28] MEDS: INSULIN ASPART SUPPLEMENTAL SCALE SQ SCH ×4 (06:38→20:38)
[2017-01-28] MEDS: DOCUSATE SODIUM 50 MG/SENNA 8.6 MG TAB PO SCH ×2 (09:00→20:37)
[2017-01-28] MEDS: ARTIFICIAL TEARS OPTH SOLN 15 ML BTL EACH EYE SCH ×3 (09:00→17:22)
[2017-01-28] MEDS: METOPROLOL TARTRATE 25 MG TAB PO SCH ×2 (09:00→20:37)
[2017-01-28] MEDS: FUROSEMIDE 20 MG/2 ML VIAL IV PUSH SCH (09:00)
[2017-01-28] MEDS: PANTOPRAZOLE SODIUM 40 MG VIAL IV PUSH SCH (09:00)
[2017-01-28] MEDS: CHLORHEXIDINE 0.12% (ORAL KIT) 15 ML CUP MT SCH ×2 (09:00→20:37)
[2017-01-28] MEDS: SODIUM CHLORIDE 0.9% FLUSH 10 ML FLUSH IV FLUSH SCH ×2 (09:01→20:37)
[2017-01-28] MEDS: PROPOFOL 1000 MG/100 ML INJ 100 ML IV SCH ×2 (13:36→20:37)
--- NOTE | 2017-01-28 14:26 | HHI.CCPN ---
Subjective Remarks/Hospital Course 76-year-old gentleman with a history of ischemic cardiomyopathy EF 20%, A. 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 Patient was apparently supposed to be on a clear liquid diet however was noncompliant and was eating solid food. Today at the [facility] he was found to be vomiting undigested food around 3 PM. The the patient was transferred to hospitalist around 7 PM. He is now intubated and sedated. Subjective: 01/18:TMax 100.0. Noted to short runs of A. fib RVR self corrected, this afternoon. Interrogation of AICD pending. Patient's secretions noted to be thick vela colored and copious .Sputum cultures pending. 01/19: Leukocytosis resolving, chest x-ray improving. The patient chin's AICD was interrogated yesterday, the patient did have episodes of V. tach at 192 bpm but no therapy /was initiated. Ventricular Tach settings 240 bpm, with a VVI pacer lower rate limit at 40. Plans had attempt for CPAP trials this evening or in a.m.. 01/20: Leukocytosis resolved. Patient has remained on CPAP all day. Will continue CPAP throughout the night, if clinically stable. Patient is GCS 11 T. 01/22: Awake and alert. Not following commands. Tolerated C Pap today. Ordered extubation 01/23: Extubated on 01/22. On nasal cannula currently. Awake and alert, following commands. 01/26: Called for hypoxemic respiratory failure; requires immediate intubation and mechanical ventilation. Patient gurgling with lots of oral secretions but very little secretions in trachea. 01/27: Very weak. Minimal secretions. Ahead on fluid. 01/28: still very weak. copious secretions. wbc uptrending. febrile. still volume overloaded. Objective Vital Signs Date Time Temp Pulse Resp B/P Pulse Ox O2 Delivery O2 Flow Rate FiO2 01/28/17 12:00 40 01/28/17 12:00 98.0 66 16 101/55 99 01/28/17 07:00 Mechanical Ventilator 01/26/17 14:10 15.00 Intake and Output 01/27/17 01/27/17 01/28/17 08:00 16:00 00:00 Intake Total 350 ml 179 ml Output Total 350 ml 900 ml 350 ml Balance -350 ml -550 ml -171 ml Result Diagram: 01/26/17 1508 01/27/17 0621 Imaging Last 24 hours Impressions Chest X-Ray 01/17/171903 Signed Impressions: Service Date/Time: Tuesday, January 17, 2017 19:34 - CONCLUSION: Cardiomegaly with bilateral perihilar edema. Terry Cowart MD Abdomen/Pelvis CT 01/17/171903 Signed Impressions: Service Date/Time: Tuesday, January 17, 2017 20:09 - CONCLUSION: 1. Air in the biliary tree likely postsurgical. 2. Complex cyst right kidney containing calcifications. 3. Right sided perinephric coarse calcifications likely related to previous treatment or previous hematoma. 4. Benign myelolipoma left adrenal gland. 5. Bibasilar consolidation greater in the left lower lobe. 6. Diverticulosis without diverticulitis. 7. No bowel obstruction. 8. Atrophic left kidney containing nonobstructing renal calculi. Terry Cowart MD Objective Remarks GENERAL: Elderly gentleman, weak. SKIN: Warm and dry. HEAD: Normocephalic. EYES: No scleral icterus. No injection or drainage. NECK: Supple, trachea midline. Copious secretions in endotracheal tube. CARDIOVASCULAR: Regular rate and rhythm without murmurs, gallops, or rubs. RESPIRATORY: Breath sounds equal bilaterally. No accessory muscle use. Scattered rhonchi bilaterally GASTROINTESTINAL: Abdomen soft, non-tender, nondistended. Mildly distended. MUSCULOSKELETAL: No cyanosis, or edema. EXTREMITIES: No clubbing cyanosis or edema. NEURO: Largely unresponsive. Pupils 2 mm, react. Withdraws 4 limbs to pain. Procedures intubation/extubation A/P Assessment and Plan Assessment: 76yM with ischemic cardiomyopathy, EF 20%, systolic CHF exacerbation , volume overload and now sepsis likely recurrent aspiration pneumonia. His chronic declining course over the last 6 months suggest that he has a very poor prognosis. family continues to want to be aggressive. what patient overall needs is pulmonary rehab. will look into LTAC. will broaden abx and re-culture. Respiratory failure Aspiration pneumonia -Recurrent hypoxemic failure. - vent bundle, hob at 30 degrees, nebs - no SBT today given severe weakness and copious secretions - broaden abx - look into LTAC for pulmonary rehab. has failed multiple trials of extubation with recurrent aspirations. Hypertension - Clonazepam PRN - Lasix resumed 20 mg IV daily on 01/23. Systolic CHF Exacerbation, persistent - 01/18 Repeat 2-D echo-Mild Pulm HTN, EF 20%, Mild regurgitation tricuspid valve. - Supportive care History of CVA - Anticoagulation - Coumadin dosing per pharmacy GABY -Creatinine improving DVT GI prophylaxis - Pantoprazole - Warfarin - Teds and SCDs Overall impression: Critically ill and hypoxemic. This is end-stage systolic heart failure and chronic aspiration - will need long-term acute care if goals remain aggressive. broaden abx and choe culture. Critical Care 31 mins aside from procedures. Juan Jung MD Jan 28, 2017 14:26
[2017-01-28] MEDS ORDERED: Vancomycin Consult Pharmacy 1 EA OTHER SCH (15:00)
[2017-01-28] MEDS ORDERED: VANCOMYCIN INJ 1,250 MG in SODIUM CHLOR 0.9% 250 ML INJ 250 ML IV ONE (16:00)
[2017-01-28] MEDS: DEXTROSE 50% IN WATER 50 ML VIAL(D50) IV PRN ×2 (16:24→23:45)
[2017-01-28] MEDS: AZTREONAM INJ 1,000 MG in SODIUM CHLORIDE 0.9% INJ 100 ML IV SCH ×2 (16:24→21:28)
[2017-01-28 16:46] LABS: BLOOD, URINE SMALL (NEG); COMMENT (UR) CATH-CULT NOT IND; CULTURE IF INDICATED CATH CULTURE NOT IND; GLUCOSE,URINE NEG (NEG); HYALINE CAST, URINE 2 /lpf (RARE); KETONE, URINE 10 mg/dL (NEG); MUCUS URINE FEW /lpf (OCC); NITRITE,URINE NEG (NEG); PH, URINE 5.5 (5.0-8.5); URINE COLOR YELLOW (YELLW/STRAW)
[2017-01-28] MEDS: VANCOMYCIN 1,000 MG/NS 250 ML IV SCH ×2 (17:14)
[2017-01-28] MEDS: metroNIDAZOLE 500 MG INJ 100 ML IV SCH ×2 (17:14→21:28)
[2017-01-28 19:34] LABS: MEAN CELL VOLUME 79.1 FL (80.0-100.0); MEAN CORPUSCULAR HEMOGLOBIN 25.2 PG (27.0-34.0); MEAN CORPUSCULAR HGB CONC 31.9 % (32.0-36.0); PLATELET COUNT 509 TH/MM3 (150-450); RED BLOOD COUNT 4.29 MIL/MM3 (4.50-5.90); RED CELL DISTRIBUTION WIDTH 20.4 % (11.6-17.2); REVIEW FLAG FINAL; WHITE BLOOD COUNT 11.6 TH/MM3 (4.0-11.0)
[2017-01-28 19:36] LABS: BICARBONATE 25.4 MEQ/L (21.0-32.0); POTASSIUM 4.1 MEQ/L (3.5-5.1)
[2017-01-29] VITALS (13 sets, daily range): BP systolic 106–121; BP diastolic 56–67; PULSE 62–72; RESP 16; TEMP 97.5–97.7; O2SAT 96–100
[2017-01-29] MEDS: CHLORHEXIDINE GLUCONATE 2 % 1 PACK (2 CLOTHS) TOP SCH (03:09)
[2017-01-29] MEDS: VANCOMYCIN 1,000 MG/NS 250 ML IV SCH ×4 (03:09→16:07)
[2017-01-29] MEDS: metroNIDAZOLE 500 MG INJ 100 ML IV SCH ×4 (04:23→22:14)
[2017-01-29] MEDS: PROPOFOL 1000 MG/100 ML INJ 100 ML IV SCH ×2 (05:04→14:25)
[2017-01-29] MEDS: AZTREONAM INJ 1,000 MG in SODIUM CHLORIDE 0.9% INJ 100 ML IV SCH ×3 (05:04→22:14)
[2017-01-29 06:31] LABS: HEMATOCRIT 32.1 % (39.0-51.0); MEAN CELL VOLUME 77.8 FL (80.0-100.0); MEAN CORPUSCULAR HEMOGLOBIN 25.6 PG (27.0-34.0); MEAN CORPUSCULAR HGB CONC 32.9 % (32.0-36.0); PLATELET COUNT 484 TH/MM3 (150-450); RED BLOOD COUNT 4.12 MIL/MM3 (4.50-5.90); REVIEW FLAG FINAL; WHITE BLOOD COUNT 12.5 TH/MM3 (4.0-11.0)
[2017-01-29 06:47] LABS: INTERNATIONAL NORMALIZED RATIO 2.1 RATIO; PROTHROMBIN TIME - PATIENT 23.4 SEC (9.8-11.6)
[2017-01-29 07:00] LABS: BICARBONATE 24.1 MEQ/L (21.0-32.0); POTASSIUM 3.7 MEQ/L (3.5-5.1)
[2017-01-29] MEDS: INSULIN ASPART SUPPLEMENTAL SCALE SQ SCH ×4 (07:00→20:48)
[2017-01-29] MEDS: DOCUSATE SODIUM 50 MG/SENNA 8.6 MG TAB PO SCH ×2 (07:50→20:13)
[2017-01-29] MEDS: PANTOPRAZOLE SODIUM 40 MG VIAL IV PUSH SCH (07:50)
[2017-01-29] MEDS: CHLORHEXIDINE 0.12% (ORAL KIT) 15 ML CUP MT SCH ×2 (07:51→19:56)
[2017-01-29] MEDS: ARTIFICIAL TEARS OPTH SOLN 15 ML BTL EACH EYE SCH ×3 (07:51→17:23)
[2017-01-29] MEDS: SODIUM CHLORIDE 0.9% FLUSH 10 ML FLUSH IV FLUSH SCH ×2 (07:51→20:13)
[2017-01-29] MEDS: FUROSEMIDE 20 MG/2 ML VIAL IV PUSH SCH (07:51)
[2017-01-29] MEDS: METOPROLOL TARTRATE 25 MG TAB PO SCH ×2 (07:52→20:12)
--- NOTE | 2017-01-29 10:15 | HHI.CCPN ---
Subjective Remarks/Hospital Course 76-year-old gentleman with a history of ischemic cardiomyopathy EF 20%, A. 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 Patient was apparently supposed to be on a clear liquid diet however was noncompliant and was eating solid food. Today at the [facility] he was found to be vomiting undigested food around 3 PM. The the patient was transferred to hospitalist around 7 PM. He is now intubated and sedated. Subjective: 01/18:TMax 100.0. Noted to short runs of A. fib RVR self corrected, this afternoon. Interrogation of AICD pending. Patient's secretions noted to be thick vela colored and copious .Sputum cultures pending. 01/19: Leukocytosis resolving, chest x-ray improving. The patient chin's AICD was interrogated yesterday, the patient did have episodes of V. tach at 192 bpm but no therapy /was initiated. Ventricular Tach settings 240 bpm, with a VVI pacer lower rate limit at 40. Plans had attempt for CPAP trials this evening or in a.m.. 01/20: Leukocytosis resolved. Patient has remained on CPAP all day. Will continue CPAP throughout the night, if clinically stable. Patient is GCS 11 T. 01/22: Awake and alert. Not following commands. Tolerated C Pap today. Ordered extubation 01/23: Extubated on 01/22. On nasal cannula currently. Awake and alert, following commands. 01/26: Called for hypoxemic respiratory failure; requires immediate intubation and mechanical ventilation. Patient gurgling with lots of oral secretions but very little secretions in trachea. 01/27: Very weak. Minimal secretions. Ahead on fluid. 01/28: still very weak. copious secretions. wbc uptrending. febrile. still volume overloaded. 01/29: Cr stable. wbc stable. still with copious secretions. cultures pending. Objective Vital Signs Date Time Temp Pulse Resp B/P Pulse Ox O2 Delivery O2 Flow Rate FiO2 01/29/17 08:46 99 40 01/29/17 08:00 72 01/29/17 07:00 Mechanical Ventilator 01/29/17 04:00 97.6 16 108/64 01/26/17 14:10 15.00 Intake and Output 01/28/17 01/28/17 01/29/17 08:00 16:00 00:00 Intake Total 92 ml 176 ml 626 ml Output Total 200 ml 700 ml 200 ml Balance -108 ml -524 ml 426 ml Result Diagram: 01/29/17 0601/29/17 06 Imaging Last 24 hours Impressions Chest X-Ray 01/17/171903 Signed Impressions: Service Date/Time: Tuesday, January 17, 2017 19:34 - CONCLUSION: Cardiomegaly with bilateral perihilar edema. Terry Cowart MD Abdomen/Pelvis CT 01/17/171903 Signed Impressions: Service Date/Time: Tuesday, January 17, 2017 20:09 - CONCLUSION: 1. Air in the biliary tree likely postsurgical. 2. Complex cyst right kidney containing calcifications. 3. Right sided perinephric coarse calcifications likely related to previous treatment or previous hematoma. 4. Benign myelolipoma left adrenal gland. 5. Bibasilar consolidation greater in the left lower lobe. 6. Diverticulosis without diverticulitis. 7. No bowel obstruction. 8. Atrophic left kidney containing nonobstructing renal calculi. Terry Cowart MD Objective Remarks GENERAL: Elderly gentleman, weak. SKIN: Warm and dry. HEAD: Normocephalic. EYES: No scleral icterus. No injection or drainage. NECK: Supple, trachea midline. Copious secretions in endotracheal tube. CARDIOVASCULAR: Regular rate and rhythm without murmurs, gallops, or rubs. RESPIRATORY: Breath sounds equal bilaterally. No accessory muscle use. Scattered rhonchi bilaterally GASTROINTESTINAL: Abdomen soft, non-tender, nondistended. Mildly distended. MUSCULOSKELETAL: No cyanosis, or edema. EXTREMITIES: No clubbing cyanosis or edema. NEURO: Largely unresponsive. Pupils 2 mm, react. Withdraws 4 limbs to pain. Procedures intubation/extubation A/P Assessment and Plan Assessment: 76yM with ischemic cardiomyopathy, EF 20%, systolic CHF exacerbation , volume overload and now sepsis likely recurrent aspiration pneumonia. His chronic declining course over the last 6 months suggest that he has a very poor prognosis. family continues to want to be aggressive. what patient overall needs is pulmonary rehab. will look into LTAC. will broaden abx and re-culture. Respiratory failure Aspiration pneumonia -Recurrent hypoxemic failure. - vent bundle, hob at 30 degrees, nebs - no SBT today given severe weakness and copious secretions - continue broad spectrum abx. await culture data. - look into LTAC for pulmonary rehab. has failed multiple trials of extubation with recurrent aspirations. Hypertension - Clonazepam PRN - increase Lasix to 40mg iv daily. Systolic CHF Exacerbation, persistent - 01/18 Repeat 2-D echo-Mild Pulm HTN, EF 20%, Mild regurgitation tricuspid valve. - Supportive care History of CVA - Anticoagulation - Coumadin dosing per pharmacy GABY- resolving. -Creatinine improving DVT GI prophylaxis - Pantoprazole - Warfarin - Teds and SCDs Overall impression: Critically ill and hypoxemic. This is end-stage systolic heart failure and chronic aspiration - will need long-term acute care if goals remain aggressive. continue broad spectrum abx. agree with LTAC placement. Juan Jung MD Jan 29, 2017 10:15
[2017-01-29] MEDS ORDERED: DEXTROSE 50% IN WATER 50 ML SYRINGE IV PRN (20:28)
[2017-01-30] VITALS (18 sets, daily range): BP systolic 109–136; BP diastolic 58–71; PULSE 64–78; RESP 16–17; TEMP 97.7–98.8; O2SAT 95–100
[2017-01-30] MEDS: PROPOFOL 1000 MG/100 ML INJ 100 ML IV SCH ×3 (00:59→21:40)
[2017-01-30] MEDS: CHLORHEXIDINE GLUCONATE 2 % 1 PACK (2 CLOTHS) TOP SCH (03:37)
[2017-01-30] MEDS: VANCOMYCIN 1,000 MG/NS 250 ML IV SCH ×4 (03:44→15:52)
[2017-01-30] MEDS ORDERED: PHARMACY ORDERED LAB ONE (03:45)
[2017-01-30 04:32] LABS: HEMATOCRIT 32.9 % (39.0-51.0); MEAN CELL VOLUME 78.4 FL (80.0-100.0); MEAN CORPUSCULAR HEMOGLOBIN 25.9 PG (27.0-34.0); PLATELET COUNT 509 TH/MM3 (150-450); RED CELL DISTRIBUTION WIDTH 20.8 % (11.6-17.2); REVIEW FLAG FINAL; WHITE BLOOD COUNT 12.9 TH/MM3 (4.0-11.0)
[2017-01-30 04:51] LABS: BICARBONATE 23.4 MEQ/L (21.0-32.0); POTASSIUM 3.6 MEQ/L (3.5-5.1)
[2017-01-30 05:04] LABS: INTERNATIONAL NORMALIZED RATIO 1.5 RATIO; PROTHROMBIN TIME - PATIENT 16.7 SEC (9.8-11.6)
[2017-01-30] MEDS: metroNIDAZOLE 500 MG INJ 100 ML IV SCH ×4 (05:18→22:19)
[2017-01-30] MEDS: INSULIN ASPART SUPPLEMENTAL SCALE SQ SCH ×4 (07:00→22:21)
[2017-01-30] MEDS: AZTREONAM INJ 1,000 MG in SODIUM CHLORIDE 0.9% INJ 100 ML IV SCH ×2 (07:49→14:30)
[2017-01-30] MEDS: CHLORHEXIDINE 0.12% (ORAL KIT) 15 ML CUP MT SCH ×2 (08:00→22:06)
[2017-01-30] MEDS: ARTIFICIAL TEARS OPTH SOLN 15 ML BTL EACH EYE SCH ×3 (09:00→17:08)
[2017-01-30] MEDS: METOPROLOL TARTRATE 25 MG TAB PO SCH ×2 (09:00→22:20)
[2017-01-30] MEDS: SODIUM CHLORIDE 0.9% FLUSH 10 ML FLUSH IV FLUSH SCH ×2 (09:00→22:06)
[2017-01-30] MEDS: DOCUSATE SODIUM 50 MG/SENNA 8.6 MG TAB PO SCH ×2 (10:15→22:20)
[2017-01-30] MEDS: FUROSEMIDE 20 MG/2 ML VIAL IV PUSH SCH (10:15)
[2017-01-30] MEDS: PANTOPRAZOLE SODIUM 40 MG VIAL IV PUSH SCH (10:15)
--- NOTE | 2017-01-30 15:33 | HHI.HCPN ---
Reason for visit a. To assist with evaluation and management of symptoms including: Shortness of breath and debility. b. To assist medical decision maker(s) with: better understanding of current medical conditions; weighing benefits/burdens of medical treatment options; making medical treatment decisions. . Subjective/Interval History Mr. 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 Patient presented to ED on 01/17/17 secondary to respiratory distress. Patient was intubated and placed on mechanical ventilation, course complicated by aspiration pneumonia. Palliative care has been consulted for clarifications of goals of care. Patient was medically extubated on 01/22/17. He was subsequently transferred to the medical floor. Clinical course complicated on 01/26/17 secondary to hypoxemic respiratory failure requiring reintubation and mechanical ventilation. Patient seen in ICU, remains orally intubated on mechanical ventilation -Day #5. Sedated, briefly opening eyes to tactile stimuli. Remains afebrile, stable hemodynamically. 40% FiO2, oxygen sat in the high 90s. No new imaging for review. Lengthy telephone conversation with patient's brother Freddy Rojo ([facility]). Medical update provided. Reviewed clinical complications to include hypoxemic respiratory failure, end-stage systolic heart failure and chronic aspiration pneumonias. Case has been discussed with Dr. Wild. patient not likely to be medically extubated given the above. Discussed risks, benefits and limitations of tracheostomy, PEG tube and CPR given multiple ongoing acute on chronic comorbidities, acute events and profound physical deconditioning. Patient's brother tells me that he is not likely to agree with trach and peg. Discussed continuation of current management vs transition patient to comfort-directed care/withdrawal life support in the lower natural to occur. Patient's brother tells me that he needs to further discuss with additional siblings and patient's significant other. Goal of therapy at this time is to allow 24-48 hrs to reevaluate patient's clinical condition and allow time for family to travel from [place]. Brother brother tells me that family would likely transition patient to comfort-directed care given the above. Case discussed with Dr. Wild and bedside RN. . Family/friend interactions See interval note. . Advance Directives Living Will: Completed, but not made available Health Care Surrogate: Completed, but not made available Durable Power of Buyer Broker: Never completed Advance Directive Specifics Date completed: 05/12/1997. . Health Care Surrogate(s): Patient's brother Freddy Rojo listed as HCS. Alternate surrogate is other siblings Ed Rojo. . Documented care wishes: Living will with standard verbiage as it pertains to terminal condition or persistent vegetative state. . Significant change in goals: Goals of therapy remain unchanged. . Objective Vital Signs Date Time Temp Pulse Resp B/P Pulse Ox O2 Delivery O2 Flow Rate FiO2 01/30/17 14:02 66 01/30/17 12:05 67 01/30/17 12:00 40 01/30/17 12:00 97.8 71 16 109/59 100 01/30/17 11:08 97 40 01/30/17 10:00 69 01/30/17 08:23 99 40 01/30/17 08:00 66 01/30/17 08:00 40 01/30/17 08:00 98.8 66 16 128/60 99 01/30/17 06:00 65 01/30/17 04:34 100 40 01/30/17 04:00 40 01/30/17 04:00 98.3 70 16 113/58 99 01/30/17 04:00 70 01/30/17 02:00 70 01/30/17 01:06 95 40 01/30/17 00:00 72 01/30/17 00:00 40 01/30/17 00:00 98.6 72 17 136/62 100 01/29/17 22:00 62 01/29/17 20:16 99 40 01/29/17 20:00 40 01/29/17 20:00 97.7 64 16 114/60 99 01/29/17 20:00 64 01/29/17 19:00 99 Mechanical Ventilator 40 01/29/17 16:31 100 40 01/29/17 16:00 97.5 64 16 106/60 99 01/29/17 16:00 40 Intake & Output 01/30/17 01/30/17 07:00 19:00 Intake Total 1508 ml 884 ml Output Total 450 ml 550 ml Balance 1058 ml 334 ml IV Total 1159 ml 405 ml Tube Feeding 319 ml 479 ml Tube Irrigant 30 ml Output Urine Total 450 ml 550 ml # Bowel Movements 0 Physical Exam CONSTITUTIONAL/GENERAL: This is an adequately nourished patient, in no apparent distress. Orally intubated on mechanical ventilation. TUBES/LINES/DRAINS: ETT, OG, PIV's, SCDs, Edge catheter, bilateral soft wrist restraints. SKIN: No jaundice, rashes, or lesions. Ecchymoses on upper extremities. Skin temperature appropriate. Not diaphoretic. HEAD: Atraumatic. Normocephalic. EYES: Pupils equal and round and reactive. Extraocular motions intact. No scleral icterus. No injection or drainage. ENT: Hearing appears normal. Nose without bleeding or purulent drainage. Moist oral mucosa. Endotracheal tube. NECK: Trachea midline. Supple. CARDIOVASCULAR: Regular rate and rhythm. Peripheral pulses symmetric. RESPIRATORY/CHEST: Symmetric, unlabored respirations. Inspiratory crackles bilaterally. Endotracheal intubation and mechanical ventilation. GASTROINTESTINAL: Abdomen soft, nondistended. Bowel sounds present. MUSCULOSKELETAL:. Extremities without clubbing, cyanosis. Edema to bilateral arms and hands. NEUROLOGICAL: Sedated. Briefly opening eyes to tactile stimuli. PSYCHIATRIC: Unable to assess secondary to clinical condition, sedated. Diagnostic Tests Laboratory Laboratory Tests Test 01/28/17 01/28/17 01/28/17 01/29/17 04:20 16:00 18:36 06:20 Prothrombin Time 33.2 SEC 23.4 SEC (9.8-11.6) (9.8-11.6) Prothromb Time International 2.9 RATIO 2.1 RATIO Ratio Urine Color YELLOW (YELLW/STRAW) Urine Turbidity CLEAR (CLEAR) Urine pH 5.5 (5.0-8.5) Urine Specific Dawson 1.019 (1.002-1.035) Urine Protein NEG mg/dL (NEG-TRACE) Urine Glucose (UA) NEG mg/dL (NEG) Urine Ketones 10 mg/dL (NEG) Urine Occult Blood SMALL (NEG) Urine Nitrite NEG (NEG) Urine Bilirubin NEG (NEG) Urine Urobilinogen LESS THAN 2.0 MG/DL (LESS THAN 2.0) Urine Leukocyte Esterase NEG (NEG) Urine RBC 3 /hpf (0-3) Urine WBC 1 /hpf (0-5) Urine Hyaline Casts 2 /lpf (RARE) Urine Mucus FEW /lpf (OCC) Microscopic Urinalysis Comment CATH-CULT NOT IND White Blood Count 11.6 TH/MM3 12.5 TH/MM3 (4.0-11.0) (4.0-11.0) Red Blood Count 4.29 MIL/MM3 4.12 MIL/MM3 (4.50-5.90) (4.50-5.90) Hemoglobin 10.8 GM/DL 10.5 GM/DL (13.0-17.0) (13.0-17.0) Hematocrit 34.0 % 32.1 % (39.0-51.0) (39.0-51.0) Mean Corpuscular Volume 79.1 FL 77.8 FL (80.0-100.0) (80.0-100.0) Mean Corpuscular Hemoglobin 25.2 PG 25.6 PG (27.0-34.0) (27.0-34.0) Mean Corpuscular Hemoglobin 31.9 % 32.9 % Concent (32.0-36.0) (32.0-36.0) Red Cell Distribution Width 20.4 % 21.0 % (11.6-17.2) (11.6-17.2) Platelet Count 509 TH/MM3 484 TH/MM3 (150-450) (150-450) Mean Platelet Volume 8.5 FL 8.2 FL (7.0-11.0) (7.0-11.0) Sodium Level 141 MEQ/L 141 MEQ/L (136-145) (136-145) Potassium Level 4.1 MEQ/L 3.7 MEQ/L (3.5-5.1) (3.5-5.1) Chloride Level 108 MEQ/L 109 MEQ/L (98-107) (98-107) Carbon Dioxide Level 25.4 MEQ/L 24.1 MEQ/L (21.0-32.0) (21.0-32.0) Anion Gap 8 MEQ/L (5-15) 8 MEQ/L (5-15) Blood Urea Nitrogen 26 MG/DL (7-18) 26 MG/DL (7-18) Creatinine 0.82 MG/DL 0.69 MG/DL (0.60-1.30) (0.60-1.30) Estimat Glomerular Filtration 91 ML/MIN (>89) 111 ML/MIN Rate (>89) Random Glucose 135 MG/DL 108 MG/DL (74-106) (74-106) Calcium Level 7.9 MG/DL 7.8 MG/DL (8.5-10.1) (8.5-10.1) Test 01/30/17 01/30/17 01/30/17 03:45 04:20 04:35 Vancomycin Level Trough 15.7 MCG/ML (5.0-10.0) White Blood Count 12.9 TH/MM3 (4.0-11.0) Red Blood Count 4.20 MIL/MM3 (4.50-5.90) Hemoglobin 10.9 GM/DL (13.0-17.0) Hematocrit 32.9 % (39.0-51.0) Mean Corpuscular Volume 78.4 FL (80.0-100.0) Mean Corpuscular Hemoglobin 25.9 PG (27.0-34.0) Mean Corpuscular Hemoglobin 33.0 % Concent (32.0-36.0) Red Cell Distribution Width 20.8 % (11.6-17.2) Platelet Count 509 TH/MM3 (150-450) Mean Platelet Volume 8.7 FL (7.0-11.0) Sodium Level 143 MEQ/L (136-145) Potassium Level 3.6 MEQ/L (3.5-5.1) Chloride Level 112 MEQ/L (98-107) Carbon Dioxide Level 23.4 MEQ/L (21.0-32.0) Anion Gap 8 MEQ/L (5-15) Blood Urea Nitrogen 26 MG/DL (7-18) Creatinine 0.80 MG/DL (0.60-1.30) Estimat Glomerular Filtration 93 ML/MIN (>89) Rate Random Glucose 152 MG/DL (74-106) Calcium Level 8.0 MG/DL (8.5-10.1) Prothrombin Time 16.7 SEC (9.8-11.6) Prothromb Time International 1.5 RATIO Ratio Result Diagram: 01/30/1741901/30/17419 Microbiology Microbiology Date/Time Procedure Status Source Growth 01/28/17 18:30 Aerobic Blood Culture - Preliminary Resulted Blood Peripheral NO GROWTH IN 2 DAYS 01/28/17 18:30 Anaerobic Blood Culture - Preliminary Resulted Blood Peripheral NO GROWTH IN 2 DAYS 01/28/17 18:36 Aerobic Blood Culture - Preliminary Resulted Blood Peripheral NO GROWTH IN 2 DAYS 01/28/17 18:36 Anaerobic Blood Culture - Preliminary Resulted Blood Peripheral NO GROWTH IN 2 DAYS 01/29/17 09:02 Gram Stain - Final Resulted Sputum Endotracheal 01/29/17 09:02 Sputum Culture Resulted Sputum Endotracheal Pending Procedures * 02/22/17 -Reintubation * 01/22/17 -extubation * 01/17/17 -endotracheal intubation . Assessment and Plan Disease Oriented Problem List: (1) Respiratory failure (2) Aspiration pneumonia (3) Coronary artery disease (4) Atrial fibrillation (5) History of CVA (cerebrovascular accident) (6) Ischemic cardiomyopathy (7) Hypertension (8) Systolic CHF Symptom Scale: (1) Shortness of breath 0-10 Scale: Unable to quantify Comment: Extubated on 01/22/17. Reintubated 01/26/17. History of chronic aspiration pneumonias. (2) Debility 0-10 Scale: Unable to quantify Comment: Progressive, status post CVA 09/22/16. Pertinent Non-Medical Issues Psychosocial: Originally from [place]. . Not to significant other. Has 5 or 6 children, unknown whereabouts. Served in the [employer] for 7 years. Spiritual: Sabianism katherine. Legal: Pending copy of advance directives. Ethical issues impacting care: Pending copy of advance directives. . Important Contacts Significant other Deanna Turnerina Chadd [phone] & . Brother Freddy Rojo . . Prognosis Mr. Rojo is a 76-year-old male with a medical history significant for atrial fibrillation on anticoagulation, ischemic cardiomyopathy, EF of 20%, CAD x 5 stones, multiple prior CVA and B-cell lymphoma, on remission. Patient presented on 01/17/17 to ED [facility] secondary to respiratory distress. Patient emergently intubated and placed on mechanical ventilation. Clinical course complicated by aspiration pneumonia and respiratory failure. Patient at a very high risk for further complications, continue decline and given multiple comorbidities, acute events, recent prolonged hospitalization s/p CVA requiring rehabilitation, physical deconditioning and advanced age. . Code Status: Full Code Plan * CODE STATUS: Full code. Risks, benefits and limitations of CPR, intubation and mechanical ventilation have been discussed with patient's brother Freddy ( HCS) and readdressed on 01/30/17 given worsening clinical condition. * HEALTHCARE DECISION-MAKING: Patient unable to participate in medical decision- making, orally intubated on mechanical ventilation -sedated. Living will and designation of healthcare surrogate secured, patient designated his brother Freddy Rojo as HCS and brother Jose Luis Rojo as alternate surrogate. * GOALS OF CARE: Patient's brother Freddy Rojo acting as HCS is electing to continue current medical management for an additional 24-48 hours while discussing goals of care with additional family members. Brother tells me that family is NOT likely to proceed with tracheostomy or PEG tube placement given overall poor prognosis -multiple acute on chronic comorbidities, end-stage systolic heart failure, chronic aspirations and profound physical deconditioning. Comfort-directed care/withdrawal of life support process has been discussed with brothevaristo Hayes. Patient's brother Jose Luis (currently in [place]) likely to visit patient within the next 24-48 hours. * SYMPTOMS: = Shortness of breath, secondary to aspiration pneumonia, respiratory failure. Reintubated 01/26/17 secondary to hypoxemic respiratory failure. Not likely to medically extubate. = Debility, secondary to recent CVA and prolonged hospitalization. [facility] to this acute event. * Case has been discussed with Dr. Jung and bedside RN. * Palliative contact information has been provided to patient and family. * Palliative care will continue to follow-up for further clarifications of goals of care as patient's clinical course continues to evolve. . Time Spent Total Floor Time (mins): 42 (Total time to include review medical records, physical exam, 2 separate telephone conversations with patient's brother Freddy , case discussion with Dr. Jung and bedside RN.) >50% Counseling/Coord of Care: Yes Attestation To help prompt me to consider important information that might be impacting today's encounter and assessment, information from prior notes written by myself or my colleagues may have been "brought forward" into today's note. My signature on this note, however, is an attestation that I personally performed the exam, history, and/or decision-making noted today, and, unless otherwise indicated, the interactions with patient, family, and staff as well as the review of records all occurred today. I also attest that the listed assessment and stated plan reflect my best clinical judgment today based on the combination of historical information, prior notes, and today's exam/ interactions. When time spent is documented, it refers only to time spent today by the signer, or if indicated, combined time spent today by collaborating physician/nurse practitioner. Carline Thomas Jan 30, 2017 15:33
[2017-01-30] MEDS: WARFARIN SOD 1 MG TAB PO SCH (17:08)
--- NOTE | 2017-01-30 23:00 | HHI.CCPN ---
Subjective Remarks/Hospital Course 76-year-old gentleman with a history of ischemic cardiomyopathy EF 20%, A. 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 Patient was apparently supposed to be on a clear liquid diet however was noncompliant and was eating solid food. Today at the skilled nursing he was found to be vomiting undigested food around 3 PM. The the patient was transferred to hospitalist around 7 PM. He is now intubated and sedated. Subjective: 01/18:TMax 100.0. Noted to short runs of A. fib RVR self corrected, this afternoon. Interrogation of AICD pending. Patient's secretions noted to be thick vela colored and copious .Sputum cultures pending. 01/19: Leukocytosis resolving, chest x-ray improving. The patient chin's AICD was interrogated yesterday, the patient did have episodes of V. tach at 192 bpm but no therapy /was initiated. Ventricular Tach settings 240 bpm, with a VVI pacer lower rate limit at 40. Plans had attempt for CPAP trials this evening or in a.m.. 01/20: Leukocytosis resolved. Patient has remained on CPAP all day. Will continue CPAP throughout the night, if clinically stable. Patient is GCS 11 T. 01/22: Awake and alert. Not following commands. Tolerated C Pap today. Ordered extubation 01/23: Extubated on 01/22. On nasal cannula currently. Awake and alert, following commands. 01/26: Called for hypoxemic respiratory failure; requires immediate intubation and mechanical ventilation. Patient gurgling with lots of oral secretions but very little secretions in trachea. 01/27: Very weak. Minimal secretions. Ahead on fluid. 01/28: still very weak. copious secretions. wbc uptrending. febrile. still volume overloaded. 01/29: Cr stable. wbc stable. still with copious secretions. cultures pending. 01/30: no clinical change. no improvements. secretions persist. Objective Vital Signs Date Time Temp Pulse Resp B/P Pulse Ox O2 Delivery O2 Flow Rate FiO2 01/30/17 20:30 100 40 01/30/17 16:00 97.7 72 16 132/69 01/29/17 19:00 Mechanical Ventilator 01/26/17 14:10 15.00 Intake and Output 01/29/17 01/29/17 01/29/17 07:59 15:59 23:59 Intake Total 825 ml 538 ml 611 ml Output Total 250 ml 550 ml 250 ml Balance 575 ml -12 ml 361 ml Result Diagram: 01/30/17 0420 01/30/17 042 Imaging Last 24 hours Impressions Chest X-Ray 01/17/171903 Signed Impressions: Service Date/Time: Tuesday, January 17, 2017 19:34 - CONCLUSION: Cardiomegaly with bilateral perihilar edema. Terry Cowart MD Abdomen/Pelvis CT 01/17/171903 Signed Impressions: Service Date/Time: Tuesday, January 17, 2017 20:09 - CONCLUSION: 1. Air in the biliary tree likely postsurgical. 2. Complex cyst right kidney containing calcifications. 3. Right sided perinephric coarse calcifications likely related to previous treatment or previous hematoma. 4. Benign myelolipoma left adrenal gland. 5. Bibasilar consolidation greater in the left lower lobe. 6. Diverticulosis without diverticulitis. 7. No bowel obstruction. 8. Atrophic left kidney containing nonobstructing renal calculi. Terry Cowart MD Objective Remarks GENERAL: Elderly gentleman, weak. SKIN: Warm and dry. HEAD: Normocephalic. EYES: No scleral icterus. No injection or drainage. NECK: Supple, trachea midline. Copious secretions in endotracheal tube. CARDIOVASCULAR: Regular rate and rhythm without murmurs, gallops, or rubs. RESPIRATORY: Breath sounds equal bilaterally. No accessory muscle use. Scattered rhonchi bilaterally GASTROINTESTINAL: Abdomen soft, non-tender, nondistended. Mildly distended. MUSCULOSKELETAL: No cyanosis, or edema. EXTREMITIES: No clubbing cyanosis or edema. NEURO: Largely unresponsive. Pupils 2 mm, react. Withdraws 4 limbs to pain. Procedures intubation/extubation A/P Assessment and Plan Assessment: 76yM with ischemic cardiomyopathy, EF 20%, systolic CHF exacerbation , volume overload and now sepsis likely recurrent aspiration pneumonia. His chronic declining course over the last 6 months suggest that he has a very poor prognosis. family continues to want to be aggressive. continue abx. no meaningful improvements. off pathway. Respiratory failure Aspiration pneumonia -Recurrent hypoxemic failure. - vent bundle, hob at 30 degrees, nebs - no SBT today given severe weakness and copious secretions - continue broad spectrum abx. await culture data. Hypertension - Clonazepam PRN - increase Lasix to 40mg iv daily. Systolic CHF Exacerbation, persistent - 01/18 Repeat 2-D echo-Mild Pulm HTN, EF 20%, Mild regurgitation tricuspid valve. - Supportive care History of CVA - Anticoagulation - Coumadin dosing per pharmacy GABY- resolving. -Creatinine improving DVT GI prophylaxis - Pantoprazole - Warfarin - Teds and SCDs Overall impression: Critically ill and hypoxemic. This is end-stage systolic heart failure and chronic aspiration - will need long-term acute care if goals remain aggressive. continue broad spectrum abx. Juan Jung MD Jan 30, 2017 23:00
[2017-01-31] VITALS (15 sets, daily range): BP systolic 86–111; BP diastolic 50–79; PULSE 53–76; RESP 16–22; TEMP 97.8–99.1; O2SAT 99–100
[2017-01-31] MEDS: CHLORHEXIDINE GLUCONATE 2 % 1 PACK (2 CLOTHS) TOP SCH (04:00)
[2017-01-31] MEDS: VANCOMYCIN 1,000 MG/NS 250 ML IV SCH ×4 (04:12→16:00)
[2017-01-31 05:03] LABS: HEMATOCRIT 34.4 % (39.0-51.0); MEAN CELL VOLUME 80.2 FL (80.0-100.0); MEAN CORPUSCULAR HEMOGLOBIN 25.2 PG (27.0-34.0); MEAN CORPUSCULAR HGB CONC 31.4 % (32.0-36.0); PLATELET COUNT 532 TH/MM3 (150-450); RED BLOOD COUNT 4.29 MIL/MM3 (4.50-5.90); RED CELL DISTRIBUTION WIDTH 21.2 % (11.6-17.2); REVIEW FLAG FINAL; WHITE BLOOD COUNT 11.1 TH/MM3 (4.0-11.0)
[2017-01-31] MEDS: PROPOFOL 1000 MG/100 ML INJ 100 ML IV SCH ×2 (05:08→08:10)
[2017-01-31] MEDS: metroNIDAZOLE 500 MG INJ 100 ML IV SCH ×3 (05:08→17:00)
[2017-01-31 05:14] LABS: INTERNATIONAL NORMALIZED RATIO 1.2 RATIO; PROTHROMBIN TIME - PATIENT 13.8 SEC (9.8-11.6)
[2017-01-31 05:34] LABS: BICARBONATE 25.4 MEQ/L (21.0-32.0); POTASSIUM 3.6 MEQ/L (3.5-5.1)
[2017-01-31] MEDS: AZTREONAM INJ 1,000 MG in SODIUM CHLORIDE 0.9% INJ 100 ML IV SCH ×3 (06:38→15:00)
[2017-01-31] MEDS: PANTOPRAZOLE SODIUM 40 MG VIAL IV PUSH SCH (07:59)
[2017-01-31] MEDS: DOCUSATE SODIUM 50 MG/SENNA 8.6 MG TAB PO SCH ×2 (07:59→21:00)
[2017-01-31] MEDS: FUROSEMIDE 20 MG/2 ML VIAL IV PUSH SCH (07:59)
[2017-01-31] MEDS: METOPROLOL TARTRATE 25 MG TAB PO SCH ×3 (07:59→21:00)
[2017-01-31] MEDS: SODIUM CHLORIDE 0.9% FLUSH 10 ML FLUSH IV FLUSH SCH ×2 (08:00→21:00)
[2017-01-31] MEDS: CHLORHEXIDINE 0.12% (ORAL KIT) 15 ML CUP MT SCH ×2 (08:00→20:00)
[2017-01-31] MEDS: ARTIFICIAL TEARS OPTH SOLN 15 ML BTL EACH EYE SCH ×3 (08:00→18:00)
[2017-01-31] MEDS: INSULIN ASPART SUPPLEMENTAL SCALE SQ SCH ×4 (08:01→21:00)
[2017-01-31] MEDS: WARFARIN SOD 1 MG TAB PO SCH (16:00)
--- NOTE | 2017-01-31 19:54 | HHI.CCPN ---
Subjective Remarks/Hospital Course 76-year-old gentleman with a history of ischemic cardiomyopathy EF 20%, A. 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 Patient was apparently supposed to be on a clear liquid diet however was noncompliant and was eating solid food. Today at the group home he was found to be vomiting undigested food around 3 PM. The the patient was transferred to hospitalist around 7 PM. He is now intubated and sedated. Subjective: 01/18:TMax 100.0. Noted to short runs of A. fib RVR self corrected, this afternoon. Interrogation of AICD pending. Patient's secretions noted to be thick vela colored and copious .Sputum cultures pending. 01/19: Leukocytosis resolving, chest x-ray improving. The patient chin's AICD was interrogated yesterday, the patient did have episodes of V. tach at 192 bpm but no therapy /was initiated. Ventricular Tach settings 240 bpm, with a VVI pacer lower rate limit at 40. Plans had attempt for CPAP trials this evening or in a.m.. 01/20: Leukocytosis resolved. Patient has remained on CPAP all day. Will continue CPAP throughout the night, if clinically stable. Patient is GCS 11 T. 01/22: Awake and alert. Not following commands. Tolerated C Pap today. Ordered extubation 01/23: Extubated on 01/22. On nasal cannula currently. Awake and alert, following commands. 01/26: Called for hypoxemic respiratory failure; requires immediate intubation and mechanical ventilation. Patient gurgling with lots of oral secretions but very little secretions in trachea. 01/27: Very weak. Minimal secretions. Ahead on fluid. 01/28: still very weak. copious secretions. wbc uptrending. febrile. still volume overloaded. 01/29: Cr stable. wbc stable. still with copious secretions. cultures pending. 01/30: no clinical change. no improvements. secretions persist. 01/31: no improvements. sputum growing GNRs. Objective Vital Signs Date Time Temp Pulse Resp B/P Pulse Ox O2 Delivery O2 Flow Rate FiO2 01/31/17 19:35 100 40 01/31/17 16:00 99.1 59 16 86/50 01/29/17 19:00 Mechanical Ventilator Intake and Output 01/30/17 01/30/17 01/31/17 08:00 16:00 00:00 Intake Total 897 ml 884 ml 1148 ml Output Total 200 ml 550 ml 350 ml Balance 697 ml 334 ml 798 ml Result Diagram: 01/31/17 0432 01/31/17 0432 Imaging Last 24 hours Impressions Chest X-Ray 01/17/171903 Signed Impressions: Service Date/Time: Tuesday, January 17, 2017 19:34 - CONCLUSION: Cardiomegaly with bilateral perihilar edema. Terry Cowart MD Abdomen/Pelvis CT 01/17/171903 Signed Impressions: Service Date/Time: Tuesday, January 17, 2017 20:09 - CONCLUSION: 1. Air in the biliary tree likely postsurgical. 2. Complex cyst right kidney containing calcifications. 3. Right sided perinephric coarse calcifications likely related to previous treatment or previous hematoma. 4. Benign myelolipoma left adrenal gland. 5. Bibasilar consolidation greater in the left lower lobe. 6. Diverticulosis without diverticulitis. 7. No bowel obstruction. 8. Atrophic left kidney containing nonobstructing renal calculi. Terry Cowart MD Objective Remarks GENERAL: Elderly gentleman, weak. SKIN: Warm and dry. HEAD: Normocephalic. EYES: No scleral icterus. No injection or drainage. NECK: Supple, trachea midline. Copious secretions in endotracheal tube. CARDIOVASCULAR: Regular rate and rhythm without murmurs, gallops, or rubs. RESPIRATORY: Breath sounds equal bilaterally. No accessory muscle use. Scattered rhonchi bilaterally GASTROINTESTINAL: Abdomen soft, non-tender, nondistended. Mildly distended. MUSCULOSKELETAL: No cyanosis, or edema. EXTREMITIES: No clubbing cyanosis or edema. NEURO: Largely unresponsive. Pupils 2 mm, react. Withdraws 4 limbs to pain. Procedures intubation/extubation A/P Assessment and Plan Assessment: 76yM with ischemic cardiomyopathy, EF 20%, systolic CHF exacerbation , volume overload and now sepsis likely recurrent aspiration pneumonia. His chronic declining course over the last 6 months suggest that he has a very poor prognosis. family continues to want to be aggressive. continue abx. no meaningful improvements. off pathway. Respiratory failure Aspiration pneumonia -Recurrent hypoxemic failure. - vent bundle, hob at 30 degrees, nebs - no SBT today given severe weakness and copious secretions - continue broad spectrum abx. await speciation on GNR pneumonia Hypertension - Clonazepam PRN - Lasix to 40mg iv daily. Systolic CHF Exacerbation, persistent - 01/18 Repeat 2-D echo-Mild Pulm HTN, EF 20%, Mild regurgitation tricuspid valve. - Supportive care History of CVA - Anticoagulation - Coumadin dosing per pharmacy GABY- resolving. -Creatinine improving DVT GI prophylaxis - Pantoprazole - Warfarin - Teds and SCDs Overall impression: Critically ill and hypoxemic. This is end-stage systolic heart failure and chronic aspiration - will need long-term acute care if goals remain aggressive. continue broad spectrum abx. Juan Jung MD Jan 31, 2017 19:53
[2017-02-01] VITALS (19 sets, daily range): BP systolic 99–111; BP diastolic 54–58; PULSE 7–82; RESP 16–20; TEMP 98.3–99.1; O2SAT 98–100
[2017-02-01] MEDS: AZTREONAM INJ 1,000 MG in SODIUM CHLORIDE 0.9% INJ 100 ML IV SCH ×4 (00:25→21:16)
[2017-02-01] MEDS: metroNIDAZOLE 500 MG INJ 100 ML IV SCH ×5 (00:26→21:16)
[2017-02-01] MEDS: CHLORHEXIDINE GLUCONATE 2 % 1 PACK (2 CLOTHS) TOP SCH (04:00)
[2017-02-01 04:39] LABS: HEMATOCRIT 31.6 % (39.0-51.0); MEAN CELL VOLUME 81.7 FL (80.0-100.0); MEAN CORPUSCULAR HEMOGLOBIN 27.4 PG (27.0-34.0); MEAN CORPUSCULAR HGB CONC 33.5 % (32.0-36.0); PLATELET COUNT 100 TH/MM3 (150-450); RED BLOOD COUNT 3.86 MIL/MM3 (4.50-5.90); RED CELL DISTRIBUTION WIDTH 19.6 % (11.6-17.2); REVIEW FLAG FINAL; WHITE BLOOD COUNT 14.5 TH/MM3 (4.0-11.0)
[2017-02-01 04:45] LABS: INTERNATIONAL NORMALIZED RATIO 1.2 RATIO; PROTHROMBIN TIME - PATIENT 13.6 SEC (9.8-11.6)
[2017-02-01] MEDS: VANCOMYCIN 1,000 MG/NS 250 ML IV SCH ×2 (04:45)
[2017-02-01 05:09] LABS: BICARBONATE 33.3 MEQ/L (21.0-32.0)
[2017-02-01 05:19] LABS: POTASSIUM 2.1 MEQ/L (3.5-5.1)
[2017-02-01] MEDS: POTASSIUM CHLORIDE 25 MEQ EFFERVESCENT TAB PO PRN (05:58)
[2017-02-01 06:23] LABS: BICARBONATE 27.9 MEQ/L (21.0-32.0); POTASSIUM 4.1 MEQ/L (3.5-5.1)
[2017-02-01] MEDS: PROPOFOL 1000 MG/100 ML INJ 100 ML IV SCH ×2 (06:52→16:19)
[2017-02-01] MEDS: INSULIN ASPART SUPPLEMENTAL SCALE SQ SCH ×4 (07:00→21:00)
[2017-02-01] MEDS: CHLORHEXIDINE 0.12% (ORAL KIT) 15 ML CUP MT SCH ×2 (08:00→20:00)
[2017-02-01] MEDS: FUROSEMIDE 20 MG/2 ML VIAL IV PUSH SCH (08:45)
[2017-02-01] MEDS: PANTOPRAZOLE SODIUM 40 MG VIAL IV PUSH SCH (08:45)
[2017-02-01] MEDS: DOCUSATE SODIUM 50 MG/SENNA 8.6 MG TAB PO SCH ×2 (08:45→21:16)
[2017-02-01] MEDS: ARTIFICIAL TEARS OPTH SOLN 15 ML BTL EACH EYE SCH ×3 (08:46→18:00)
[2017-02-01] MEDS: METOPROLOL TARTRATE 25 MG TAB PO SCH ×2 (08:46→21:00)
[2017-02-01] MEDS: SODIUM CHLORIDE 0.9% FLUSH 10 ML FLUSH IV FLUSH SCH ×2 (08:46→21:00)
--- NOTE | 2017-02-01 11:40 | HHI.CCPN ---
Subjective Remarks/Hospital Course 76-year-old gentleman with a history of ischemic cardiomyopathy EF 20%, A. 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 Patient was apparently supposed to be on a clear liquid diet however was noncompliant and was eating solid food. Today at the detention he was found to be vomiting undigested food around 3 PM. The the patient was transferred to hospitalist around 7 PM. He is now intubated and sedated. Subjective: 01/18:TMax 100.0. Noted to short runs of A. fib RVR self corrected, this afternoon. Interrogation of AICD pending. Patient's secretions noted to be thick vela colored and copious .Sputum cultures pending. 01/19: Leukocytosis resolving, chest x-ray improving. The patient chin's AICD was interrogated yesterday, the patient did have episodes of V. tach at 192 bpm but no therapy /was initiated. Ventricular Tach settings 240 bpm, with a VVI pacer lower rate limit at 40. Plans had attempt for CPAP trials this evening or in a.m.. 01/20: Leukocytosis resolved. Patient has remained on CPAP all day. Will continue CPAP throughout the night, if clinically stable. Patient is GCS 11 T. 01/22: Awake and alert. Not following commands. Tolerated C Pap today. Ordered extubation 01/23: Extubated on 01/22. On nasal cannula currently. Awake and alert, following commands. 01/26: Called for hypoxemic respiratory failure; requires immediate intubation and mechanical ventilation. Patient gurgling with lots of oral secretions but very little secretions in trachea. 01/27: Very weak. Minimal secretions. Ahead on fluid. 01/28: still very weak. copious secretions. wbc uptrending. febrile. still volume overloaded. 01/29: Cr stable. wbc stable. still with copious secretions. cultures pending. 01/30: no clinical change. no improvements. secretions persist. 01/31: no improvements. sputum growing GNRs. 02/01: No improvement. Will d/c vanc, continue GNR coverage, narrow after speciation. Objective Vital Signs Date Time Temp Pulse Resp B/P Pulse Ox O2 Delivery O2 Flow Rate FiO2 02/01/17 11:23 99 40 02/01/17 10:00 57 02/01/17 08:00 99.1 16 104/58 01/29/17 19:00 Mechanical Ventilator Intake and Output 01/31/17 01/31/17 01/31/17 07:59 15:59 23:59 Intake Total 654 ml 1120 ml 1076 ml Output Total 135 ml 700 ml 250 ml Balance 519 ml 420 ml 826 ml Result Diagram: 02/01/17 0425 02/01/17 0530 Imaging Last 24 hours Impressions Chest X-Ray 01/17/171903 Signed Impressions: Service Date/Time: Tuesday, January 17, 2017 19:34 - CONCLUSION: Cardiomegaly with bilateral perihilar edema. Terry Cowart MD Abdomen/Pelvis CT 01/17/171903 Signed Impressions: Service Date/Time: Tuesday, January 17, 2017 20:09 - CONCLUSION: 1. Air in the biliary tree likely postsurgical. 2. Complex cyst right kidney containing calcifications. 3. Right sided perinephric coarse calcifications likely related to previous treatment or previous hematoma. 4. Benign myelolipoma left adrenal gland. 5. Bibasilar consolidation greater in the left lower lobe. 6. Diverticulosis without diverticulitis. 7. No bowel obstruction. 8. Atrophic left kidney containing nonobstructing renal calculi. Terry Cowart MD Objective Remarks GENERAL: Elderly gentleman, weak. SKIN: Warm and dry. HEAD: Normocephalic. EYES: No scleral icterus. No injection or drainage. NECK: Supple, trachea midline. Copious secretions in endotracheal tube. CARDIOVASCULAR: Regular rate and rhythm without murmurs, gallops, or rubs. RESPIRATORY: Breath sounds equal bilaterally. No accessory muscle use. Scattered rhonchi persist bilaterally GASTROINTESTINAL: Abdomen soft, non-tender, nondistended. Mildly distended. MUSCULOSKELETAL: No cyanosis, or edema. EXTREMITIES: No clubbing cyanosis or edema. NEURO: Largely unresponsive. Pupils 2 mm, react. Withdraws 4 limbs to pain. Procedures intubation/extubation A/P Assessment and Plan Assessment: 76yM with ischemic cardiomyopathy, EF 20%, systolic CHF exacerbation , volume overload and now sepsis likely recurrent aspiration pneumonia. His chronic declining course over the last 6 months suggest that he has a very poor prognosis. family continues to want to be aggressive. continue abx. no meaningful improvements. off pathway. Respiratory failure Aspiration pneumonia -Recurrent hypoxemic failure. - vent bundle, hob at 30 degrees, nebs - no SBT today given severe weakness and copious secretions - continue broad spectrum abx. await speciation on GNR pneumonia Hypertension - Clonazepam PRN - Lasix to 40mg iv daily. Systolic CHF Exacerbation, persistent - 01/18 Repeat 2-D echo-Mild Pulm HTN, EF 20%, Mild regurgitation tricuspid valve. - Supportive care History of CVA - Anticoagulation - Coumadin dosing per pharmacy GABY- resolving. -Creatinine improving DVT GI prophylaxis - Pantoprazole - Warfarin - Teds and SCDs Overall impression: Critically ill and hypoxemic. This is end-stage systolic heart failure and chronic aspiration - will need long-term acute care if goals remain aggressive. Continue broad spectrum abx, narrow soon. Hosea Rubio MD Feb 01, 2017 11:40
--- NOTE | 2017-02-01 12:00 | HHI.HCPN ---
Reason for visit a. To assist with evaluation and management of symptoms including: Shortness of breath and debility. b. To assist medical decision maker(s) with: better understanding of current medical conditions; weighing benefits/burdens of medical treatment options; making medical treatment decisions. . Subjective/Interval History Mr. 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 Patient presented to ED on 01/17/17 secondary to respiratory distress. Patient was intubated and placed on mechanical ventilation, course complicated by aspiration pneumonia. Palliative care has been consulted for clarifications of goals of care. Patient was medically extubated on 01/22/17. He was subsequently transferred to the medical floor. Clinical course complicated on 01/26/17 secondary to hypoxemic respiratory failure requiring reintubation and mechanical ventilation. Patient seen in ICU, remains orally intubated on mechanical ventilation -Day # 7. Sedated, briefly opening eyes to verbal stimuli. Not following commands are attempting to communicate. Sputum culture 01/29/17 positive for gram- negative rods. Laboratory workup today revealing WBC 14.5, Hgb stable at 10.6, platelet count 100 from 532 prior day. Potassium 2.1, replaced. Repeat potassium 4.1. No new imaging for review. Remains afebrile, hypertensive with SBP in the 90s-100's. Currently 40% FiO2, oxygen sat in the high 90s. Telephone conversation with patient's brother Freddy Rojo ([facility]). Medical update provided. Brother tells me that patient's son Samuel Rojo may travel from [place] to visit patient within the next day or two. Reviewed clinical complications to include hypoxemic respiratory failure and chronic aspiration pneumonias. Reviewed overall poor prognosis given acute events, end- stage systolic heart failure with EF 20%, multiple ongoing acute on chronic comorbidities and profound physical deconditioning. Patient with documented chronic decline for the past 6 months, exacerbated post CVA in August 2016. Case has been discussed with Dr. Wild. patient not likely to be medically extubated given the above. Discussed risks, benefits and limitations of tracheostomy, PEG tube and CPR given the above. Patient's brother acting as HCS is electing to change CODE STATUS from full code to alternate code/ intubation only. Patient's brother tells me that after much discussion with family, family not likely to proceed with tracheostomy and PEG tube. Family considering transitioning patient to comfort-directed care/withdrawal life support by the end of the week. Case discussed with bedside RN Simone. . Family/friend interactions See interval note. . Advance Directives Living Will: Completed, but not made available Health Care Surrogate: Completed, but not made available Durable Power of Printing Roller Handler: Never completed Advance Directive Specifics Date completed: 05/12/1997. . Health Care Surrogate(s): Patient's brother Freddy Rojo listed as [facility]. Alternate surrogate is other siblings Ed Rojo. . Documented care wishes: Living will with standard verbiage as it pertains to terminal condition or persistent vegetative state. . Significant change in goals: ALT code/intubation only. Objective Vital Signs Date Time Temp Pulse Resp B/P Pulse Ox O2 Delivery O2 Flow Rate FiO2 02/01/17 11:23 99 40 02/01/17 10:00 57 02/01/17 08:00 57 02/01/17 08:00 99.1 66 16 104/58 99 02/01/17 08:00 40 02/01/17 07:17 99 40 02/01/17 06:00 71 02/01/17 04:35 98 40 02/01/17 04:00 98.3 65 16 111/54 100 Arterial Line 02/01/17 04:00 40 02/01/17 04:00 65 02/01/17 02:00 68 02/01/17 00:08 98 40 02/01/17 00:00 67 02/01/17 00:00 40 02/01/17 00:00 98.5 68 20 99/55 100 Arterial Line 01/31/17 22:00 58 01/31/17 20:00 64 01/31/17 20:00 97.8 64 22 101/54 100 01/31/17 20:00 40 01/31/17 19:35 100 40 01/31/17 16:15 100 40 01/31/17 16:00 99.1 59 16 86/50 99 01/31/17 16:00 40 01/31/17 12:00 40 01/31/17 12:00 97.9 60 20 98/52 100 Intake & Output 02/01/17 02/01/17 06:59 18:59 Intake Total 2201 ml Output Total 550 ml Balance 1651 ml IV Total 927 ml Tube Feeding 857 ml Lipid 177 ml Tube Irrigant 240 ml Output Urine Total 550 ml Gastric Drainage Total 0 ml # Bowel Movements 0 Physical Exam CONSTITUTIONAL/GENERAL: This is an adequately nourished patient, in no apparent distress. Orally intubated on mechanical ventilation. TUBES/LINES/DRAINS: ETT, OG, PIV's, SCDs, Edge catheter, bilateral soft wrist restraints. SKIN: No jaundice, rashes, or lesions. Ecchymoses on upper extremities. Skin temperature appropriate. Not diaphoretic. HEAD: Atraumatic. Normocephalic. EYES: Pupils equal and round and reactive. Extraocular motions intact. No scleral icterus. No injection or drainage. ENT: Hearing appears normal. Nose without bleeding or purulent drainage. Moist oral mucosa. Endotracheal tube. NECK: Trachea midline. Supple. CARDIOVASCULAR: Regular rate and rhythm. Peripheral pulses symmetric. RESPIRATORY/CHEST: Symmetric, unlabored respirations. Endotracheal intubation and mechanical ventilation. GASTROINTESTINAL: Abdomen soft, nondistended. Bowel sounds present. MUSCULOSKELETAL:. Extremities without clubbing, cyanosis. Edema to bilateral arms and hands. NEUROLOGICAL: Sedated. Briefly opening eyes to verbal stimuli. Not following commands are attempting to communicate. PSYCHIATRIC: Unable to assess secondary to clinical condition, sedated. . Diagnostic Tests Laboratory Laboratory Tests Test 01/30/17 01/30/17 01/30/17 01/31/17 03:45 04:20 04:35 04:32 Vancomycin Level Trough 15.7 MCG/ML (5.0-10.0) White Blood Count 12.9 TH/MM3 11.1 TH/MM3 (4.0-11.0) (4.0-11.0) Red Blood Count 4.20 MIL/MM3 4.29 MIL/MM3 (4.50-5.90) (4.50-5.90) Hemoglobin 10.9 GM/DL 10.8 GM/DL (13.0-17.0) (13.0-17.0) Hematocrit 32.9 % 34.4 % (39.0-51.0) (39.0-51.0) Mean Corpuscular Volume 78.4 FL 80.2 FL (80.0-100.0) (80.0-100.0) Mean Corpuscular Hemoglobin 25.9 PG 25.2 PG (27.0-34.0) (27.0-34.0) Mean Corpuscular Hemoglobin 33.0 % 31.4 % Concent (32.0-36.0) (32.0-36.0) Red Cell Distribution Width 20.8 % 21.2 % (11.6-17.2) (11.6-17.2) Platelet Count 509 TH/MM3 532 TH/MM3 (150-450) (150-450) Mean Platelet Volume 8.7 FL 8.4 FL (7.0-11.0) (7.0-11.0) Sodium Level 143 MEQ/L 147 MEQ/L (136-145) (136-145) Potassium Level 3.6 MEQ/L 3.6 MEQ/L (3.5-5.1) (3.5-5.1) Chloride Level 112 MEQ/L 114 MEQ/L (98-107) (98-107) Carbon Dioxide Level 23.4 MEQ/L 25.4 MEQ/L (21.0-32.0) (21.0-32.0) Anion Gap 8 MEQ/L (5-15) 8 MEQ/L (5-15) Blood Urea Nitrogen 26 MG/DL (7-18) 23 MG/DL (7-18) Creatinine 0.80 MG/DL 0.84 MG/DL (0.60-1.30) (0.60-1.30) Estimat Glomerular Filtration 93 ML/MIN (>89) 88 ML/MIN (>89) Rate Random Glucose 152 MG/DL 153 MG/DL (74-106) (74-106) Calcium Level 8.0 MG/DL 7.7 MG/DL (8.5-10.1) (8.5-10.1) Prothrombin Time 16.7 SEC 13.8 SEC (9.8-11.6) (9.8-11.6) Prothromb Time International 1.5 RATIO 1.2 RATIO Ratio Test 02/01/17 02/01/17 04:25 05:30 White Blood Count 14.5 TH/MM3 (4.0-11.0) Red Blood Count 3.86 MIL/MM3 (4.50-5.90) Hemoglobin 10.6 GM/DL (13.0-17.0) Hematocrit 31.6 % (39.0-51.0) Mean Corpuscular Volume 81.7 FL (80.0-100.0) Mean Corpuscular Hemoglobin 27.4 PG (27.0-34.0) Mean Corpuscular Hemoglobin 33.5 % Concent (32.0-36.0) Red Cell Distribution Width 19.6 % (11.6-17.2) Platelet Count 100 TH/MM3 (150-450) Mean Platelet Volume 9.2 FL (7.0-11.0) Prothrombin Time 13.6 SEC (9.8-11.6) Prothromb Time International 1.2 RATIO Ratio Sodium Level 127 MEQ/L 148 MEQ/L (136-145) (136-145) Potassium Level 2.1 MEQ/L 4.1 MEQ/L (3.5-5.1) (3.5-5.1) Chloride Level 82 MEQ/L 116 MEQ/L (98-107) (98-107) Carbon Dioxide Level 33.3 MEQ/L 27.9 MEQ/L (21.0-32.0) (21.0-32.0) Anion Gap 12 MEQ/L (5-15) 4 MEQ/L (5-15) Blood Urea Nitrogen 20 MG/DL (7-18) 24 MG/DL (7-18) Creatinine 0.65 MG/DL 0.71 MG/DL (0.60-1.30) (0.60-1.30) Estimat Glomerular Filtration 119 ML/MIN 107 ML/MIN Rate (>89) (>89) Random Glucose 177 MG/DL 150 MG/DL (74-106) (74-106) Calcium Level 7.6 MG/DL 7.7 MG/DL (8.5-10.1) (8.5-10.1) Result Diagram: 02/01/17 0425 02/01/17 0530 Microbiology Microbiology Date/Time Procedure Status Source Growth 01/29/17 09:02 Gram Stain - Final Resulted Sputum Endotracheal 01/29/17 09:02 Sputum Culture - Preliminary Resulted Gram Negative Jesús 01/28/17 18:36 Aerobic Blood Culture - Preliminary Resulted Blood Peripheral NO GROWTH IN 4 DAYS 01/28/17 18:36 Anaerobic Blood Culture - Preliminary Resulted Blood Peripheral NO GROWTH IN 4 DAYS Procedures * 02/22/17 -Reintubation * 01/22/17 -extubation * 01/17/17 -endotracheal intubation . Assessment and Plan Disease Oriented Problem List: (1) Respiratory failure (2) Aspiration pneumonia (3) Coronary artery disease (4) Atrial fibrillation (5) History of CVA (cerebrovascular accident) (6) Ischemic cardiomyopathy (7) Hypertension (8) Systolic CHF Symptom Scale: (1) Shortness of breath 0-10 Scale: Unable to quantify Comment: Extubated on 01/22/17. Reintubated 01/26/17. History of chronic aspiration pneumonias. (2) Debility 0-10 Scale: Unable to quantify Comment: Progressive, status post CVA 09/22/16. Pertinent Non-Medical Issues Psychosocial: Originally from [place]. . Not to significant other. Has 5 or 6 children, unknown whereabouts. Served in the [employer] for 7 years. Spiritual: [employer]an katherine. Legal: Pending copy of advance directives. Ethical issues impacting care: Pending copy of advance directives. . Important Contacts Significant other Deanna Florentino [phone] & . Brother Freddy Rojo . . Prognosis Mr. Rojo is a 76-year-old male with a medical history significant for atrial fibrillation on anticoagulation, ischemic cardiomyopathy, EF of 20%, CAD x 5 stones, multiple prior CVA and B-cell lymphoma, on remission. Patient presented on 01/17/17 to ED via EMS from [facility] facility secondary to respiratory distress. Patient emergently intubated and placed on mechanical ventilation. Clinical course complicated by aspiration pneumonia and respiratory failure. Patient at a very high risk for further complications, continue decline and given multiple comorbidities, acute events, recent prolonged hospitalization s/p CVA requiring rehabilitation, physical deconditioning and advanced age. . Code Status: Alternative Code Plan * CODE STATUS: 02/01/17 -alternate code/intubation only. Brother Freddy Rojo acting as healthcare surrogate has elected to change patient's CODE STATUS from full code to alternate code/intubation only. * HEALTHCARE DECISION-MAKING: Patient unable to participate in medical decision- making, orally intubated on mechanical ventilation -sedated. Living will and designation of healthcare surrogate secured, patient designated his brother Freddy Rojo as HCS and brother Jose Luis Rojo as alternate surrogate. * GOALS OF CARE: 02/01/17 -Patient's brother Freddy Rojo acting as HCS is electing to continue current medical management short of no cardiac code for an additional 24-48 hours while discussing goals of care with additional family members. Brother tells me that family is NOT likely to proceed with tracheostomy or PEG tube placement given overall poor prognosis and known wishes. Family considering transitioning patient to comfort-directed care / withdrawal of life support by the end of this week given the above. Patient's son Samuel Rojo may visit from [place] prior to this. * SYMPTOMS: = Shortness of breath, secondary to aspiration pneumonia, respiratory failure. Reintubated 01/26/17 secondary to hypoxemic respiratory failure. Not likely to medically extubate. = Debility, secondary to recent CVA and prolonged hospitalization. At [facility] facility prior to this acute event. * Case has been discussed with bedside RN Simone. * Palliative contact information has been provided to patient and family. * Palliative care will continue to follow-up for further clarifications of goals of care as patient's clinical course continues to evolve. . Time Spent Total Floor Time (mins): 39 (Total time to include review medical records, physical exam, telephone conversation with patient's brother brother for goals of care discussion and case review with bedside RN.) >50% Counseling/Coord of Care: Yes Attestation To help prompt me to consider important information that might be impacting today's encounter and assessment, information from prior notes written by myself or my colleagues may have been "brought forward" into today's note. My signature on this note, however, is an attestation that I personally performed the exam, history, and/or decision-making noted today, and, unless otherwise indicated, the interactions with patient, family, and staff as well as the review of records all occurred today. I also attest that the listed assessment and stated plan reflect my best clinical judgment today based on the combination of historical information, prior notes, and today's exam/ interactions. When time spent is documented, it refers only to time spent today by the signer, or if indicated, combined time spent today by collaborating physician/nurse practitioner. Carline Thomas Feb 01, 2017 12:00
[2017-02-01] MEDS ORDERED: PHARMACY ORDERED LAB ONE (15:45)
[2017-02-01] MEDS ORDERED: WARFARIN SOD 1 MG TAB PO SCH (16:00)
[2017-02-01] MEDS: WARFARIN SOD 2.5 MG TAB PO SCH (16:18)
[2017-02-02] VITALS (15 sets, daily range): BP systolic 100–121; BP diastolic 57–68; PULSE 56–77; RESP 16–29; TEMP 98.3–98.8; O2SAT 92–100
[2017-02-02] MEDS: PROPOFOL 1000 MG/100 ML INJ 100 ML IV SCH ×2 (00:33→06:11)
[2017-02-02] MEDS: CHLORHEXIDINE GLUCONATE 2 % 1 PACK (2 CLOTHS) TOP SCH (04:00)
[2017-02-02] MEDS: metroNIDAZOLE 500 MG INJ 100 ML IV SCH ×2 (04:13→11:17)
[2017-02-02] MEDS: INSULIN ASPART SUPPLEMENTAL SCALE SQ SCH ×4 (06:11→21:00)
[2017-02-02] MEDS: AZTREONAM INJ 1,000 MG in SODIUM CHLORIDE 0.9% INJ 100 ML IV SCH (06:11)
[2017-02-02 06:25] LABS: HEMATOCRIT 30.8 % (39.0-51.0); MEAN CELL VOLUME 80.3 FL (80.0-100.0); MEAN CORPUSCULAR HEMOGLOBIN 25.9 PG (27.0-34.0); MEAN CORPUSCULAR HGB CONC 32.2 % (32.0-36.0); PLATELET COUNT 443 TH/MM3 (150-450); RED BLOOD COUNT 3.84 MIL/MM3 (4.50-5.90); RED CELL DISTRIBUTION WIDTH 21.5 % (11.6-17.2); REVIEW FLAG FINAL; WHITE BLOOD COUNT 8.7 TH/MM3 (4.0-11.0)
[2017-02-02 06:31] LABS: INTERNATIONAL NORMALIZED RATIO 1.3 RATIO
[2017-02-02 07:27] LABS: BICARBONATE 28.9 MEQ/L (21.0-32.0); POTASSIUM 4.1 MEQ/L (3.5-5.1)
[2017-02-02] MEDS: CHLORHEXIDINE 0.12% (ORAL KIT) 15 ML CUP MT SCH ×2 (08:00→20:00)
[2017-02-02] MEDS: FUROSEMIDE 20 MG/2 ML VIAL IV PUSH SCH (08:46)
[2017-02-02] MEDS: PANTOPRAZOLE SODIUM 40 MG VIAL IV PUSH SCH (08:46)
[2017-02-02] MEDS: ARTIFICIAL TEARS OPTH SOLN 15 ML BTL EACH EYE SCH ×3 (08:47→18:00)
[2017-02-02] MEDS: DOCUSATE SODIUM 50 MG/SENNA 8.6 MG TAB PO SCH ×2 (08:47→21:00)
[2017-02-02] MEDS: METOPROLOL TARTRATE 25 MG TAB PO SCH ×2 (08:47→21:00)
[2017-02-02] MEDS: SODIUM CHLORIDE 0.9% FLUSH 10 ML FLUSH IV FLUSH SCH ×2 (08:47→21:00)
--- NOTE | 2017-02-02 12:14 | HHI.CCPN ---
Subjective Remarks/Hospital Course 76-year-old gentleman with a history of ischemic cardiomyopathy EF 20%, A. 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 Patient was apparently supposed to be on a clear liquid diet however was noncompliant and was eating solid food. [facility] the [facility] he was found to be vomiting undigested food around 3 PM. The the patient was transferred to hospitalist around 7 PM. He is now intubated and sedated. Subjective: 01/18:TMax 100.0. Noted to short runs of A. fib RVR self corrected, this afternoon. Interrogation of AICD pending. Patient's secretions noted to be thick vela colored and copious .Sputum cultures pending. 01/19: Leukocytosis resolving, chest x-ray improving. The patient chin's AICD was interrogated yesterday, the patient did have episodes of V. tach at 192 bpm but no therapy /was initiated. Ventricular Tach settings 240 bpm, with a VVI pacer lower rate limit at 40. Plans had attempt for CPAP trials this evening or in a.m.. 01/20: Leukocytosis resolved. Patient has remained on CPAP all day. Will continue CPAP throughout the night, if clinically stable. Patient is GCS 11 T. 01/22: Awake and alert. Not following commands. Tolerated C Pap today. Ordered extubation 01/23: Extubated on 01/22. On nasal cannula currently. Awake and alert, following commands. 01/26: Called for hypoxemic respiratory failure; requires immediate intubation and mechanical ventilation. Patient gurgling with lots of oral secretions but very little secretions in trachea. 01/27: Very weak. Minimal secretions. Ahead on fluid. 01/28: still very weak. copious secretions. wbc uptrending. febrile. still volume overloaded. 01/29: Cr stable. wbc stable. still with copious secretions. cultures pending. 01/30: no clinical change. no improvements. secretions persist. 01/31: no improvements. sputum growing GNRs. 02/01: No improvement. Will d/c vanc, continue GNR coverage, narrow after speciation. 02/02: Patient meets criteria for extubation. Afebrile, no leukocytosis. I know family would like to wait until they arrive tomorrow but he has colonized sputum with a resistant organism and we need to get him off a vent a soon as possible. Update 1630 hours: Patient is developing pulmonary edema due to his severe systolic heart failure. Oxygenation is fine but he is very congested. The patient is alert and conversant. He is adamant that he not be intubated and remain full DNR status. I have talked with his brother at [phone] and he agrees with the patient's decision. The patient's son will arrive late monday or monday but the patient will not likely survive that long. Objective Vital Signs Date Time Temp Pulse Resp B/P Pulse Ox O2 Delivery O2 Flow Rate FiO2 02/02/17 10:00 64 02/02/17 08:05 99 Ventilator 40 02/02/17 08:00 98.5 18 106/58 Intake and Output 02/01/17 02/01/17 02/02/17 08:00 16:00 00:00 Intake Total 1125 ml 985 ml 1002 ml Output Total 300 ml 700 ml 250 ml Balance 825 ml 285 ml 752 ml Result Diagram: 02/02/17 0524 02/02/17 0524 Imaging Last 24 hours Impressions Chest X-Ray 01/17/171903 Signed Impressions: Service Date/Time: Tuesday, January 17, 2017 19:34 - CONCLUSION: Cardiomegaly with bilateral perihilar edema. Terry Cowart MD Abdomen/Pelvis CT 01/17/171903 Signed Impressions: Service Date/Time: Tuesday, January 17, 2017 20:09 - CONCLUSION: 1. Air in the biliary tree likely postsurgical. 2. Complex cyst right kidney containing calcifications. 3. Right sided perinephric coarse calcifications likely related to previous treatment or previous hematoma. 4. Benign myelolipoma left adrenal gland. 5. Bibasilar consolidation greater in the left lower lobe. 6. Diverticulosis without diverticulitis. 7. No bowel obstruction. 8. Atrophic left kidney containing nonobstructing renal calculi. Terry Cowart MD Objective Remarks GENERAL: Elderly gentleman, weak. SKIN: Warm and dry. HEAD: Normocephalic. EYES: No scleral icterus. No injection or drainage. NECK: Supple, trachea midline. Orally intubated. CARDIOVASCULAR: Regular rate and rhythm without murmurs, gallops, or rubs. RESPIRATORY: Breath sounds equal bilaterally. No accessory muscle use. Few rhonchi persist bilaterally GASTROINTESTINAL: Abdomen soft, non-tender, nondistended. Non distended. EXTREMITIES: No clubbing cyanosis or edema. NEURO: Active when light. Pupils 2 mm, react. Withdraws 4 limbs to pain. Procedures intubation/extubation A/P Assessment and Plan Assessment: 76yM with ischemic cardiomyopathy, EF 20%, systolic CHF exacerbation , volume overload and now sepsis likely recurrent aspiration pneumonia. His chronic declining course over the last 6 months suggest that he has a very poor prognosis. family continues to want to be aggressive. continue abx. off pathway. Respiratory failure Aspiration pneumonia -Recurrent hypoxemic failure. - vent bundle, hob at 30 degrees, nebs - continue broad spectrum abx. await speciation on GNR pneumonia -> narrow to levaquin. Hypertension - Clonazepam PRN - Lasix to 40mg iv daily. Systolic CHF Exacerbation, persistent - 01/18 Repeat 2-D echo-Mild Pulm HTN, EF 20%, Mild regurgitation tricuspid valve. - Supportive care History of CVA - Anticoagulation - Coumadin dosing per pharmacy GABY- resolving. -Creatinine improving DVT GI prophylaxis - Pantoprazole - Warfarin - Teds and SCDs Overall impression: This is as close as we will get to extubation - need to proceed as he is growing a resistant organism. Hosea Rubio MD Feb 02, 2017 12:14
[2017-02-02] MEDS: LEVOFLOXACIN 750 MG PREMIX INJ 150 ML IV SCH (13:08)
--- NOTE | 2017-02-02 13:38 | HHI.HCPN ---
Reason for visit a. To assist with evaluation and management of symptoms including: Shortness of breath and debility. b. To assist medical decision maker(s) with: better understanding of current medical conditions; weighing benefits/burdens of medical treatment options; making medical treatment decisions. . Subjective/Interval History Mr. 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 Patient presented to ED on 01/17/17 secondary to respiratory distress. Patient was intubated and placed on mechanical ventilation, course complicated by aspiration pneumonia. Palliative care has been consulted for clarifications of goals of care. Patient was medically extubated on 01/22/17. He was subsequently transferred to the medical floor. Clinical course complicated on 01/26/17 secondary to hypoxemic respiratory failure requiring reintubation and mechanical ventilation. Patient medically extubated at noon today. This is patient's second medical extubation during this hospitalization. Patient seen in ICU, resting in bed in no acute distress. Awake, alert to self. Following a few simple commands. Intermittently answering some yes/no questions. Currently tolerating 4 L O2 via nasal cannula. Patient tired looking, weak bilateral hand grasp. Nodding head "no" when asked about pain, shortness of breath or discomfort. Patient off sedation. Attempted to engage patient in goals of care conversation regarding reintubation. Patient shook head "no" when asked if he wanted to be reintubated in the setting of respiratory distress. Patient was unable to reproduce the same answer. Unclear at this time if patient has a full understanding of his clinical condition and the ability to weight the benefits and burdens of treatment options. Hopefully patient will regain medical decision capacity, goals of care will be readdressed at a later time today or tomorrow morning. Telephone conversation with patient's brothers Freddy and Jose Luis. Medical update provided. Case discussed with Dr. Rubio and bedside RN Simone. . Family/friend interactions See interval note. . Advance Directives Living Will: Completed, but not made available Health Care Surrogate: Completed, but not made available Durable Power of Contract Implementation Analyst: Never completed Advance Directive Specifics Date completed: 05/12/1997. . Health Care Surrogate(s): Patient's brother Freddy Rojo listed as HCS. Alternate surrogate is other siblings Ed Rojo. . Documented care wishes: Living will with standard verbiage as it pertains to terminal condition or persistent vegetative state. . Significant change in goals: ALT code/intubation only. Continue current medical management. . Objective Vital Signs Date Time Temp Pulse Resp B/P Pulse Ox O2 Delivery O2 Flow Rate FiO2 02/02/17 12:50 93 Nasal Cannula 4.00 02/02/17 12:50 98 Nasal Cannula 4 02/02/17 12:00 40 02/02/17 12:00 98.5 58 18 107/57 100 02/02/17 12:00 68 02/02/17 10:00 64 02/02/17 08:05 99 Ventilator 40 02/02/17 08:05 99 40 02/02/17 08:05 40 02/02/17 08:00 98.5 65 18 106/58 100 02/02/17 08:00 62 02/02/17 08:00 40 02/02/17 07:45 40 02/02/17 06:00 56 02/02/17 04:00 98.3 72 16 108/57 99 02/02/17 04:00 40 02/02/17 04:00 72 02/02/17 03:54 99 40 02/02/17 02:00 75 02/02/17 00:00 40 02/02/17 00:00 73 02/02/17 00:00 98.3 73 16 100/58 99 02/01/17 23:20 100 40 02/01/17 22:00 82 02/01/17 20:00 56 02/01/17 20:00 40 02/01/17 20:00 98.5 56 16 100/55 100 02/01/17 19:54 100 40 02/01/17 18:00 56 02/01/17 16:00 98.8 65 16 110/57 100 02/01/17 16:00 63 02/01/17 16:00 40 02/01/17 15:30 99 40 02/01/17 14:00 70 Intake & Output 02/02/17 02/02/17 06:59 18:59 Intake Total 1803 ml Output Total 500 ml Balance 1303 ml IV Total 615 ml Tube Feeding 846 ml Lipid 162 ml Tube Irrigant 180 ml Output Urine Total 500 ml # Bowel Movements 0 Physical Exam CONSTITUTIONAL/GENERAL: This is an adequately nourished patient, in no apparent distress. Tired, ill looking. TUBES/LINES/DRAINS: NC, PIV's, SCDs, Edge catheter. SKIN: No jaundice, rashes, or lesions. Ecchymoses on upper extremities. Skin temperature appropriate. Not diaphoretic. HEAD: Atraumatic. Normocephalic. EYES: Pupils equal and round and reactive. Extraocular motions intact. No scleral icterus. No injection or drainage. ENT: Hearing appears normal. Nose without bleeding or purulent drainage. Moist oral mucosa. Endotracheal tube. NECK: Trachea midline. Supple. CARDIOVASCULAR: Regular rate and rhythm. Peripheral pulses symmetric. RESPIRATORY/CHEST: Symmetric, unlabored respirations. Currently tolerating O2 at 4 L via nasal cannula. GASTROINTESTINAL: Abdomen soft, nondistended. Bowel sounds present. MUSCULOSKELETAL:. Extremities without clubbing, cyanosis. Edema to bilateral arms and hands. NEUROLOGICAL: Alert to self. Intermittently following simple commands. Nodding head to simple yes/no questions. PSYCHIATRIC: Calm. . Diagnostic Tests Laboratory Laboratory Tests Test 01/31/17 02/01/17 02/01/17 02/02/17 04:32 04:25 05:30 05:24 White Blood Count 11.1 TH/MM3 14.5 TH/MM3 8.7 TH/MM3 (4.0-11.0) (4.0-11.0) (4.0-11.0) Red Blood Count 4.29 MIL/MM3 3.86 MIL/MM3 3.84 MIL/MM3 (4.50-5.90) (4.50-5.90) (4.50-5.90) Hemoglobin 10.8 GM/DL 10.6 GM/DL 9.9 GM/DL (13.0-17.0) (13.0-17.0) (13.0-17.0) Hematocrit 34.4 % 31.6 % 30.8 % (39.0-51.0) (39.0-51.0) (39.0-51.0) Mean Corpuscular Volume 80.2 FL 81.7 FL 80.3 FL (80.0-100.0) (80.0-100.0) (80.0-100.0) Mean Corpuscular Hemoglobin 25.2 PG 27.4 PG 25.9 PG (27.0-34.0) (27.0-34.0) (27.0-34.0) Mean Corpuscular Hemoglobin 31.4 % 33.5 % 32.2 % Concent (32.0-36.0) (32.0-36.0) (32.0-36.0) Red Cell Distribution Width 21.2 % 19.6 % 21.5 % (11.6-17.2) (11.6-17.2) (11.6-17.2) Platelet Count 532 TH/MM3 100 TH/MM3 443 TH/MM3 (150-450) (150-450) (150-450) Mean Platelet Volume 8.4 FL 9.2 FL 8.7 FL (7.0-11.0) (7.0-11.0) (7.0-11.0) Prothrombin Time 13.8 SEC 13.6 SEC 14.0 SEC (9.8-11.6) (9.8-11.6) (9.8-11.6) Prothromb Time International 1.2 RATIO 1.2 RATIO 1.3 RATIO Ratio Sodium Level 147 MEQ/L 127 MEQ/L 148 MEQ/L 150 MEQ/L (136-145) (136-145) (136-145) (136-145) Potassium Level 3.6 MEQ/L 2.1 MEQ/L 4.1 MEQ/L 4.1 MEQ/L (3.5-5.1) (3.5-5.1) (3.5-5.1) (3.5-5.1) Chloride Level 114 MEQ/L 82 MEQ/L 116 MEQ/L 117 MEQ/L (98-107) (98-107) (98-107) (98-107) Carbon Dioxide Level 25.4 MEQ/L 33.3 MEQ/L 27.9 MEQ/L 28.9 MEQ/L (21.0-32.0) (21.0-32.0) (21.0-32.0) (21.0-32.0) Anion Gap 8 MEQ/L (5-15) 12 MEQ/L (5-15) 4 MEQ/L (5-15) 4 MEQ/L (5-15) Blood Urea Nitrogen 23 MG/DL (7-18) 20 MG/DL (7-18) 24 MG/DL (7-18) 27 MG/DL (7- 18) Creatinine 0.84 MG/DL 0.65 MG/DL 0.71 MG/DL 0.71 MG/DL (0.60-1.30) (0.60-1.30) (0.60-1.30) (0.60-1.30) Estimat Glomerular Filtration 88 ML/MIN (>89) 119 ML/MIN 107 ML/MIN 107 ML/MIN Rate (>89) (>89) (>89) Random Glucose 153 MG/DL 177 MG/DL 150 MG/DL 157 MG/DL (74-106) (74-106) (74-106) (74-106) Calcium Level 7.7 MG/DL 7.6 MG/DL 7.7 MG/DL 7.8 MG/DL (8.5-10.1) (8.5-10.1) (8.5-10.1) (8.5-10.1) Result Diagram: 02/02/1752302/02/1724 Microbiology Microbiology Date/Time Procedure Status Source Growth 01/29/17 09:02 Gram Stain - Final Complete Sputum Endotracheal 01/29/17 09:02 Sputum Culture - Final Complete Achromobacter Xyl/Fingal 01/28/17 18:36 Aerobic Blood Culture - Final Complete Blood Peripheral NO GROWTH IN 5 DAYS 01/28/17 18:36 Anaerobic Blood Culture - Final Complete Blood Peripheral NO GROWTH IN 5 DAYS Procedures * 02/02/17 -medical extubation * 01/26/17 -Reintubation * 01/22/17 -medical extubation * 01/17/17 -endotracheal intubation . Assessment and Plan Disease Oriented Problem List: (1) Respiratory failure (2) Aspiration pneumonia (3) Coronary artery disease (4) Atrial fibrillation (5) History of CVA (cerebrovascular accident) (6) Ischemic cardiomyopathy (7) Hypertension (8) Systolic CHF Symptom Scale: (1) Shortness of breath 0-10 Scale: Unable to quantify Comment: Extubated on 01/22/17. Reintubated 01/26/17, medically extubated . (2) Debility 0-10 Scale: Unable to quantify Comment: Progressive, status post CVA 09/22/16. Pertinent Non-Medical Issues Psychosocial: Originally from [place]. . Not to significant other. Has 5 or 6 children, unknown whereabouts. Served in the [employer] for 7 years. Spiritual: Anglican katherine. Legal: Pending copy of advance directives. Ethical issues impacting care: Pending copy of advance directives. . Important Contacts Significant other Deannaevelio TurnerDilia Chadd [phone] & . Brother Freddy Rojo . . Prognosis Mr. Rojo is a 76-year-old male with a medical history significant for atrial fibrillation on anticoagulation, ischemic cardiomyopathy, EF of 20%, CAD x 5 stones, multiple prior CVA and B-cell lymphoma, on remission. Patient presented on 01/17/17 to ED via EMS from half-way facility secondary to respiratory distress. Patient emergently intubated and placed on mechanical ventilation. Clinical course complicated by aspiration pneumonia and respiratory failure. Patient at a very high risk for further complications, continue decline and given multiple comorbidities, acute events, recent prolonged hospitalization s/p CVA requiring rehabilitation, physical deconditioning and advanced age. . Code Status: Alternative Code Plan * CODE STATUS: 02/01/17 -alternate code/intubation only. * HEALTHCARE DECISION-MAKING: Unclear at this time if patient has a full understanding of his clinical condition and the ability to weight the benefits and burdens of treatment options. Hopefully patient will regain medical decision making capacity, goals of care will be readdressed at a later time once patient is able to participate. Living will and designation of healthcare surrogate secured, patient designated his brother Freddy Rojo as HCS and brother Jose Luis Rojo as alternate surrogate. * GOALS OF CARE: 02/02/17 -as per patient's brother Freddy acting as HCS, goal of therapy is to continue current medical management s/p medical medical extubation. As per brother, CODE STATUS to remain alt code/intubation only until patient is able to participating in medical decision-making. Palliative care attempted to engage patient in goals of care conversation regarding reintubation. Patient shook head "no" when asked if he wanted to be reintubated in the setting of respiratory distress. Patient was unable to reproduce the same answer. Unclear at this time if patient has a full understanding of his clinical condition and the ability to weight the benefits and burdens of treatment options. Family is hopeful that patient will regain medical decision making capacity, goals of care will be readdressed at a later time once patient is able to participate. * SYMPTOMS: = Shortness of breath, secondary to aspiration pneumonia, respiratory failure. Reintubated 01/26/17 secondary to hypoxemic respiratory failure. Medically extubated for the second time on 02/02/17. Currently tolerating O2 via nasal cannula at 4 L. = Debility, secondary to recent CVA and prolonged hospitalization. At half-way facility prior to this acute event. May required acute rehabilitation if family wishes to proceed with aggressive management. * Case has been discussed with Dr. Rubio and bedside RN Simone. * Palliative contact information has been provided to patient and family. * Palliative care will continue to follow-up for further clarifications of goals of care as patient's clinical course continues to evolve. . Time Spent Total Floor Time (mins): 39 (Total time to include review medical records, physical exam, goals of care conversation with patient's brother's Freddy and Jose Luis and case discussion with Dr. Rubio and bedside RN.) >50% Counseling/Coord of Care: Yes Attestation To help prompt me to consider important information that might be impacting today's encounter and assessment, information from prior notes written by myself or my colleagues may have been "brought forward" into today's note. My signature on this note, however, is an attestation that I personally performed the exam, history, and/or decision-making noted today, and, unless otherwise indicated, the interactions with patient, family, and staff as well as the review of records all occurred today. I also attest that the listed assessment and stated plan reflect my best clinical judgment today based on the combination of historical information, prior notes, and today's exam/ interactions. When time spent is documented, it refers only to time spent today by the signer, or if indicated, combined time spent today by collaborating physician/nurse practitioner. Carline Thomas Feb 02, 2017 13:38
[2017-02-02] MEDS: RESP: ALBUTEROL 2.5 MG/IPRATROPIUM 0.5 MG NEB (PRN) INH (15:06)
[2017-02-02] MEDS: WARFARIN SOD 2.5 MG TAB PO SCH (16:00)
[2017-02-02] MEDS ORDERED: FUROSEMIDE 100 MG/10 ML VIAL IV PUSH ONE (16:30)
[2017-02-02] MEDS: MORPHINE SULFATE 4 MG/ML INJ IV PUSH PRN (18:00)
[2017-02-03] VITALS (11 sets, daily range): BP systolic 108–128; BP diastolic 56–72; PULSE 62–81; RESP 13–24; TEMP 97.7–98.5; O2SAT 94–100
[2017-02-03] MEDS: CHLORHEXIDINE GLUCONATE 2 % 1 PACK (2 CLOTHS) TOP SCH (04:00)
[2017-02-03 06:11] LABS: HEMATOCRIT 36.9 % (39.0-51.0); MEAN CORPUSCULAR HEMOGLOBIN 24.7 PG (27.0-34.0); MEAN CORPUSCULAR HGB CONC 30.5 % (32.0-36.0); PLATELET COUNT 519 TH/MM3 (150-450); RED BLOOD COUNT 4.56 MIL/MM3 (4.50-5.90); RED CELL DISTRIBUTION WIDTH 21.2 % (11.6-17.2); REVIEW FLAG FINAL; WHITE BLOOD COUNT 12.4 TH/MM3 (4.0-11.0)
[2017-02-03 06:20] LABS: INTERNATIONAL NORMALIZED RATIO 1.3 RATIO
[2017-02-03 06:24] LABS: BICARBONATE 31.6 MEQ/L (21.0-32.0); POTASSIUM 4.3 MEQ/L (3.5-5.1)
[2017-02-03] MEDS: INSULIN ASPART SUPPLEMENTAL SCALE SQ SCH ×3 (07:00→16:00)
[2017-02-03] MEDS: CHLORHEXIDINE 0.12% (ORAL KIT) 15 ML CUP MT SCH (08:00)
[2017-02-03] MEDS: METOPROLOL TARTRATE 25 MG TAB PO SCH (09:00)
[2017-02-03] MEDS: ARTIFICIAL TEARS OPTH SOLN 15 ML BTL EACH EYE SCH ×2 (09:00→13:00)
[2017-02-03] MEDS: SODIUM CHLORIDE 0.9% FLUSH 10 ML FLUSH IV FLUSH SCH (09:00)
[2017-02-03] MEDS: DOCUSATE SODIUM 50 MG/SENNA 8.6 MG TAB PO SCH (09:00)
[2017-02-03] MEDS: PANTOPRAZOLE SODIUM 40 MG VIAL IV PUSH SCH (09:01)
[2017-02-03] MEDS: MORPHINE SULFATE 4 MG/ML INJ IV PUSH PRN (09:02)
[2017-02-03] MEDS: FUROSEMIDE 20 MG/2 ML VIAL IV PUSH SCH (09:02)
--- NOTE | 2017-02-03 10:38 | HHI.CCPN ---
Subjective Remarks/Hospital Course 76-year-old gentleman with a history of ischemic cardiomyopathy EF 20%, A. 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 Patient was apparently supposed to be on a clear liquid diet however was noncompliant and was eating solid food. Today at the skilled nursing he was found to be vomiting undigested food around 3 PM. The the patient was transferred to hospitalist around 7 PM. He is now intubated and sedated. Subjective: 01/18:TMax 100.0. Noted to short runs of A. fib RVR self corrected, this afternoon. Interrogation of AICD pending. Patient's secretions noted to be thick vela colored and copious .Sputum cultures pending. 01/19: Leukocytosis resolving, chest x-ray improving. The patient chin's AICD was interrogated yesterday, the patient did have episodes of V. tach at 192 bpm but no therapy /was initiated. Ventricular Tach settings 240 bpm, with a VVI pacer lower rate limit at 40. Plans had attempt for CPAP trials this evening or in a.m.. 01/20: Leukocytosis resolved. Patient has remained on CPAP all day. Will continue CPAP throughout the night, if clinically stable. Patient is GCS 11 T. 01/22: Awake and alert. Not following commands. Tolerated C Pap today. Ordered extubation 01/23: Extubated on 01/22. On nasal cannula currently. Awake and alert, following commands. 01/26: Called for hypoxemic respiratory failure; requires immediate intubation and mechanical ventilation. Patient gurgling with lots of oral secretions but very little secretions in trachea. 01/27: Very weak. Minimal secretions. Ahead on fluid. 01/28: still very weak. copious secretions. wbc uptrending. febrile. still volume overloaded. 01/29: Cr stable. wbc stable. still with copious secretions. cultures pending. 01/30: no clinical change. no improvements. secretions persist. 01/31: no improvements. sputum growing GNRs. 02/01: No improvement. Will d/c vanc, continue GNR coverage, narrow after speciation. 02/02: Patient meets criteria for extubation. Afebrile, no leukocytosis. I know family would like to wait until they arrive tomorrow but he has colonized sputum with a resistant organism and we need to get him off a vent a soon as possible. Update 1630 hours: Patient is developing pulmonary edema due to his severe systolic heart failure. Oxygenation is fine but he is very congested. The patient is alert and conversant. He is adamant that he not be intubated and remain full DNR status. I have talked with his brother at [phone] and he agrees with the patient's decision. The patient's son will arrive late monday or monday but the patient will not likely survive that long. 02/03: Extubated successfully last night. Failed swallow evaluation. Will hold nutrition today and attempt swallow tomorrow. His cardiopulmonary status is too tenuous to risk aspiration (EF 20%, pulmonary edema.) Objective Vital Signs Date Time Temp Pulse Resp B/P Pulse Ox O2 Delivery O2 Flow Rate FiO2 02/03/17 08:00 80 02/03/17 07:22 96 21 02/03/17 07:00 Nasal Cannula 8.00 02/03/17 04:00 98.3 23 113/65 Intake and Output 02/02/17 02/02/17 02/03/17 08:00 16:00 00:00 Intake Total 801 ml 887 ml 83 ml Output Total 250 ml 825 ml 2200 ml Balance 551 ml 62 ml -2117 ml Result Diagram: 02/03/17 0529 02/03/17 0529 Imaging Last 24 hours Impressions Chest X-Ray 01/17/171903 Signed Impressions: Service Date/Time: Tuesday, January 17, 2017 19:34 - CONCLUSION: Cardiomegaly with bilateral perihilar edema. Terry Cowart MD Abdomen/Pelvis CT 01/17/171903 Signed Impressions: Service Date/Time: Tuesday, January 17, 2017 20:09 - CONCLUSION: 1. Air in the biliary tree likely postsurgical. 2. Complex cyst right kidney containing calcifications. 3. Right sided perinephric coarse calcifications likely related to previous treatment or previous hematoma. 4. Benign myelolipoma left adrenal gland. 5. Bibasilar consolidation greater in the left lower lobe. 6. Diverticulosis without diverticulitis. 7. No bowel obstruction. 8. Atrophic left kidney containing nonobstructing renal calculi. Terry Cowart MD Objective Remarks GENERAL: Elderly gentleman, weak. SKIN: Warm and dry. HEAD: Normocephalic. EYES: No scleral icterus. No injection or drainage. NECK: Supple, trachea midline. Orally intubated. CARDIOVASCULAR: Regular rate and rhythm without murmurs, gallops, or rubs. Occ SVT. RESPIRATORY: Breath sounds equal bilaterally. No accessory muscle use. Few rhonchi persist bilaterally GASTROINTESTINAL: Abdomen soft, non-tender, nondistended. Non distended. BS few. EXTREMITIES: No clubbing cyanosis or edema. NEURO: Active when light. Pupils 2 mm, react. Withdraws 4 limbs to pain. Conversant but weak. Surprisingly well oriented. Procedures intubation/extubation A/P Assessment and Plan Assessment: 76yM with ischemic cardiomyopathy, EF 20%, systolic CHF exacerbation , volume overload and now sepsis likely recurrent aspiration pneumonia. His chronic declining course over the last 6 months suggest that he has a very poor prognosis. family continues to want to be aggressive. continue abx. off pathway. Respiratory failure Aspiration pneumonia -Recurrent hypoxemic failure. - vent bundle, hob at 30 degrees, nebs - continue broad spectrum abx. await speciation on GNR pneumonia -> narrow to levaquin. Hypertension - Clonazepam PRN - Lasix to 40mg iv daily. Systolic CHF Exacerbation, persistent - 01/18 Repeat 2-D echo-Mild Pulm HTN, EF 20%, Mild regurgitation tricuspid valve. - Supportive care History of CVA - Anticoagulation - Coumadin dosing per pharmacy GABY- resolving. -Creatinine improving DVT GI prophylaxis - Pantoprazole - Warfarin - Teds and SCDs Overall impression: Successful extubation 02/02. Marginal cardiac status. Hosea Rubio MD Feb 03, 2017 10:38
--- NOTE | 2017-02-03 11:59 | PD.WCN.NOT ---
Wound Consult Description: Stage 2 coccyx pressure injury Communicated with: SPENCER Barkley [facility] and Doctor Ramiro Recommendation: Please cleanse wound to coccyx with normal saline or wound cleanser and apply skin prep to periwound before applying adhesive foam dressing. Please change every 3 days or PRN if saturated or dislodged. Additional Information: Patient seen on [address] [place] [address] for sacral pressure ulcer. Patient turned to R side with the assistance of Filippo PALMER [facility] and real estate underwriter. Removed adhesive foam dressing in place to reveal small partial thickness wound over coccyx. Wound bed is 100% pink without active drainage or odor. Periwound is noted with blanchable slight erythema between 4 and 6 o'clock , but is otherwise unremarkable. Wound measures 1cm x 0.5cm x ~<0.1cm. Cleansed wound with normal saline and applied skin prep to periwound before applying adhesive foam dressing. Patient positioned by SPENCER Barkley off bottom with assistance of other [facility] RN. Caroline Chicas [facility] Feb 03, 2017 11:59
--- NOTE | 2017-02-03 12:03 | HHI.HCPN ---
Reason for visit a. To assist with evaluation and management of symptoms including: Shortness of breath and debility. b. To assist medical decision maker(s) with: better understanding of current medical conditions; weighing benefits/burdens of medical treatment options; making medical treatment decisions. . Subjective/Interval History Mr. 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 Patient presented to ED on 01/17/17 secondary to respiratory distress. Patient was intubated and placed on mechanical ventilation, course complicated by aspiration pneumonia. Palliative care has been consulted for clarifications of goals of care. Patient was medically extubated on 01/22/17. He was subsequently transferred to the medical floor. Clinical course complicated on 01/26/17 secondary to hypoxemic respiratory failure requiring reintubation and mechanical ventilation. Patient medically extubated yesterday. Worsening respiratory condition with increased oxygen requirement, pulmonary edema. Currently on 10 L, oxygen saturation in the mid to low 90s. Failed swallow evaluation. Patient very weak , unable to hold his head. Very weak bilateral hand grasps. Awake, alert and oriented x self, place and situation. Verbal, slurred and limited speech secondary to weakness. Laboratory workup today showing WBC 12.4, Hgb 11.3, platelet count 5.9. Remains afebrile, stable hemodynamically. Goals of care discussion with patient. Patient able to participate. Patient indicating that he would NOT wish to be reintubated for placing mechanical ventilation again. He is asking to be discharge from the hospital, verbalized feeling "very weak and ready to go home". Discussed continuation of conservative management short of no code vs transition to comfort-directed care with hospice. Patient verbalize that hospice is "what he wants". Case discussed with medical case worker, patient long-term resident of [facility]. Patient's first preference is to be returned to [facility] with hospice services. However, [facility] is unable to receive patient given his very high O2 requirement and positive sputum culture for Achromobacter. Reviewed with patient hospice care center, patient verbalized agreement. Telephone conversation with patient's brother Freddy/[facility], telephone conversation with patient's significant other Dilialatisha Florentino. Both supportive of patient's wishes. They understand very poor prognosis with life expectancy of hours to days if illness run its natural course. Case discussed with Dr. Rubio. Hospice referral made. Case discussed with Dr. Rubio and bedside RN Filippo. . Family/friend interactions See interval note. . Advance Directives Living Will: Completed, but not made available Health Care Surrogate: Completed, but not made available Durable Power of Information Systems Director: Never completed Advance Directive Specifics Date completed: 05/12/1997. . Health Care Surrogate(s): Patient's brother Freddy Rojo listed as [facility]. Alternate surrogate is other siblings Ed Rojo. . Documented care wishes: Living will with standard verbiage as it pertains to terminal condition or persistent vegetative state. . Significant change in goals: No code. DNR/DNI. Patient electing to transition to comfort-directed care with hospice. Family supportive of patient's wishes. . Objective Vital Signs Date Time Temp Pulse Resp B/P Pulse Ox O2 Delivery O2 Flow Rate FiO2 02/03/17 11:11 12 02/03/17 10:00 73 02/03/17 08:00 80 02/03/17 08:00 98.2 64 23 118/56 94 02/03/17 07:22 96 21 02/03/17 07:00 95 Nasal Cannula 8.00 02/03/17 06:00 74 02/03/17 04:00 63 02/03/17 04:00 98.3 62 23 113/65 94 02/03/17 02:00 75 02/03/17 00:00 98.5 74 24 108/57 97 02/03/17 00:00 74 02/02/17 22:00 77 02/02/17 20:00 98.5 74 24 108/57 97 02/02/17 20:00 74 02/02/17 19:00 99 Nasal Cannula 6.00 02/02/17 18:00 72 02/02/17 17:30 84 Nasal Cannula 6.00 02/02/17 16:20 93 Nasal Cannula 6.00 02/02/17 16:00 76 02/02/17 16:00 98.8 77 29 121/68 92 02/02/17 15:00 96 Non-Rebreather 15.00 02/02/17 14:00 70 02/02/17 12:50 93 Nasal Cannula 4.00 02/02/17 12:50 98 Nasal Cannula 4 02/02/17 12:50 98 Nasal Cannula 4.00 02/02/17 12:00 40 02/02/17 12:00 98.5 58 18 107/57 100 02/02/17 12:00 68 Intake & Output 02/03/17 02/03/17 07:00 19:00 Intake Total 142 ml Output Total 2500 ml Balance -2358 ml IV Total 142 ml Output Urine Total 2500 ml # Bowel Movements 1 Physical Exam CONSTITUTIONAL/GENERAL: This is an adequately nourished patient, in no apparent distress. Tired, ill looking. TUBES/LINES/DRAINS: NC, PIV's, SCDs, Edge catheter. SKIN: No jaundice, rashes, or lesions. Ecchymoses on upper extremities. Skin temperature appropriate. Not diaphoretic. HEAD: Atraumatic. Normocephalic. EYES: Pupils equal and round and reactive. Extraocular motions intact. No scleral icterus. No injection or drainage. ENT: Hearing appears normal. Nose without bleeding or purulent drainage. Moist oral mucosa. Endotracheal tube. NECK: Trachea midline. Supple. CARDIOVASCULAR: Regular rate and rhythm. Peripheral pulses symmetric. RESPIRATORY/CHEST: Symmetric, unlabored respirations. Currently tolerating O2 at 10 L via nasal cannula. GASTROINTESTINAL: Abdomen soft, nondistended. Bowel sounds present. MUSCULOSKELETAL:. Extremities without clubbing, cyanosis. Edema to bilateral arms and hands. NEUROLOGICAL: Alert to self. following simple commands. Nodding head to simple yes/no questions. verbal, slurred speech. PSYCHIATRIC: Calm. . Diagnostic Tests Laboratory Laboratory Tests Test 02/01/17 02/01/17 02/02/17 02/03/17 04:25 05:30 05:24 05:29 White Blood Count 14.5 TH/MM3 8.7 TH/MM3 12.4 TH/MM3 (4.0-11.0) (4.0-11.0) (4.0-11.0) Red Blood Count 3.86 MIL/MM3 3.84 MIL/MM3 4.56 MIL/MM3 (4.50-5.90) (4.50-5.90) (4.50-5.90) Hemoglobin 10.6 GM/DL 9.9 GM/DL 11.3 GM/DL (13.0-17.0) (13.0-17.0) (13.0-17.0) Hematocrit 31.6 % 30.8 % 36.9 % (39.0-51.0) (39.0-51.0) (39.0-51.0) Mean Corpuscular Volume 81.7 FL 80.3 FL 81.0 FL (80.0-100.0) (80.0-100.0) (80.0-100.0) Mean Corpuscular Hemoglobin 27.4 PG 25.9 PG 24.7 PG (27.0-34.0) (27.0-34.0) (27.0-34.0) Mean Corpuscular Hemoglobin 33.5 % 32.2 % 30.5 % Concent (32.0-36.0) (32.0-36.0) (32.0-36.0) Red Cell Distribution Width 19.6 % 21.5 % 21.2 % (11.6-17.2) (11.6-17.2) (11.6-17.2) Platelet Count 100 TH/MM3 443 TH/MM3 519 TH/MM3 (150-450) (150-450) (150-450) Mean Platelet Volume 9.2 FL 8.7 FL 8.6 FL (7.0-11.0) (7.0-11.0) (7.0-11.0) Prothrombin Time 13.6 SEC 14.0 SEC 15.0 SEC (9.8-11.6) (9.8-11.6) (9.8-11.6) Prothromb Time International 1.2 RATIO 1.3 RATIO 1.3 RATIO Ratio Sodium Level 127 MEQ/L 148 MEQ/L 150 MEQ/L 150 MEQ/L (136-145) (136-145) (136-145) (136-145) Potassium Level 2.1 MEQ/L 4.1 MEQ/L 4.1 MEQ/L 4.3 MEQ/L (3.5-5.1) (3.5-5.1) (3.5-5.1) (3.5-5.1) Chloride Level 82 MEQ/L 116 MEQ/L 117 MEQ/L 112 MEQ/L (98-107) (98-107) (98-107) (98-107) Carbon Dioxide Level 33.3 MEQ/L 27.9 MEQ/L 28.9 MEQ/L 31.6 MEQ/L (21.0-32.0) (21.0-32.0) (21.0-32.0) (21.0-32.0) Anion Gap 12 MEQ/L (5-15) 4 MEQ/L (5-15) 4 MEQ/L (5-15) 6 MEQ/L (5-15) Blood Urea Nitrogen 20 MG/DL (7-18) 24 MG/DL (7-18) 27 MG/DL (7-18) 27 MG/DL (7- 18) Creatinine 0.65 MG/DL 0.71 MG/DL 0.71 MG/DL 0.88 MG/DL (0.60-1.30) (0.60-1.30) (0.60-1.30) (0.60-1.30) Estimat Glomerular Filtration 119 ML/MIN 107 ML/MIN 107 ML/MIN 84 ML/MIN (>89) Rate (>89) (>89) (>89) Random Glucose 177 MG/DL 150 MG/DL 157 MG/DL 99 MG/DL (74-106) (74-106) (74-106) (74-106) Calcium Level 7.6 MG/DL 7.7 MG/DL 7.8 MG/DL 8.4 MG/DL (8.5-10.1) (8.5-10.1) (8.5-10.1) (8.5-10.1) Result Diagram: 02/03/17 0529 02/03/17 0529 Procedures * 02/02/17 -medical extubation * 01/26/17 -Reintubation * 01/22/17 -medical extubation * 01/17/17 -endotracheal intubation . Assessment and Plan Disease Oriented Problem List: (1) Respiratory failure (2) Aspiration pneumonia (3) Coronary artery disease (4) Atrial fibrillation (5) History of CVA (cerebrovascular accident) (6) Ischemic cardiomyopathy (7) Hypertension (8) Systolic CHF Symptom Scale: (1) Shortness of breath 0-10 Scale: Unable to quantify Comment: Extubated on 01/22/17. Reintubated 01/26/17, medically extubated . (2) Debility 0-10 Scale: Unable to quantify Comment: Progressive, status post CVA 09/22/16. Pertinent Non-Medical Issues Psychosocial: Originally from [place]. . Not to significant other. Has 5 or 6 children, unknown whereabouts. Served in the [employer] for 7 years. Spiritual: Jain katherine. Legal: Pending copy of advance directives. Ethical issues impacting care: Pending copy of advance directives. . Important Contacts Significant other Deanna Florentino [phone] & . Brother Freddy Rojo . . Prognosis Mr. Rojo is a 76-year-old male with a medical history significant for atrial fibrillation on anticoagulation, ischemic cardiomyopathy, EF of 20%, CAD x 5 stones, multiple prior CVA and B-cell lymphoma, on remission. Patient presented on 01/17/17 to ED via EMS from nursing home facility secondary to respiratory distress. Patient emergently intubated and placed on mechanical ventilation. Clinical course complicated by aspiration pneumonia and respiratory failure. Patient at a very high risk for further complications, continue decline and given multiple comorbidities, acute events, recent prolonged hospitalization s/p CVA requiring rehabilitation, physical deconditioning and advanced age. . Code Status: No Code Plan * CODE STATUS: 02/03/17. DNR/DNI. Patient verbalized NOT wishing CPR, intubation or placed on mechanical ventilation. [facility] Freddy Rojo supportive of patient's wishes. * HEALTHCARE DECISION-MAKING: Patient unable to participating in medical decision-making. He was medically extubated yesterday, demonstrates a fair understanding of his worsening clinical condition and the ability to weight benefits and burdens of treatment options. Very debilitated. Living will and designation of healthcare surrogate secured, patient designated his brother Freddy Rojo as HCS and brother Jose Luis Rojo as alternate surrogate. Palliative care recommends shared decision-making with brother Freddy Rojo who is serving as healthcare surrogate. * GOALS OF CARE: 02/03/17 -patient electing to transition to comfort-directed care with hospice services. Brother Freddy Rojo acting as healthcare surrogate and patient's significant other Dilia supportive of patient's wishes. * Goals of care discussion with patient. Patient able to participate. Patient indicating that he would NOT wish CPR, reintubation or placed on mechanical ventilation again. He is asking to be discharge from the hospital, verbalized feeling "very weak and ready to go home". Discussed continuation of conservative management short of no code vs transition to comfort-directed care with hospice. Patient verbalize that hospice is "what he wants". Case discussed with medical case worker, patient long-term resident of [facility]. Patient's first preference is to be returned to [facility] with hospice services. However, [facility] is unable to receive patient given his very high O2 requirement and positive sputum culture for Achromobacter. Reviewed with patient hospice care center, patient verbalized agreement. Telephone conversation with patient's brother Freddy/[facility], telephone conversation with patient's significant other Dilia Florentino. Both supportive of patient's wishes. They understand very poor prognosis with life expectancy of hours to days if illness run its natural course. * SYMPTOMS: = Shortness of breath, secondary to aspiration pneumonia, respiratory failure. Reintubated 01/26/17 secondary to hypoxemic respiratory failure. Medically extubated for the second time on 02/02/17. Worsening respiratory status, increased O2 requirement. Currently on 10 L. = Debility, secondary to recent CVA and prolonged hospitalization. At long-term facility prior to this acute event. * Hospice referral made. Case discussed with hospice admission nurse. * Case has been discussed with Dr. Rubio, medical case worker and bedside RN Filippo. * Palliative contact information has been provided to patient and family. * Palliative care will continue to follow-up for further clarifications of goals of care as patient's clinical course continues to evolve. . Time Spent Total Floor Time (mins): 48 (Total time to include review medical records, physical exam, goals of care conversation with patient, telephone conversation with patient's brother Freddy, case discussion with Dr. Rubio, medical case worker and bedside RN.) >50% Counseling/Coord of Care: Yes Attestation To help prompt me to consider important information that might be impacting today's encounter and assessment, information from prior notes written by myself or my colleagues may have been "brought forward" into today's note. My signature on this note, however, is an attestation that I personally performed the exam, history, and/or decision-making noted today, and, unless otherwise indicated, the interactions with patient, family, and staff as well as the review of records all occurred today. I also attest that the listed assessment and stated plan reflect my best clinical judgment today based on the combination of historical information, prior notes, and today's exam/ interactions. When time spent is documented, it refers only to time spent today by the signer, or if indicated, combined time spent today by collaborating physician/nurse practitioner. Carline Thomas Feb 03, 2017 12:03
[2017-02-03] MEDS: LEVOFLOXACIN 750 MG PREMIX INJ 150 ML IV SCH (12:45)
--- NOTE | 2017-02-03 13:26 | HHI.DS ---
Discharge Summary Admission Date Jan 17, 2017 at 19:41 Discharge Date: Feb 03, 2017 Admitting Diagnosis S/P RESPIRATORY ARREST, ASPIRATION PNA, AFIB (1) Respiratory failure ICD Code: J96.90 Diagnosis: Principal (2) Aspiration pneumonia ICD Code: J69.0 Diagnosis: Principal (3) Systolic CHF ICD Code: I50.20 Diagnosis: Principal (4) Ischemic cardiomyopathy ICD Code: I25.5 Diagnosis: Secondary Procedures intubation/extubation Brief History 76-year-old gentleman with a history of ischemic cardiomyopathy EF 20%, A. 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 Patient was apparently supposed to be on a clear liquid diet however was noncompliant and was eating solid food. [facility] he was found to be vomiting undigested food around 3 PM. The the patient was transferred to hospitalist around 7 PM. He is now intubated and sedated. CBC/BMP: 02/03/17 0529 02/03/17 0529 Significant Findings Laboratory Tests Test 02/01/17 02/01/17 02/02/17 02/03/17 04:25 05:30 05:24 05:29 White Blood Count 14.5 TH/MM3 12.4 TH/MM3 (4.0-11.0) (4.0-11.0) Red Blood Count 3.86 MIL/MM3 3.84 MIL/MM3 (4.50-5.90) (4.50-5.90) Hemoglobin 10.6 GM/DL 9.9 GM/DL 11.3 GM/DL (13.0-17.0) (13.0-17.0) (13.0-17.0) Hematocrit 31.6 % 30.8 % 36.9 % (39.0-51.0) (39.0-51.0) (39.0-51.0) Red Cell Distribution Width 19.6 % 21.5 % 21.2 % (11.6-17.2) (11.6-17.2) (11.6-17.2) Platelet Count 100 TH/MM3 519 TH/MM3 (150-450) (150-450) Prothrombin Time 13.6 SEC 14.0 SEC 15.0 SEC (9.8-11.6) (9.8-11.6) (9.8-11.6) Sodium Level 127 MEQ/L 148 MEQ/L 150 MEQ/L 150 MEQ/L (136-145) (136-145) (136-145) (136-145) Potassium Level 2.1 MEQ/L (3.5-5.1) Chloride Level 82 MEQ/L 116 MEQ/L 117 MEQ/L 112 MEQ/L (98-107) (98-107) (98-107) (98-107) Carbon Dioxide Level 33.3 MEQ/L (21.0-32.0) Blood Urea Nitrogen 20 MG/DL (7-18) 24 MG/DL (7-18) 27 MG/DL (7-18) 27 MG/DL (7- 18) Random Glucose 177 MG/DL 150 MG/DL 157 MG/DL (74-106) (74-106) (74-106) Calcium Level 7.6 MG/DL 7.7 MG/DL 7.8 MG/DL 8.4 MG/DL (8.5-10.1) (8.5-10.1) (8.5-10.1) (8.5-10.1) Anion Gap 4 MEQ/L (5-15) 4 MEQ/L (5-15) Mean Corpuscular Hemoglobin 25.9 PG 24.7 PG (27.0-34.0) (27.0-34.0) Mean Corpuscular Hemoglobin 30.5 % Concent (32.0-36.0) Estimat Glomerular Filtration 84 ML/MIN (>89) Rate PE at Discharge GENERAL:lethargic CARDIOVASCULAR: Regular rate and regular rhythm without murmurs, gallops, or rubs. RESPIRATORY: congested, moving air well. GASTROINTESTINAL: Abdomen soft, non-tender, nondistended. Normal, active bowel sounds MUSCULOSKELETAL: Extremities without clubbing, cyanosis, or edema. NEURO: lethargic - on oxygen mask Hospital Course 76-year-old gentleman with a history of ischemic cardiomyopathy EF 20%, A. 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 Patient was apparently supposed to be on a clear liquid diet however was noncompliant and was eating solid food. [facility] was found to be vomiting undigested food around 3 PM. The the patient was transferred to hospitalist around 7 PM. He is now intubated and sedated. Subjective: 01/18:TMax 100.0. Noted to short runs of A. fib RVR self corrected, this afternoon. Interrogation of AICD pending. Patient's secretions noted to be thick vela colored and copious .Sputum cultures pending. 01/19: Leukocytosis resolving, chest x-ray improving. The patient chin's AICD was interrogated yesterday, the patient did have episodes of V. tach at 192 bpm but no therapy /was initiated. Ventricular Tach settings 240 bpm, with a VVI pacer lower rate limit at 40. Plans had attempt for CPAP trials this evening or in a.m.. 01/20: Leukocytosis resolved. Patient has remained on CPAP all day. Will continue CPAP throughout the night, if clinically stable. Patient is GCS 11 T. 01/22: Awake and alert. Not following commands. Tolerated C Pap today. Ordered extubation 01/23: Extubated on 01/22. On nasal cannula currently. Awake and alert, following commands. 01/26: Called for hypoxemic respiratory failure; requires immediate intubation and mechanical ventilation. Patient gurgling with lots of oral secretions but very little secretions in trachea. 01/27: Very weak. Minimal secretions. Ahead on fluid. 01/28: still very weak. copious secretions. wbc uptrending. febrile. still volume overloaded. 01/29: Cr stable. wbc stable. still with copious secretions. cultures pending. 01/30: no clinical change. no improvements. secretions persist. 01/31: no improvements. sputum growing GNRs. 02/01: No improvement. Will d/c vanc, continue GNR coverage, narrow after speciation. 02/02: Patient meets criteria for extubation. Afebrile, no leukocytosis. I know family would like to wait until they arrive tomorrow but he has colonized sputum with a resistant organism and we need to get him off a vent a soon as possible. Update 1630 hours: Patient is developing pulmonary edema due to his severe systolic heart failure. Oxygenation is fine but he is very congested. The patient is alert and conversant. He is adamant that he not be intubated and remain full DNR status. I have talked with his brother at [phone] and he agrees with the patient's decision. The patient's son will arrive late monday or monday but the patient will not likely survive that long. 02/03: Extubated successfully last night. Failed swallow evaluation. Will hold nutrition today and attempt swallow tomorrow. His cardiopulmonary status is too tenuous to risk aspiration (EF 20%, pulmonary edema.) Pt Condition on Discharge: Deteriorating Discharge Disposition: Hospice/Med Facility Hosea Rubio MD Feb 03, 2017 13:25
[2017-02-03] MEDS ORDERED: FUROSEMIDE 20 MG/2 ML VIAL IV PUSH SCH (21:00)
== END 2017-02-03 17:39 | disposition hospice, inpatient (51) | DRG 207 ==
LOC: NEPE 18:41 → NEDA 19:41 → NEDH 01-18 00:01 → HIMN 01-18 03:15 → N04A 01-24 12:35 → N03B 01-26 12:54
PROVIDERS: ADMIT Surgery Surgical Critical Care; ATTEND Surgery Surgical Critical Care
PROC: 5A1955Z Respiratory Ventilation, Greater than 96 Consecutive Hours (ICD-10-PCS; 2017-01-17)
PROC: 0BH17EZ Insertion of Endotracheal Airway into Trachea, Via Natural or Artificial Opening (ICD-10-PCS; 2017-01-17)
PROC: 5A1955Z Respiratory Ventilation, Greater than 96 Consecutive Hours (ICD-10-PCS; principal; 2017-01-26)
PROC: 03HY32Z Insertion of Monitoring Device into Upper Artery, Percutaneous Approach (ICD-10-PCS; 2017-01-26)
PROC: 0BH17EZ Insertion of Endotracheal Airway into Trachea, Via Natural or Artificial Opening (ICD-10-PCS; 2017-01-26)
DX: J96.90 Respiratory failure, unspecified, unspecified whether with hypoxia or hypercapnia (principal); J69.0 Pneumonitis due to inhalation of food and vomit; J15.6 Pneumonia due to other Gram-negative bacteria; I50.23 Acute on chronic systolic (congestive) heart failure; A41.9 Sepsis, unspecified organism; I47.2 Ventricular tachycardia; N17.9 Acute kidney failure, unspecified; J96.91 Respiratory failure, unspecified with hypoxia; I48.91 Unspecified atrial fibrillation; I27.2 Other secondary pulmonary hypertension; I11.0 Hypertensive heart disease with heart failure; I25.5 Ischemic cardiomyopathy; I25.10 Atherosclerotic heart disease of native coronary artery without angina pectoris; R11.10 Vomiting, unspecified; I69.391 Dysphagia following cerebral infarction; I69.322 Dysarthria following cerebral infarction; E78.5 Hyperlipidemia, unspecified; M19.049 Primary osteoarthritis, unspecified hand; H91.90 Unspecified hearing loss, unspecified ear; K21.9 Gastro-esophageal reflux disease without esophagitis; I25.2 Old myocardial infarction; Z66 Do not resuscitate; Z51.5 Encounter for palliative care; Z79.01 Long term (current) use of anticoagulants; Z88.0 Allergy status to penicillin; Z88.5 Allergy status to narcotic agent; Z85.72 Personal history of non-Hodgkin lymphomas; Z87.891 Personal history of nicotine dependence; Z91.19 Patient's noncompliance with other medical treatment and regimen; Z92.21 Personal history of antineoplastic chemotherapy; Z95.5 Presence of coronary angioplasty implant and graft; Z95.810 Presence of automatic (implantable) cardiac defibrillator
CPT/HCPCS: 31500; 36556; 36600; 51702; 71010; 74176; 74230; 76937; 80048; 80053; 80202; 81001; 82550; 82805; 82948; 83605; 83735; 83880; 84100; 84484; 85025; 85027; 85610; 87040; 87070; 87077; 87086; 87186; 87205; 87641; 93005; 93306; 94002; 94003; 94640; 94664; 94667; 96365; 96375; C9113; J0131; J0330; J1815; J1940; J1956; J2250; J2270; J3370; J3475; J7030; J7050